=== PATIENT | female | born 1935 | race Caucasian/White ===

== ENCOUNTER 2019-09-13 12:13 | Outpatient (CLI) | payer MEDICARE, SELFPAY ==
--- NOTE | ~2019-09-13 | XR_ITS ---
XR cervical spine 4-5V DATE: 09/13/2019 12:45 INDICATION: Neck pain TECHNIQUE: AP, lateral, swimmer's, open-mouth COMPARISON: None FINDINGS: Osteopenia. There is straightening of the cervical spine. C1 and C2 are normally aligned and the odontoid process is intact. No fracture or dislocation or lock ed facet or prevertebral soft tissue swelling. There is mild anterolisthesis and mild degenerative disc disease at C3-4. There is moderately severe degenerative disc disease at C4-5 There is severe degenerative disease at C5-6 and C6-7, with prominent anterior and posterior spurring . There is prominent uncovertebral joint spurring in the mid and lower cervical spine and degenerative change of the apophyseal joints throughout the cervical spine. IMPRESSION: Straightening Extensive degenerative changes Osteopenia. Reviewed, dictated and finalized at location B. TIZER
== END 2019-09-13 12:14 | disposition home or self-care (01) ==
LOC: ANHIMG 12:22
DX: M54.2 Cervicalgia (principal); M85.88 Other specified disorders of bone density and structure, other site
CPT/HCPCS: 72050

== ENCOUNTER 2021-07-05 10:01 | Outpatient (CLI) | payer MEDICARE, SELFPAY ==
--- NOTE | ~2021-07-05 | XR_ITS ---
EXAMINATION: XR ankle LT min 3V DATE: 07/05/2021 10:30 INDICATION: Left ankle pain. TECHNIQUE: 3 views of left ankle with weightbearing were obtained. COMPARISON: Left ankle radiographs 08/23/2018 FINDINGS: Pes planus is noted. There is chronic inversion of the ankle joint. No fracture. There is s evere osteoarthritis of tibiotalar joint and subtalar joint and mild to moderate osteoarthritis of so me of the midfoot joints. IMPRESSION: 1. Polyarticular osteoarthritis. 2. Pes planus. Reviewed, dictated and finalized at location A. MP CLEANER
--- NOTE | ~2021-07-05 | XR_ITS ---
EXAMINATION: XR ankle RT min 3V DATE: 07/05/2021 10:30 INDICATION: Right ankle pain. TECHNIQUE: 3 views of right ankle weightbearing were obtained. COMPARISON: None. FINDINGS: Bone alignment is normal. There is flattening of talar dome. There is heterotopic ossificat ion lateral to lateral malleolus. There is moderate osteoarthritis of ankle joint and severe osteoart hritis of subtalar joint. Ankle soft tissue swelling is noted. IMPRESSION: 1. Flattening of the talar dome, which may be an old fracture deformity or osteonecrosis. 2. Polyarticular osteoarthritis. Reviewed, dictated and finalized at location A. E PRESS OPERATOR IMPRESSION: 1. Flattening of the talar dome, which may be an old fracture deformity or oste onecrosis. 2. Polyarticular osteoarthritis.
== END 2021-07-05 10:02 | disposition home or self-care (01) ==
PROVIDERS: PCP Hospitalist; Visit Provider Podiatrist Foot & Ankle Surgery
DX: M25.571 Pain in right ankle and joints of right foot (principal); M25.572 Pain in left ankle and joints of left foot; M19.072 Primary osteoarthritis, left ankle and foot; M19.071 Primary osteoarthritis, right ankle and foot; M21.42 Flat foot [pes planus] (acquired), left foot
CPT/HCPCS: 73610

== ENCOUNTER 2022-10-19 08:36 | Outpatient (CLI) | payer MEDICARE, SELFPAY ==
--- NOTE | ~2022-10-19 | MM_ITS ---
EXAMINATION: MM screening kylie BI w skylar HISTORY: Screening mammogram TECHNIQUE: Craniocaudal and mediolateral oblique 3-D tomosynthesis images were obtained and synthetic 2-D images were generated. CAD analysis was submitted and interpreted. COMPARISON: No prior mammogram is available for comparison at this institution. BREAST PARENCHYMAL COMPOSITION: The breasts are heterogeneously dense, which may obscure small masses . FINDINGS: There is no evidence of suspicious mass, calcification, or architectural distortion to sugg est malignancy in either breast. There has been no suspicious interval change. IMPRESSION: 1. No mammographic evidence of malignancy. 2. Recommend routine screening mammography in one year. BI-RADS Category 1: Negative Reviewed, dictated and finalized at location B.
== END 2022-10-19 08:37 | disposition home or self-care (01) ==
LOC: ANHIMG 08:43
PROVIDERS: PCP Hospitalist
DX: Z12.31 Encounter for screening mammogram for malignant neoplasm of breast (principal)
CPT/HCPCS: 77063; 77067

== ENCOUNTER 2023-12-11 11:57 | Observation (INO) | payer MEDICARE, SELFPAY ==
[2023-12-11] VITALS (22 sets, daily range): BP systolic 98–152; BP diastolic 72–110; PULSE 87–163; RESP 16–23; TEMP 36.3–36.6; O2SAT 93–98; BMI 29.8
--- NOTE | ~2023-12-11 | XR_ITS ---
EXAMINATION: XR chest 2V DATE: 12/11/2023 12:33 INDICATION: Palpitations. TECHNIQUE: Frontal and lateral views of the chest were obtained. COMPARISON: None. FINDINGS: There are airspace opacities in right lower lung zone. No pleural effusion or pneumothorax. The heart size is normal. Surgical clips in the right upper quadrant are likely from cholecystectomy . IMPRESSION: 1. Airspace opacities in right lower lung zone, consistent with atelectasis versus pneumonia. Reviewed, dictated and finalized at location A. IMPRESSION: 1. Airspace opacities in right lower lung zone, consistent with atelectasis arvin nkechi pneumonia.
--- NOTE | 2023-12-11 12:11 | ECG_ITS ---
SEE SCANNED COPY FOR CONFIRMED REPORT MTDD
[2023-12-11 12:52] LABS: Basophils Absolute Auto 0.1 K/mm3 (0.0-0.1); Basophils Percent Auto 0.5 % (0.2-1.2); Eosinophils Absolute Auto 0.1 K/mm3 (0-0.3); Eosinophils Percent Auto 1.5 % (0-4.4); Hematocrit 44.2 % (37.0-47.0); Immature Granulocyte Absolute 0.04 K/mm3 (0.00-0.031); Immature Granulocyte Percent A 0.4 % (0-0.5); Lymphocytes Absolute Auto 2.18 K/mm3 (0.9-3.2); Lymphocytes Percent Auto 22.9 % (18.3-44.2); Mean Corpuscular HGB Conc 31.7 g/dl (32-36); Mean Corpuscular Hemoglobin 30.7 pg (26-34); Mean Corpuscular Volume 96.9 fl (80-100); Mean Platelet Volume 11.7 fl (7.4-10.4); Monocytes Absolute Auto 0.9 K/mm3 (0.1-0.6); Monocytes Percent Auto 9.6 % (2.6-8.5); Neutrophils Absolute Auto 6.2 K/mm3 (1.3-6.7); Neutrophils Percent Auto 65.1 % (45.5-73.1); Platelet Count Result 271 k/mm3 (150-375); Red Blood Count 4.56 M/mm3 (4.2-5.4); Red Cell Distribution Width 13.6 % (11.5-14.5); White Blood Count 9.5 K/mm3 (4.5-10.0)
[2023-12-11] MEDS: ASPIRIN 81 MG CHEWABLE TABLET 324 MG PO (13:09)
[2023-12-11 13:12] LABS: INR 0.9; Prothrombin Time 12.2 Seconds (11.1-14.7)
[2023-12-11 13:13] LABS: Partial Thromboplastin Time 24.3 Seconds (22.3-36.8)
[2023-12-11 13:25] LABS: Alanine Aminotransferase 24 U/L (6-35); Albumin Level 4.3 g/dL (3.5-5.1); Alkaline Phosphatase 75 U/L (38-126); Anion Gap 5 mmol/L (4-12); Aspartate Amino Transferase 27 U/L (14-36); Bilirubin,Total 0.8 mg/dL (0.2-1.3); Blood Urea Nitrogen 27 mg/dL (7-17); Calcium 9.3 mg/dL (8.4-10.2); Carbon Dioxide 27 mmol/L (22-30); Chloride 104 mmol/L (98-107); Estimated CRCL calculation 41 ml/min; Estimated Glomerular Filt Rate 59; Glucose 105 mg/dL (65-110); Lipase 69 U/L (23-300); Potassium 4.4 mmol/L (3.4-5.0); Sodium 136 mmol/L (137-145)
[2023-12-11 13:43] LABS: Troponin I < 0.012 ng/mL (0.000-0.034)
[2023-12-11] MEDS: dilTIAZem HCl INJ 25 MG/5 ML VIAL 10 MG IV PUSH ×2 (13:52→14:36)
[2023-12-11] MEDS: dilTIAZem 100 MG/100 ML 100 MG/100 ML BAG IV CONT (13:53)
--- NOTE | 2023-12-11 14:00 | ED.ARRPALP ---
HPI - Arrhythmia/Palpitations General Chief Complaint: Arrhythmia/Palpitations Stated Complaint: fast heart rate Time Seen by Provider: 12/11/23 13:17 History of Present Illness HPI narrative: 88-year-old female with no prior history of atrial fibrillation presented to the emergency department for evaluation for rapid heart rate over the last few days. Patient states that she has had no lightheaded dizziness chest pain or shortness of breath but has noticed a rapid heart rate. Patient has no prior history of coronary artery disease has no prior history of AFib with RVR. Related Data Home Medications Medication Instructions Recorded Confirmed amlodipine 5 mg tablet 5 mg PO DAILY 12/11/23 12/11/23 aspirin 81 mg tablet 81 mg PO HS 12/11/23 12/11/23 cholecalciferol (vitamin D3) 25 1,500 unit PO WEEKLY 12/11/23 12/11/23 mcg (1,000 unit) tablet (Vitamin D3) cranberry 400 mg capsule 400 mg PO DAILY 12/11/23 12/11/23 famotidine 20 mg tablet 20 mg PO HS 12/11/23 12/11/23 hydrochlorothiazide 25 mg tablet 25 mg PO DAILY 12/11/23 12/11/23 mag citrate-potassium citrate 400 mg PO DAILY 12/11/23 12/11/23 potassium chloride 10 mEq 20 meq PO DAILY 12/11/23 12/11/23 tablet,extended release rosuvastatin 5 mg tablet 5 mg PO HS 12/11/23 12/11/23 triamcinolone acetonide 0.1 % applic topical 12/11/23 topical cream turmeric 400 mg capsule 400 mg PO DAILY 12/11/23 12/11/23 Allergies Allergy/AdvReac Type Severity Reaction Status Date / Time cephalexin Allergy Rash Verified 12/11/23 16:11 clindamycin Allergy Rash Verified 12/11/23 16:11 Review of Systems Review of Systems: All systems reviewed & are unremarkable except as noted in HPI and below PMFSH Past Medical History Medical History (Updated 12/11/23 @ 16:24 by Leigh Ann Milton PA-C) Dyslipidemia Hypertension Kidney stones Osteoarthritis Shingles Skin cancer Surgical History Surgical History (Updated 12/11/23 @ 16:10 by Leigh Ann Milton PA-C) History of cataract extraction History of cholecystectomy History of hysterectomy Social History Social History (Updated 12/11/23 @ 16:10 by Leigh Ann Milton PA-C) Social History: Surrogate medical decision maker: Jose Atkins, spouse. Code status: Full code. Years smoked: 25 Smoking status: Former smoker Tobacco type: cigarettes Second hand tobacco smoke exposure: Yes Alcohol intake: current Drinks per week: 3 Substance use: never Substance use type: does not use Do You Feel Safe in your Home?: Yes Lack of Transportation: No Lack of Food: Never True Current Housing: I Have Housing Concerned About Future Housing: No Difficulty Paying Gas/Electric Bills: No Difficulty Paying for Meds: No Currently Unemployed: No Education: High School Diploma/GED Difficulty w/ Childcare or Family Care: No Spiritual care concerns: No (anabaptist) Exam Narrative: APPEARANCE: Well appearing, no pain, no distress, well-nourished. HEAD: normocephalic, atraumatic. EYES: PERRLA/EOMI, conjunctivae clear. NOSE: Normal no drainage EARS:TMS clear with good light reflex. THROAT: Pharynx clear, no exudate. NECK: Supple. No adenopathy, no masses. RESPIRATORY: Airway patent, respirations nonlabored. Clear to auscultation bilaterally, no rales, rhonchi, wheezing. CARDIOVASCULAR: AFib with RVR ABDOMINAL: Soft, nontender, nondistended, normal bowel sounds MUSCULOSKELETAL: Moves all extremities. Strength/ROM intact, No edema, No calf tenderness. NEURO: Alert. Cranial nerves II through XII intact. Grossly intact Course Vital Signs Vital signs: Vital Signs Temperature 97.3 F L 12/11/23 12:08 Pulse Rate 163 H 12/11/23 12:08 Respiratory Rate 16 12/11/23 12:08 Blood Pressure 141/89 H 12/11/23 12:08 Pulse Oximetry 98 12/11/23 12:08 Oxygen Delivery Room Air 12/11/23 12:08 Temperature 97.4 F L 12/11/23 16:15 Pulse Rate 156 H 12/11/23 17:18 Respiratory Rate 1
[2023-12-11 14:17] LABS: Magnesium 2.1 mg/dL (1.6-2.3)
--- NOTE | 2023-12-11 16:08 | PM.IMHP ---
H&P: HPI History of Present Illness Date/Time: 12/11/23 17:45 Chief Complaint: Palpitations and rapid heart rate. Narrative: This is a very pleasant 88-year-old female with history of hypertension, dyslipidemia, gastroesophageal reflux disease, kidney stones, and osteoarthritis who presented to the emergency department for evaluation of palpitations and rapid heart rate. The patient provides the following history. The last several days she has noticed that her heart rate has been in the 140s when she has been checking her blood pressure. She feels her heart rate going fast and it feels irregular. To her knowledge she has no history of atrial fibrillation however she tells me that a visiting nurse with her insurance company told her several weeks ago that she was in the regular heart rhythm. 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 She thinks the stress of all of this may be the cause of her rapid heart rate. She is otherwise feeling okay and she denies lightheadedness, dizziness, syncope, near syncope, chest pain, pleuritic pain, orthopnea, paroxysmal nocturnal dyspnea, and edema. She has no known history of dysrhythmia, obstructive sleep apnea, coronary disease, or thyroid disease. No significant alcohol or caffeine use. She denies illicit substance use. In the ED: She was in rapid atrial fibrillation on arrival with a rate of 163. Blood pressures have been in the 130s to 140s systolic. Labs were significant for a WBC count of 9.5, hemoglobin 14.0, sodium 136, potassium 4.4, BUN 27, creatinine 0.90, calcium 9.3, magnesium 2.1, troponin less than 0.012. Chest x-ray was read as having airspace opacities the right lower lung zone consistent with atelectasis versus pneumonia. EKG showed rapid atrial fibrillation. She received a 20 mg IV Cardizem bolus and has been started on a Cardizem drip and she is being admitted in this setting for further treatment and evaluation. Review of Systems Review of Systems: 12 systems were reviewed and are negative except for as per HPI. [facility] Past Medical History Medical History Dyslipidemia Hypertension Kidney stones Osteoarthritis Shingles Skin cancer Surgical History Surgical History History of cataract extraction History of cholecystectomy History of hysterectomy Social History Social History Social History: Surrogate medical decision maker: Jose Atkins, spouse. Code status: Full code. Years smoked: 25 Smoking status: Former smoker Tobacco type: cigarettes Second hand tobacco smoke exposure: Yes Alcohol intake: current Drinks per week: 3 Substance use: never Substance use type: does not use Do You Feel Safe in your Home?: Yes Lack of Transportation: No Lack of Food: Never True Current Housing: I Have Housing Concerned About Future Housing: No Difficulty Paying Gas/Electric Bills: No Difficulty Paying for Meds: No Currently Unemployed: No Education: High School Diploma/GED Difficulty w/ Childcare or Family Care: No Spiritual care concerns: No (samaritan) Meds Home Medications and Allergies Home Medications Medication Instructions Recorded Confirmed Type amlodipine 5 mg tablet 5 mg PO DAILY 12/11/23 12/11/23 History aspirin 81 mg tablet 81 mg PO HS 12/11/23 12/11/23 History cholecalciferol (vitamin D3) 25 1,500 unit PO WEEKLY 12/11/23 12/11/23 History mcg (1,000 unit) tablet (Vitamin D3) cranberry 400 mg capsule 400 mg PO DAILY 12/11/23 12/11/23 History famotidine 20 mg tablet 20 mg PO HS 12/11/23 12/11/23 History hydrochlorothiazide 25 mg tablet 25 mg PO DAILY 12/11/23 12/11/23 History mag citrate-potassium citrate 400 mg PO DAILY 12/11/23
[2023-12-11 16:27] LABS: Troponin I < 0.012 ng/mL (0.000-0.034)
--- NOTE | 2023-12-11 16:31 | ADMGEN ---
This patient, Kelly Bar, was admitted to IMU Room 202-01. Patient/family oriented to hospital policies and general routines including ID bracelet, bed and alarms, visiting hours, pain management, procedures, bathroom and other care routines, personal items, smoking policy, room service/diet, and visiting hours. Information on how to activate the Rapid Response Team has been discussed. Patient/Family are encouraged to report perceived risks to care and to ask questions if they do not understand what they are told or what they should do.
--- NOTE | 2023-12-11 16:37 | ADMGEN ---
This patient, Kelly Bar, was admitted to IMU Room 202-01. Patient/family oriented to hospital policies and general routines including ID bracelet, bed and alarms, visiting hours, pain management, procedures, bathroom and other care routines, personal items, smoking policy, room service/diet, and visiting hours. Information on how to activate the Rapid Response Team has been discussed. Patient/Family are encouraged to report perceived risks to care and to ask questions if they do not understand what they are told or what they should do. Pt in AFib w RVR. Asymptomatic. WILEY Beltrán notified pt is still in RVR. She is coming to the unit to see pt
[2023-12-11] MEDS: METOPROLOL TARTRATE INJ 5 MG/5 ML VIAL IV PUSH (17:18)
[2023-12-11 18:57] LABS: Troponin I < 0.012 ng/mL (0.000-0.034)
[2023-12-11] MEDS: METOPROLOL TARTRATE 50 MG TAB PO (21:37)
[2023-12-11] MEDS: dilTIAZem 100 MG/100 ML 100 MG/100 ML BAG 10 MG IV CONT (21:38)
[2023-12-11] MEDS: ASPIRIN 81 MG CHEWABLE TABLET PO (23:00)
[2023-12-11] MEDS: FAMOTIDINE 20 MG TABLET PO (23:00)
[2023-12-11] MEDS: ROSUVASTATIN 5 MG TABLET PO (23:00)
[2023-12-12] VITALS (20 sets, daily range): BP systolic 98–127; BP diastolic 58–95; PULSE 82–140; RESP 19–21; TEMP 36.3–36.6; O2SAT 94–97
--- NOTE | 2023-12-12 | ECHO_ITS ---
Patient Info Name: Kelly Bar Age: 88 years : 1935 Gender: Female Ht: 65 in Wt: 179 lbs BSA: 1.95 m2 HR: 106 bpm BP: 116 / 90 mmHg Heart Rhythm: Atrial Fibrillation Technical Quality: Fair Exam Date: 12/12/2023 9:24 AM Exam Location: Echo Lab Patient Status: Inpatient Admit Date: 12/11/2023 Staff Ordering Physician: Leigh Ann Milton PA-C Supervisor Insecticide: Rogelio Burr RDCS Attending Provider: Candy Guaman MD Referring Physician: Yoan NINO; Exam Type: CA echo doppler color flow Study Info Indications I48.1 - Persistent atrial fibrillation Complete two-dimensional, color flow and Doppler transthoracic echocardiogram is performed. Summary 1. Left ventricular chamber dimension is normal. 2. Left ventricular systolic function is lower limits of normal, estimated at 50-55%. 3. Right ventricular systolic function is normal. 4. Left atrial chamber dimension is moderately enlarged. 5. Right atrial chamber dimension is severely enlarged. 6. There is mild mitral valve regurgitation. 7. There is moderate tricuspid valve regurgitation. Left Ventricle Left ventricular chamber dimension is normal. Left ventricular systolic function is lower limits of normal, estimated at 50-55%. There is no increased left ventricular wall thickness. Right Ventricle Right ventricular chamber dimension is normal. Right ventricular systolic function is normal. Left Atria Left atrial chamber dimension is moderately enlarged. Right Atria Right atrial chamber dimension is severely enlarged. Atrial Septum Intact interatrial septum visualized by color flow imaging. Aortic Valve The aortic valve is trileaflet. There is no aortic valve stenosis. There is no aortic valve regurgitation. Pulmonic Valve The pulmonic valve is not well visualized. There is trace pulmonic regurgitation. Mitral Valve There is mild mitral valve regurgitation. Tricuspid Valve There is moderate tricuspid valve regurgitation. Pericardium/Pleural The pericardium appears epicardial fat pad. There is no pericardial effusion. Inferior Vena Cava Normal inferior vena cava with >50% collapse upon inspiration consistent with normal right atrial pressure, 3 mmHg. Aorta The aortic root size at the sinus of Valsalva is normal. Left Ventricular Outflow Tract Name Value Normal LVOT 2D LVOT Diameter 1.9 cm LVOT Doppler LVOT Peak Gradient 1 mmHg LVOT Mean Gradient 1 mmHg LVOT VTI 9 cm LVOT VTI/AV VTI Ratio 0.7 LVOT Stroke Volume 28 ml LVOT CO 2.1 l/min LVOT CI 1.1 l/min/m2 Pulmonic Valve Name Value Normal RVOT Doppler RVOT Peak Gradient 1 mmHg PV Doppler
[2023-12-12] MEDS: ACETAMINOPHEN 325 MG TABLET 650 MG PO (02:56)
[2023-12-12 04:49] LABS: Hematocrit 39.6 % (37.0-47.0); Hemoglobin 12.6 g/dL (12.0-15.0); Mean Corpuscular HGB Conc 31.8 g/dl (32-36); Mean Corpuscular Hemoglobin 30.8 pg (26-34); Mean Corpuscular Volume 96.8 fl (80-100); Mean Platelet Volume 11.6 fl (7.4-10.4); Platelet Count Result 221 k/mm3 (150-375); Red Blood Count 4.09 M/mm3 (4.2-5.4); Red Cell Distribution Width 13.5 % (11.5-14.5); White Blood Count 7.8 K/mm3 (4.5-10.0)
[2023-12-12 05:06] LABS: Anion Gap 3 mmol/L (4-12); Blood Urea Nitrogen 20 mg/dL (7-17); Calcium 8.7 mg/dL (8.4-10.2); Carbon Dioxide 28 mmol/L (22-30); Chloride 107 mmol/L (98-107); Estimated CRCL calculation 47 ml/min; Estimated Glomerular Filt Rate > 60; Glucose 101 mg/dL (65-110); Magnesium 1.9 mg/dL (1.6-2.3); Potassium 3.6 mmol/L (3.4-5.0); Sodium 138 mmol/L (137-145)
[2023-12-12] MEDS: ENOXAPARIN 80 MG/0.8 ML SYRINGE SUB-Q (05:11)
--- NOTE | 2023-12-12 08:02 | PM.IMPN ---
Progress Note: A&P Assessment and Plan (1) Atrial fibrillation with rapid ventricular response: Code(s): I48.91 - Unspecified atrial fibrillation Status: Acute Assessment and Plan: AFib with RVR on arrival with rate in the 160s -initially was bolused with Cardizem and started on a Cardizem drip -She was started on p.o. metoprolol tartrate 50 mg b.i.d. -chads Vasc 4. Started on Eliquis. -cardiology has been consulted, recs appreciated -on telemetry -echo completed, pending read -TSH normal at 1.070 (2) Hypertension: Code(s): I10 - Essential (primary) hypertension Status: Acute Assessment and Plan: Takes amlodipine 5 mg and hydrochlorothiazide 25 mg daily -blood pressures reviewed and arranging 98 to 150s/90s to 70s -home agents are currently on hold -started on metoprolol 50 mg b.i.d. -cardiology increased metoprolol to 75 mg BID (3) Dyslipidemia: Code(s): E78.5 - Hyperlipidemia, unspecified Status: Acute Assessment and Plan: On Crestor 5 mg daily and aspirin Plan Feeding: Heart healthy diet Analgesia: Tylenol Thromboembolic prophylaxis: Lovenox Ulcer prophylaxis: Pepcid Glycemic control: None indicated Bowel regimen: None indicated Antibiotics: None indicated Disposition: Home when medically ready. Care coordination to assist with initiation of Eliquis Subjective Date/time seen: 12/12/23 08:02 Interval history: 88-year-old female with history of hypertension, dyslipidemia, gastroesophageal reflux disease, kidney stones, and osteoarthritis who presented to the emergency department for evaluation of palpitations and rapid heart rate. 12/11: Mrs Bar was seen today up in the chair in no acute distress. She is tolerating the increase in her metoprolol. She was started on Eliquis. I spoke with her today regarding bleeding side effects associated with Eliquis and symptoms to monitor for. She has no complaints today and she is no longer experience heart flutter. Review of Systems Review of Systems: 12 systems were reviewed and are negative except for as per HPI. All systems reviewed & are unremarkable except as noted in HPI and below Exam Narrative: General: well appearing, appears stated age. HEENT: normocephalic, atraumatic. Mucous membranes moist. EOMI, PERRLA, bilateral sclera anicteric, no conjunctival injection. Neck supple without JVD, lymphadenopathy, or bruit. Respiratory: clear to auscultation bilaterally. No rales/rhonic/wheezes. Cardiovascular: irregular rhythm and rate 120's, normal S1-S2 upon auscultation. No murmurs, rubs, or clicks. PMI is nondisplaced, capillary refill less than 3 second. Abdomen: Soft, round, no pulsatile masses, nondistended and nontender. No rebound, no guarding. No CVA tenderness, no hepatosplenomegaly. Bowel sounds present to all four quadrants. No high pitch or tinkling sounds, resonant to percussion. Extremities: No cyanosis, clubbing, or edema present. Pulses are palpable 2/2. Active ROM to all four extremities. Neuro: Alert and orientated x 4. PERRLA. Cranial nerves 2-12 intact without focal deficit. Skin: Warm, dry, and intact, without rash, erythema, or lesion. Lines: Incisions: Psych: pleasant, cooperative, normal speech, normal affect, no hallucinations, no dysarthria Objective Data Vital Signs Vital Signs: Vital Signs - 24 hr 12/11/23 12:08 12/11/23 13:53 12/11/23 12:34 Temperature 97.3 F L Pulse Rate 163 H 152 H 158 H Respiratory Rate 16 21 H Blood Pressure 141/89 H 149/96 H 144/110 H Pulse Oximetry 98 95 Oxygen Delivery Room Air 12/11/23 12:38 12/11/23 13:01 12/11/23 14:27 Temperature Pulse Rate 153 H 152 H 158 H Respiratory Rate 23 H 19 Blood Pressure 133/88 139/103 H 120/92 H Pulse Oximetry 95 94 Oxygen Delivery 12/11/23 15:21 12/11/23 14:31 12/11/23 15:31 Temperature 97.9 F Pulse Rate 160 H 153 H 159 H Respiratory Rate 18 19 Blood Pressure 1
[2023-12-12] MEDS: POTASSIUM CHLORIDE 20 MEQ ER TABLET PO (08:42)
[2023-12-12] MEDS: METOPROLOL TARTRATE 50 MG TAB PO (08:42)
--- NOTE | 2023-12-12 11:45 | PM.CNCAR ---
Assessment and Plan Assessment and plan (1) Atrial fibrillation with rapid ventricular response: Code(s): I48.91 - Unspecified atrial fibrillation Status: Acute Assessment and Plan: New diagnosis for the patient. Discussed diagnosis of atrial fibrillation with the patient, including next management steps. TSH level is normal. Echocardiogram pending. Will proceed with rate control for now. Agree with PO Metoprolol. Will increase her Metoprolol to 75mg BID to optimize her rate. [id number] is 4 for age, sex, hypertension. Discussed indication for anticoagulation to reduce stroke risk, and the benefits vs risks of anticoagulation. Patient is agreeable to start anticoagulation. Will stop therapeutic Lovenox and start Eliquis. Hopefully discharge tomorrow. Will arrange close outpatient follow up in our office. Patient would like to see Dr. Walter as her sees him and it would make it easier to do visits. If patient has symptomatic AFIB, can consider outpatient elective cardioversion after patient has been anticoagulated for at least 4 weeks. (2) Hypertension: Code(s): I10 - Essential (primary) hypertension Status: Acute Assessment and Plan: Stable, continue home antihypertensives. (3) Dyslipidemia: Code(s): E78.5 - Hyperlipidemia, unspecified Status: Acute Assessment and Plan: Continue statin. Plan Recommendations and plan discussed with Hospitalist. History of Present Illness History of Present Illness Consult date/time: 12/12/23 11:45 Requesting physician: Leigh Ann Milton PA-C Consult reason: atrial fibrillation Reason For Visit: Afib With RVR Narrative: We are consulted for atrial fibrillation with RVR. This is a very pleasant 88 year old female with hypertension, hyperlipidemia, GERD, kidney stones, osteoarthritis who presented to the ER for palpitations. Patient has been feeling palpitations and rapid heart beat for the past 2-3 days. No prior cardiac history. She did have a nurse come to her house about 2 weeks ago and was told that she had an irregular heart rhythm then. Patient is quite an active lady and stays busy, hasn't really noticed palpitations other than the past few days. In the ER, she was found to be in atrial fibrillation with RVR. Started on Diltiazem drip, which has since been turned off and is now on PO Metoprolol. Review of Systems Review of Systems: All systems reviewed & are unremarkable except as noted in HPI and below (HPI) [facility] Past Medical History Medical History Dyslipidemia Hypertension Kidney stones Osteoarthritis Shingles Skin cancer Surgical History Surgical History History of cataract extraction History of cholecystectomy History of hysterectomy Social History Social History Social History: Surrogate medical decision maker: Jose Cumminsntyre, spouse. Code status: Full code. Years smoked: 25 Smoking status: Former smoker Tobacco type: cigarettes Second hand tobacco smoke exposure: Yes Alcohol intake: current Drinks per week: 3 Substance use: never Substance use type: does not use Do You Feel Safe in your Home?: Yes Lack of Transportation: No Lack of Food: Never True Current Housing: I Have Housing Concerned About Future Housing: No Difficulty Paying Gas/Electric Bills: No Difficulty Paying for Meds: No Currently Unemployed: No Education: High School Diploma/GED Difficulty w/ Childcare or Family Care: No Spiritual care concerns: No (islam) Meds Home Medications and Allergies Home Medications Medication Instructions Recorded Confirmed Type amlodipine 5 mg tablet 5 mg PO DAILY 12/11/23 12/11/23 History aspirin 81 mg tablet 81 mg PO HS 12/11/23 12/11/23 History cholecalciferol (vitamin D3) 25 1,500 u
[2023-12-12] MEDS: METOPROLOL TARTRATE 25 MG TABLET 75 MG PO (21:26)
[2023-12-12] MEDS: ASPIRIN 81 MG CHEWABLE TABLET PO (21:26)
[2023-12-12] MEDS: ROSUVASTATIN 5 MG TABLET PO (21:26)
[2023-12-12] MEDS: APIXABAN 5 MG TABLET PO (21:27)
[2023-12-12] MEDS: FAMOTIDINE 20 MG TABLET PO (21:27)
[2023-12-13] VITALS (13 sets, daily range): BP systolic 98–108; BP diastolic 66–77; PULSE 81–117; RESP 17–19; TEMP 36.4–36.8; O2SAT 93–98
[2023-12-13 04:55] LABS: Alanine Aminotransferase 32 U/L (6-35); Albumin Level 3.2 g/dL (3.5-5.1); Alkaline Phosphatase 57 U/L (38-126); Anion Gap 4 mmol/L (4-12); Aspartate Amino Transferase 27 U/L (14-36); Bilirubin,Total 0.6 mg/dL (0.2-1.3); Blood Urea Nitrogen 24 mg/dL (7-17); Calcium 8.4 mg/dL (8.4-10.2); Carbon Dioxide 26 mmol/L (22-30); Chloride 107 mmol/L (98-107); Estimated CRCL calculation 47 ml/min; Estimated Glomerular Filt Rate > 60; Glucose 95 mg/dL (65-110); Magnesium 1.9 mg/dL (1.6-2.3); Potassium 3.5 mmol/L (3.4-5.0); Sodium 137 mmol/L (137-145)
[2023-12-13] MEDS: POTASSIUM CHLORIDE 20 MEQ ER TABLET PO (08:44)
[2023-12-13] MEDS: METOPROLOL TARTRATE 25 MG TABLET 75 MG PO (08:44)
[2023-12-13] MEDS: APIXABAN 5 MG TABLET PO (08:45)
[2023-12-13] MEDS: METOPROLOL TARTRATE 25 MG TABLET PO (10:48)
--- NOTE | 2023-12-13 10:58 | PM.PNCARD ---
Progress Note: A&P Assessment and Plan (1) Atrial fibrillation with rapid ventricular response: Code(s): I48.91 - Unspecified atrial fibrillation Status: Acute Assessment and Plan: New diagnosis for the patient. Discussed diagnosis of atrial fibrillation with the patient, including next management steps. TSH level is normal. Echocardiogram with LVEF 50-55%, severe enlargement of right atrium, moderate enlargement of left atrium, mild MR, moderate TR. Will proceed with rate control for now. Agree with PO Metoprolol. Increased her Metoprolol to 100mg BID to optimize her rate. [id number] is 4 for age, sex, hypertension. Discussed indication for anticoagulation to reduce stroke risk, and the benefits vs risks of anticoagulation. Patient is agreeable to start anticoagulation. Started on Eliquis. Okay to discharge today. Will arrange close outpatient follow up in our office. Patient would like to see Dr. Walter as her sees him and it would make it easier to do visits. If patient has symptomatic AFIB, can consider outpatient elective cardioversion after patient has been anticoagulated for at least 4 weeks. (2) Hypertension: Code(s): I10 - Essential (primary) hypertension Status: Acute Assessment and Plan: Stable. Would not resume home HCTZ on discharge to avoid hypotension as patient is now on Metoprolol. (3) Dyslipidemia: Code(s): E78.5 - Hyperlipidemia, unspecified Status: Acute Assessment and Plan: Continue statin. Subjective Date/time seen: 12/13/23 10:58 Interval history: Reason for visit: Atrial fibrillation with RVR HPI: We are consulted for atrial fibrillation with RVR. This is a very pleasant 88 year old female with hypertension, hyperlipidemia, GERD, kidney stones, osteoarthritis who presented to the ER for palpitations. Patient has been feeling palpitations and rapid heart beat for the past 2-3 days. No prior cardiac history. She did have a nurse come to her house about 2 weeks ago and was told that she had an irregular heart rhythm then. Patient is quite an active lady and stays busy, hasn't really noticed palpitations other than the past few days. In the ER, she was found to be in atrial fibrillation with RVR. Started on Diltiazem drip, which has since been turned off and is now on PO Metoprolol. Date of service 12/12: Rates were elevated to 120s yesterday evening, but better now. Overall in general the rates are acceptable. Patient is anxious to get home. Patient is asymptomatic in regards to her AFIB. Review of Systems Review of Systems: All systems reviewed & are unremarkable except as noted in HPI and below (HPI) Exam Const: General: comfortable and no acute distress HENMT: Mouth: Yes moist mucous membranes Eyes: General: appearance normal, both eyes and all related structures Sclera: sclerae normal Resp: Effort & Inspection: normal respiratory effort Cardio: Rhythm: abnormal rhythm irregularly irregular Skin: General skin exam: normal color Neuro: Speech: normal speech Psych: Mental Status: mental status grossly normal Affect: normal affect Objective Data Vital Signs Vital Signs: Vital Signs - 24 hr 12/12/23 11:15 12/12/23 12:00 12/12/23 12:00 Temperature 36.3 C L Pulse Rate 113 H 125 H 125 H Respiratory Rate 20 Blood Pressure 105/58 L Pulse Oximetry 97 Oxygen Delivery Room Air 12/12/23 14:00 12/12/23 16:37 12/12/23 16:00 Temperature 36.3 C L Pulse Rate 98 82 118 H Respiratory Rate 20 Blood Pressure 105/69 Pulse Oximetry 97 Oxygen Delivery Room Air 12/12/23 16:00 12/12/23 18:00 12/12/23 19:55 Temperature 36.6 C Pulse Rate 96 100 118 H Respiratory Rate 20 Blood Pressure 110/74 Pulse Oximetry 96 Oxygen Delivery 12/12/23 21:26 12/12/23 20:00 12/12/23 22:00 Temperature Pulse Rate 140 H 126 H 123 H Respiratory Rate Blood Pressure Pulse Oximetry Oxygen Delive
--- NOTE | 2023-12-13 12:20 | PM.DS ---
DS: Admitting Diagnosis Discharge Date 12/13/23 Admitting Diagnosis Palpitations and rapid heart rate DS: Discharge Diagnosis Discharge Diagnosis (1) Atrial fibrillation with rapid ventricular response: Code(s): I48.91 - Unspecified atrial fibrillation Status: Acute (2) Hypertension: Code(s): I10 - Essential (primary) hypertension Status: Acute (3) Dyslipidemia: Code(s): E78.5 - Hyperlipidemia, unspecified Status: Acute DS: Summary Hospital Course Reason for hospitalization: 88yo female with HTN and dyslipidemia here for evaluation of palpitations and rapid heart rate. Please see H&P for details Hospital Course: Patient noted to have rapid atrial fibrillation on arrival with a rate of 163. Blood pressures was in the 130s to 140s systolic. Labs were unrevealing. Toponin less than 0.012 x3. TSH normal. Chest x-ray with airspace opacities the right lower lung zone consistent with atelectasis versus pneumonia. EKG showed rapid atrial fibrillation. She received a 20 mg IV Cardizem and was started on a Cardizem drip. Cardiology consulted. Echocardiogram with LVEF 50-55%, severe enlargement of right atrium, moderate enlargement of left atrium, mild MR, moderate TR. Diltiazem changed to Metoprolol with dose increased to 100mg BID to optimize her rate. [id number] is 4 for age, sex, hypertension. Indication for anticoagulation to reduce stroke risk was discussed. The benefits vs risks of anticoagulation were also discussed in detail. Patient was agreeable and Eliquis started. She overall did well and was able to be discharged home on 12/13/23. Status at Discharge Cognitive/behavioral status at discharge: stable Time Spent with Patient Time attestation: Total time spent providing and/or coordinating discharge services: 34 minutes Time spent: Greater than 30 minutes Exam Narrative: AF 98.0 98/67 81 18 98% ra Gen - NARD Chest - CTA bilaterally, nml RR CV - irregularly irregular. Tele showing AFib with controlled rate Abd - Soft, NT/ND, Positive BS Ext - No pedal edema Psych - Nml mood and affect Skin - Warm and dry DS: Data Data Completed and Pending Labs on day of discharge: Labs from last 24 hours 12/13/23 04:00 Sodium 137 Potassium 3.5 Chloride 107 Carbon Dioxide 26 Anion Gap 4 BUN 24 H Creatinine 0.80 Estim Creat Clear Calc 47 Estimated GFR > 60 Glucose 95 Calcium 8.4 Magnesium 1.9 Total Bilirubin 0.6 AST 27 ALT 32 Alkaline Phosphatase 57 Total Protein 6.0 L Albumin 3.2 L Discharge Plan Discharge Attending physician on discharge: Chito Traylor Consulting providers: Siddharth Walter Discharging Clinician: Chito Traylor Anticipated Discharge Date/Time: 12/13/23 12:29 Patient Disposition: Home, Self-Care Activity: as tolerated Diet: heart healthy Discharge Instructions: Check blood pressure 1 to 2 times a day. Record and bring into your doctor for review. Call your doctor if your blood pressure is greater than 180/110 or less than 90/45. Take precautions to avoid falls. Rise slowly from a lying or sitting position. Pause before standing or walking. Contact your doctor or call 911 and come to the Emergency Room if you have any type of trauma, lightheadedness with standing or other worrisome symptoms. Avoid NSAIDs (ibuprofen, naproxen, Aleve). Tylenol is safe to take. Follow-up with your primary care provider in 1-2 weeks. Please call for appointment. Follow-up with Cardiology in 1-2 weeks. The office should call you to set up an appointment but please call them if you have not heard from them by next Monday (December 17). Thank you for using [facility] for your health care needs. Patient Instructions: Antibiotic Form Stand Alone Forms: General Discharge Information Follow-up/Referrals: Siddharth Walter MD [Physician] - Call for Appointment Dior,Shraddha Hardin MD [
--- NOTE | 2023-12-18 13:36 | PC.NURSE ---
Pt left message regarding her HCTZ being held at [place]. PT states has had 6 pound weight gain since held. Spoke to Dr. Traylor regarding this. States to have pt call PCP for order to restart HCTZ. Med was held at dc due to low blood pressure. Left message for pt regarding the above.
== END 2023-12-13 13:10 | disposition home or self-care (01) ==
LOC: ANHED 15:02 → ANHIMU 15:46
PROVIDERS: Nurse Practitioner Acute Care; Physician Assistant; Admitting Provider Family Medicine; Emergency Provider Emergency Medicine; PCP Family Medicine Sports Medicine; Visit Provider Family Medicine
DX: I48.91 Unspecified atrial fibrillation (principal); I10 Essential (primary) hypertension; E78.5 Hyperlipidemia, unspecified; K21.9 Gastro-esophageal reflux disease without esophagitis; Z87.891 Personal history of nicotine dependence; Z79.82 Long term (current) use of aspirin
CPT/HCPCS: 36415; 71046; 80048; 80053; 83690; 83735; 84443; 84484; 85025; 85027; 85610; 85730; 93005; 93306; 96365; 96366; 96372; 99285; A9270; G0378; J1650; J7030

== ENCOUNTER 2024-01-24 01:07 | Day surgery (SDC) | payer MEDICARE, SELFPAY ==
[2024-01-23 10:20] VITALS: BMI 29.2
[2024-01-24] VITALS (7 sets, daily range): BP systolic 114–151; BP diastolic 79–119; PULSE 60–116; RESP 18–27; TEMP 36.8; O2SAT 93–100
--- NOTE | 2024-01-24 07:00 | ECG_ITS ---
Test Date: 2024-01-24 07:27:22 Measurements Intervals [place] Rate: 118 P: 0 [place]: 0 QRS: 59 QRSD: 77 T: 120 QT: 240 QTc: 337 Interpretive Statements ATRIAL FIBRILLATION WITH RAPID VENTRICULAR RESPONSE LOW QRS VOLTAGE [QRS DEFLECTION < 0.5/1.0 mV IN LIMB/CHEST LEADS] NONSPECIFIC ST AND T WAVE ABNORMALITY No previous ECG available for comparison Electronically Signed On 01-24-2024 14:47:06 CDT by Rosi Erazo M.D.
--- NOTE | 2024-01-24 07:00 | ECG_ITS ---
Test Date: 2024-01-24 08:47:01 Measurements Intervals [place] Rate: 58 P: 81 [place]: 173 QRS: 1 QRSD: 86 T: 57 QT: 406 QTc: 399 Interpretive Statements SINUS BRADYCARDIA WITH SINUS ARRHYTHMIA LOW QRS VOLTAGE [QRS DEFLECTION < 0.5/1.0 mV IN LIMB/CHEST LEADS] NONSPECIFIC ST AND T WAVE ABNORMALITY Compared to ECG 01/24/2024 07:27:22 SINUS BRADYCARDIA NOW PRESENT Electronically Signed On 01-24-2024 14:48:21 CDT by Rosi Erazo M.D.
[2024-01-24 07:47] LABS: Anion Gap 10 mmol/L (4-12); Blood Urea Nitrogen 31 mg/dL (7-17); Calcium 9.5 mg/dL (8.4-10.2); Carbon Dioxide 28 mmol/L (22-30); Chloride 103 mmol/L (98-107); Estimated CRCL calculation 35 ml/min; Estimated Glomerular Filt Rate 47; Glucose 103 mg/dL (65-110); Magnesium 2.1 mg/dL (1.6-2.3); Sodium 141 mmol/L (137-145)
--- NOTE | 2024-01-24 08:49 | WPDHPUPDATE1 ---
History and Physical Update Update Date/Time: 01/24/24 08:49 History and Physical has been reviewed, including an updated exam of the patient. There are NO changes in the patient's condition. Risks, benefits, and alternatives have been discussed and questions answered. Patient agrees to proceed with procedure.
--- NOTE | 2024-01-24 08:49 | WPDMODSED ---
Moderate Sedation Note-Pt Data Patient Data Diagnosis: Atrial fibrillation Present Complaint: Atrial fibrillation Procedure to be performed/Plan: Synchronized electrical cardioversion Allergies Allergy/AdvReac Type Severity Reaction Status Date / Time cephalexin Allergy Rash Verified 01/24/24 07:22 clindamycin Allergy Rash Verified 01/24/24 07:22 alendronate sodium AdvReac Unknown Verified 01/24/24 07:22 [From Fosamax] atorvastatin AdvReac Muscle Pain Verified 01/24/24 07:22 losartan AdvReac Unknown Verified 01/24/24 07:22 pravastatin AdvReac Muscle Pain Verified 01/24/24 07:22 Home Medications Medication Instructions Recorded Confirmed Type aspirin 81 mg tablet 81 mg PO HS 12/11/23 01/23/24 History cholecalciferol (vitamin D3) 25 1,500 unit PO WEEKLY 12/11/23 01/23/24 History mcg (1,000 unit) tablet (Vitamin D3) cranberry 400 mg capsule 400 mg PO DAILY 12/11/23 01/23/24 History famotidine 20 mg tablet 20 mg PO HS 12/11/23 01/23/24 History rosuvastatin 5 mg tablet 5 mg PO HS 12/11/23 01/23/24 History apixaban 5 mg tablet (Eliquis) 5 mg PO Q12HR #120 tabs 12/12/23 01/23/24 Rx cyanocobalamin (vitamin B-12) 100 100 mcg PO DAILY 01/23/24 01/23/24 History mcg tablet fluticasone propionate 50 1 spray intranasal DAILY 01/23/24 01/23/24 History mcg/actuation nasal spray,suspension furosemide 20 mg tablet 20 mg PO DAILY 01/23/24 01/23/24 History metoprolol tartrate 100 mg tablet 150 mg PO Q12H 01/23/24 01/23/24 History potassium chloride 20 mEq 20 meq PO DAILY 01/23/24 01/23/24 History tablet,extended release Current Medications: Active Medications Sodium Chloride (Normal Saline Iv) 1,000 mls @ 30 mls/hr IV CONT .Q24H ILAN Sedation/Anesthesia: No previous sedation/anesthesia problems (including family history). [facility] Past Medical History Medical History Dyslipidemia Hypertension Kidney stones Osteoarthritis Shingles Skin cancer Surgical History Surgical History History of cataract extraction History of cholecystectomy History of hysterectomy Social History Social History Social History: Surrogate medical decision maker: Jose Atkins, spouse. Code status: Full code. Years smoked: 25 Smoking status: Former smoker Tobacco type: cigarettes Second hand tobacco smoke exposure: No Smoking end date: 08/07/73 Alcohol intake: never Drinks per week: 3 Substance use: never Substance use type: does not use Do You Feel Safe in your Home?: Yes Lack of Transportation: No Lack of Food: Never True Current Housing: I Have Housing Concerned About Future Housing: No Difficulty Paying Gas/Electric Bills: No Difficulty Paying for Meds: No Currently Unemployed: No Education: High School Diploma/GED Difficulty w/ Childcare or Family Care: No Living arrangements: with family Spiritual care concerns: No Mod Sed Physical Exam Physical Exam Pre Procedural Exam: Normal: Appearance, Lungs, Neuro Exam, Extremities and Skin and Variation: Heart Rate (Atrial fibrillation with RVR) and Heart Rhythm (Atrial fibrillation with RVR) Hours since solid foods: 12 Hours since liquid intake: 8 Mallampati Classification: class III Internal Medicine - PN: Obj Da Vital Signs Vital Signs: Vital Signs - 24 hr 01/24/24 07:30 01/24/24 08:41 01/24/24 08:46 Temperature 36.8 C Pulse Rate 115 H 116 H 72 Respiratory Rate 18 24 H 23 H Blood Pressure 151/119 H 148/102 H 117/91 H Pulse Oximetry 98 96 96 Oxygen Delivery Room Air Nasal Cannula Nasal Cannula Oxygen Flow Rate 2 4 Meds/Results Medications: Active Medications Generic Name Dose Route Start Last Admin Trade Name Freq PRN Reason Stop Dose Admin Sodium Chloride 1,000 mls @ 30 mls/hr 01/24/24 07:00 Normal Saline Iv IV CONT
--- NOTE | 2024-01-24 08:50 | WPDCARDVER ---
Cardioversion Cardioversion Date of procedure: 01/24/24 Procedure: Synchronized electrical cardioversion Pre-op diagnosis: Atrial fibrillation Post-op diagnosis: Other (Sinus bradycardia ) Indications: Atrial fibrillation Description of procedure: Written informed consent obtained. Defibrillator pads placed in an AP position. Time out performed by PRECIOUS Milian. Total of Propofol 40mg IV was administered by me. Once patient was adequately sedated, synchronized electrical cardioversion was performed with 1 shock at 250 joules, which restored sinus rhythm. Patient's respiratory status and hemodynamics were monitored throughout the procedure. No periprocedural complications. Procedure start time: 8:43AM Procedure end time: 8:45 Sedation: Total of Propofol 40mg IV was administered by me. Findings: Successful synchronized electrical cardioversion to sinus rhythm with 1 shock at 250 joules. Conclusion: Successful synchronized electrical cardioversion to sinus rhythm with 1 shock at 250 joules.
== END 2024-01-24 09:50 | disposition home or self-care (01) ==
PROVIDERS: PCP Family Medicine Sports Medicine; Visit Provider Internal Medicine
PROC: 5A2204Z Restoration of Cardiac Rhythm, Single (ICD-10-PCS; principal; 2024-01-24 08:30)
DX: I48.91 Unspecified atrial fibrillation (principal); I10 Essential (primary) hypertension; E78.5 Hyperlipidemia, unspecified; Z79.82 Long term (current) use of aspirin; Z79.01 Long term (current) use of anticoagulants; Z87.891 Personal history of nicotine dependence
CPT/HCPCS: 36415; 80048; 83735; 92960; J2704; J7030

== ENCOUNTER 2024-03-14 13:48 | Outpatient (CLI) | payer MEDICARE, SELFPAY ==
--- NOTE | ~2024-03-14 | MM_ITS ---
EXAMINATION: MM screening kylie BI w skylar HISTORY: Screening TECHNIQUE: Craniocaudal and mediolateral oblique 3-D tomosynthesis images were obtained and synthetic 2-D images were generated. CAD analysis was submitted and interpreted. COMPARISON: 10/19/2022 BREAST PARENCHYMAL COMPOSITION: Dense: The breasts are heterogeneously dense, which may obscure small masses FINDINGS: There is no evidence of suspicious mass, calcification, or architectural distortion to sugg est malignancy in either breast. There has been no suspicious interval change. IMPRESSION: 1. No mammographic evidence of malignancy. 2. Recommend routine screening mammography in one year. BI-RADS Category 1: Negative Reviewed, dictated and finalized at location B.
--- NOTE | ~2024-03-14 | DEXA_ITS ---
Bone Density Report Name: KIMBER PARRA Age: 88 Sex: Female Ethnicity: White Date of : 1935 Indication: postmenopausal; screening for osteoporosis; height loss; hysterectomy; rheumatoid arthritis; Referring Provider: KATHY, VIANNEY Hardin Study: Bone densitometry was performed. Exam Date: March 14, 2024 Accession number: [id number] Bone Density: Region BMD T-score Z-score Classification AP Spine(L1-L4) 0.937 -1.0 1.9 Normal Femoral Neck (Left) 0.555 -2.6 -0.1 Osteoporosis Total Hip (Left) 0.768 -1.4 0.9 Osteopenia Femoral Neck (Right) 0.694 -1.4 1.1 Osteopenia Total Hip (Right) 0.854 -0.7 1.6 Normal Total Hip Mean 0.811 -1.1 1.3 Osteopenia World Health Organization criteria for BMD impression classify patients as: Normal (T-score at or above -1.0), Osteopenia (T-score between -1.0 and -2.5), or Osteoporosis (T-score at or below -2.5). 10-year Fracture Risk: FRAX not reported because: Some T-score for Spine Total or Hip Total or Femoral Neck at or below -2.5 Clinical Information Provided by Patient: Has rheumatoid arthritis Has used the following medications: Vitamin D, Calcium Has the following medical conditions: Hysterectomy Patient maximum height was 68 No regular weight bearing exercise Onset of menses at age 16 Number of children 3 Impression: The patient has osteoporosis, based on the Left Femoral Neck T-score. Discussion: INCREASED RISK OF FRACTURE. BONE DENSITY IS UNDESIRABLY LOW AT ONE OR MORE SKELETAL SITES, CONSISTENT WITH POSTMENOPAUSAL OSTEOPOROSIS. This patient's lowest T-score meets the World Health Organization's (WHO) criteria for osteoporosis at one or more sites (T-score -2.5 or below). In untreated patients, the risk of osteoporotic fracture increases approximately two-fold for each 1.0 SD decrease in T-score. Low bone density is not the only risk factor for fracture; also consider factors such as patient's age, frailty or poor health, risk of falling, risk of injury, previous osteoporotic fracture, family history of osteoporosis, cigarette smoking, low body weight, etc. Not everyone with low bone mineral density has osteoporosis; osteomalacia and other metabolic bone disorders should also be considered. Patients who have osteoporosis should be evaluated for specific diseases and conditions (secondary causes) that may cause or contribute to bone loss. The [place] [employer] of Clinical Endocrinologists (AACE) and National Osteoporosis Foundation (NOF) recommend pharmacologic intervention for all postmenopausal women whose T-score is in this range. The patient should follow a healthful lifestyle (good nutrition with adequate calcium and vitamin D, and appropriate weight-bearing exercise). Follow-Up: Consider a repeat BMD and Vertebral Fracture Assessment (
== END 2024-03-14 13:49 | disposition home or self-care (01) ==
PROVIDERS: PCP Family Medicine Sports Medicine; Visit Provider Family Medicine Sports Medicine
DX: Z12.31 Encounter for screening mammogram for malignant neoplasm of breast (principal); Z78.0 Asymptomatic menopausal state; M81.0 Age-related osteoporosis without current pathological fracture; M85.852 Other specified disorders of bone density and structure, left thigh; M85.851 Other specified disorders of bone density and structure, right thigh
CPT/HCPCS: 77063; 77067; 77080

== ENCOUNTER 2024-09-22 13:38 | Emergency (ER) | payer MEDICARE, SELFPAY ==
--- NOTE | ~2024-09-22 | XR_ITS ---
EXAMINATION: XR hip LT 2V w AP pelvis DATE: 09/22/2024 17:03 INDICATION: Left hip pain post fall TECHNIQUE: Anteroposterior view of the pelvis and anteroposterior and frog-leg lateral views of the l eft hip were obtained. COMPARISON: None. FINDINGS: 5 mm right lateral listhesis L3 on L4. Severe lower lumbar spondylosis. No fracture. Osteoarthritis in the bilateral hips, moderate to severe on the right and mild on the le ft. Mild bilateral sacroiliac osteoarthritis. Heterotopic ossification along the inferior margin of t he left greater trochanter. Soft tissues are unremarkable. IMPRESSION: 1. Degenerative skeletal changes in the lower lumbar spine and pelvis as detailed above. No acute oss eous abnormality. Reviewed, dictated and finalized at location A. DIRECTOR OF HOME HEALTH SALES IMPRESSION: 1. Degenerative skeletal changes in the lower lumbar spine and pelvis as detail ed above. No acute osseous abnormality.
--- NOTE | ~2024-09-22 | CT_ITS ---
EXAMINATION: CT brain wo con DATE: 09/22/2024 16:56 INDICATION: Head injury TECHNIQUE: Computed tomography (CT) of the head was performed without intravenous contrast. Sagittal and coronal reconstructions were performed. The mA was adjusted according to patient size. Iterative reconstruction technique was employed. The dose-length product was 605.33 mGy-cm. COMPARISON: None FINDINGS: No fracture. No acute intracranial hemorrhage, acute infarction or abnormal extra axial fluid collect ion. There is mild scattered white matter hypoattenuation consistent with chronic small vessel ischem ic disease. Symmetric prominence of the sulci consistent with mild age-appropriate diffuse cerebral v olume loss. Ventricles are normal and symmetric. No mass/mass effect. Changes of bilateral intraocula r lens replacement. The orbits, paranasal sinuses and mastoid air cells are normal. Intracranial calc ified cerebral atherosclerosis is noted. IMPRESSION: 1. No fracture or acute intracranial process. 2. Age-related changes including mild diffuse volume loss and mild scattered white matter hypoattenua tion consistent with chronic small vessel ischemic disease. Reviewed, dictated and finalized at location A. AND VIDEO GRAPHICS DESIGNER IMPRESSION: 1. No fracture or acute intracranial process. 2. Age-related changes including mild diffuse volume loss and mild scattered wh ite matter hypoattenuation consistent with chronic small vessel ischemic diseas e.
[2024-09-22 13:40] VITALS: BP 154/63; PULSE 62; RESP 20; TEMP 36.4; O2SAT 93
--- OUTSIDE RECORDS SUMMARY | 2024-09-22 13:40 | XMS_ITS | Referral Summary ---
Author Organization [facility] Address [address] [place] [address] Care Team Providers Care Cyber Special Agent Name Role Phone Shraddha Rader MD Primary Care Provider Jesi Taylor DO Unavailable [phone] uR Stanford MD Unavailable [phone] Librado ZabalaM Unavailable [phone] Jesus Daly MD Unavailable [phone] Encounters Date Type Department Care Team Description 07/22/2024 4:30 PM EDUCATIONAL PROGRAM ASSISTANT Office Visit [facility] at [address] [address] Charmaine Costello, CIARA Acute right-sided low back pain without sciatica (Primary Dx) from Last 3 Months Allergies Active Allergy Reactions Criticality Noted Date Comments Atorvastatin Cough Low Cephalexin Rash Medium Reaction: Rash, Clindamycin Rash Medium 05/15/2023 Alendronate Joint pain,Fatigue Low 09/28/2023 Losartan Other (See comments) Low Reaction: ?angioedema, Pravastatin Muscle pain Medium 05/28/2018 Medications loratadine (CLARITIN) 10 mg tablet take 1 tablet (10MG) by ORAL route every day 10 0 09/25/19 10 Active B-complex with vitamin C capsule Ac tive cholecalciferol (VITAMIN D-3) 2000 unit tablet Act kasia cranberry extract 200 mg capsule Activ e cyanocobalamin (Vitamin B-12) 100 mcg tablet Activ e vpllfda-txbc-ilub z-okgz-volsll 100 mg-150 mg- 50 mg-150 mg capsule Take by mouth Active fluticasone propionate (FLONASE) 50 mcg/actuation nasal spray Administer 2 sprays into each nostril daily 15.8 mL 3 04/05/20 21 Active aspirin 81 mg enteric coated tablet Take 1 tablet by mouth once daily 90 tablet 07/08/20 22 Active azelastine (ASTELIN) 137 mcg (0.1 %) nasal sprayIndications: Sinus congestion Administer 1 spray into each nostril 2 (two) times a day Use in each nostril as directed 30 mL 3 11/08/19 23 Active triamcinolone (KENALOG) 0.1 % cream APPLY CREAM EXTERNALLY TWICE DAILY NEEDED TO RASH ON LEG 08/08/19 24 Active potassium chloride ER 10 mEq CR tabletIndications :JVD (jugular venous distension),Other ascites,Acute heart failure with preserved ejection fraction (CMS/HCC) (HCC) Take 2 tablets by mouth once daily 180 tablet 01/02/20 24 Active amiodarone (PACERONE) 200 mg tablet Take 1 tablet (200 mg total) by mouth daily Take 400mg twice a day for 2 days, then 200mg twice a day for 4 days, then 200mg daily there after. 40 tablet 11 02/02/20 24 Active metoprolol (LOPRESSOR) 50 mg immediate release tabletIndications :Permanent atrial fibrillation (CMS/HCC) (HCC) Take 1 tablet (50 mg total) by mouth 2 (two) times a day 60 tablet 11 02/16/20 24 Active furosemide (LASIX) 40 mg tablet Take 1 tablet (40 mg total) by mouth daily Active Eliquis 5 mg tablet Take 1 tablet by mouth twice daily 200 tablet 08/21/19 25 Active famotidine (PEPCID) 20 mg tabletIndications :Laryngeal spasm Take 1 tablet by mouth nightly 90 tablet 09/02/19 25 Active rosuvastatin (CRESTOR) 5 mg tabletIndications :Hyperlipidemia, unspecified hyperlipidemia type TAKE 1 TABLET BY MOUTH EVERY OTHER DAY 45 tablet 09/04/19 25 Active rosuvastatin (CRESTOR) 5 mg tabletIndications :Hyperlipidemia, unspecified hyperlipidemia type TAKE 1 TABLET BY MOUTH EVERY OTHER DAY 45 tablet 03/01/20 24 2024 Discontinued famotidine (PEPCID) 20 mg tabletIndications :Laryngeal spasm Take 1 tablet by mouth nightly 90 tablet 06/06/20 24 2024 Discontinued methocarbamoL (ROBAXIN) 500 mg tabletIndications :Acute right-sided low back pain without sciatica Take 1 tablet (500 mg total) by mouth 4 (four) times a day as needed for muscle spasms 30 tablet 07/22/20 24 2024 Active Problems Problem Noted Date Diagnosed Date Paroxysmal atrial fibrillation ([facility]) 024 Overweight with body mass in dex (BMI) of 27 to 27.9 in adult 04/05/2024 Assessment & Plan (04/05/2024 2:52 PM CDT): Weight slightly better than last visit. This is likely due to no longer being fluid overload. Monitor daily weights. Okay to try gentle intentional weight loss due to adipose but avoid over diuresis Chronic heart failure with p reserved ejection fraction (CMS/HCC) 12/22/2023 Assessment & Plan (04/05/2024 2:51 PM CDT): Chronic. Compensated. Patient has symptoms that may indicate slight over- diuresis. Encouraged her to try decreasing for most ride back to 20 mg once daily as previously recommended. Monitor daily weights. If she sees significant weight eating from 1 morning to the neck or over the span of 5 days then she can go to the higher dose. Assessment & Plan (12/27/2023 5:30 PM CDT): Fluid status is much improved. Since starting on furosemide 40 mg daily she is lost 8 lb in the last 5 days. We will get updated set of electrolytes to monitor renal response but I think it is reasonable to go ahead and decrease furosemide to 20 mg daily. Encouraged her to monitor daily weights. If fluid starts trending back up with daily weights elevated then she will let me know how many go back to the 40 mg. The prior JVD has resolved Assessment & Plan (12/22/2023 5:01 PM CDT): Patient's EF was borderline low in the hospital but did not meet criteria for systolic hypertension. Had significant enlargement of her atrium and some valvular leakage. Based on history and exam I am concerned that she has a degree of diastolic dysfunction and acute heart failure with preserved ejection fraction given she has signs of significant fluid overload. Patient has gained over 10 lb of water weight since hospital discharge and has signs of mild ascites in JVD on examination. We will start her on furosemide 40 mg daily. Encouraged daily weights. If worsening symptoms over the weekend then may need to go back to hospital for potential admission to be treated with IV diuretics with renal monitoring. Otherwise, we will plan to see her back next week. We will plan to get updated labs at that time. Hopefully fluid status will be improving At risk for falls 09/28/2023 Assessment & Plan (09/28/2023 6:44 PM EDUCATIONAL PROGRAM ASSISTANT): Patient with somewhat elevated fall risk score in office today. Recommended referral for physical therapy for gait imbalance training as well as fall prevent. Patient declined physical therapy referral. She does have access to a nearby fitness facility. She is encouraged to start a gradual fitness program to improve her strength and function. We will need to monitor her fall risk Laryngeal spasm 10/03/2022 Assessment & Plan (12/27/2023 5:28 PM CDT): These have done better since starting on famotidine. Patient is requesting a refill. Refill sent to the pharmacy Assessment & Plan (10/03/2022 2:55 PM EDUCATIONAL PROGRAM ASSISTANT): Restart Pepcid 20 mg at bedtime Continue Flonase 2 sprays into each nostril while looking down over the sink, do not sniff in or blow nose after use for at least 30 minutes Obtain previous hearing test from [facility] Dysfunction of both eustachian tubes 10/03/2022 Assessment & Plan (10/03/2022 2:56 PM EDUCATIONAL PROGRAM ASSISTANT): Restart Pepcid 20 mg at bedtime Continue Flonase 2 sprays into each nostril while looking down over the sink, do not sniff in or blow nose after use for at least 30 minutes SNHL (sensory-neural hearing loss), asymmetrical 10/03/2022 Assessment & Plan (09/28/2023 6:43 PM EDUCATIONAL PROGRAM ASSISTANT): Chronic. Has hearing aids. No signs of cerumen on exam in office today Assessment & Plan (10/03/2022 2:56 PM EDUCATIONAL PROGRAM ASSISTANT): Obtain previous hearing test from [facility] Continue Hearing loss Seasonal allergic rhinitis due to pollen 022 Assessment & Plan (05/16/2023 3:49 PM CDT): Stable, well controlled; no use of any current medications Continue use of 2nd generation antihistamines as needed Assessment & Plan (11/11/2022 4:02 PM CDT): Stable, well controlled; continue Astelin nasal spray Assessment & Plan (04/25/2022 12:08 PM CDT): Continue Astelin nasal spray, Claritin 10 mg daily Assessment & Plan (11/15/2021 10:21 AM CDT): Patient is currently doing well; limited symptoms; however preparing for upcoming season Continue Zyrtec p.r.n. for severe days, 2 sprays each nostril daily, Astelin 1 spray each nostril b.i.d. Laryngopharyngeal reflux (LPR) 06/16/2021 Assessment & Plan (04/05/2024 2:51 PM CDT): Chronic. Symptoms controlled. Continue famotidine Assessment & Plan (09/28/2023 6:43 PM EDUCATIONAL PROGRAM ASSISTANT): Chronic. Symptoms mostly controlled with famotidine. Continue. Try to avoid dietary triggers. Has been seen by ENT for these issues Assessment & Plan (05/16/2023 3:48 PM CDT): Well controlled and manage; no epigastric pain, no difficulty with swallowing Continue famotidine 20 mg daily Assessment & Plan (04/25/2022 12:08 PM CDT): Stable, generally well controlled; continue famotidine 20 mg nightly Assessment & Plan (11/15/2021 10:20 AM CDT): Stable, continues to have chronic cough; patient reports improvement in symptoms with use of famotidine 20 mg nightly Assessment & Plan (07/12/2021 1:17 PM EDUCATIONAL PROGRAM ASSISTANT): Stable, improving Patient reports she continues to have hoarseness of voice, decreased amount of throat clearing Continue famotidine 20 mg nightly, continue with behavioral changes; eating at least 4 hours before bedtime, reduce time high complexity meals; if no relief will evaluate need to increase dose of H2 sunny Assessment & Plan (06/16/2021 9:22 AM EDUCATIONAL PROGRAM ASSISTANT): Pepcid 20 mg at bedtime LPR discussed and Handout provided H/O excision of Zenker's diverticulum 05/25/2021 Assessment & Plan (05/25/2021 4:26 PM CDT): Continues to have some sensation of scratchy throat as well as limb and constant need to clear throat Will continue to monitor; if worsens in refer to GI for EGD Age-related osteoporosis wit hout current pathological fracture 05/25/2021 Assessment & Plan (04/05/2024 2:50 PM CDT): Chronic. T-score was relatively stable compared to prior. She does have osteoporosis within the hip. Discussed treatment options. Patient has prior intolerance to oral bisphosphonates with bone and joint pain. This may indicate risk for similar side effects with injectable bisphosphonates. We could always have her see Endocrinology to talk about doing something like Prolia. She defers for now. She is encouraged to continue to do activity as tolerated with some weight-bearing and resistance training to help promote bone health. We will plan to recheck the bone density in 2 years to see if worsening. We did encourage her to try to avoid falling as she is at increased risk for hip fractures Assessment & Plan (09/28/2023 6:41 PM EDUCATIONAL PROGRAM ASSISTANT): Chronic. Due for updated bone density. Will check updated bone density and discuss potential treatments based on results. Has had intolerance to bisphosphonates so we will hold off on these. Patient was counseled on getting adequate calcium and vitamin-D. She was additionally counseled on regular weight-bearing activity and resistance training to help promote bone health. Fall precautions are recommended given osteoporosis Assessment & Plan (05/16/2023 3:48 PM CDT): Stable, generally well controlled; no difficulty or side effects from medications No falls or fractures Continue alendronate 35 mg weekly; will repeat DEXA scan Assessment & Plan (11/11/2022 4:03 PM CDT): Stable, tolerating vitamin-D and calcium Start alendronate 35 mg weekly Assessment & Plan (04/25/2022 12:09 PM CDT): Stable, generally well controlled, no recent falls or fractures Patient continues with calcium and vitamin-D supplements Patient is not interested bisphosphonates further medical therapy at this time Assessment & Plan (11/15/2021 10:20 AM CDT): Stable, no falls or fractures; patient continues to take calcium and vitamin-D supplementations, with target of 1000 mg of calcium daily through diet and supplements, vitamin-D 6293-9560 units daily Assessment & Plan (07/12/2021 1:18 PM EDUCATIONAL PROGRAM ASSISTANT): Stable, continue with calcium and vitamin-D supplements Continue to monitor risk of fall or fracture Assessment & Plan (05/25/2021 4:28 PM CDT): Has worsening, with -5% bone density since last DEXA scan Continue calcium supplements, vitamin-D supplements At this time defers bisphosphonate therapy Primary osteoarthritis involving multiple joints 05/25/2021 Assessment & Plan (09/28/2023 6:43 PM EDUCATIONAL PROGRAM ASSISTANT): Chronic. Recommended use of [id number]-bgu-germdgp acetaminophen. Caution with NSAIDs given history of reflux Assessment & Plan (05/16/2023 3:49 PM CDT): Generally well controlled; mostly bilateral ankle; well treated by Podiatry with regular steroid injections Assessment & Plan (04/25/2022 12:09 PM CDT): Continues to have pain in multiple joints, left hip in right shoulder; no interest in referral for Orthopedics replacement, continues to get regular steroid injections for pain management Assessment & Plan (05/25/2021 4:29 PM CDT): Patient has pain in multiple joints, including right hip, shoulder and bilateral hands Continue to monitor, Tylenol for pain relief History of basal cell carcinoma (BCC) 11/24/2016 Overview (09/28/2023): Patient has history of prior basal cell carcinoma removals from her scalp, face and chest. She follows with Dermatology yearly for exam Assessment & Plan (09/28/2023 6:42 PM EDUCATIONAL PROGRAM ASSISTANT): Patient reports she follows with dermatology and gets yearly skin exam. They are monitor some lesions but has not needed to cut anything off in a while. She does get periodic liquid nitrogen treatment for probable pre cancerous lesions. 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 Controlled. Continue metoprolol. Encouraged healthy diet, exercise and lifestyle Assessment & Plan (12/27/2023 5:30 PM CDT): Chronic. Compensated. Continue metoprolol. Remain off of amlodipine. Assessment & Plan (09/28/2023 6:42 PM EDUCATIONAL PROGRAM ASSISTANT): Chronic. Mildly uncontrolled in office but patient thinks it may be a component of white coat hypertension. She is to start home monitoring and follow-up with me via phone or MyChart in a few weeks. If still high at that time then we will consider adjusting 1 of her medications. We will plan to see her back in 3 months to monitor her blood pressure given it has been mildly elevated at the last 2 visits with her previous PCP but it does not appear adjustments were made Assessment & Plan (05/16/2023 3:48 PM CDT): Stable, well controlled; blood pressure at goal; patient monitors at home Continue amlodipine 5 mg daily, hydrochlorothiazide 25 mg daily Assessment & Plan (11/11/2022 4:02 PM CDT): Stable, well controlled; BP at target; no chest pain pressure or orthostaticsContinue amlodipine 5 mg daily, hydrochlorothiazide 25 mg daily Assessment & Plan (04/25/2022 12:07 PM CDT): mildly elevated today, given normally at target will keep medications at current level Continue amlodipine 5 mg daily, hydrochlorothiazide 25 mg daily Assessment & Plan (11/15/2021 10:19 AM CDT): Stable, well controlled; blood pressure is at target today Continue amlodipine 5 mg daily, hydrochlorothiazide 25 mg daily Assessment & Plan (07/12/2021 1:17 PM EDUCATIONAL PROGRAM ASSISTANT): Stable, well controlled; blood pressure at target today Continue amlodipine 5 mg daily, hydrochlorothiazide 25 mg daily Assessment & Plan (05/25/2021 4:26 PM CDT): Stable well controlled, blood pressure at target today; with no evidence of orthostatics, no headaches or chest pain Continue amlodipine 5 mg daily, hydrochlorothiazide 25 mg daily, Hyperlipidemia 12/21/2013 Overview (11/12/2016): HYPERLIPIDEMIA NEC/NOS Assessment & Plan (04/05/2024 2:49 PM CDT): Chronic. Tolerates low-dose rosuvastatin every 48 hours. Has a history intolerance at higher dose. Continue. Encouraged healthy diet and lifestyle Assessment & Plan (09/28/2023 6:40 PM EDUCATIONAL PROGRAM ASSISTANT): Chronic. Tolerates rosuvastatin. Denies history of clinically significant ASCVD. We will continue cholesterol medication for now. Patient is requesting some updated labs today so they will be ordered Assessment & Plan (11/11/2022 4:02 PM CDT): Well controlled, tolerating medications well Continue rosuvastatin 5 mg daily Assessment & Plan (04/25/2022 12:07 PM CDT): Stable, well controlled; lipids at target Continue rosuvastatin 5 mg every other day Assessment & Plan (11/15/2021 10:19 AM CDT): Stable, well controlled; continue rosuvastatin 5 mg daily Assessment & Plan (07/12/2021 1:16 PM EDUCATIONAL PROGRAM ASSISTANT): Stable, well controlled; total cholesterol 198; LDL at target of 95 Continue rosuvastatin 5 mg every other day Assessment & Plan (05/25/2021 4:26 PM CDT): Stable well controlled, continue rosuvastatin 5 mg daily Acquired claw toe 01/18/2011 Resolved Problems Problem Noted Date Diagnosed Date Resolved Date Permanent atrial fibrillation (CMS/HCC) 12/22/2023 04/18/2024 Assessment & Plan (04/05/2024 2:50 PM CDT): Chronic. Symptoms controlled. Continue amiodarone and metoprolol. Monitor. Continue Eliquis for stroke prevention Assessment & Plan (12/27/2023 5:29 PM CDT): Patient's heart rate is elevated today. Reviewed her heart rate monitor data from her fit bit. It looks like a lot of heart rate for the last several days have been spinning probably least 50% of the time in the upper 90s to low to mid 100s. Given this it suggests that she is having sufficient heart rate control with the AFib. We will increase her metoprolol to 150 mg twice daily. Continue Eliquis for stroke prevention. Continue to monitor heart rate. Blood pressure was controlled in office today Assessment & Plan (12/22/2023 5:02 PM CDT): New diagnosis. Remains in AFib on examination. Discussed AFib diagnosis and treatment options. Continue metoprolol. Continue Eliquis for stroke prevention. Keep upcoming appointment with Cardiology for further evaluation. 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 09/28/2023 Overview (09/28/2023): Hx of BCC on chest Assessment & Plan (07/12/2021 1:19 PM EDUCATIONAL PROGRAM ASSISTANT): Stable, patient continues to follow with dermatology for evaluation monitoring skin 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 Immunizations Immunization Administration Dates Next Due Influenza, Quadrivalent, Hig h Dose, Preservative Free, Intrr 05/02/2023,06/10/2022,04/27/2021,06/05 Influenza, Split 04/30/2013, 3,05/07/2012,06/02 Influenza, Trivalent, High D ose, Split, Preservative Free, Intramuscular 05/16/2024,05/29/2019,05/28/2018,06/05,06/20/2016,05/12/2015,04/17/2014 Influenza, Trivalent, IM (MDV) 05/28/2009,2007 Moderna SARS-CoV-2 Monovalen t Vaccination (12+ YRS) 10/30/2020,10/02/2020 Pneumococcal Conjugate PCV 13 10/09/2014, 015 Pneumococcal Polysaccharide PPV23 09/04/2008 TD Preservative Free 03/04/2015,03/04/2015 ZOSTER LIVE 09/07/2011 Social History Tobacco Use Types Packs/Day Years Used Date Smoking Tobacco: Former Smokeless Tobacco: Never Tobacco Cessation:Counseling Given: Not Answered Comments:quit 1974 Alcohol Use Standard Drinks/Week Comments Yes 0 (1 standard drink = 0.6 oz pur e alcohol) rarely AUDIT-C Answer Date Recorded Q1: How often do you have a drink containing alc ohol? Monthly or less 04/05/2024 Q2: How many drinks containi ng alcohol do you have on a typical day when you are drinking? 1 or 2 04/05/2024 Q3: How often do you have si x or more drinks on one occasion? Less than monthly 04/05/2024 PHQ-2 Answer Date Recorded PHQ-2 Total Score (If total score is 3 or more points, staff should administer the PHQ-9) 0 04/05/2024 Comments No Sex and Gender Information Value Date Recorded Sex Assigned at Not on file Legal Sex Female 11:48 PM EDUCATIONAL PROGRAM ASSISTANT Gender Identity Not on file Sexual Orientation Not on file Last Filed Vital Signs Vital Sign Reading Time Taken Comments Blood Pressure 161/77 07/22/2024 4:35 PM EDUCATIONAL PROGRAM ASSISTANT Pulse 64 07/22/2024 4:35 PM EDUCATIONAL PROGRAM ASSISTANT Temperature 36.7 C (98 F) 07/22/2024 4:35 PM EDUCATIONAL PROGRAM ASSISTANT Respiratory Rate 20 07/22/2024 4:35 PM EDUCATIONAL PROGRAM ASSISTANT Oxygen Saturation 93% 07/22/2024 4:35 PM EDUCATIONAL PROGRAM ASSISTANT Inhaled Oxygen Concentration - - Weight 81.8 kg (180 lb 4.8 oz) 07/22/2024 4:35 P M EDUCATIONAL PROGRAM ASSISTANT Height 174 cm (5' 8.5 ) 07/22/2024 4:35 PM EDUCATIONAL PROGRAM ASSISTANT Body Mass Index 27.01 07/22/2024 4:35 PM EDUCATIONAL PROGRAM ASSISTANT Plan of Treatment Not on file Procedures Procedure Name Priority Date/Time Associated Diagnosis Comments DEXA SCAN Routine 03/22/2024 2:36 PM CDT from Last 3 Months or Most Recently Relevant to Health Maintenance Results * DEXA SCAN (03/22/2024 2:36 PM CDT) Scribed Deca Scan Abnormal us Historical Provider HEALTH MAINTENANCE Final Result from Last 3 Months or Most Recently Relevant to Health Maintenance Insurance [facility] MDCR HMO [facility] MEDICARE Address: [address] [address] [place] [address] MEDICARE [facility] MEDICARE Address: [address] [address] [place] [address] Care Teams Cyber Special Agent Relationship Specialty Start Date End Date Shraddha Rader MD PCP - General Family Medicine 09/28/23 Jesi Taylor DO [address] [facility] [address] [facility] [facility] [address] JONES B [address] [address] Consulting Physician Otolaryngology 09/28/23 Ru Stanford MD [address] [place] [address] Referring Physician Dermatology 09/28/23 Librado Zabala DPM [id number] [place] [id number] Podiatry 09/28/23 Jesus Daly MD [address] [address] Referring Physician Ophthalmology 09/28/23
--- OUTSIDE RECORDS SUMMARY | 2024-09-22 13:40 | XMS_ITS | Patient Health Summary ---
Author Organization [facility] Address [address] [place] [address] Care Team Providers Care Division Head Name Role Phone Radha Hu MD Primary Care Provider [phone] Note from [facility],non-owned Affiliates and Associated Physician Practices is amultiple site organization consisting of ambulatory clinics and hospital sitesin [place], [place], [place] and [place]. This disclosure is being madepursuant to the Care Everywhere program and may not contain all information available regarding this patient. Last updated 18.[facility] Social History Tobacco Use Types Packs/Day Years Used Date Smoking Tobacco: Never Assessed Sex and Gender Information Value Date Recorded Sex Assigned at Not on file Gender Identity Not on file Sexual Orientation Not on file Procedures * DERMATOPATHOLOGY(Performed 04/20/2022) * DERMATOPATHOLOGY(Performed 02/09/2022) * DERMATOPATHOLOGY(Performed 08/12/2020) * DERMATOPATHOLOGY(Performed 04/24/2020) * DERMATOPATHOLOGY(Performed 10/11/2016) * DERMATOPATHOLOGY(Performed 11/14/2012) * CULTURE AEROBIC(Performed 04/03/2012) * DERMATOPATHOLOGY(Performed 03/23/2012) * DERMATOPATHOLOGY(Performed 01/27/2012) * DERMATOPATHOLOGY(Performed 09/26/2011) Results * DERMATOPATHOLOGY (04/20/2022 12:00 AM CDT) Only the most recent of9 resultswithin the time period is included. Case Report Dermatopathology Report Case: [id number] Authorizing Provider: Blas Stanford MD Collected: 04/20/2022 12:00 AM Ordering Location: [facility] DermPath Lab Received: 04/22/2022 09:37 AM Pathologist: Allyn Cheung MD Specimen: Skin, left mid clavicular neck 2 5:38 PM CDT DERMATOPATHOLOGY LABORATORY Final Diagnosis Specimen A. 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 Check margins.Path#[id number] 2 5:38 PM T DERMATOPATHOLOGY LABORATORY Gross Description Specimen A: Received is one formalin filled container labeled with the patient's name and designated left mid clavicular neck. The specimen consists of a non-oriented ellipse of skin measuring 23d33a6 mm. The epidermal surface is unremarkable. The margin is inked green. The 12 o'clock and 6 o'clock tips are submitted in cassette 1. The remainder of the ellipse is serially sectioned and submitted in cassette 2-3. Jar 0. 2 5:38 PM T DERMATOPATHOLOGY LABORATORY Microscopic Description Specimen A. SKIN, left mid clavicular neck: There are fibroblasts and collagen bundles oriented parallel to the skin surface. There are elongated blood vessels, some of which are oriented perpendicular to the skin surface. No basal cell carcinoma is identified. 2 5:38 PM T DERMATOPATHOLOGY LABORATORY Disclaimer An external and internal positive and negative controls are appropriate for the histochemical, immunohistochemical and immunofluorescence stain(s) in this case (if any), except where stated explicitly. The performance characteristics of the stain(s) cited in this report were developed and its performance characteristic determined by the Dermatopathology Laboratory at [facility], directed by Dr. Radha Cheung. These tests need not be, and therefore are not, approved by the [place] Food and Drug Administration. The tests are used for clinical purposes. Billing Codes Specimen Charges Stain Charges 04063 1 2 5:38 PM CDT DERMATOPATHOLOGY LABORATORY Embedded Images 5:38 PM CDT DERMATOPATHOLOGY LABORATORY Pathology/Cytolog y TISSUE SPECIMEN FROM SKIN / Unknown 04/20/2022 04/22/2022 9:37 AM CDT Blas Stanford MD LAB - PATHOLOGY/CYTO LOGY ORDERABLES Performing Organization Address [facility]/ZIP Co de Phone Number DERMATOPATHOLOGY LABORATORY [facility] Department of Dermatology [facility] Medicine [address] [place] [address], [address] [phone] * CULTURE AEROBIC (04/03/2012 11:19 AM CDT) Culture SEE NOTE KONSTANTIN ([facility]) Comment: CULTURE, AEROBIC BACTERIA MICRO NUMBER: [id number] TEST STATUS: FINAL SPECIMEN SOURCE: R KNEE SPECIMEN QUALITY: ADEQUATE RESULT: Moderate growth of Achromobacter (Alcaligenes) xylosoxidans A.xylosoxidans INT JL AMIKACIN R >32 CEFEPIME R >16 CEFTAZIDIME R >16 CIPROFLOXACIN R 4 GENTAMICIN R >8 IMIPENEM S 2 LEVOFLOXACIN I 4 MEROPENEM S <1 PIP/TAZOBACTAM R >64 TOBRAMYCIN R >8 TRIMETHOPRIM/SULFA S <2/38 Legend: S = Susceptible I = Intermediate R = Resistant NS = Not Susceptible * = Not Tested NR = Not Reported nn = See Therapy Comments Test Performed at: [email or web address] [facility] [address] [place] [id number] JUAN FRANCISCO LOCKHART DO Exudate specimen from wound (specimen) (Leg, Right) 04/03/2012 11:19 AM CDT 04/04/2012 3:02 AM CDT Narrative [facility] ([facility]) - 04/08/2012 11:00 AM CDT Specimen Type->Wound drainage Historical Provider LAB - MICROBIOLOG Y ORDERABLES [facility] ([facility]) Care Teams Division Head Relationship Specialty Start Date End Date Radha Hu MD [address] [facility] [address], [place] [address] [facility] - General 04/24/20
--- OUTSIDE RECORDS SUMMARY | 2024-09-22 13:40 | XMS_ITS | Encounter Summary ---
Author Organization [facility] Address [address] [place] [place] [address] Care Team Providers Care Director Of Public Safety Name Role Phone Radha Hu MD Primary Care Provider [phone] Encounter Details Date Type Department Care Team (Late st Contact Info) Description 02/11/2022 Lab Requisition [facility] DermPath Lab [address] [facility], [place] [phone] Blas Stanford MD [address] [facility] [place] [id number] Social History Tobacco Use Types Packs/Day Years Used Date Smoking Tobacco: Never Assessed Sex and Gender Information Value Date Recorded Sex Assigned at Not on file Gender Identity Not on file Sexual Orientation Not on file documented as of this encounter Plan of Treatment Not on file documented as of this encounter Procedures Procedure Name Priority Date/Time Associated Diagnosis Comments DERMATOPATHOLOGY Routine 02/09/2022 12:0 0 AM CDT documented in this encounter Results * DERMATOPATHOLOGY (02/09/2022 12:00 AM CDT) Case Report Dermatopathology Report Case: [id number] Authorizing Provider: Blas Stanford MD Collected: 02/09/2022 12:00 AM Ordering Location: [facility] DermPath Lab Received: 02/11/2022 08:54 AM Pathologist: Tere Vaughn MD Specimen: Skin, left med. clavicular neck 2 1:14 PM CDT DERMATOPATHOLOGY LABORATORY Final Diagnosis Specimen A. SKIN, left med. clavicular neck: BASAL CELL CARCINOMA, NODULAR TYPE (C44.41) 2 1:14 PM CDT DERMATOPATHOLOGY LABORATORY Clinical History BCCA. Path#[id number] 2 1:14 PM CDT DERMATOPATHOLOGY LABORATORY Gross Description Specimen A: Received is one formalin filled container labeled with the patient's name and designated left med. clavicular neck. The specimen consists of a shave biopsy measuring 10x4x2 mm. Jar 0. 2 1:14 PM CDT DERMATOPATHOLOGY LABORATORY Microscopic Description Specimen A. SKIN, left med. clavicular neck: Within the dermis there are aggregates of basaloid cells with a high nuclear to cytoplasmic ratio and peripheral palisading. 2 1:14 PM CDT DERMATOPATHOLOGY LABORATORY Disclaimer An external and internal positive and negative controls are appropriate for the histochemical, immunohistochemical and immunofluorescence stain(s) in this case (if any), except where stated explicitly. The performance characteristics of the stain(s) cited in this report were developed and its performance characteristic determined by the Dermatopathology Laboratory at [facility], directed by Dr. Radha Cheung. These tests need not be, and therefore are not, approved by the [place] Food and Drug Administration. The tests are used for clinical purposes. Billing Codes Specimen Charges Stain Charges 08208 1 2 1:14 PM CDT DERMATOPATHOLOGY LABORATORY Embedded Images 2 1:14 PM CDT DERMATOPATHOLOGY LABORATORY Pathology/Cytolog y TISSUE SPECIMEN FROM SKIN / Unknown 02/09/2022 02/11/2022 8:54 AM CDT Blas Stanford MD LAB - PATHOLOGY/CYTO LOGY ORDERABLES DERMATOPATHOLOGY LABORATORY [facility] - Department of Dermatology [address], [address] [phone] documented in this encounter Visit Diagnoses Not on filedocumented in this encounter Care Teams Director Of Public Safety Relationship Specialty Start Date End Date Radha Hu MD [address] [facility] [address], [place] [id number] PCP - General 04/24/20 documented as of this encounter
--- OUTSIDE RECORDS SUMMARY | 2024-09-22 13:40 | XMS_ITS | Clinical Summary ---
Author Organization [facility] Address [address] [facility] [place] [address] Care Team Providers Care Unitizer Name Role Phone Radha Hu MD Primary Care Provider [phone] Source Comments [facility],non-owned Affiliates and Associated Physician Practices is amultiple site organization consisting of ambulatory clinics and hospital sitesin [place], [place], [place] and [place]. This disclosure is being madepursuant to the Care Everywhere program and may not contain all information available regarding this patient. Last updated 18.[facility] Social History Tobacco Use Types Packs/Day Years Used Date Smoking Tobacco: Never Assessed Sex and Gender Information Value Date Recorded Sex Assigned at Not on file Gender Identity Not on file Sexual Orientation Not on file Plan of Treatment Health Maintenance Due Date Last Done Comments BONE DENSITY TESTING 1937 DTAP/TDAP/TD VACCINES (1 - Tdap) 1956 PNEUMOCOCCAL VACCINE 50+ (1 of 1 - PCV) 1987 ZOSTER VACCINE (1 of 2) 1987 Respiratory Syncytial Virus (RSV) Vaccine Pt: or over 60 yrs (1 - 1-dose 75+ series) 2012 COVID-19 VACCINE ( - 2023-2 5 season) 2024 INFLUENZA VACCINE (#1) 2024 DEPRESSION SCREENING 08/07/2024 MEDICARE AWV CALENDAR YEAR 2024 HEPATITIS B VACCINE Aged Out No longe r eligible based on patient's age to complete this topic HIB VACCINE Aged Out No longer eligi ble based on patient's age to complete this topic HPV VACCINE Aged Out No longer eligi ble based on patient's age to complete this topic MENINGOCOCCAL (Group B) VACCINE Aged Out No longer eligible based on patient's age to complete this topic MENINGOCOCCAL VACCINE Aged Out No nitin jerica eligible based on patient's age to complete this topic Care Teams Unitizer Relationship Specialty Start Date End Date Radha Hu MD [address] [facility] [address], [place] [address] PCP - General 04/24/20
--- OUTSIDE RECORDS SUMMARY | 2024-09-22 13:40 | XMS_ITS | Continuity of Care Document ---
Author Organization [facility] Address [address] [place] [address] Phone Care Team Providers Care Hemming And Tacking Machine Operator Name Role Phone Ansari OD, Damon Unavailable Unavailable Procedures Procedure Date Eye Exam & Treatment Refraction Eye Exam & Treatment Refraction Eye Exam & Treatment CL Replacement - Vistakon Other 007 Tax - Medical Advance Directives Directive Yes / No Effective Date File Name No Information Encounters Encounter Description Practice Location Reason(s) For Visit Diagnoses Date Provider Providers Copied on Encounter Merged with [facility], [address] [place] [address] [address], [place], [place], [id number], tel:[phone] [facility] No Information 2-201 0 Ansari OD Damon. [address] [facility] [address] , [address], [place], [place], [facility], [place]. tel:[phone] Merged with [facility], [address] [place] [address] [address], [place], [place], [id number], [place] tel:[phone] [facility] No Information 0-200 9 Ansari OD Damon. [address] [facility] [address], [place], [address], [place]. tel:[phone] Merged with [facility], [address] [place] [address] [address], [place], [place], [id number], [place] tel:[phone] [facility] No Information Nov-0 2-200 8 Ansari OD Damon. [address] [facility] , [address], [place], [address], [place]. tel:[phone] [facility], [address] [facility] [address], [place], [place], [address], [place] tel:[phone] [facility] No Information 4-200 7 Ansari OD Damon. [address] [facility] , [address], [place], [address], [place]. tel:[phone] Family History Family Member Type Diagnosis Age At Onset No Information Payers Payer name Insurance type Covered republican ID Authorsamira kristy(s) [employer] Plan [id number] Social History Type Description Quantity Date Captured Comments Sex Female Smoking Status No Information Chief Complaint And Reason For Visit No Information Reason For Referral Reason For Referral No Information History Of Present Illness Encounter Date Complaint History Of Prese nt Illness No Information Functional Status Date Functional Assessmen t No Information Instructions Date Instruction Additional Infor mation No Information Assessments Type Assessment Date No Information Patient Care Teams Name Effective Dates (start - stop) Status Members No Information
--- OUTSIDE RECORDS SUMMARY | 2024-09-22 13:40 | XMS_ITS | Encounter Summary ---
Author Organization [facility] Address [address] [place] [address] Care Team Providers Care Rehabilitation Services Director Name Role Phone Shraddha Rader MD Primary Care Provider Jesi Taylor DO Unavailable [phone] Ru Stanford MD Unavailable [phone] Librado ZabalaM Unavailable [phone] Jesus Daly MD Unavailable [phone] Encounter Details Date Type Department Care Team (Late st Contact Info) Description 12/11/2023 Orders Only [facility] Health Information Management [address] [place] [address] Scanning, Provider Social History Tobacco Use Types Packs/Day Years Used Date Smoking Tobacco: Former Smokeless Tobacco: Never Comments:quit 1974 Alcohol Use Standard Drinks/Week Comments Yes 0 (1 standard drink = 0.6 oz pur e alcohol) rarely PHQ-2 Answer Date Recorded PHQ-2 Total Score (If total score is 3 or more points, staff should administer the PHQ-9) 0 09/28/2023 Comments No Sex and Gender Information Value Date Recorded Sex Assigned at Not on file Legal Sex Female 11:48 PM CARD TAPE CONVERTER OPERATOR Gender Identity Not on file Sexual Orientation Not on file documented as of this encounter Plan of Treatment Not on file documented as of this encounter Procedures Procedure Name Priority Date/Time Associated Diagnosis Comments SCAN - RADIOLOGY/IMAGING 12/11/2023 documented in this encounter Results * SCAN - RADIOLOGY/IMAGING (12/11/2023) Anatomical Region Laterality Modality Other us Provider Scanning Final Result documented in this encounter Visit Diagnoses Not on filedocumented in this encounter Care Teams Rehabilitation Services Director Relationship Specialty Start Date End Date Shraddha Rader MD PCP - General Family Medicine 09/28/23 Jesi Taylor DO [address] [facility] [address] [place] [address] Consulting Physician Otolaryngology 09/28/23 Ru Stanford MD [address] [facility] [place] [address] Referring Physician Dermatology 09/28/23 Librado Zabala DPM [address] [place] [id number] Podiatry 09/28/23 Jesus Daly MD [address] [facility] [address] [place] [address] Referring Physician Ophthalmology 09/28/23 documented as of this encounter
--- OUTSIDE RECORDS SUMMARY | 2024-09-22 13:40 | XMS_ITS | Referral Summary ---
Author Organization [facility] Address [address] [facility] [place] [address] Care Team Providers Care Project Management It Specialist Name Role Phone Radha Hu MD Primary Care Provider [phone] Source Comments [facility],non-[facility] Affiliates and Associated Physician Practices is amultiple site organization consisting of ambulatory clinics and hospital sitesin [place], [place], [place] and [place]. This disclosure is being madepursuant to the Care Everywhere program and may not contain all information available regarding this patient. Last updated 18.[facility] Social History Tobacco Use Types Packs/Day Years Used Date Smoking Tobacco: Never Assessed Sex and Gender Information Value Date Recorded Sex Assigned at Not on file Gender Identity Not on file Sexual Orientation Not on file Plan of Treatment Not on file Care Teams Project Management It Specialist Relationship Specialty Start Date End Date Radha Hu MD [address] [place], [place] [address], [place] [address] PCP - General 04/24/20
--- OUTSIDE RECORDS SUMMARY | 2024-09-22 13:40 | XMS_ITS | Encounter Summary ---
Author Organization [facility] Address [address] [place] [address] Care Team Providers Care Table Setter Name Role Phone Radha Hu MD Primary Care Provider [phone] Encounter Details Date Type Department Care Team (Late st Contact Info) Description 04/27/2020 Lab Requisition [facility] DermPath Lab [address] [facility], [place] [phone] Blas Stanford MD [address] [facility] [place], [place] [id number] Social History Tobacco Use Types Packs/Day Years Used Date Smoking Tobacco: Never Assessed Sex and Gender Information Value Date Recorded Sex Assigned at Not on file Gender Identity Not on file Sexual Orientation Not on file documented as of this encounter Plan of Treatment Not on file documented as of this encounter Procedures Procedure Name Priority Date/Time Associated Diagnosis Comments DERMATOPATHOLOGY Routine 04/24/2020 12:0 0 AM CDT documented in this encounter Results * DERMATOPATHOLOGY (04/24/2020 12:00 AM CDT) Case Report Dermatopathology Report Case: [id number] Authorizing Provider: Blas Stanford MD Collected: 04/24/2020 12:00 AM Ordering Location: [facility] DermPath Lab Received: 04/27/2020 06:16 AM Pathologist: Allyn Cheung MD Specimen: Skin, left ala 0 11:46 AM CDT DERMATOPATHOLOGY LABORATORY Final Diagnosis Specimen A. SKIN, left ala: BASAL CELL CARCINOMA, NODULAR TYPE (C44.311) 0 11:46 AM CDT DERMATOPATHOLOGY LABORATORY Clinical History BCCA. Path # [id number]. 0 11:46 AM CDT DERMATOPATHOLOGY LABORATORY Gross Description Specimen A: Received is one formalin filled container labeled with the patient's name and designated left ala. The specimen consists of a shave biopsy measuring 9t0t7wk. Jar 0. 0 11:46 AM CDT DERMATOPATHOLOGY LABORATORY Microscopic Description Specimen A. SKIN, left ala: Within the dermis there are aggregates of basaloid cells with a high nuclear to cytoplasmic ratio and peripheral palisading. 0 11:46 AM CDT DERMATOPATHOLOGY LABORATORY Disclaimer An external and internal positive and negative controls are appropriate for the histochemical, immunohistochemical and immunofluorescence stain(s) in this case (if any), except where stated explicitly. The performance characteristics of the stain(s) cited in this report were developed and its performance characteristic determined by the Dermatopathology Laboratory at [facility], directed by Dr. Radha Cheung. These tests need not be, and therefore are not, approved by the [place] Food and Drug Administration. The tests are used for clinical purposes. Billing Codes Specimen Charges Stain Charges 37423 1 0 11:46 AM CDT DERMATOPATHOLOGY LABORATORY Embedded Images 0 11:46 AM CDT DERMATOPATHOLOGY LABORATORY Pathology/Cytolog y TISSUE SPECIMEN FROM SKIN / Unknown 04/24/2020 04/27/2020 6:16 AM CDT Blas Stanford MD LAB - PATHOLOGY/CYTO LOGY ORDERABLES DERMATOPATHOLOGY LABORATORY [facility] - Department of Dermatology [address], [address] [phone] documented in this encounter Visit Diagnoses Not on filedocumented in this encounter Care Teams Table Setter Relationship Specialty Start Date End Date Radha Hu MD [facility] [facility] [address] [place] [address] PCP - General 04/24/20 documented as of this encounter
--- OUTSIDE RECORDS SUMMARY | 2024-09-22 13:40 | XMS_ITS | Encounter Summary ---
Author Organization [facility] Address [address] [address] Care Team Providers Care Pegger Name Role Phone Radha Hu MD Primary Care Provider [phone] Encounter Details Date Type Department Care Team (Late st Contact Info) Description 08/14/[address] [facility] DermPath Lab [address] [facility] [place] [phone] Blas Stanford MD [address] [facility] [place], [place] [id number] Social History Tobacco Use Types Packs/Day Years Used Date Smoking Tobacco: Never Assessed Sex and Gender Information Value Date Recorded Sex Assigned at Not on file Gender Identity Not on file Sexual Orientation Not on file documented as of this encounter Plan of Treatment Not on file documented as of this encounter Procedures Procedure Name Priority Date/Time Associated Diagnosis Comments DERMATOPATHOLOGY Routine 08/12/2020 3:33 AM COMPLIANCE REVIEW OFFICER documented in this encounter Results * DERMATOPATHOLOGY (08/12/2020 3:33 AM COMPLIANCE REVIEW OFFICER) Case Report Dermatopathology Report Case: [id number] Authorizing Provider: Blas Stanfodr MD Collected: 08/12/2020 03:33 AM Ordering Location: [facility] DermPath Lab Received: 08/14/2020 06:15 AM Pathologist: Tere Vaughn MD Specimen: Skin, left upper cutaneous lip 1:49 PM [facility] [[email or web address]] DERMATOPATHOLOGY LABORATORY Final Diagnosis Specimen A. SKIN, left upper cutaneous lip: BASAL CELL CARCINOMA, INFILTRATIVE PATTERN (C44.319) 1:49 PM [facility] [[email or web address]] DERMATOPATHOLOGY LABORATORY Clinical History SK vs BCC vs SCC. Path#[id number] 1:49 PM [facility] [[email or web address]] DERMATOPATHOLOGY LABORATORY Gross Description Specimen A: Received is one formalin filled container labeled with the patient's name and designated left upper cutaneous lip. The specimen consists of a shave biopsy measuring 6x4x1 mm. Jar 0. 1:49 PM [facility] [[email or web address]] DERMATOPATHOLOGY LABORATORY Microscopic Description Specimen A. SKIN, left upper cutaneous lip: Within the dermis there are nodular aggregates of basaloid cells associated with fibromyxoid stroma and epithelial-stromal clefts. At the advancing margin of the neoplasm, there are smaller angulated nests that infiltrate the dermis. 1:49 PM [facility] [[email or web address]] DERMATOPATHOLOGY LABORATORY Disclaimer An external and internal positive and negative controls are appropriate for the histochemical, immunohistochemical and immunofluorescence stain(s) in this case (if any), except where stated explicitly. The performance characteristics of the stain(s) cited in this report were developed and its performance characteristic determined by the Dermatopathology Laboratory at [facility], directed by Dr. Radha Cheung. These tests need not be, and therefore are not, approved by the [place] Food and Drug Administration. The tests are used for clinical purposes. Billing Codes Specimen Charges Stain Charges 68604 1 1 1:49 PM [facility] [[email or web address]] DERMATOPATHOLOGY LABORATORY Embedded Images 1 1:49 PM [facility] [[email or web address]] DERMATOPATHOLOGY LABORATORY Pathology/Cytolo gy TISSUE SPECIMEN FROM SKIN / Unknown 08/12/2020 3:33 AM COMPLIANCE REVIEW OFFICER 08/14/2020 6:15 AM COMPLIANCE REVIEW OFFICER Blas Stanford MD LAB - PATHOLOGY/CYTO LOGY ORDERABLES DERMATOPATHOLOGY LABORATORY [facility] - Department of Dermatology [address], [address] [phone] documented in this encounter Visit Diagnoses Not on filedocumented in this encounter Care Teams Pegger Relationship Specialty Start Date End Date Radha Hu MD [address] [address] PCP - General 04/24/20 documented as of this encounter
--- OUTSIDE RECORDS SUMMARY | 2024-09-22 13:40 | XMS_ITS | Clinical Summary ---
Author Organization [facility] Address [address] [place] [phone] Care Team Providers Care Payroll Administrative Assistant Name Role Phone Shraddha Rader MD Primary Care Provider Jesi Taylor DO Unavailable [phone] Ru Stanford MD Unavailable [phone] Librado Zabala DPM Unavailable [phone] Jesus Daly MD Unavailable [phone] Allergies Active Allergy Reactions Criticality Noted Date [...] (Vitamin B-12) 100 mcg tablet Activ e idnucin-hzvs-dkbn l-kiax-wvjtyy 100 mg-150 mg- 50 mg-150 mg capsule [...] heart failure with preserved ejection fraction (CMS/HCC) ([facility]) Take 2 tablets by mouth once daily [...] immediate release tabletIndications :Permanent atrial fibrillation (CMS/HCC) ([facility]) Take 1 tablet (50 mg total) by [...] Noted Date Diagnosed Date Paroxysmal atrial fibrillation ([facility]) 024 Overweight with body mass in dex (BMI) of 27 to 27.9 in adult 04/05/2024 Assessment & Plan (04/05/2024 2:52 PM CDT): Weight slightly better than last visit. This is likely due to no longer being fluid overload. Monitor daily weights. Okay to try gentle intentional weight loss due to adipose but avoid over diuresis Chronic heart failure with p reserved ejection fraction ([facility]) 12/22/2023 Assessment & Plan (04/05/2024 2:51 PM [...] 09/28/2023 Assessment & Plan (09/28/2023 6:44 PM FACILITY MAINTENANCE MECHANIC): Patient with somewhat elevated fall risk score [...] pharmacy Assessment & Plan (10/03/2022 2:55 PM FACILITY MAINTENANCE MECHANIC): Restart Pepcid 20 mg at bedtime Continue Flonase 2 sprays into each nostril while looking down over the sink, do not sniff in or blow nose after use for at least 30 minutes Obtain previous hearing test from [facility] Dysfunction of both eustachian tubes 10/03/2022 Assessment & Plan (10/03/2022 2:56 PM FACILITY MAINTENANCE MECHANIC): Restart Pepcid 20 mg at bedtime Continue Flonase 2 sprays into each nostril while looking down over the sink, do not sniff in or blow nose after use for at least 30 minutes SNHL (sensory-neural hearing loss), asymmetrical 10/03/2022 Assessment & Plan (09/28/2023 6:43 PM FACILITY MAINTENANCE MECHANIC): Chronic. Has hearing aids. No signs of cerumen on exam in office today Assessment & Plan (10/03/2022 2:56 PM FACILITY MAINTENANCE MECHANIC): Obtain previous hearing test from [facility] Continue Hearing loss Seasonal allergic rhinitis [...] famotidine Assessment & Plan (09/28/2023 6:43 PM FACILITY MAINTENANCE MECHANIC): Chronic. Symptoms mostly controlled with famotidine. Continue. [...] nightly Assessment & Plan (07/12/2021 1:17 PM FACILITY MAINTENANCE MECHANIC): Stable, improving Patient reports she continues to have hoarseness of voice, decreased amount of throat clearing Continue famotidine 20 mg nightly, continue with behavioral changes; eating at least 4 hours before bedtime, reduce time high complexity meals; if no relief will evaluate need to increase dose of H2 sunny Assessment & Plan (06/16/2021 9:22 AM FACILITY MAINTENANCE MECHANIC): Pepcid 20 mg at bedtime LPR discussed [...] fractures Assessment & Plan (09/28/2023 6:41 PM FACILITY MAINTENANCE MECHANIC): Chronic. Due for updated bone density. Will [...] calcium daily through diet and supplements, vitamin-D 5921-8647 units daily Assessment & Plan (07/12/2021 1:18 PM FACILITY MAINTENANCE MECHANIC): Stable, continue with calcium and vitamin-D supplements Continue to monitor risk of fall or fracture Assessment & Plan (05/25/2021 4:28 PM CDT): Has worsening, with -5% bone density since last DEXA scan Continue calcium supplements, vitamin-D supplements At this time defers bisphosphonate therapy Primary osteoarthritis involving multiple joints 05/25/2021 Assessment & Plan (09/28/2023 6:43 PM FACILITY MAINTENANCE MECHANIC): Chronic. Recommended use of wlki-xvy-fsakodv acetaminophen. Caution with NSAIDs given history of [...] exam Assessment & Plan (09/28/2023 6:42 PM FACILITY MAINTENANCE MECHANIC): Patient reports she follows with dermatology and gets yearly skin exam. They are monitor some lesions but has not needed to cut anything off in a while. She does get periodic liquid nitrogen treatment for probable pre cancerous lesions. She is scheduled to follow up with the service correspondent for spot on her leg in the [...] amlodipine. Assessment & Plan (09/28/2023 6:42 PM FACILITY MAINTENANCE MECHANIC): Chronic. Mildly uncontrolled in office but patient [...] daily Assessment & Plan (07/12/2021 1:17 PM FACILITY MAINTENANCE MECHANIC): Stable, well controlled; blood pressure at target [...] lifestyle Assessment & Plan (09/28/2023 6:40 PM FACILITY MAINTENANCE MECHANIC): Chronic. Tolerates rosuvastatin. Denies history of clinically [...] daily Assessment & Plan (07/12/2021 1:16 PM FACILITY MAINTENANCE MECHANIC): Stable, well controlled; total cholesterol 198; LDL at target of 95 Continue rosuvastatin 5 mg every other day Assessment & Plan (05/25/2021 4:26 PM CDT): Stable well controlled, continue rosuvastatin 5 mg daily Acquired claw toe 01/18/2011 Resolved Problems Problem Noted Date Diagnosed Date Resolved Date Permanent atrial fibrillation ([facility]/HCC) 12/22/2023 04/18/2024 Assessment & Plan (04/05/2024 2:50 [...] chest Assessment & Plan (07/12/2021 1:19 PM FACILITY MAINTENANCE MECHANIC): Stable, patient continues to follow with dermatology for evaluation monitoring skin 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 Encounters Date Type Department Care Team Description 07/22/2024 4:30 PM FACILITY MAINTENANCE MECHANIC Office Visit [facility] [address] [phone] Charmaine Costello, MATTRESS FILLING MACHINE TENDER Acute right-sided low back pain without sciatica (Primary Dx) from Last 3 Months Immunizations Immunization Administration Dates Next Due Influenza, Quadrivalent, Hig h Dose, Preservative Free, Intrr 05/02/2023,06/10/2022,04/27/2021,06/05 Influenza, Split 04/30/2013, 3,05/07/2012,06/02 Influenza, Trivalent, High D ose, Split, Preservative Free, Intramuscular 05/16/2024,05/29/2019,05/28/2018,06/05,06/20/2016,05/12/2015,04/17/2014 Influenza, Trivalent, IM (MDV) 05/28/2009,2007 Moderna SARS-CoV-2 Monovalen t Vaccination (12+ YRS) 10/30/2020,10/02/2020 Pneumococcal Conjugate PCV 13 10/09/2014, 015 Pneumococcal Polysaccharide PPV23 09/04/2008 TD Preservative Free 03/04/2015,03/04/2015 ZOSTER LIVE 09/07/2011 Surgical History Surgery Date Site/Laterality Comments CHOLECYSTECTOMY Cholecystectomy TOTAL ABDOMINAL HYSTERECTOMY W/ BILATERAL SALPINGOOPHORECTOMY 08/07/1985 - 08/06/1986 Hysterectomy, total abdominal, BSO OTHER SURGICAL HISTORY 08/07/1959 - 08/06/1960 Kidney stone surgery ANKLE SURGERY R ankle surgery OTHER SURGICAL HISTORY 10/05/2008 - 11/04/2008 Diverticulum in throat tied back. 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 Varicella Family History Medical History Relation Name Comments COPD Father COPD; Cause of : COPD Other Mother old age; Cause of : old age Alcohol abuse Other Arthritis Other Hypertension Other Lung disease Other Other Sister 2 Alive and well; Breast cancer Neg Hx Endometrial cancer Neg Hx Ovarian cancer Neg Hx Thyroid cancer Neg Hx Relation Name Status Comments Father (Age 73) Mother (Age 93) Other Sister 1 Alive Sister 2 Social History Tobacco Use Types Packs/Day Years [...] on file Legal Sex Female 11:48 PM FACILITY MAINTENANCE MECHANIC Gender Identity Not on file Sexual Orientation Not on file Obstetrics History Para Term AB IAB SAB Ectopic Multiple Livin g Live Births 3 3 3 Date Outcome GA Total Labor Labor/2nd/3rd Weight Sex Type Anes PTL Kady A1 A5 Name Clin Term Term Term Last Filed Vital Signs Vital Sign Reading Time Taken Comments Blood Pressure 161/77 07/22/2024 4:35 PM FACILITY MAINTENANCE MECHANIC Pulse 64 07/22/2024 4:35 PM FACILITY MAINTENANCE MECHANIC Temperature 36.7 C (98 F) 07/22/2024 4:35 PM FACILITY MAINTENANCE MECHANIC Respiratory Rate 20 07/22/2024 4:35 PM FACILITY MAINTENANCE MECHANIC Oxygen Saturation 93% 07/22/2024 4:35 PM FACILITY MAINTENANCE MECHANIC Inhaled Oxygen Concentration - - Weight 81.8 kg (180 lb 4.8 oz) 07/22/2024 4:35 P M FACILITY MAINTENANCE MECHANIC Height 174 cm (5' 8.5 ) 07/22/2024 4:35 PM FACILITY MAINTENANCE MECHANIC Body Mass Index 27.01 07/22/2024 4:35 PM FACILITY MAINTENANCE MECHANIC Plan of Treatment Health Maintenance Due Date Last Done Comments Zoster Vaccine (2 of 3) 11/02/2011 09/07/2011 DTaP/Tdap/Td Vaccine (1 - Tdap) 03/05/2015 5, 03/04/2015 Covid-19 Vaccine (4 - 2023-2 5 season) 2024 07/15/2021, 10/30/2020, 10/02/2020 Well Visit 65+ 05/15/2024 05/15/2023, 04/07, 03/10/2020, Additional history exists Depression Screening 04/05/2025 04/05/2024, 09/28/2023, 05/15/2023, Additional history exists Fall Risk Assessment 04/05/2025 04/05/2024, 09/28/2023, 05/15/2023, Additional history exists Osteoporosis Screening-Bone Density Scan 03/22/2026 03/22/2024, 02/11/2021, 10/03/2016, Additional history exists Pneumococcal vaccine 65+ Completed 015, 10/09/2014, 09/04/2008 Influenza Vaccine Completed 05/16/2024, , 06/10/2022, Additional history exists Hepatitis B Screening Discontinued Procedures Procedure Name Priority Date/Time Associated Diagnosis Comments DEXA SCAN Routine 03/22/2024 2:36 PM CDT from Last 3 Months or Most Recently Relevant to Health Maintenance Results * HM DEXA SCAN (03/22/2024 2:36 PM CDT) Scribed HM Deca Scan Abnormal us Historical Provider MD HEALTH MAINTENANCE Final Result from Last 3 Months or Most Recently Relevant to Health Maintenance Insurance [facility] [address] [employer]ICARE [employer] Care Teams Payroll Administrative Assistant Relationship Specialty Start Date End Date Shraddha Rader MD PCP - General Family Medicine 09/28/23 Jesi Taylor DO [address] [facility] [address]ON[address] [facility] [address] [place] [address] Consulting Physician Otolaryngology 09/28/23 Ru Stanford MD [address] [facility] [facility] [place] [address] Referring Physician Dermatology 09/28/23 Librado Zabala DPM [id number] [facility] [place] [phone] Podiatry 09/28/23 Jesus Daly MD [address] [facility] [address] [place] [address] Referring Physician Ophthalmology 09/28/23
--- OUTSIDE RECORDS SUMMARY | 2024-09-22 13:40 | XMS_ITS | Encounter Summary ---
Author Organization [facility] Address [address] [place] [address] Care Team Providers Care Dance Artist Name Role Phone Radha Hu MD Primary Care Provider [phone] Encounter Details Date Type Department Care Team (Late st Contact Info) Description 04/22/2022 Lab Requisition [facility] DermPath Lab [address] [facility], [place] [phone] Blas Stanford MD [address] [facility] [place], [place] [phone] Social History Tobacco Use Types Packs/Day Years Used Date Smoking Tobacco: Never Assessed Sex and Gender Information Value Date Recorded Sex Assigned at Not on file Gender Identity Not on file Sexual Orientation Not on file documented as of this encounter Plan of Treatment Not on file documented as of this encounter Procedures Procedure Name Priority Date/Time Associated Diagnosis Comments DERMATOPATHOLOGY Routine 04/20/2022 12:0 0 AM CDT documented in this encounter Results * DERMATOPATHOLOGY (04/20/2022 12:00 AM CDT) Case Report Dermatopathology Report Case: [id number] Authorizing Provider: Blas Stanford MD Collected: 04/20/2022 12:00 AM Ordering Location: [facility] DermPath Lab Received: 04/22/2022 09:37 AM Pathologist: Allyn Cheung MD Specimen: Skin, left mid clavicular neck 2 5:38 PM CDT DERMATOPATHOLOGY LABORATORY Final Diagnosis Specimen A. 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 Check margins.Path#[id number] 2 5:38 PM CDT DERMATOPATHOLOGY LABORATORY Gross Description Specimen A: Received is one formalin filled container labeled with the patient's name and designated left mid clavicular neck. The specimen consists of a non-oriented ellipse of skin measuring 11n02j4 mm. The epidermal surface is unremarkable. The margin is inked green. The 12 o'clock and 6 o'clock tips are submitted in cassette 1. The remainder of the ellipse is serially sectioned and submitted in cassette 2-3. Jar 0. 2 5:38 PM CDT DERMATOPATHOLOGY LABORATORY Microscopic Description Specimen A. SKIN, left mid clavicular neck: There are fibroblasts and collagen bundles oriented parallel to the skin surface. There are elongated blood vessels, some of which are oriented perpendicular to the skin surface. No basal cell carcinoma is identified. 2 5:38 PM CDT DERMATOPATHOLOGY LABORATORY Disclaimer An external and internal positive and negative controls are appropriate for the histochemical, immunohistochemical and immunofluorescence stain(s) in this case (if any), except where stated explicitly. The performance characteristics of the stain(s) cited in this report were developed and its performance characteristic determined by the Dermatopathology Laboratory at [facility], directed by Dr. Radha Cheung. These tests need not be, and therefore are not, approved by the [place] Food and Drug Administration. The tests are used for clinical purposes. Billing Codes Specimen Charges Stain Charges 86630 1 2 5:38 PM CDT DERMATOPATHOLOGY LABORATORY Embedded Images 2 5:38 PM CDT DERMATOPATHOLOGY LABORATORY Pathology/Cytolog y TISSUE SPECIMEN FROM SKIN / Unknown 04/20/2022 04/22/2022 9:37 AM CDT Blas Stanford MD LAB - PATHOLOGY/CYTO LOGY ORDERABLES DERMATOPATHOLOGY LABORATORY [facility] - Department of Dermatology [facility] Medicine [facility] [facility], [address] Floor [address] [phone] documented in this encounter Visit Diagnoses Not on filedocumented in this encounter Care Teams Dance Artist Relationship Specialty Start Date End Date Radha Hu MD [address] [place] [address] PCP - General 04/24/20 documented as of this encounter
[2024-09-22 16:30] VITALS: BP 123/87; PULSE 90; RESP 19; O2SAT 98
--- OUTSIDE RECORDS SUMMARY | 2024-09-22 16:56 | XMS_ITS | Encounter Summary ---
Author Organization [facility] Address [address] [facility] [place] [address] Care Team Providers Care Dietary Supervisor Name Role Phone Radha Hu MD Primary Care Provider [phone] Encounter Details Date Type Department Care Team (Late st Contact Info) Description 02/11/2022 Lab Requisition [facility] DermPath Lab [address] [facility], [place] [phone] Blas Stanford MD [address] [facility] [place] [phone] Social History Tobacco Use Types Packs/Day Years [...] AM CDT) Case Report Dermatopathology Report Case: [id number] Authorizing Provider: Blas Stanford MD Collected: 02/09/2022 12:00 AM Ordering Location: [facility] DermPath Lab Received: 02/11/2022 08:54 AM Pathologist: Tere Vaughn MD Specimen: Skin, left med. clavicular neck 2 1:14 PM CDT DERMATOPATHOLOGY LABORATORY Final Diagnosis Specimen A. SKIN, left med. clavicular neck: BASAL CELL CARCINOMA, NODULAR TYPE (C44.41) 2 1:14 PM CDT DERMATOPATHOLOGY LABORATORY Clinical History BCCA. Path#[id number] 2 1:14 PM CDT DERMATOPATHOLOGY LABORATORY Gross [...] determined by the Dermatopathology Laboratory at [facility], directed by Dr. Radha Cheung. These tests need not be, and therefore are not, approved by the [place] Food and Drug Administration. The tests are used for clinical purposes. Billing Codes Specimen Charges Stain Charges 04388 1 2 1:14 PM CDT DERMATOPATHOLOGY LABORATORY Embedded Images 2 1:14 PM CDT DERMATOPATHOLOGY LABORATORY Pathology/Cytolog y TISSUE SPECIMEN FROM SKIN / Unknown 02/09/2022 02/11/2022 8:54 AM CDT Blas Stanford MD LAB - PATHOLOGY/CYTO LOGY ORDERABLES DERMATOPATHOLOGY LABORATORY [facility] - Department of Dermatology [address] [phone] documented in this encounter Visit Diagnoses Not on filedocumented in this encounter Care Teams Dietary Supervisor Relationship Specialty Start Date End Date Radha Hu MD [address] [facility] [address], [place] [phone] PCP - General 04/24/20 documented as of this encounter
--- OUTSIDE RECORDS SUMMARY | 2024-09-22 16:56 | XMS_ITS | Encounter Summary ---
Author Organization [facility] Address [address] [facility] [place] [address] Care Team Providers Care Melting Furnace Skimmer Name Role Phone Radha Hu MD Primary Care Provider [phone] Encounter Details Date Type Department Care Team (Late st Contact Info) Description 08/14/2020 Lab Requisition [facility] DermPath Lab [address] [facility], [place] [id number] Blas Stanford MD [address] [facility] [place] [id number] Social History Tobacco Use Types Packs/Day Years [...] Diagnosis Comments DERMATOPATHOLOGY Routine 08/12/2020 3:33 AM GERMAN PROFESSOR documented in this encounter Results * DERMATOPATHOLOGY (08/12/2020 3:33 AM GERMAN PROFESSOR) Case Report Dermatopathology Report Case: [id number] Authorizing Provider: Blas Stanford MD Collected: 08/12/2020 03:33 AM Ordering Location: [facility] DermPath Lab Received: 08/14/2020 06:15 AM Pathologist: Tere Vaughn MD Specimen: Skin, left upper cutaneous lip 1:49 PM [facility] DERMATOPATHOLOGY LABORATORY Final Diagnosis Specimen A. SKIN, left upper cutaneous lip: BASAL CELL CARCINOMA, INFILTRATIVE PATTERN (C44.319) 1:49 PM [facility] DERMATOPATHOLOGY LABORATORY Clinical History SK vs BCC vs SCC. Path#[id number] 1:49 PM [facility] DERMATOPATHOLOGY LABORATORY Gross Description Specimen A: Received is one formalin filled container labeled with the patient's name and designated left upper cutaneous lip. The specimen consists of a shave biopsy measuring 6x4x1 mm. Jar 0. 1:49 PM [facility] DERMATOPATHOLOGY LABORATORY Microscopic Description Specimen A. SKIN, left upper cutaneous lip: Within the dermis there are nodular aggregates of basaloid cells associated with fibromyxoid stroma and epithelial-stromal clefts. At the advancing margin of the neoplasm, there are smaller angulated nests that infiltrate the dermis. 1:49 PM [facility] DERMATOPATHOLOGY LABORATORY Disclaimer An external and internal positive and negative controls are appropriate for the histochemical, immunohistochemical and immunofluorescence stain(s) in this case (if any), except where stated explicitly. The performance characteristics of the stain(s) cited in this report were developed and its performance characteristic determined by the Dermatopathology Laboratory at [facility], directed by Dr. Radha Cheung. These tests need not be, and therefore are not, approved by the [place] Food and Drug Administration. The tests are used for clinical purposes. Billing Codes Specimen Charges Stain Charges 06124 1 1 1:49 PM [facility] DERMATOPATHOLOGY LABORATORY Embedded Images 1 1:49 PM [facility] DERMATOPATHOLOGY LABORATORY Pathology/Cytolo gy TISSUE SPECIMEN FROM SKIN / Unknown 08/12/2020 3:33 AM GERMAN PROFESSOR 08/14/2020 6:15 AM GERMAN PROFESSOR Blas Stanford MD LAB - PATHOLOGY/CYTO LOGY ORDERABLES DERMATOPATHOLOGY LABORATORY [facility] - Department of Dermatology [address], [address] [phone] documented in this encounter Visit Diagnoses Not on filedocumented in this encounter Care Teams Melting Furnace Skimmer Relationship Specialty Start Date End Date Radha Hu MD [address] [address] PCP - General 04/24/20 documented as of this encounter
--- OUTSIDE RECORDS SUMMARY | 2024-09-22 16:56 | XMS_ITS | Continuity of Care Document ---
Author Organization [facility] Address [address] [place] [address] Phone Care Team Providers Care Commodity Industry Analyst Name Role Phone Ansari OD, Damon Unavailable Unavailable Procedures Procedure Date Eye Exam & Treatment Refraction Eye Exam & Treatment Refraction Eye Exam & Treatment CL Replacement - [employer] Other 007 Tax - Medical Advance Directives Directive Yes / No Effective Date File Name No Information Encounters Encounter Description Practice Location Reason(s) For Visit Diagnoses Date Provider Providers Copied on Encounter [facility], [address] [place] [address] [address], [place], [place], [id number], tel:[phone] [facility] [place] [place] No Information 2-201 0 Ansari OD Damon. [address] [facility] [facility] , [address], [place], [place], [facility], [place]. tel:[phone] [facility], [address] [place] [address] [address], [place], [place], [id number], [place] tel:[phone] [facility] [place] No Information 0-200 9 Ansari OD Damon. [address] [facility] [address], [address], [place], [address], [place]. tel:[phone] [facility], [address] [place] [address] [address], [place], [place], [address], [place] tel:[phone] [facility] No Information Nov-0 2-200 8 Ansari OD Damon. [address] [facility] , [address], [place], [address], [place]. tel:[phone] [facility], [address], [place], [place], [id number], [place] tel:[phone] [facility] No Information 4-200 7 Ansari OD Damon. [address] [facility] , [address], [place], [address], [place]. tel:[phone] Family History Family Member Type Diagnosis Age At Onset No Information Payers Payer name Insurance type Covered alliance party ID Authorsamira kristy(s) [employer] Plan [id number] Social History Type Description Quantity Date Captured [...]
--- OUTSIDE RECORDS SUMMARY | 2024-09-22 16:56 | XMS_ITS | Clinical Summary ---
Author Organization [facility] Address [address] [place] [address] Care Team Providers Care Multimedia Teacher Name Role Phone Shraddha Rader MD Primary Care Provider Jesi Taylor DO Unavailable [phone] Ru Stanford MD Unavailable [phone] Librado Zabala DPM Unavailable [phone] Jesus Daly MD Unavailable [phone] Allergies Active Allergy Reactions Criticality Noted Date [...] (Vitamin B-12) 100 mcg tablet Activ e cjkstvh-mkqd-jsoq a-gbdk-anhqvs 100 mg-150 mg- 50 mg-150 mg capsule [...] with preserved ejection fraction (CMS/HCC) ([facility]) Take 2 tablets by mouth once daily [...] tabletIndications :Permanent atrial fibrillation (CMS/HCC) ([facility]) Take 1 tablet (50 mg total) by [...] Noted Date Diagnosed Date Paroxysmal atrial fibrillation ([facility]) 024 Overweight with body mass in dex (BMI) of 27 to 27.9 in adult 04/05/2024 Assessment & Plan (04/05/2024 2:52 PM CDT): Weight slightly better than last visit. This is likely due to no longer being fluid overload. Monitor daily weights. Okay to try gentle intentional weight loss due to adipose but avoid over diuresis Chronic heart failure with p reserved ejection fraction ([facility]) 12/22/2023 Assessment & Plan (04/05/2024 2:51 PM [...] 09/28/2023 Assessment & Plan (09/28/2023 6:44 PM CATTLE BRANDER): Patient with somewhat elevated fall risk score [...] pharmacy Assessment & Plan (10/03/2022 2:55 PM CATTLE BRANDER): Restart Pepcid 20 mg at bedtime Continue Flonase 2 sprays into each nostril while looking down over the sink, do not sniff in or blow nose after use for at least 30 minutes Obtain previous hearing test from [facility] Dysfunction of both eustachian tubes 10/03/2022 Assessment & Plan (10/03/2022 2:56 PM CATTLE BRANDER): Restart Pepcid 20 mg at bedtime Continue Flonase 2 sprays into each nostril while looking down over the sink, do not sniff in or blow nose after use for at least 30 minutes SNHL (sensory-neural hearing loss), asymmetrical 10/03/2022 Assessment & Plan (09/28/2023 6:43 PM CATTLE BRANDER): Chronic. Has hearing aids. No signs of cerumen on exam in office today Assessment & Plan (10/03/2022 2:56 PM CATTLE BRANDER): Obtain previous hearing test from [facility] Continue Hearing loss Seasonal allergic rhinitis [...] famotidine Assessment & Plan (09/28/2023 6:43 PM CATTLE BRANDER): Chronic. Symptoms mostly controlled with famotidine. Continue. [...] nightly Assessment & Plan (07/12/2021 1:17 PM CATTLE BRANDER): Stable, improving Patient reports she continues to have hoarseness of voice, decreased amount of throat clearing Continue famotidine 20 mg nightly, continue with behavioral changes; eating at least 4 hours before bedtime, reduce time high complexity meals; if no relief will evaluate need to increase dose of H2 sunny Assessment & Plan (06/16/2021 9:22 AM CATTLE BRANDER): Pepcid 20 mg at bedtime LPR discussed [...] fractures Assessment & Plan (09/28/2023 6:41 PM CATTLE BRANDER): Chronic. Due for updated bone density. Will [...] calcium daily through diet and supplements, vitamin-D 6392-7397 units daily Assessment & Plan (07/12/2021 1:18 PM CATTLE BRANDER): Stable, continue with calcium and vitamin-D supplements Continue to monitor risk of fall or fracture Assessment & Plan (05/25/2021 4:28 PM CDT): Has worsening, with -5% bone density since last DEXA scan Continue calcium supplements, vitamin-D supplements At this time defers bisphosphonate therapy Primary osteoarthritis involving multiple joints 05/25/2021 Assessment & Plan (09/28/2023 6:43 PM CATTLE BRANDER): Chronic. Recommended use of bise-uhb-qmymstw acetaminophen. Caution with NSAIDs given history of [...] exam Assessment & Plan (09/28/2023 6:42 PM CATTLE BRANDER): Patient reports she follows with dermatology and gets yearly skin exam. They are monitor some lesions but has not needed to cut anything off in a while. She does get periodic liquid nitrogen treatment for probable pre cancerous lesions. She is scheduled to follow up with the panama hat blocker for spot on her leg in the [...] amlodipine. Assessment & Plan (09/28/2023 6:42 PM CATTLE BRANDER): Chronic. Mildly uncontrolled in office but patient [...] daily Assessment & Plan (07/12/2021 1:17 PM CATTLE BRANDER): Stable, well controlled; blood pressure at target [...] lifestyle Assessment & Plan (09/28/2023 6:40 PM CATTLE BRANDER): Chronic. Tolerates rosuvastatin. 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 Resolved Problems Problem Noted Date Diagnosed Date Resolved Date Permanent atrial fibrillation ([facility]) 12/22/2023 04/18/2024 Assessment & Plan (04/05/2024 2:50 [...] chest Assessment & Plan (07/12/2021 1:19 PM CATTLE BRANDER): Stable, patient continues to follow with dermatology for evaluation monitoring skin 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 Encounters Date Type Department Care Team Description 07/22/2024 4:30 PM CATTLE BRANDER Office Visit [facility] at [address] [address] Charmaine Costello, MAGAZINE KEEPER Acute right-sided low back pain without sciatica [...] on file Legal Sex Female 11:48 PM CATTLE BRANDER Gender Identity Not on file Sexual Orientation Not on file Obstetrics History Para Term AB IAB SAB Ectopic Multiple Livin g Live Births 3 3 3 Date Outcome GA Total Labor Labor/2nd/3rd Weight Sex Type Anes PTL Kady A1 A5 Name Clin Term Term Term Last Filed Vital Signs Vital Sign Reading Time Taken Comments Blood Pressure 161/77 07/22/2024 4:35 PM CATTLE BRANDER Pulse 64 07/22/2024 4:35 PM CATTLE BRANDER Temperature 36.7 C (98 F) 07/22/2024 4:35 PM CATTLE BRANDER Respiratory Rate 20 07/22/2024 4:35 PM CATTLE BRANDER Oxygen Saturation 93% 07/22/2024 4:35 PM CATTLE BRANDER Inhaled Oxygen Concentration - - Weight 81.8 kg (180 lb 4.8 oz) 07/22/2024 4:35 P M CATTLE BRANDER Height 174 cm (5' 8.5 ) 07/22/2024 4:35 PM CATTLE BRANDER Body Mass Index 27.01 07/22/2024 4:35 PM CATTLE BRANDER Plan of Treatment Health Maintenance Due Date [...] Most Recently Relevant to Health Maintenance Insurance [facility] HMO [facility] Address: [facility] [address] [place] [address] MEDICARE [employer] [facility] Address: [address] [address] [place] [address] Care Teams Multimedia Teacher Relationship Specialty Start Date End Date Shraddha Rader MD PCP - General Family Medicine 09/28/23 Jesi Taylor DO [address] [facility] [address]ONES [address] [facility] [address] [place] [address] Consulting Physician Otolaryngology 09/28/23 Ru Stanford MD [address] [facility] [place] [address] Referring Physician Dermatology 09/28/23 Librado Zabala DPM [address] [address] Podiatry 09/28/23 Jesus Daly MD [address] [facility] [address] [place] [address] Referring Physician Ophthalmology 09/28/23
--- OUTSIDE RECORDS SUMMARY | 2024-09-22 16:56 | XMS_ITS | Referral Summary ---
Author Organization [facility] Address [address] [facility] [place] [address] Care Team Providers Care Medicine Technologist Name Role Phone Radha Hu MD Primary Care Provider [phone] Source Comments [facility],non-[facility] Affiliates and Associated Physician Practices is amultiple site organization consisting of ambulatory clinics and hospital sitesin [place], [place], [place] and [place]. This disclosure is being madepursuant to the Care Everywhere program and may not contain all information available regarding this patient. Last updated 18.[facility] Social History Tobacco Use Types Packs/Day Years Used Date Smoking Tobacco: Never Assessed Sex and Gender Information Value Date Recorded Sex Assigned at Not on file Gender Identity Not on file Sexual Orientation Not on file Plan of Treatment Not on file Care Teams Medicine Technologist Relationship Specialty Start Date End Date Radha Hu MD [address] [place], [place] [address], [place] [address] PCP - General 04/24/20
--- OUTSIDE RECORDS SUMMARY | 2024-09-22 16:56 | XMS_ITS | Encounter Summary ---
Author Organization [facility] Address [address] [facility] [place] [address] Care Team Providers Care Swimming Pool Serviceperson Name Role Phone Radha Hu MD Primary Care Provider [phone] Encounter Details Date Type Department Care Team (Late st Contact Info) Description 04/27/2020 Lab Requisition [facility] DermPath Lab [address] [facility], [place] [id number] Blas Stanford MD [address] [facility] [place], [place] [id number] Social History Tobacco Use Types Packs/Day Years [...] AM CDT) Case Report Dermatopathology Report Case: [id number] Authorizing Provider: Blas Stanford MD Collected: 04/24/2020 12:00 AM Ordering Location: [facility] DermPath Lab Received: 04/27/2020 06:16 AM Pathologist: Allyn Cheung MD Specimen: Skin, left ala 0 11:46 AM CDT DERMATOPATHOLOGY LABORATORY Final Diagnosis Specimen A. SKIN, left ala: BASAL CELL CARCINOMA, NODULAR TYPE (C44.311) 0 11:46 AM CDT DERMATOPATHOLOGY LABORATORY Clinical History BCCA. Path # [id number]. 0 11:46 AM CDT DERMATOPATHOLOGY LABORATORY Gross Description Specimen A: Received is one formalin filled container labeled with the patient's name and designated left ala. The specimen consists of a shave biopsy measuring 6k2t8mq. Jar 0. 0 11:46 AM CDT DERMATOPATHOLOGY [...] determined by the Dermatopathology Laboratory at [facility], directed by Dr. Radha Cheung. These tests need not be, and therefore are not, approved by the [place] Food and Drug Administration. The tests are used for clinical purposes. Billing Codes Specimen Charges Stain Charges 59685 1 0 11:46 AM CDT DERMATOPATHOLOGY LABORATORY Embedded Images 0 11:46 AM CDT DERMATOPATHOLOGY LABORATORY Pathology/Cytolog y TISSUE SPECIMEN FROM SKIN / Unknown 04/24/2020 04/27/2020 6:16 AM CDT Blas Stanford MD LAB - PATHOLOGY/CYTO LOGY ORDERABLES DERMATOPATHOLOGY LABORATORY [facility] - Department of Dermatology [address], [address] [phone] documented in this encounter Visit Diagnoses Not on filedocumented in this encounter Care Teams Swimming Pool Serviceperson Relationship Specialty Start Date End Date Radha Hu MD [facility] [place] [facility] [address] [address] PCP - General 04/24/20 documented as of this encounter
--- OUTSIDE RECORDS SUMMARY | 2024-09-22 16:56 | XMS_ITS | Patient Health Summary ---
Author Organization [facility] Address [address] [place] [address] Care Team Providers Care Dampener Operator Name Role Phone Radha Hu MD Primary Care Provider [phone] Note from [facility],non-owned Affiliates and Associated Physician Practices is amultiple site organization consisting of ambulatory clinics and hospital sitesin [place], [place], [place] and [place]. This disclosure is being madepursuant to the Care Everywhere program and may not contain all information available regarding this patient. Last updated 18.[facility] Social History Tobacco Use Types Packs/Day Years [...] is included. Case Report Dermatopathology Report Case: [id number] Authorizing Provider: Blas Stanford MD Collected: 04/20/2022 12:00 AM Ordering Location: [facility] DermPath Lab Received: 04/22/2022 09:37 AM Pathologist: Allyn Cheung MD Specimen: Skin, left mid clavicular neck 2 5:38 PM CDT DERMATOPATHOLOGY LABORATORY Final Diagnosis Specimen A. 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 Check margins.Path#[id number] 2 5:38 PM T DERMATOPATHOLOGY LABORATORY Gross Description Specimen A: Received is one formalin filled container labeled with the patient's name and designated left mid clavicular neck. The specimen consists of a non-oriented ellipse of skin measuring 98r08s6 mm. The epidermal surface is unremarkable. The [...] characteristic determined by the Dermatopathology Laboratory at [facility], directed by Dr. Radha Cheung. These tests need not be, and therefore are not, approved by the [place] Food and Drug Administration. The tests are used for clinical purposes. Billing Codes Specimen Charges Stain Charges 04036 1 2 5:38 PM CDT DERMATOPATHOLOGY LABORATORY Embedded Images 5:38 PM CDT DERMATOPATHOLOGY LABORATORY Pathology/Cytolog y TISSUE SPECIMEN FROM SKIN / Unknown 04/20/2022 04/22/2022 9:37 AM CDT Blas Stanford MD LAB - PATHOLOGY/CYTO LOGY ORDERABLES Performing Organization Address [facility]/ZIP Co de Phone Number DERMATOPATHOLOGY LABORATORY [facility] Department of Dermatology [facility] Medicine [address] [place] [address], [address] Floor [address] [phone] * CULTURE AEROBIC (04/03/2012 11:19 AM CDT) Culture SEE NOTE [facility] ([facility]) Comment: CULTURE, AEROBIC BACTERIA MICRO NUMBER: [id number] TEST STATUS: FINAL SPECIMEN SOURCE: R KNEE [...] = See Therapy Comments Test Performed at: [facility] [address] [place] [phone] JUAN FRANCISCO LOCKHART DO Exudate specimen from wound (specimen) (Leg, Right) 04/03/2012 11:19 AM CDT 04/04/2012 3:02 AM CDT Narrative [facility] ([facility]) - 04/08/2012 11:00 AM CDT Specimen Type->Wound drainage Historical Provider LAB - MICROBIOLOG Y ORDERABLES [facility] ([facility]) Care Teams Dampener Operator Relationship Specialty Start Date End Date Radha Hu MD [address] [facility] [address], [place] [address] [facility] - General 04/24/20
--- OUTSIDE RECORDS SUMMARY | 2024-09-22 16:56 | XMS_ITS | Encounter Summary ---
Author Organization [facility] Address [address] [place] [address] Care Team Providers Care Retail Sales Clerk Name Role Phone Shraddha Rader MD Primary Care Provider Jesi Taylor DO Unavailable [phone] Ru Stanford MD Unavailable [phone] Librado ZabalaM Unavailable [phone] Jesus Daly MD Unavailable [phone] Encounter Details Date Type Department Care Team (Late st Contact Info) Description 12/11/2023 Orders Only [facility] Health Information Management [address] [place] [address] Scanning, Provider Social History Tobacco Use [...] on file Legal Sex Female 11:48 PM MAMMOGRAPHY TECHNOLOGIST Gender Identity Not on file Sexual Orientation [...] on filedocumented in this encounter Care Teams Retail Sales Clerk Relationship Specialty Start Date End Date Shraddha Rader MD PCP - General Family Medicine 09/28/23 Jesi Taylor DO [address] [facility] [facility] [address] [place] [address] Consulting Physician Otolaryngology 09/28/23 Ru Stanford MD [address] [facility] [facility] [place] [address] Referring Physician Dermatology 09/28/23 Librado Zabala DPM [address] [place] [address] Podiatry 09/28/23 Jesus Daly MD [address] [facility] [address] [place] [address] Referring Physician Ophthalmology 09/28/23 documented as of this encounter
--- OUTSIDE RECORDS SUMMARY | 2024-09-22 16:56 | XMS_ITS | Clinical Summary ---
Author Organization [facility] Address [address] [place] [address] Care Team Providers Care Wildlife Photographer Name Role Phone Radha Hu MD Primary Care Provider [phone] Source Comments [facility],non-owned Affiliates and Associated Physician Practices is amultiple site organization consisting of ambulatory clinics and hospital sitesin [place], [place], [place] and [place]. This disclosure is being madepursuant to the Care Everywhere program and may not contain all information available regarding this patient. Last updated 18.[facility] Social History Tobacco Use Types Packs/Day [...] age to complete this topic Care Teams Wildlife Photographer Relationship Specialty Start Date End Date Radha Hu MD [address] [facility] [address], [place] [address] PCP - General 04/24/20
--- OUTSIDE RECORDS SUMMARY | 2024-09-22 16:56 | XMS_ITS | Referral Summary ---
Author Organization [facility] Address [address] [place] [address] Care Team Providers Care Lamp Shade Maker Name Role Phone Shraddha Rader MD Primary Care Provider Jesi Taylor DO Unavailable [phone] Ru Stanford MD Unavailable [phone] Librado ZabalaM Unavailable [phone] Jesus Daly MD Unavailable [phone] Encounters Date Type Department Care Team Description 07/22/2024 4:30 PM METAL MODEL MAKER Office Visit [facility] at [address] [address] Charmaine Costello, CIARA Acute right-sided [...] (Vitamin B-12) 100 mcg tablet Activ e exukqvh-jvui-gsrn u-oeyo-dnfzkn 100 mg-150 mg- 50 mg-150 mg capsule [...] Noted Date Diagnosed Date Paroxysmal atrial fibrillation ([facility]) 024 Overweight with body mass in [...] 09/28/2023 Assessment & Plan (09/28/2023 6:44 PM METAL MODEL MAKER): Patient with somewhat elevated fall risk score [...] pharmacy Assessment & Plan (10/03/2022 2:55 PM METAL MODEL MAKER): Restart Pepcid 20 mg at bedtime Continue Flonase 2 sprays into each nostril while looking down over the sink, do not sniff in or blow nose after use for at least 30 minutes Obtain previous hearing test from [facility] Dysfunction of both eustachian tubes 10/03/2022 Assessment & Plan (10/03/2022 2:56 PM METAL MODEL MAKER): Restart Pepcid 20 mg at bedtime Continue Flonase 2 sprays into each nostril while looking down over the sink, do not sniff in or blow nose after use for at least 30 minutes SNHL (sensory-neural hearing loss), asymmetrical 10/03/2022 Assessment & Plan (09/28/2023 6:43 PM METAL MODEL MAKER): Chronic. Has hearing aids. No signs of cerumen on exam in office today Assessment & Plan (10/03/2022 2:56 PM METAL MODEL MAKER): Obtain previous hearing test from [facility] Continue Hearing loss Seasonal allergic rhinitis due [...] famotidine Assessment & Plan (09/28/2023 6:43 PM METAL MODEL MAKER): Chronic. Symptoms mostly controlled with famotidine. Continue. [...] nightly Assessment & Plan (07/12/2021 1:17 PM METAL MODEL MAKER): Stable, improving Patient reports she continues to have hoarseness of voice, decreased amount of throat clearing Continue famotidine 20 mg nightly, continue with behavioral changes; eating at least 4 hours before bedtime, reduce time high complexity meals; if no relief will evaluate need to increase dose of H2 sunny Assessment & Plan (06/16/2021 9:22 AM METAL MODEL MAKER): Pepcid 20 mg at bedtime LPR discussed [...] fractures Assessment & Plan (09/28/2023 6:41 PM METAL MODEL MAKER): Chronic. Due for updated bone density. Will [...] calcium daily through diet and supplements, vitamin-D 8002-7667 units daily Assessment & Plan (07/12/2021 1:18 PM METAL MODEL MAKER): Stable, continue with calcium and vitamin-D supplements Continue to monitor risk of fall or fracture Assessment & Plan (05/25/2021 4:28 PM CDT): Has worsening, with -5% bone density since last DEXA scan Continue calcium supplements, vitamin-D supplements At this time defers bisphosphonate therapy Primary osteoarthritis involving multiple joints 05/25/2021 Assessment & Plan (09/28/2023 6:43 PM METAL MODEL MAKER): Chronic. Recommended use of ihyh-kij-dgxdnfh acetaminophen. Caution with NSAIDs given history of [...] exam Assessment & Plan (09/28/2023 6:42 PM METAL MODEL MAKER): Patient reports she follows with dermatology and gets yearly skin exam. They are monitor some lesions but has not needed to cut anything off in a while. She does get periodic liquid nitrogen treatment for probable pre cancerous lesions. She is scheduled to follow up with the ophthalmic technician for spot on her leg in the [...] amlodipine. Assessment & Plan (09/28/2023 6:42 PM METAL MODEL MAKER): Chronic. Mildly uncontrolled in office but patient [...] daily Assessment & Plan (07/12/2021 1:17 PM METAL MODEL MAKER): Stable, well controlled; blood pressure at target [...] lifestyle Assessment & Plan (09/28/2023 6:40 PM METAL MODEL MAKER): Chronic. Tolerates rosuvastatin. Denies history of clinically [...] daily Assessment & Plan (07/12/2021 1:16 PM METAL MODEL MAKER): Stable, well controlled; total cholesterol 198; LDL [...] chest Assessment & Plan (07/12/2021 1:19 PM METAL MODEL MAKER): Stable, patient continues to follow with dermatology [...] on file Legal Sex Female 11:48 PM METAL MODEL MAKER Gender Identity Not on file Sexual Orientation Not on file Last Filed Vital Signs Vital Sign Reading Time Taken Comments Blood Pressure 161/77 07/22/2024 4:35 PM METAL MODEL MAKER Pulse 64 07/22/2024 4:35 PM METAL MODEL MAKER Temperature 36.7 C (98 F) 07/22/2024 4:35 PM METAL MODEL MAKER Respiratory Rate 20 07/22/2024 4:35 PM METAL MODEL MAKER Oxygen Saturation 93% 07/22/2024 4:35 PM METAL MODEL MAKER Inhaled Oxygen Concentration - - Weight 81.8 kg (180 lb 4.8 oz) 07/22/2024 4:35 P M METAL MODEL MAKER Height 174 cm (5' 8.5 ) 07/22/2024 4:35 PM METAL MODEL MAKER Body Mass Index 27.01 07/22/2024 4:35 PM METAL MODEL MAKER Plan of Treatment Not on file Procedures Procedure Name Priority Date/Time Associated Diagnosis Comments DEXA SCAN Routine 03/22/2024 2:36 PM CDT from Last 3 Months or Most Recently Relevant to Health Maintenance Results * DEXA SCAN (03/22/2024 2:36 PM CDT) Scribed Deca Scan Abnormal us Historical Provider HEALTH MAINTENANCE Final Result from Last 3 Months or Most Recently Relevant to Health Maintenance Insurance [facility] MDCR HMO REF MEDICARE SOLUTIONS Care Teams Lamp Shade Maker Relationship Specialty Start Date End Date Shraddha Rader MD PCP - General Family Medicine 09/28/23 Jesi Taylor DO [address] [facility] [address] [address] Consulting Physician Otolaryngology 09/28/23 Ru Stanford MD [address] [address] Referring Physician Dermatology 09/28/23 Librado Zabala DPM [address] [facility] [place] [id number] Podiatry 09/28/23 Jesus Daly MD [address] [address] Referring Physician Ophthalmology 09/28/23
--- OUTSIDE RECORDS SUMMARY | 2024-09-22 16:56 | XMS_ITS | Encounter Summary ---
Author Organization [facility] Address [address] [facility] [place] [address] Care Team Providers Care Game Bird Farmer Name Role Phone Radha Hu MD Primary Care Provider [phone] Encounter Details Date Type Department Care Team (Late st Contact Info) Description 04/22/2022 Lab Requisition [facility] DermPath Lab [address] [facility] [place] [id number] Blas Stanford MD [address] [facility] [place], [place] [id number] Social History Tobacco Use Types Packs/Day Years [...] AM CDT) Case Report Dermatopathology Report Case: [id number] Authorizing Provider: Blas Stanford MD Collected: 04/20/2022 12:00 AM Ordering Location: [facility] DermPath Lab Received: 04/22/2022 09:37 AM Pathologist: Allyn Cheung MD Specimen: Skin, left mid clavicular neck 2 5:38 PM CDT DERMATOPATHOLOGY LABORATORY Final Diagnosis Specimen A. 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 Check margins.Path#[id number] 2 5:38 PM CDT DERMATOPATHOLOGY LABORATORY Gross Description Specimen A: Received is one formalin filled container labeled with the patient's name and designated left mid clavicular neck. The specimen consists of a non-oriented ellipse of skin measuring [id number] mm. The epidermal surface is unremarkable. The [...] characteristic determined by the Dermatopathology Laboratory at [facility], directed by Dr. Radha Cheung. These tests need not be, and therefore are not, approved by the [place] Food and Drug Administration. The tests are used for clinical purposes. Billing Codes Specimen Charges Stain Charges 95813 1 2 5:38 PM CDT DERMATOPATHOLOGY LABORATORY Embedded Images 2 5:38 PM CDT DERMATOPATHOLOGY LABORATORY Pathology/Cytolog y TISSUE SPECIMEN FROM SKIN / Unknown 04/20/2022 04/22/2022 9:37 AM CDT Blas Stanford MD LAB - PATHOLOGY/CYTO LOGY ORDERABLES DERMATOPATHOLOGY LABORATORY [facility] - Department of Dermatology [facility] Medicine [facility] [facility] [phone] documented in this encounter Visit Diagnoses Not on filedocumented in this encounter Care Teams Game Bird Farmer Relationship Specialty Start Date End Date Radha Hu MD [address] [place] [id number] PCP - General 04/24/20 documented as of this encounter
--- NOTE | 2024-09-22 17:02 | ED_ITS ---
HPI - Fall General Chief Complaint: Fall Stated Complaint: fall Time Seen by Provider: 09/22/24 16:33 History of Present Illness HPI Narrative: Arm off patient is an 89-year-old female who presents ER with pain to left buttock. She had a slip and fall on ice this morning while trying to go to [employer]. She did strike her head. No LOC. She takes Eliquis. She was able to get up and drive her car home. Is not taking pain medication. No numbness or tingling to lower extremity. Denies back pain. No other complaints. Related Data Home Medications ?Medication ?Instructions ?Recorded ?Confirmed ?Last Taken ?Type aspirin 81 mg tablet 81 mg PO HS 12/11/23 01/23/24 01/23/24 History cholecalciferol (vitamin D3) 25 1,500 unit PO WEEKLY 12/11/23 01/23/24 01/23/24 History mcg (1,000 unit) tablet (Vitamin D3) cranberry 400 mg capsule 400 mg PO DAILY 12/11/23 01/23/24 01/23/24 History famotidine 20 mg tablet 20 mg PO HS 12/11/23 01/23/24 01/23/24 History rosuvastatin 5 mg tablet 5 mg PO HS 12/11/23 01/23/24 01/23/24 History cyanocobalamin (vitamin B-12) 100 100 mcg PO DAILY 01/23/24 01/23/24 01/23/24 History mcg tablet fluticasone propionate 50 1 spray intranasal DAILY 01/23/24 01/23/24 01/23/24 History mcg/actuation nasal spray,suspension furosemide 20 mg tablet 20 mg PO DAILY 01/23/24 01/23/24 01/23/24 History metoprolol tartrate 100 mg tablet 150 mg PO Q12H 01/23/24 01/23/24 01/23/24 History potassium chloride 20 mEq 20 meq PO DAILY 01/23/24 01/23/24 01/23/24 History tablet,extended release Allergies Allergy/AdvReac Type Severity Reaction Status Date / Time cephalexin Allergy Rash Verified 01/24/24 07:22 clindamycin Allergy Rash Verified 01/24/24 07:22 alendronate sodium (From AdvReac Unknown Verified 01/24/24 07:22 Fosamax) atorvastatin AdvReac Muscle Pain Verified 01/24/24 07:22 losartan AdvReac Unknown Verified 01/24/24 07:22 pravastatin AdvReac Muscle Pain Verified 01/24/24 07:22 Review of Systems Constitutional: Constitutional: Reports no additional constitutional complaints ENT: Reports system reviewed and no additional complaints, except as documented Respiratory: Respiratory: Reports no additional respiratory complaints Gastrointestinal: Gastrointestinal: Reports no additional gastrointestinal complaints Integumentary/Breasts: Skin/Breast: Reports system reviewed and no additional complaints, except as docu PMFSH Past Medical History Medical History Dyslipidemia Hypertension Kidney stones Osteoarthritis Shingles Skin cancer Surgical History Surgical History History of cataract extraction History of cholecystectomy History of hysterectomy Social History Social History Social History: Surrogate medical decision maker: Jose Atkins, spouse. Code status: Full code. Years smoked: 25 Smoking status: Former smoker Tobacco type: cigarettes Second hand tobacco smoke exposure: No Smoking end date: 08/07/73 Alcohol intake: never Drinks per week: 3 Substance use: never Substance use type: does not use Do You Feel Safe in your Home?: Yes Lack of Transportation: No Lack of Food: Never True Current Housing: I Have Housing Concerned About Future Housing: No Difficulty Paying Gas/Electric Bills: No Difficulty Paying for Meds: No Currently Unemployed: No Education: High School Diploma/GED Difficulty w/ Childcare or Family Care: No Living arrangements: with family Spiritual care concerns: No Exam Narrative: GENERAL: Well-appearing, well-nourished, and in no acute distress. HEAD: Normocephalic, atraumatic. ENT: Mucous membranes moist. CHEST: Clear to auscultation. No respiratory distress. HEART: Regular rate and rhythm. Normal peripheral pulses. ABDOMEN: Soft, nontender, nondistended. EXTREMITIES: Normal range of motion. No edema. SKIN: Warm, dry, no rash. NEURO: Alert and oriented x3. PSYCH: Normal mood and affect. Course Course Emergency Course: Patient resting comfortably. Swengel for pain. Patient able ambulate and move lower extremities. No fracture on imaging and no intracranial injury on imaging. Appropriate for discharge home. Tylenol for pain. Vital Signs Vital signs: Vital Signs Temperature 97.5 F L 09/22/24 13:40 Pulse Rate 62 09/22/24 13:40 Respiratory Rate 20 09/22/24 13:40 Blood Pressure 154/63 H 09/22/24 13:40 Pulse Oximetry 93 09/22/24 13:40 Oxygen Delivery Room Air 09/22/24 13:40 Temperature 97.5 F L 09/22/24 13:40 Pulse Rate 62 09/22/24 13:40 Respiratory Rate 20 09/22/24 13:40 Blood Pressure 154/63 H 09/22/24 13:40 Pulse Oximetry 93 09/22/24 13:40 Oxygen Delivery Room Air 09/22/24 13:40 MDM - Fall Imaging Data Radiologist's impression: ITS Impressions Head CT 09/22/24 17:08 IMPRESSION: 1. No fracture or acute intracranial process. 2. Age-related changes including mild diffuse volume loss and mild scattered white matter hypoattenuation consistent with chronic small vessel ischemic disease. Hip/Pelvis X-Ray 09/22/24 17:11 IMPRESSION: 1. Degenerative skeletal changes in the lower lumbar spine and pelvis as detailed above. No acute osseous abnormality. Discharge Plan Discharge Clinical Impression: Acute hip pain Patient Disposition: Home, Self-Care Condition: Stable Instructions: Hip Pain (ED) Additional Instructions: Please return to the emergency department if you develop severe pain that is not controlled by pain medications or if you are unable to walk because of pain or weakness. Return to the emergency department immediately if you develop fevers, loss of bowel or bladder control (dribbling of urine or having accidents you wouldn't normally have), inability to urinate, numbness of your genital or anal area, or weakness/numbness of your legs or arms as these could all be signs of a serious medical emergency. Patient Language: Portuguese Prescriptions: No Action famotidine 20 mg tablet 20 mg PO HS rosuvastatin 5 mg tablet 5 mg PO HS cranberry 400 mg Capsule 400 mg PO DAILY aspirin 81 mg Tablet 81 mg PO HS cholecalciferol (vitamin D3) [Vitamin D3] 25 mcg (1,000 unit) Tablet 1,500 unit PO WEEKLY Rx Instructions: pt takes twice weekly Eliquis 5 mg Tablet 5 mg PO Q12HR Qty: 120 0RF cyanocobalamin (vitamin B-12) 100 mcg Tablet 100 mcg PO DAILY furosemide 20 mg Tablet 20 mg PO DAILY fluticasone propionate 50 mcg/actuation [place],Suspension 1 spray INTRANASAL DAILY potassium chloride 20 mEq Tablet Extended Release 20 meq PO DAILY metoprolol tartrate 100 mg tablet 150 mg PO Q12H Follow-up/Referrals: Selina,Gaby Garcia, VEHICLE MAINTENANCE TECHNICIAN [Primary Care Provider] - 1 Week
[2024-09-22 17:30] VITALS: BP 136/78; PULSE 60; RESP 19; O2SAT 99
[2024-09-22] MEDS: HYDROcodone/acetaminophen (*CRX) 5-325 MG TABLET 1 TAB PO (17:34)
== END 2024-09-22 17:45 | disposition home or self-care (01) ==
PROVIDERS: Emergency Provider Emergency Medicine; PCP Nurse Practitioner Family
DX: S79.912A Unspecified injury of left hip, initial encounter (principal); E78.5 Hyperlipidemia, unspecified; I10 Essential (primary) hypertension; M16.0 Bilateral primary osteoarthritis of hip; M46.1 Sacroiliitis, not elsewhere classified; Z85.828 Personal history of other malignant neoplasm of skin; Z87.442 Personal history of urinary calculi; Z87.891 Personal history of nicotine dependence; Z98.49 Cataract extraction status, unspecified eye; Z90.49 Acquired absence of other specified parts of digestive tract; Z90.710 Acquired absence of both cervix and uterus; Z79.82 Long term (current) use of aspirin; Z79.01 Long term (current) use of anticoagulants; Z79.899 Other long term (current) drug therapy; W00.0XXA Fall on same level due to ice and snow, initial encounter
CPT/HCPCS: 70450; 73502; 99284; A9270

== ENCOUNTER 2024-09-25 10:09 | Inpatient (IN) | payer MEDICARE, SELFPAY ==
[2024-09-25] VITALS (11 sets, daily range): BP systolic 115–131; BP diastolic 67–84; PULSE 59–73; RESP 16–18; TEMP 36.6–37.1; O2SAT 93–97; BMI 28.8
--- NOTE | ~2024-09-25 | XR_ITS ---
EXAMINATION: XR chest 1V portable DATE: 10/01/2024 11:02 INDICATION: Pneumonia. TECHNIQUE: A single frontal view of the chest was obtained. COMPARISON: Chest single view 09/25/2024, chest 2 views 12/11/2023 FINDINGS: There is elevation of right hemidiaphragm. There is mild atelectasis at right lung base. No pleural effusion or pneumothorax. The heart size is normal. IMPRESSION: 1. Chronic elevation of right hemidiaphragm with mild atelectasis at right lung base. Reviewed, dictated and finalized at location A. ECTIVE SERVICES CASE WORKER
--- NOTE | ~2024-09-25 | XR_ITS ---
Exam: Abdomen 1V HISTORY: r/o bowel obstruction COMPARISON: None. TECHNIQUE: Supine images of the abdomen FINDINGS: Bowel gas pattern is nonspecific and non-obstructive. There is no free air or deep sulci. No pathologic calcifications are seen. Visualized lung bases are unremarkable. Bones and soft tissues are age-appropriate. IMPRESSION: Nonspecific, nonobstructive bowel gas pattern. Reviewed, dictated and finalized at location A. T MARKETING MANAGER
--- NOTE | ~2024-09-25 | CT_ITS ---
EXAMINATION: CT pelvis wo con DATE: 09/25/2024 10:50 INDICATION: Groin and hip pain post fall. TECHNIQUE: High resolution computed tomography (CT) of the pelvis was performed without intravenous c ontrast. Additional sagittal and coronal reconstructions were performed. Automated exposure control a nd iterative reconstruction technique were employed. The dose-length product was 578.77 mGy-cm. COMPARISON: Radiographs dated 09/22/2024 FINDINGS: There are minimally displaced sagittally oriented fractures at the bilateral sacral ala and transvers e fracture across the cephalad aspect of the S2 vertebral body. There is also a minimally displaced f racture at the junction of the right pubic body and the superior and inferior pubic rami. No fracture of the proximal femurs or acetabula. Osteoarthritis at the bilateral hips, moderate to severe on the right and mild on the left there is also mild bilateral sacroiliac osteoarthritis. No hip joint effu sions. The uterus is not identified and has likely been surgically resected. Small presacral hematoma . Bladder and visualized bowels including the appendix are unremarkable. IMPRESSION: 1. Minimally displaced fractures of the bilateral sacral ala and extending across the S2 vertebral jax dy. 2. Minimally displaced fracture at the junction of the right pubic body and the superior and inferior pubic rami. Reviewed, dictated and finalized at location A. ENT OFFICE REP IMPRESSION: 1. Minimally displaced fractures of the bilateral sacral ala and extending acro ss the S2 vertebral body. 2. Minimally displaced fracture at the junction of the right pubic body and the superior and inferior pubic rami.
--- NOTE | ~2024-09-25 | XR_ITS ---
Portable chest x-ray Comparison: 12/11/2023 Clinical History: Shortness of breath Findings: There is focal hazy airspace opacity right midlung, nonspecific. There is probable mild ce ntral pulmonary venous congestive change. Probable discoid left basilar atelectasis or scarring. Car diomediastinal silhouette is stable. Bones and soft tissues are unremarkable. Impression: Hazy right midlung airspace opacity, nonspecific. Correlate for focal pneumonia or atelectasis. Probable mild central pulmonary venous congestive change. Reviewed, dictated and finalized at [facility]. FACTURING ENGINEER PAINT Impression: Hazy right midlung airspace opacity, nonspecific. Correlate for focal pneumonia or atelectasis. Probable mild central pulmonary venous congestive change.
--- NOTE | ~2024-09-25 | CT_ITS ---
EXAMINATION: CTA chest PE protocol DATE: 10/01/2024 15:58 INDICATION: Acute hypoxic respiratory failure. TECHNIQUE: Computed tomography angiography (CTA) of the chest was performed with 100 mL Omnipaque-350 intravenous contrast timed to evaluate the pulmonary arteries. Coronal maximum intensity projection 3D-reconstructions were created by the technologist. Automated exposure control and iterative reconst ruction technique were employed. The dose-length product was 387.32 mGy-cm. COMPARISON: None. FINDINGS: There is elevation of right hemidiaphragm. There is moderate atelectasis at right lung base . There is mild atelectasis in right upper lobe and left lung. No pleural effusion. The heart size is normal. No pericardial effusion. There is no pulmonary embolus. There are cysts in left kidney measu ring up to 5.3 cm. There is a 3.4 x 2.4 cm lobulated mass in right retrocrural region. There is mildl y trabeculated extrahepatic biliary duct dilatation. The common duct is dilated to 14 mm. There are c hanges of cholecystectomy. There is severe cervical and thoracic spondylosis. IMPRESSION: 1. No pulmonary embolus. 2. Atelectasis in the lungs, worse at right lung base. 3. 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 Malignancy is no t excluded. Comparison with any old outside imaging or a PET/CT is recommended. Reviewed, dictated and finalized at location A. D FOLDER IMPRESSION: 1. No pulmonary embolus. 2. Atelectasis in the lungs, worse at right lung base. 3. 3.4 x 2.4 cm mass in right retrocrural region, most likely a venous malforma tion. Malignancy is not excluded. Comparison with any old outside imaging or a PET/CT is recommended.
--- OUTSIDE RECORDS SUMMARY | 2024-09-25 11:09 | XMS_ITS | Encounter Summary ---
Author Organization [facility] Address [address] [place] [address] Care Team Providers Care Paleobotanist Name Role Phone Shraddha Rader MD Primary Care Provider Jesi Taylor DO Unavailable [phone] Ru Stanford MD Unavailable [phone] Librado ZabalaM Unavailable [phone] Jesus Daly MD Unavailable [phone] Encounter Details Date Type Department Care Team (Late st Contact Info) Description 12/11/2023 Orders Only [facility] Health Information Management [address] [place] [id number] Scanning, Provider Social History Tobacco Use [...] on file Legal Sex Female 11:48 PM ADMISSIONS DIRECTOR Gender Identity Not on file Sexual Orientation [...] on filedocumented in this encounter Care Teams Paleobotanist Relationship Specialty Start Date End Date Shraddha Rader MD PCP - General Family Medicine 09/28/23 Jesi Taylor DO [address] [facility] [address] [place] [address] Consulting Physician Otolaryngology 09/28/23 Ru Stanford MD [address] [facility] [place] [address] Referring Physician Dermatology 09/28/23 Librado Zabala DPM [address] [facility] [address] [place] [id number] Podiatry 09/28/23 Jesus Daly MD [address] [facility] [address] [place] [address] Referring Physician Ophthalmology 09/28/23 documented as of this encounter
--- OUTSIDE RECORDS SUMMARY | 2024-09-25 11:09 | XMS_ITS | Clinical Summary ---
Author Organization [facility] Address [address] [place] [address] Care Team Providers Care Physical Therapy Technician Name Role Phone Shraddha Rader MD Primary Care Provider Jesi Taylor DO Unavailable [phone] Ru Stanford MD Unavailable [phone] Librado Zabala DPM Unavailable [phone] Jesus Daly MD Unavailable [phone] Allergies Active Allergy Reactions Criticality Noted Date [...] (Vitamin B-12) 100 mcg tablet Activ e uncjhpt-qzmb-sdvu d-jgrv-nzoqkm 100 mg-150 mg- 50 mg-150 mg capsule [...] heart failure with preserved ejection fraction (CMS/HCC) ([facility]) Take 2 tablets by mouth once daily [...] immediate release tabletIndications :Permanent atrial fibrillation (CMS/HCC) ([facility]) Take 1 tablet (50 mg total) by [...] Noted Date Diagnosed Date Paroxysmal atrial fibrillation ([facility]) 024 Overweight with body mass in dex (BMI) of 27 to 27.9 in adult 04/05/2024 Assessment & Plan (04/05/2024 2:52 PM CDT): Weight slightly better than last visit. This is likely due to no longer being fluid overload. Monitor daily weights. Okay to try gentle intentional weight loss due to adipose but avoid over diuresis Chronic heart failure with p reserved ejection fraction ([facility]) 12/22/2023 Assessment & Plan (04/05/2024 2:51 PM [...] 09/28/2023 Assessment & Plan (09/28/2023 6:44 PM COMMUNICATIONS ASSISTANT): Patient with somewhat elevated fall risk [...] pharmacy Assessment & Plan (10/03/2022 2:55 PM COMMUNICATIONS ASSISTANT): Restart Pepcid 20 mg at bedtime Continue Flonase 2 sprays into each nostril while looking down over the sink, do not sniff in or blow nose after use for at least 30 minutes Obtain previous hearing test from [facility] Dysfunction of both eustachian tubes 10/03/2022 Assessment & Plan (10/03/2022 2:56 PM COMMUNICATIONS ASSISTANT): Restart Pepcid 20 mg at bedtime Continue Flonase 2 sprays into each nostril while looking down over the sink, do not sniff in or blow nose after use for at least 30 minutes SNHL (sensory-neural hearing loss), asymmetrical 10/03/2022 Assessment & Plan (09/28/2023 6:43 PM COMMUNICATIONS ASSISTANT): Chronic. Has hearing aids. No signs of cerumen on exam in office today Assessment & Plan (10/03/2022 2:56 PM COMMUNICATIONS ASSISTANT): Obtain previous hearing test from [facility] Continue Hearing loss Seasonal allergic rhinitis [...] famotidine Assessment & Plan (09/28/2023 6:43 PM COMMUNICATIONS ASSISTANT): Chronic. Symptoms mostly controlled with famotidine. [...] nightly Assessment & Plan (07/12/2021 1:17 PM COMMUNICATIONS ASSISTANT): Stable, improving Patient reports she continues to have hoarseness of voice, decreased amount of throat clearing Continue famotidine 20 mg nightly, continue with behavioral changes; eating at least 4 hours before bedtime, reduce time high complexity meals; if no relief will evaluate need to increase dose of H2 sunny Assessment & Plan (06/16/2021 9:22 AM COMMUNICATIONS ASSISTANT): Pepcid 20 mg at bedtime LPR [...] fractures Assessment & Plan (09/28/2023 6:41 PM COMMUNICATIONS ASSISTANT): Chronic. Due for updated bone density. [...] calcium daily through diet and supplements, vitamin-D 5029-8886 units daily Assessment & Plan (07/12/2021 1:18 PM COMMUNICATIONS ASSISTANT): Stable, continue with calcium and vitamin-D supplements Continue to monitor risk of fall or fracture Assessment & Plan (05/25/2021 4:28 PM CDT): Has worsening, with -5% bone density since last DEXA scan Continue calcium supplements, vitamin-D supplements At this time defers bisphosphonate therapy Primary osteoarthritis involving multiple joints 05/25/2021 Assessment & Plan (09/28/2023 6:43 PM COMMUNICATIONS ASSISTANT): Chronic. Recommended use of gpzw-aqd-qcbwvcp acetaminophen. Caution with NSAIDs given history of [...] exam Assessment & Plan (09/28/2023 6:42 PM COMMUNICATIONS ASSISTANT): Patient reports she follows with dermatology and gets yearly skin exam. They are monitor some lesions but has not needed to cut anything off in a while. She does get periodic liquid nitrogen treatment for probable pre cancerous lesions. She is scheduled to follow up with the dental technologist for spot on her leg in the [...] amlodipine. Assessment & Plan (09/28/2023 6:42 PM COMMUNICATIONS ASSISTANT): Chronic. Mildly uncontrolled in office but [...] daily Assessment & Plan (07/12/2021 1:17 PM COMMUNICATIONS ASSISTANT): Stable, well controlled; blood pressure at [...] lifestyle Assessment & Plan (09/28/2023 6:40 PM COMMUNICATIONS ASSISTANT): Chronic. Tolerates rosuvastatin. 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/2011 Resolved Problems Problem Noted Date Diagnosed Date Resolved Date Permanent atrial fibrillation ([facility]/HCC) 12/22/2023 04/18/2024 Assessment & Plan (04/05/2024 [...] chest Assessment & Plan (07/12/2021 1:19 PM COMMUNICATIONS ASSISTANT): Stable, patient continues to follow with dermatology for evaluation monitoring skin 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 Encounters Date Type Department Care Team Description 09/24/2024 Nurse Triage [facility] Medical [facility] Primary Care at [address] [phone] Shraddha Rader MD 09/23/2024 Orders Only [facility] Primary Care at [address] [phone] ProviderChloe MD 07/22/2024 4:30 PM COMMUNICATIONS ASSISTANT Office Visit [facility]ient [facility] at [address] [phone] Charmaine Costello, BAKERY MACHINE MECHANIC SUPERVISOR Acute right-sided low back pain without sciatica [...] pathological fracture 05/25/2021 Herpes zoster without complication 11/30/2017 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 Hx of BCC on chest Basal cell carcinoma (BCC) of scalp 01/25/2017 Basal 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 [...] on file Legal Sex Female 11:48 PM COMMUNICATIONS ASSISTANT Gender Identity Not on file Sexual Orientation Not on file Obstetrics History Para Term AB IAB SAB Ectopic Multiple Livin g Live Births 3 3 3 Date Outcome GA Total Labor Labor/2nd/3rd Weight Sex Type Anes PTL Kady A1 A5 Name Clin Term Term Term Last Filed Vital Signs Vital Sign Reading Time Taken Comments Blood Pressure 161/77 07/22/2024 4:35 PM COMMUNICATIONS ASSISTANT Pulse 64 07/22/2024 4:35 PM COMMUNICATIONS ASSISTANT Temperature 36.7 C (98 F) 07/22/2024 4:35 PM COMMUNICATIONS ASSISTANT Respiratory Rate 20 07/22/2024 4:35 PM COMMUNICATIONS ASSISTANT Oxygen Saturation 93% 07/22/2024 4:35 PM COMMUNICATIONS ASSISTANT Inhaled Oxygen Concentration - - Weight 81.8 kg (180 lb 4.8 oz) 07/22/2024 4:35 P M COMMUNICATIONS ASSISTANT Height 174 cm (5' 8.5 ) 07/22/2024 4:35 PM COMMUNICATIONS ASSISTANT Body Mass Index 27.01 07/22/2024 4:35 PM COMMUNICATIONS ASSISTANT Plan of Treatment Health Maintenance Due Date [...] Procedure Name Priority Date/Time Associated Diagnosis Comments XR HIP LEFT 2 OR 3 VIEWS Schedule Routine, Read Routine (OP Routine) 09/22/2024 9:59 AM COMMUNICATIONS ASSISTANT BRAIN COMPUTED TOMOGRAPHY (CT) Schedule Routine, Read Routine (OP Routine) 09/22/2024 9:57 AM COMMUNICATIONS ASSISTANT HM DEXA SCAN Routine 03/22/2024 2:36 PM CDT from Last 3 Months or Most Recently Relevant to Health Maintenance Results * XR Hip Left 2 or 3 Views (09/22/2024 9:59 AM COMMUNICATIONS ASSISTANT) Anatomical Region Laterality Modality Lower Extremities, Hip, Pelvis Left R adiographic Imaging Historical Provider IMG XR PROCEDURES Final R esult * BRAIN COMPUTED TOMOGRAPHY (CT) (09/22/2024 9:57 AM COMMUNICATIONS ASSISTANT) Anatomical Region Laterality Modality N/A Computed Tomogra phy us Historical Provider IMG CT PROCEDURES Final R esult * HM DEXA SCAN (03/22/2024 2:36 PM CDT) Scribed HM Deca Scan Abnormal us Historical Provider MD HEALTH MAINTENANCE Final Result from Last 3 Months or Most Recently Relevant to Health Maintenance Insurance [facility] MDCR HMO REF [facility] MEDIC[facility] Address: [address] [address] [place] [address] MEDICARE SOLUTIONS [facility] MEDIC[facility] Address: [address] [address] [place] [address] Care Teams Physical Therapy Technician Relationship Specialty Start Date End Date Shraddha Rader MD PCP - General Family Medicine 09/28/23 Jesi Taylor DO [address] [facility] [address] ROBERT Chappell [address] [address] Consulting Physician Otolaryngology 09/28/23 Ru Stanford MD [address] [facility] [place] [address] Referring Physician Dermatology 09/28/23 Librado Zabala DPM [address] [facility] [place] [address] Podiatry 09/28/23 Jesus Daly MD [address] [address] Referring Physician Ophthalmology 09/28/23
--- OUTSIDE RECORDS SUMMARY | 2024-09-25 11:09 | XMS_ITS | Referral Summary ---
Author Organization [facility] Address [address] [place] [address] Care Team Providers Care Advertising Designer Name Role Phone Radha Hu MD Primary Care Provider [phone] Source Comments [facility],non-[facility] Affiliates and Associated Physician Practices is amultiple site organization consisting of ambulatory clinics and hospital sitesin [place], [place], [place] and [place]. This disclosure is being madepursuant to the Care Everywhere program and may not contain all information available regarding this patient. Last updated 18.[facility] Social History Tobacco Use Types Packs/Day Years Used Date Smoking Tobacco: Never Assessed Sex and Gender Information Value Date Recorded Sex Assigned at Not on file Gender Identity Not on file Sexual Orientation Not on file Plan of Treatment Not on file Care Teams Advertising Designer Relationship Specialty Start Date End Date Radha Hu MD [address] [place], [place] [address], [place] [address] PCP - General 04/24/20
--- OUTSIDE RECORDS SUMMARY | 2024-09-25 11:09 | XMS_ITS | Clinical Summary ---
Author Organization [facility] Address [address] [place] [address] Care Team Providers Care Supervisor Channel Process Name Role Phone Radha Hu MD Primary Care Provider [phone] Source Comments [facility],non-owned Affiliates and Associated Physician Practices is amultiple site organization consisting of ambulatory clinics and hospital sitesin [place], [place], [place] and [place]. This disclosure is being madepursuant to the Care Everywhere program and may not contain all information available regarding this patient. Last updated 18.[facility] Social History Tobacco Use Types Packs/Day Years [...] age to complete this topic Care Teams Supervisor Channel Process Relationship Specialty Start Date End Date Radha Hu MD [address] [facility] [address], [place] [address] PCP - General 04/24/20
--- OUTSIDE RECORDS SUMMARY | 2024-09-25 11:09 | XMS_ITS | Encounter Summary ---
Author Organization [facility] Address [address] [facility] [place] [address] Care Team Providers Care Red Cross Worker Name Role Phone Radha Hu MD Primary Care Provider [phone] Encounter Details Date Type Department Care Team (Late st Contact Info) Description 04/22/2022 Lab Requisition [facility] DermPath Lab [address] [facility], [place] [phone] Blas Stanford MD [address] [facility] [place] [id number] Social History Tobacco Use Types Packs/Day Years [...] AM CDT) Case Report Dermatopathology Report Case: [id number] Authorizing Provider: Blas Stanford MD Collected: 04/20/2022 12:00 AM Ordering Location: [facility] DermPath Lab Received: 04/22/2022 09:37 AM Pathologist: Allyn Cheung MD Specimen: Skin, left mid clavicular neck 2 5:38 PM CDT DERMATOPATHOLOGY LABORATORY Final Diagnosis Specimen A. 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 Check margins.Path#[id number] 2 5:38 PM CDT DERMATOPATHOLOGY LABORATORY Gross Description Specimen A: Received is one formalin filled container labeled with the patient's name and designated left mid clavicular neck. The specimen consists of a non-oriented ellipse of skin measuring [id number] mm. The epidermal surface is unremarkable. The [...] characteristic determined by the Dermatopathology Laboratory at [facility], directed by Dr. Radha Cheung. These tests need not be, and therefore are not, approved by the [place] Food and Drug Administration. The tests are used for clinical purposes. Billing Codes Specimen Charges Stain Charges 20728 1 2 5:38 PM CDT DERMATOPATHOLOGY LABORATORY Embedded Images 2 5:38 PM CDT DERMATOPATHOLOGY LABORATORY Pathology/Cytolog y TISSUE SPECIMEN FROM SKIN / Unknown 04/20/2022 04/22/2022 9:37 AM CDT Blas Stanford MD LAB - PATHOLOGY/CYTO LOGY ORDERABLES DERMATOPATHOLOGY LABORATORY [facility] - Department of Dermatology [facility] Medicine [facility] [facility], [address] [phone] documented in this encounter Visit Diagnoses Not on filedocumented in this encounter Care Teams Red Cross Worker Relationship Specialty Start Date End Date Radha Hu MD [address] [place] [address] PCP - General 04/24/20 documented as of this encounter
--- OUTSIDE RECORDS SUMMARY | 2024-09-25 11:09 | XMS_ITS | Encounter Summary ---
Author Organization [facility] Address [address] [facility] [place] [address] Care Team Providers Care [place] Tribunal Member Name Role Phone Radha Hu MD Primary Care Provider [phone] Encounter Details Date Type Department Care Team (Late st Contact Info) Description 02/11/2022 Lab Requisition [facility] DermPath Lab [address] [facility], [place] [phone] Blas Stanford MD [address] [facility] [place] [id number] Social History Tobacco Use Types Packs/Day Years [...] AM CDT) Case Report Dermatopathology Report Case: [id number] Authorizing Provider: Blas Stanford MD Collected: 02/09/2022 12:00 AM Ordering Location: [facility] DermPath Lab Received: 02/11/2022 08:54 AM Pathologist: Tere Vaughn MD Specimen: Skin, left med. clavicular neck 2 1:14 PM CDT DERMATOPATHOLOGY LABORATORY Final Diagnosis Specimen A. SKIN, left med. clavicular neck: BASAL CELL CARCINOMA, NODULAR TYPE (C44.41) 2 1:14 PM CDT DERMATOPATHOLOGY LABORATORY Clinical History BCCA. Path#[id number] 2 1:14 PM CDT DERMATOPATHOLOGY LABORATORY Gross [...] characteristic determined by the Dermatopathology Laboratory at [facility], directed by Dr. Radha Cheung. These tests need not be, and therefore are not, approved by the [place] Food and Drug Administration. The tests are used for clinical purposes. Billing Codes Specimen Charges Stain Charges 62970 1 2 1:14 PM CDT DERMATOPATHOLOGY LABORATORY Embedded Images 2 1:14 PM CDT DERMATOPATHOLOGY LABORATORY Pathology/Cytolog y TISSUE SPECIMEN FROM SKIN / Unknown 02/09/2022 02/11/2022 8:54 AM CDT Blas Stanford MD LAB - PATHOLOGY/CYTO LOGY ORDERABLES DERMATOPATHOLOGY LABORATORY [facility] - Department of Dermatology [address], [address] [phone] documented in this encounter Visit Diagnoses Not on filedocumented in this encounter Care Teams [place] Tribunal Member Relationship Specialty Start Date End Date Radha Hu MD [address] [address], [place] [id number] PCP - General 04/24/20 documented as of this encounter
--- OUTSIDE RECORDS SUMMARY | 2024-09-25 11:09 | XMS_ITS | Patient Health Summary ---
Author Organization [facility] Address [address] [place] [address] Care Team Providers Care Biomass Production Manager Name Role Phone Radha Hu MD Primary Care Provider [phone] Note from [facility],non-owned Affiliates and Associated Physician Practices is amultiple site organization consisting of ambulatory clinics and hospital sitesin [place], [place], [place] and [place]. This disclosure is being madepursuant to the Care Everywhere program and may not contain all information available regarding this patient. Last updated 18.[facility] Social History Tobacco Use Types Packs/Day [...] is included. Case Report Dermatopathology Report Case: [id number] Authorizing Provider: Blas Stanford MD Collected: 04/20/2022 12:00 AM Ordering Location: [facility] Derm[facility] Lab Received: 04/22/2022 09:37 AM Pathologist: Allyn Cheung MD Specimen: Skin, left mid clavicular neck 2 5:38 PM CDT DERMATOPATHOLOGY LABORATORY Final Diagnosis Specimen A. 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 Check margins.Path#[id number] 2 5:38 PM T DERMATOPATHOLOGY LABORATORY Gross Description Specimen A: Received is one formalin filled container labeled with the patient's name and designated left mid clavicular neck. The specimen consists of a non-oriented ellipse of skin measuring [id number] mm. The epidermal surface is unremarkable. The [...] characteristic determined by the Dermatopathology Laboratory at [facility], directed by Dr. Radha Cheung. These tests need not be, and therefore are not, approved by the [place] Food and Drug Administration. The tests are used for clinical purposes. Billing Codes Specimen Charges Stain Charges 47956 1 2 5:38 PM CDT DERMATOPATHOLOGY LABORATORY Embedded Images 5:38 PM CDT DERMATOPATHOLOGY LABORATORY Pathology/Cytolog y TISSUE SPECIMEN FROM SKIN / Unknown 04/20/2022 04/22/2022 9:37 AM CDT Blas Stanford MD LAB - PATHOLOGY/CYTO LOGY ORDERABLES Performing Organization Address [facility]/ZIP Co de Phone Number DERMATOPATHOLOGY LABORATORY [facility] Department of Dermatology [facility] Medicine [address] [place] [address], [address] [phone] * CULTURE AEROBIC (04/03/2012 11:19 AM CDT) Culture SEE NOTE [facility] ([facility]) Comment: CULTURE, AEROBIC BACTERIA MICRO NUMBER: [id number] TEST STATUS: FINAL SPECIMEN SOURCE: R KNEE [...] = See Therapy Comments Test Performed at: Personal [facility] [address] [place] [phone] JUAN FRANCISCO LOCKHART DO Exudate specimen from wound (specimen) (Leg, Right) 04/03/2012 11:19 AM CDT 04/04/2012 3:02 AM CDT Narrative [facility] ([facility]) - 04/08/2012 11:00 AM CDT Specimen Type->Wound drainage Historical Provider LAB - MICROBIOLOG Y ORDERABLES [facility] ([facility]) Care Teams Biomass Production Manager Relationship Specialty Start Date End Date Radha Hu MD [address] [facility] [address] [address] [facility] - General 04/24/20
--- OUTSIDE RECORDS SUMMARY | 2024-09-25 11:09 | XMS_ITS | Referral Summary ---
Author Organization [facility] Address [address] [place] [address] Care Team Providers Care Auto Servicer Name Role Phone Shraddha Rader MD Primary Care Provider Jesi Taylor DO Unavailable [phone] Ru Stanford MD Unavailable [phone] Librado Zabala DPM Unavailable [phone] Jesus Daly MD Unavailable [phone] Encounters Date Type Department Care Team Description 09/24/2024 Nurse Triage [facility] Primary Care at [address] [address] Shraddha Rader MD 09/23/2024 Orders Only [facility] Primary Care at [address] [address] ProviderChloe MD 07/22/2024 4:30 PM EYELET CUTTER Office Visit [facility] Convenient Care at [address] [address] Charmaine Costello NP Acute right-sided low back pain without sciatica [...] (Vitamin B-12) 100 mcg tablet Activ e eikglrl-tcdu-ceoi f-eovu-yjxshs 100 mg-150 mg- 50 mg-150 mg capsule [...] with preserved ejection fraction (CMS/HCC) ([facility]) Take 2 tablets by mouth once daily [...] tablet by mouth twice daily 200 tablet 01/15/20 25 Active famotidine (PEPCID) 20 mg tabletIndications [...] Noted Date Diagnosed Date Paroxysmal atrial fibrillation ([facility]) 024 Overweight with body mass in dex (BMI) of 27 to 27.9 in adult 04/05/2024 Assessment & Plan (04/05/2024 2:52 PM CDT): Weight slightly better than last visit. This is likely due to no longer being fluid overload. Monitor daily weights. Okay to try gentle intentional weight loss due to adipose but avoid over diuresis Chronic heart failure with p reserved ejection fraction ([facility]) 12/22/2023 Assessment & Plan (04/05/2024 2:51 PM [...] 09/28/2023 Assessment & Plan (09/28/2023 6:44 PM EYELET CUTTER): Patient with somewhat elevated fall risk score [...] pharmacy Assessment & Plan (10/03/2022 2:55 PM EYELET CUTTER): Restart Pepcid 20 mg at bedtime Continue Flonase 2 sprays into each nostril while looking down over the sink, do not sniff in or blow nose after use for at least 30 minutes Obtain previous hearing test from [facility] Dysfunction of both eustachian tubes 10/03/2022 Assessment & Plan (10/03/2022 2:56 PM EYELET CUTTER): Restart Pepcid 20 mg at bedtime Continue Flonase 2 sprays into each nostril while looking down over the sink, do not sniff in or blow nose after use for at least 30 minutes SNHL (sensory-neural hearing loss), asymmetrical 10/03/2022 Assessment & Plan (09/28/2023 6:43 PM EYELET CUTTER): Chronic. Has hearing aids. No signs of cerumen on exam in office today Assessment & Plan (10/03/2022 2:56 PM EYELET CUTTER): Obtain previous hearing test from [facility] Continue Hearing loss Seasonal allergic rhinitis due [...] famotidine Assessment & Plan (09/28/2023 6:43 PM EYELET CUTTER): Chronic. Symptoms mostly controlled with famotidine. Continue. [...] nightly Assessment & Plan (07/12/2021 1:17 PM EYELET CUTTER): Stable, improving Patient reports she continues to have hoarseness of voice, decreased amount of throat clearing Continue famotidine 20 mg nightly, continue with behavioral changes; eating at least 4 hours before bedtime, reduce time high complexity meals; if no relief will evaluate need to increase dose of H2 sunny Assessment & Plan (06/16/2021 9:22 AM EYELET CUTTER): Pepcid 20 mg at bedtime LPR discussed [...] fractures Assessment & Plan (09/28/2023 6:41 PM EYELET CUTTER): Chronic. Due for updated bone density. Will [...] calcium daily through diet and supplements, vitamin-D 6415-4323 units daily Assessment & Plan (07/12/2021 1:18 PM EYELET CUTTER): Stable, continue with calcium and vitamin-D supplements Continue to monitor risk of fall or fracture Assessment & Plan (05/25/2021 4:28 PM CDT): Has worsening, with -5% bone density since last DEXA scan Continue calcium supplements, vitamin-D supplements At this time defers bisphosphonate therapy Primary osteoarthritis involving multiple joints 05/25/2021 Assessment & Plan (09/28/2023 6:43 PM EYELET CUTTER): Chronic. Recommended use of enmf-zdd-lkeufzx acetaminophen. Caution with NSAIDs given history of [...] exam Assessment & Plan (09/28/2023 6:42 PM EYELET CUTTER): Patient reports she follows with dermatology and gets yearly skin exam. They are monitor some lesions but has not needed to cut anything off in a while. She does get periodic liquid nitrogen treatment for probable pre cancerous lesions. She is scheduled to follow up with the nutrition counselor for spot on her leg in the [...] amlodipine. Assessment & Plan (09/28/2023 6:42 PM EYELET CUTTER): Chronic. Mildly uncontrolled in office but patient [...] daily Assessment & Plan (07/12/2021 1:17 PM EYELET CUTTER): Stable, well controlled; blood pressure at target [...] lifestyle Assessment & Plan (09/28/2023 6:40 PM EYELET CUTTER): Chronic. Tolerates rosuvastatin. Denies history of clinically [...] daily Assessment & Plan (07/12/2021 1:16 PM EYELET CUTTER): Stable, well controlled; total cholesterol 198; LDL [...] chest Assessment & Plan (07/12/2021 1:19 PM EYELET CUTTER): Stable, patient continues to follow with dermatology [...] on file Legal Sex Female 11:48 PM EYELET CUTTER Gender Identity Not on file Sexual Orientation Not on file Last Filed Vital Signs Vital Sign Reading Time Taken Comments Blood Pressure 161/77 07/22/2024 4:35 PM EYELET CUTTER Pulse 64 07/22/2024 4:35 PM EYELET CUTTER Temperature 36.7 C (98 F) 07/22/2024 4:35 PM EYELET CUTTER Respiratory Rate 20 07/22/2024 4:35 PM EYELET CUTTER Oxygen Saturation 93% 07/22/2024 4:35 PM EYELET CUTTER Inhaled Oxygen Concentration - - Weight 81.8 kg (180 lb 4.8 oz) 07/22/2024 4:35 P M EYELET CUTTER Height 174 cm (5' 8.5 ) 07/22/2024 4:35 PM EYELET CUTTER Body Mass Index 27.01 07/22/2024 4:35 PM EYELET CUTTER Plan of Treatment Not on file Procedures Procedure Name Priority Date/Time Associated Diagnosis Comments XR HIP LEFT 2 OR 3 VIEWS Schedule Routine, Read Routine (OP Routine) 09/22/2024 9:59 AM EYELET CUTTER BRAIN COMPUTED TOMOGRAPHY (CT) Schedule Routine, Read Routine (OP Routine) 09/22/2024 9:57 AM EYELET CUTTER HM DEXA SCAN Routine 03/22/2024 2:36 PM CDT from Last 3 Months or Most Recently Relevant to Health Maintenance Results * XR Hip Left 2 or 3 Views (09/22/2024 9:59 AM EYELET CUTTER) Anatomical Region Laterality Modality Lower Extremities, Hip, Pelvis Left R adiographic Imaging Historical Provider IMG XR PROCEDURES Final R esult * BRAIN COMPUTED TOMOGRAPHY (CT) (09/22/2024 9:57 AM EYELET CUTTER) Anatomical Region Laterality Modality N/A Computed Tomogra phy Historical Provider IMG CT PROCEDURES Final R esult * HM DEXA SCAN (03/22/2024 2:36 PM CDT) Scribed HM Deca Scan Abnormal Historical Provider HEALTH MAINTENANCE Final Result from Last 3 Months or Most Recently Relevant to [place] [address] [facility] MDCR HMO REF MEDICARE SOLUTIONS Care Teams Auto Servicer Relationship Specialty Start Date End Date Shraddha Rader MD PCP - General Family Medicine 09/28/23 Jesi Taylor DO [address] JONES [address] [address] Consulting Physician Otolaryngology 09/28/23 Ru Stanford MD [address] [place] [address] Referring Physician Dermatology 09/28/23 Librado Zabala DPM [address] [place] [id number] Podiatry 09/28/23 Jesus Daly MD [address] [facility] [address] [place] [address] Referring Physician Ophthalmology 09/28/23
--- OUTSIDE RECORDS SUMMARY | 2024-09-25 11:09 | XMS_ITS | Encounter Summary ---
Author Organization [facility] Healthcare Address [address] [place] [address] Care Team Providers Care Furnace Mason Name Role Phone Shraddha Rader MD Primary Care Provider Jesi Taylor DO Unavailable [phone] Ru Stanford MD Unavailable [phone] Librado ZabalaM Unavailable [phone] Jesus Daly MD Unavailable [phone] Reason for Referral * Diagnostic Imaging (Routine) - Closed Specialty Diagnoses / Procedures Referred By Contac t Referred To Contact Procedures XR Hip Left 2 or 3 Views Chloe Kumar MD [address] [phone] Phone: tel: Referral ID Status Reason Start Date Expiration Date Visits Re quested Visits Authorized [id number] Closed 09/23/2024 10/23/2025 1 1 NE ACTIVIST * Diagnostic Imaging (Routine) - Closed Specialty Diagnoses / Procedures Referred By Contac t Referred To Contact Radiology Procedures BRAIN COMPUTED TOMOGRAPHY (CT) Chloe Kumar MD [address] [phone] Phone: tel: Referral ID Status Reason Start Date Expiration Date Visits Re quested Visits Authorized [id number] Closed 09/23/2024 10/23/2025 1 1 NE ACTIVIST Encounter Details Date Type Department Care Team (Late st Contact Info) Description 09/23/2024 Orders Only [facility] Primary Care at [address] [address] ProviderChloe MD [address] [place] [address] Social History Tobacco Use Types Packs/Day Years [...] on file Legal Sex Female 11:48 PM ONLINE ACTIVIST Gender Identity Not on file Sexual Orientation Not on file documented as of this encounter Plan of Treatment Not on file documented as of this encounter Procedures Procedure Name Priority Date/Time Associated Diagnosis Comments XR HIP LEFT 2 OR 3 VIEWS Schedule Routine, Read Routine (OP Routine) 09/22/2024 9:59 AM ONLINE ACTIVIST BRAIN COMPUTED TOMOGRAPHY (CT) Schedule Routine, Read Routine (OP Routine) 09/22/2024 9:57 AM ONLINE ACTIVIST documented in this encounter Results * XR Hip Left 2 or 3 Views (09/22/2024 9:59 AM ONLINE ACTIVIST) Anatomical Region Laterality Modality Lower Extremities, Hip, Pelvis Left R adiographic Imaging Historical Provider MD ZAMORA XR PROCEDURES Final R esult * BRAIN COMPUTED TOMOGRAPHY (CT) (09/22/2024 9:57 AM ONLINE ACTIVIST) Anatomical Region Laterality Modality N/A Computed Tomogra phy Historical Provider MD ZAMORA CT PROCEDURES Final R esult documented in this encounter Visit Diagnoses Not on filedocumented in this encounter Care Teams Furnace Mason Relationship Specialty Start Date End Date Shraddha Rader MD PCP - General Family Medicine 09/28/23 Jesi Taylor DO [address] JON[address] [facility] [address] [place] [address] Consulting Physician Otolaryngology 09/28/23 Ru Stanford MD [address] [facility] [address] [place] [address] Referring Physician Dermatology 09/28/23 Librado Zabala DPM [address] [address] Podiatry 09/28/23 Jesus Daly MD [address] [facility] [address] [place] [address] Referring Physician Ophthalmology 09/28/23 documented as of this encounter
--- OUTSIDE RECORDS SUMMARY | 2024-09-25 11:09 | XMS_ITS | Continuity of Care Document ---
Author Organization [facility] Address [address] [place] [address] Phone Care Team Providers Care Process Control Board Operator Name Role Phone Ansari OD, Damon Unavailable Unavailable Procedures Procedure Date Eye Exam & Treatment Refraction Eye Exam & Treatment Refraction Eye Exam & Treatment CL Replacement - Vistakon Other 007 Tax - Medical Advance Directives Directive Yes / No Effective Date File Name No Information Encounters Encounter Description Practice Location Reason(s) For Visit Diagnoses Date Provider Providers Copied on Encounter [facility], [address] [place] [address] [address], [place], [place], [id number], tel:[phone] [facility] No Information 2-201 0 Ansari OD Damon. [address] [facility] , [address], [place], [place], [facility], [place]. tel:[phone] [facility], [address] [place] [address] [address], [place], [place], [id number], [place] tel:[phone] [facility] [place] No Information 0-200 9 Ansari OD Damon. [address] [facility] [address], [place], [address], [place]. tel:[phone] [facility], [address] [place] [address] [address], [place], [place], [id number], [place] tel:[phone] SEC [facility] No Information Nov-0 2-200 8 Ansari OD Damon. [address] [facility] , [address], [place], [address], [place]. tel:[phone] [facility], [address], [place], [place], [address], [place] tel:[phone] [facility] No Information 4-200 7 Ansari OD Damon. [address] [facility] , [address], [place], [address], [place]. tel:[phone] Family History Family Member Type Diagnosis Age At Onset No Information Payers Payer name Insurance type Covered green party ID Authorsamira kristy(s) [employer] Plan [id number] Social History Type Description Quantity Date Captured [...]
--- OUTSIDE RECORDS SUMMARY | 2024-09-25 11:09 | XMS_ITS | Encounter Summary ---
Author Organization [facility] Address [address] [facility] [place] [address] Care Team Providers Care Sheriff Officer Name Role Phone Radha Hu MD Primary Care Provider [phone] Encounter Details Date Type Department Care Team (Late st Contact Info) Description 04/27/2020 Lab Requisition [facility] DermPath Lab [address] [facility], [place] [id number] Blas Stanford MD [address] [facility] [place], [place] [id number] Social History Tobacco Use Types Packs/Day Years [...] AM CDT) Case Report Dermatopathology Report Case: [id number] Authorizing Provider: Blas Stanford MD Collected: 04/24/2020 12:00 AM Ordering Location: [facility] Derm[facility] Lab Received: 04/27/2020 06:16 AM Pathologist: Allyn Cheung MD Specimen: Skin, left ala 0 11:46 AM CDT DERMATOPATHOLOGY LABORATORY Final Diagnosis Specimen A. SKIN, left ala: BASAL CELL CARCINOMA, NODULAR TYPE (C44.311) 0 11:46 AM CDT DERMATOPATHOLOGY LABORATORY Clinical History BCCA. Path # [id number]. 0 11:46 AM CDT DERMATOPATHOLOGY LABORATORY Gross Description Specimen A: Received is one formalin filled container labeled with the patient's name and designated left ala. The specimen consists of a shave biopsy measuring [id number]. Jar 0. 0 11:46 AM CDT DERMATOPATHOLOGY [...] characteristic determined by the Dermatopathology Laboratory at [facility], directed by Dr. Radha Cheung. These tests need not be, and therefore are not, approved by the [place] Food and Drug Administration. The tests are used for clinical purposes. Billing Codes Specimen Charges Stain Charges 99694 1 0 11:46 AM CDT DERMATOPATHOLOGY LABORATORY Embedded Images 0 11:46 AM CDT DERMATOPATHOLOGY LABORATORY Pathology/Cytolog y TISSUE SPECIMEN FROM SKIN / Unknown 04/24/2020 04/27/2020 6:16 AM CDT Blas Stanford MD LAB - PATHOLOGY/CYTO LOGY ORDERABLES DERMATOPATHOLOGY LABORATORY [facility] - Department of Dermatology [address], [address] [phone] documented in this encounter Visit Diagnoses Not on filedocumented in this encounter Care Teams Sheriff Officer Relationship Specialty Start Date End Date Radha Hu MD [facility] [facility] [address] [place] [address] PCP - General 04/24/20 documented as of this encounter
--- OUTSIDE RECORDS SUMMARY | 2024-09-25 11:09 | XMS_ITS | Encounter Summary ---
Author Organization [facility] Address [address] [facility] [place] [address] Care Team Providers Care Still Operator Name Role Phone Radha Hu MD Primary Care Provider [phone] Encounter Details Date Type Department Care Team (Late st Contact Info) Description 08/14/2020 Lab Requisition [facility] DermPath Lab [address] [facility], [place] [phone] Blas Stanford MD [address] [facility] [place] [id number] Social History Tobacco Use Types Packs/Day Years [...] Diagnosis Comments DERMATOPATHOLOGY Routine 08/12/2020 3:33 AM BRAKESHOE REPAIRER documented in this encounter Results * DERMATOPATHOLOGY (08/12/2020 3:33 AM BRAKESHOE REPAIRER) Case Report Dermatopathology Report Case: [id number] Authorizing Provider: Blas Stanford MD Collected: 08/12/2020 03:33 AM Ordering Location: [facility] DermPath Lab Received: 08/14/2020 06:15 AM Pathologist: Tere Vaughn MD Specimen: Skin, left upper cutaneous lip 1:49 PM [facility] DERMATOPATHOLOGY LABORATORY Final Diagnosis Specimen A. SKIN, left upper cutaneous lip: BASAL CELL CARCINOMA, INFILTRATIVE PATTERN (C44.319) 1:49 PM [facility] DERMATOPATHOLOGY LABORATORY Clinical History SK vs BCC vs SCC. Path#[id number] 1:49 PM [facility] DERMATOPATHOLOGY LABORATORY [...] characteristic determined by the Dermatopathology Laboratory at [facility], directed by Dr. Radha Cheung. These tests need not be, and therefore are not, approved by the [place] Food and Drug Administration. The tests are used for clinical purposes. Billing Codes Specimen Charges Stain Charges 03878 1 1 1:49 PM [facility] DERMATOPATHOLOGY LABORATORY Embedded Images 1 1:49 PM [facility] DERMATOPATHOLOGY LABORATORY Pathology/Cytolo gy TISSUE SPECIMEN FROM SKIN / Unknown 08/12/2020 3:33 AM BRAKESHOE REPAIRER 08/14/2020 6:15 AM BRAKESHOE REPAIRER Blas Stanford MD LAB - PATHOLOGY/CYTO LOGY ORDERABLES DERMATOPATHOLOGY LABORATORY [facility] - Department of Dermatology [address] [phone] documented in this encounter Visit Diagnoses Not on filedocumented in this encounter Care Teams Still Operator Relationship Specialty Start Date End Date Radha Hu MD [address] [address] PCP - General 04/24/20 documented as of this encounter
--- OUTSIDE RECORDS SUMMARY | 2024-09-25 11:09 | XMS_ITS | Encounter Summary ---
Author Organization [facility] Healthcare Address [address] [place] [address] Care Team Providers Care Candle Wrapper Name Role Phone Shraddha Rader MD Primary Care Provider Jesi Taylor DO Unavailable [phone] Ru Stanford MD Unavailable [phone] Librado Zabala DPM Unavailable [phone] Jesus Daly MD Unavailable [phone] Reason for Visit * Reason Onset Date Comments Leg Pain 09/24/2024 Groin Pain 09/24/2024 Encounter Details Date Type Department Care Team (Late st Contact Info) Description 09/24/2024 Nurse Triage [facility] Primary Care at [address] [address] Shraddha Rader MD [address] [place] [address] [address] [place] [address] Social History Tobacco Use Types Packs/Day Years [...] on file Legal Sex Female 11:48 PM ASSOCIATE PROFESSOR OF LIBRARY MEDIA Gender Identity Not on file Sexual Orientation Not on file documented as of this encounter Miscellaneous Notes * Telephone Encounter - Gaby Marks NP - 09/24/2024 2:52 PM CST I have not met patient, I cannot send in pain medication without evaluation. If she is in severe pain then she needs to be seen in ER again or get patient set up with Ortho for further eval. CIATE PROFESSOR OF LIBRARY MEDIA * Telephone Encounter - Helen Morataya MA - 09/24/2024 2:42 PM ASSOCIATE PROFESSOR OF LIBRARY MEDIA Pt has an appointment with Gaby Marks NP on 10/11/24 to establish care. CIATE PROFESSOR OF LIBRARY MEDIA * Telephone Encounter - Nichole Jaimes RN - 09/24/2024 12:46 PM ASSOCIATE PROFESSOR OF LIBRARY MEDIA Reason for Disposition Patient wants to be seen Protocols used: Leg Xeko-Tifjz-TP Pt repots she slipped and fell on 09/22. She was evaluated at [place] ED. She had a negative head ct and a negative xray of her pelvis. Pt reports she continues to have pain in her groin, hamstrings and buttocks. The pain is worse when getting up or sitting on a stool. She states she feels pretty good when sitting in a recliner. She ahs tried ice and Tylenol Arthritis with no relief. She was given Oxycodone in the ED with no relief. She denies, weakness, numbness, swelling, lump in groin. Disposition per guideline: Care advice/education/call back instruction given: pt declines appt due to weather. [facility] Please advise pt Call back #[phone] Encounter routed to PCP CIATE PROFESSOR OF LIBRARY MEDIA * Telephone Encounter - Nichole Jaimes RN - 09/24/2024 12:34 PM ASSOCIATE PROFESSOR OF LIBRARY MEDIA Regarding: slip & fell, pain in groin area and hamstring, getting her to stand is very difficult and painful fo ----- Message from Mouna Louis sent at 09/24/2024 12:32 PM ASSOCIATE PROFESSOR OF LIBRARY MEDIA ----- Symptom Based Call Chief Complaint(s): slip & fell, pain in groin area and hamstring, getting her to stand is verydifficult and painful for her to sit using bathroom Duration: Monday What type of symptom(s) is the patient experiencing? Red Flag. Is the patient concerned they are experiencing a medical emergency requiring an ambulance? No Additional Comments: Caller stated the patient was seen at [place] ED on Monday for fall, caller stated patient experiencing pain in groin area and hamstring, please advise. Does message need to be routed? Yes-Action Needed CIATE PROFESSOR OF LIBRARY MEDIA documented in this encounter Plan of Treatment Not on file documented as of this encounter Visit Diagnoses Not on filedocumented in this encounter Care Teams Candle Wrapper Relationship Specialty Start Date End Date Shraddha Rader MD PCP - General Family Medicine 09/28/23 Jesi Taylor DO [address] [facility] [address] ROBERT [place] [address] [address] Consulting Physician Otolaryngology 09/28/23 Ru Stanford MD [address] [place] [address] Referring Physician Dermatology 09/28/23 Librado Zabala DPM [address] [facility] [place] [address] Podiatry 09/28/23 Jesus Daly MD [address] [address] Referring Physician Ophthalmology 09/28/23 documented as of this encounter
[2024-09-25] MEDS: IPRATROPIUM 0.5 MG/ALBUTEROL SULFATE 2.5 MG AMPUL.NEB 3 ML INHALATION (11:18)
[2024-09-25 11:22] LABS: Basophils Absolute Auto 0.1 K/mm3 (0.0-0.1); Basophils Percent Auto 0.4 % (0.2-1.2); Eosinophils Absolute Auto 0.1 K/mm3 (0-0.3); Eosinophils Percent Auto 0.8 % (0-4.4); Hematocrit 38.4 % (37.0-47.0); Hemoglobin 12.2 g/dL (12.0-15.0); Immature Granulocyte Absolute 0.12 K/mm3 (0.00-0.031); Immature Granulocyte Percent A 0.9 % (0-0.5); Lymphocytes Absolute Auto 1.17 K/mm3 (0.9-3.2); Mean Corpuscular HGB Conc 31.8 g/dl (32-36); Mean Corpuscular Hemoglobin 31.5 pg (26-34); Mean Corpuscular Volume 99.2 fl (80-100); Monocytes Absolute Auto 1.5 K/mm3 (0.1-0.6); Monocytes Percent Auto 11.4 % (2.6-8.5); Neutrophils Absolute Auto 10.1 K/mm3 (1.3-6.7); Neutrophils Percent Auto 77.5 % (45.5-73.1); Platelet Count Result 178 k/mm3 (150-375); Red Blood Count 3.87 M/mm3 (4.2-5.4); Red Cell Distribution Width 13.4 % (11.5-14.5)
[2024-09-25 11:25] LABS: Alanine Aminotransferase 75 U/L (6-35); Albumin Level 3.3 g/dL (3.5-5.1); Alkaline Phosphatase 106 U/L (38-126); Anion Gap 7 mmol/L (4-12); Aspartate Amino Transferase 54 U/L (14-36); Bilirubin,Total 1.2 mg/dL (0.2-1.3); Blood Urea Nitrogen 33 mg/dL (7-17); Calcium 8.6 mg/dL (8.4-10.2); Carbon Dioxide 28 mmol/L (22-30); Chloride 102 mmol/L (98-107); Estimated CRCL calculation 32 ml/min; Estimated Glomerular Filt Rate 44; Glucose 112 mg/dL (65-110); Sodium 137 mmol/L (137-145)
[2024-09-25 11:33] LABS: INR 1.5; NT Pro B Type Natriuretic Pept 3830 pg/mL (19.9-100); Prothrombin Time 18.5 Seconds (11.1-14.7)
[2024-09-25 11:34] LABS: Partial Thromboplastin Time 39.3 Seconds (22.3-36.8)
--- NOTE | 2024-09-25 11:41 | ED_ITS ---
HPI - General Adult General Chief complaint: Extremity Injury, Lower Stated complaint: bilateral hip pain, pulse ox 85% Time Seen by Provider: 09/25/24 10:09 History of Present Illness HPI narrative: Patient is an 89-year-old female who presents ER with bilateral hip pain. Was seen a few days ago after a fall with negative imaging of her hip and pelvis. Since getting home she has had increased pain has been unable to ambulate. On arrival to the ER patient found to be hypoxic. She has no fevers or chills or sweats. No chest pain. No cough. Has been taking Tylenol for pain without improvement. No numbness or tingling to lower extremities. Related Data Home Medications ?Medication ?Instructions ?Recorded ?Confirmed ?Last Taken ?Type aspirin 81 mg tablet 81 mg PO HS 12/11/23 09/25/24 09/24/24 History cholecalciferol (vitamin D3) 25 1,500 unit PO WEEKLY 12/11/23 09/25/24 09/24/24 History mcg (1,000 unit) tablet (Vitamin D3) cranberry 400 mg capsule 400 mg PO DAILY 12/11/23 09/25/24 09/25/24 History famotidine 20 mg tablet 20 mg PO HS 12/11/23 09/25/24 09/24/24 History rosuvastatin 5 mg tablet 5 mg PO HS 12/11/23 09/25/24 09/23/24 History cyanocobalamin (vitamin B-12) 100 100 mcg PO DAILY 01/23/24 09/25/24 09/25/24 History mcg tablet furosemide 20 mg tablet 40 mg PO DAILY 01/23/24 09/25/24 09/25/24 History metoprolol tartrate 100 mg tablet 50 mg PO Q12H 01/23/24 09/25/24 09/25/24 History potassium chloride 20 mEq 20 meq PO DAILY 01/23/24 09/25/24 09/25/24 History tablet,extended release amiodarone 200 mg tablet 200 mg PO DAILY 09/25/24 09/25/24 09/25/24 History Allergies Allergy/AdvReac Type Severity Reaction Status Date / Time cephalexin Allergy Rash Verified 09/25/24 10:27 clindamycin Allergy Rash Verified 09/25/24 10:27 alendronate sodium (From AdvReac Unknown Verified 09/25/24 10:27 Fosamax) atorvastatin AdvReac Muscle Pain Verified 09/25/24 10:27 losartan AdvReac Unknown Verified 09/25/24 10:27 pravastatin AdvReac Muscle Pain Verified 09/25/24 10:27 Review of Systems 2 Review of Systems: All systems reviewed & are unremarkable except as noted in HPI and below PMFSH Past Medical History Medical History (Updated 09/25/24 @ 19:23 by Tiago Wills MD) Chronic kidney disease, stage 3 Chronic anticoagulation Paroxysmal atrial fibrillation Dyslipidemia Osteoarthritis Skin cancer Shingles Kidney stones Hypertension Surgical History Surgical History History of cataract extraction History of cholecystectomy History of hysterectomy Social History Social History Social History: Surrogate medical decision maker: Jose Atkins, spouse. Code status: Full code. Years smoked: 25 Smoking status: Former smoker Second hand tobacco smoke exposure: No Alcohol intake: never Substance use: never Substance use type: does not use Do You Feel Safe in your Home?: Yes Lack of Transportation: No Lack of Food: Never True Current Housing: I Have Housing Concerned About Future Housing: No Difficulty Paying Gas/Electric Bills: No Difficulty Paying for Meds: No Currently Unemployed: No Education: High School Diploma/GED Difficulty w/ Childcare or Family Care: No Living arrangements: with family Spiritual care concerns: No Exam 2 Narrative: GENERAL: Well-appearing, well-nourished, and in no acute distress. HEAD: Normocephalic, atraumatic. ENT: Mucous membranes moist. NECK: Supple. CHEST: Clear to auscultation. No respiratory distress. HEART: Regular rate and rhythm. Normal peripheral pulses. Back: No midline tenderness at T/L-spine or the sacral spine. No paraspinal muscle tenderness. No bruising 0 abrasions noted. EXTREMITIES: Normal range of motion. No edema. SKIN: Warm, dry, no rash. NEURO: Alert and oriented x3. PSYCH: Normal mood and affect. Course Course Emergency Course: Discussed case with Orthopedic surgery. Admit to hospitalist service. Pain control ordered. Also ordered Lasix for diuresis to see if this helps with her breathing. She also gets scheduled breathing treatments. No infectious symptoms some we will not start antibiotics at this time. Vital Signs Vital signs: Vital Signs Temperature 98.8 F 09/25/24 10:17 Pulse Rate 64 09/25/24 10:17 Respiratory Rate 18 09/25/24 10:17 Blood Pressure 128/70 09/25/24 10:17 Pulse Oximetry 93 09/25/24 10:17 Oxygen Delivery Nasal Cannula 09/25/24 10:17 Oxygen Flow Rate 2 09/25/24 10:17 Temperature 97.9 F 09/25/24 12:06 Pulse Rate 72 09/25/24 15:32 Respiratory Rate 17 09/25/24 15:32 Blood Pressure 121/68 09/25/24 15:32 Pulse Oximetry 97 09/25/24 18:11 Oxygen Delivery Nasal Cannula 09/25/24 18:11 Oxygen Flow Rate 2 09/25/24 18:11 Medical Decision Making Vital Signs Vital Signs: Vital Signs Temperature 98.8 F 09/25/24 10:17 Pulse Rate 64 09/25/24 10:17 Respiratory Rate 18 09/25/24 10:17 Blood Pressure 128/70 09/25/24 10:17 Pulse Oximetry 93 09/25/24 10:17 Oxygen Delivery Nasal Cannula 09/25/24 10:17 Oxygen Flow Rate 2 09/25/24 10:17 Temperature 97.9 F 09/25/24 12:06 Pulse Rate 72 09/25/24 15:32 Respiratory Rate 17 09/25/24 15:32 Blood Pressure 121/68 09/25/24 15:32 Pulse Oximetry 97 09/25/24 18:11 Oxygen Delivery Nasal Cannula 09/25/24 18:11 Oxygen Flow Rate 2 09/25/24 18:11 Lab Data 09/25/24 11:02 09/25/24 11:02 Labs: Lab Results 09/25/24 Range/Units 11:02 WBC 13.0 H (4.5-10.0) K/mm3 RBC 3.87 L (4.2-5.4) M/mm3 Hgb 12.2 (12.0-15.0) g/dL Hct 38.4 (37.0-47.0) % MCV 99.2 (80-100) fl MCH 31.5 (26-34) pg MCHC 31.8 L (32-36) g/dl RDW 13.4 (11.5-14.5) % Plt Count 178 (150-375) k/mm3 MPV 12.0 H (7.4-10.4) fl Immature Gran % (Auto) 0.9 H (0-0.5) % Neut % (Auto) 77.5 H (45.5-73.1) % Lymph % (Auto) 9.0 L (18.3-44.2) % [place] % (Auto) 11.4 H (2.6-8.5) % Eos % (Auto) 0.8 (0-4.4) % Baso % (Auto) 0.4 (0.2-1.2) % Lymph # (Auto) 1.17 (0.9-3.2) K/mm3 [place] # (Auto) 1.5 H (0.1-0.6) K/mm3 Eos # (Auto) 0.1 (0-0.3) K/mm3 Baso # (Auto) 0.1 (0.0-0.1) K/mm3 Abs Immat Gran (auto) 0.12 H (0.00-0.031) K/mm3 Absolute Neuts (auto) 10.1 H (1.3-6.7) K/mm3 Absolute Nucleated RBC 0.000 (0.0-0.012) K/mm3 Nucleated RBC % 0.0 (0.0-0.2) % PT 18.5 H (11.1-14.7) Seconds INR 1.5 APTT 39.3 H (22.3-36.8) Seconds Sodium 137 (137-145) mmol/L Potassium 4.0 (3.4-5.0) mmol/L Chloride 102 (98-107) mmol/L Carbon Dioxide 28 (22-30) mmol/L Anion Gap 7 (4-12) mmol/L BUN 33 H (7-17) mg/dL Creatinine 1.17 H (0.7-1.0) mg/dL Estim Creat Clear Calc 32 ml/min Estimated GFR 44 L (59 - ) Glucose 112 H (65-110) mg/dL Calcium 8.6 (8.4-10.2) mg/dL Total Bilirubin 1.2 (0.2-1.3) mg/dL AST 54 H (14-36) U/L ALT 75 H (6-35) U/L Alkaline Phosphatase 106 (38-126) U/L NT-Pro-B Natriuret Pep 3830 H (19.9-100) pg/mL Total Protein 7.0 (6.3-8.2) g/dL Albumin 3.3 L (3.5-5.1) g/dL Imaging Data Radiologist's impression: ITS Impressions Chest X-Ray 09/25/24 10:59 Impression: Hazy right midlung airspace opacity, nonspecific. Correlate for focal pneumonia or atelectasis. Probable mild central pulmonary venous congestive change. Pelvis CT 09/25/24 11:00 IMPRESSION: 1. Minimally displaced fractures of the bilateral sacral ala and extending across the S2 vertebral body. 2. Minimally displaced fracture at the junction of the right pubic body and the superior and inferior pubic rami. Discharge Plan Discharge Clinical Impression: Closed sacral fracture, Hypoxia, Closed fracture of pubic ramus, Pulmonary edema Patient Disposition: Still a Patient Condition: Stable
[2024-09-25] MEDS: FUROSEMIDE INJ 40 MG/4 ML VIAL IV PUSH (12:46)
--- NOTE | 2024-09-25 13:00 | P.HP_ITS ---
H&P: HPI History of Present Illness Date/Time: 09/25/24 13:00 Chief Complaint: Hip pain. Narrative: This is an 89-year-old female with history of paroxysmal atrial fibrillation on chronic anticoagulation, hypertension, dyslipidemia, gastroesophageal reflux disease, kidney stones, chronic kidney disease stage 3, and osteoarthritis who presented to the emergency department via EMS from home with complaints of hip pain. She was seen in the ED this past Monday for evaluation of hip pain after falling at [place]. Imaging was unremarkable at that time and she was discharged home. Unfortunately she continues to have increasing pain in both hips and is having troubles ambulating due to the pain. Of note, EMS reports that her SpO2 was 88% on room air on their arrival and she was placed on 2 L nasal cannula. With further questioning the patient denies shortness of breath but does report a dry cough, sinus congestion, and may be a bit of wheezing the last couple of days. She denies fever, chills, sweats, sore throat, chest pain, pleuritic pain, back pain, urinary retention, bowel incontinence, saddle anesthesia, and lower extremity edema and weakness. In the ED: She was afebrile on arrival stable vital signs. Labs were significant for WBC count of 13.0, INR 1.5, BUN 33, creatinine 1.17, AST 54, ALT 75, proBNP 3830. Pelvis CT showed minimally displaced sacral ala and pubic rami fractures. Chest x-ray showed hazy right mid lung airspace opacities and probable mild central pulmonary venous congestive changes. She was given a nebulizer treatment and furosemide 40 mg and she is being admitted in this setting for further treatment. Review of Systems Review of Systems: 12 systems were reviewed and are negativ e except for as per HPI. [facility] Past Medical History Medical History Chronic kidney disease, stage 3 Chronic anticoagulation Paroxysmal atrial fibrillation Dyslipidemia Osteoarthritis Skin cancer Shingles Kidney stones Hypertension Surgical History Surgical History History of cataract extraction History of cholecystectomy History of hysterectomy Social History Social History Social History: Surrogate medical decision maker: Jose Atkins, spouse. Code status: Full code. Years smoked: 25 Smoking status: Former smoker Second hand tobacco smoke exposure: No Alcohol intake: never Substance use: never Substance use type: does not use Do You Feel Safe in your Home?: Yes Lack of Transportation: No Lack of Food: Never True Current Housing: I Have Housing Concerned About Future Housing: No Difficulty Paying Gas/Electric Bills: No Difficulty Paying for Meds: No Currently Unemployed: No Education: High School Diploma/GED Difficulty w/ Childcare or Family Care: No Living arrangements: with family Spiritual care concerns: No Meds Home Medications and Allergies Home Medications ?Medication ?Instructions ?Recorded ?Confirmed ?Type aspirin 81 mg tablet 81 mg PO HS 12/11/23 09/25/24 History cholecalciferol (vitamin D3) 25 1,500 unit PO WEEKLY 12/11/23 09/25/24 History mcg (1,000 unit) tablet (Vitamin D3) cranberry 400 mg capsule 400 mg PO DAILY 12/11/23 09/25/24 History famotidine 20 mg tablet 20 mg PO HS 12/11/23 09/25/24 History rosuvastatin 5 mg tablet 5 mg PO HS 12/11/23 09/25/24 History apixaban 5 mg tablet (Eliquis) 5 mg PO Q12HR #120 tabs 12/12/23 09/25/24 Rx cyanocobalamin (vitamin B-12) 100 100 mcg PO DAILY 01/23/24 09/25/24 History mcg tablet furosemide 20 mg tablet 40 mg PO DAILY 01/23/24 09/25/24 History metoprolol tartrate 100 mg tablet 50 mg PO Q12H 01/23/24 09/25/24 History potassium chloride 20 mEq 20 meq PO DAILY 01/23/24 09/25/24 History tablet,extended release amiodarone 200 mg tablet 200 mg PO DAILY 09/25/24 09/25/24 History Allergies Allergy/AdvReac Type Severity Reaction Status Date / Time cephalexin Allergy Rash Verified 09/25/24 10:27 clindamycin Allergy Rash Verified 09/25/24 10:27 alendronate sodium (From AdvReac Unknown Verified 09/25/24 10:27 Fosamax) atorvastatin AdvReac Muscle Pain Verified 09/25/24 10:27 losartan AdvReac Unknown Verified 09/25/24 10:27 pravastatin AdvReac Muscle Pain Verified 09/25/24 10:27 Vital Signs Vital Signs - 24 hr 09/25/24 10:17 09/25/24 10:31 09/25/24 11:19 Temperature 98.8 F Pulse Rate 64 64 59 L Respiratory Rate 18 16 18 Blood Pressure 128/70 126/77 Pulse Oximetry 93 97 Oxygen Delivery Nasal Cannula Oxygen Flow Rate 2 09/25/24 11:29 09/25/24 12:06 Temperature 97.9 F Pulse Rate 62 65 Respiratory Rate 18 18 Blood Pressure 130/84 Pulse Oximetry 93 Oxygen Delivery Oxygen Flow Rate Exam Narrative: General: A well-developed elderly female sitting up in bed in no acute distress. Weight: 81.2 kg. BMI: 28.9. HEENT: PERRL, EOMI. Sclera anicteric. Oral mucosa moist. Oropharynx clear. Neck: Supple. Respiratory: Lungs are clear to auscultation bilaterally. Cardiovascular: Irregularly irregular rate and rhythm. Gastrointestinal: Abdomen is soft, nontender, and nondistended with positive bowel sounds. Skin: Warm and dry. No rash or lesions on limited exam. Extremities: No cyanosis, clubbing, or edema. Radial and pedal pulses intact. Musculoskeletal: No midline vertebral tenderness. Pelvis is stable. Neurological: Alert. Cranial nerves 2-12 are grossly intact. No gross focal deficits to casual conversation. Psychiatric: Pleasant and cooperative with normal mood and affect. Judgment and insight intact. H&P: Results Labs Labs: Short CBC 09/25/24 Range/Units 11:02 WBC 13.0 H (4.5-10.0) K/mm3 Hgb 12.2 (12.0-15.0) g/dL Hct 38.4 (37.0-47.0) % Plt Count 178 (150-375) k/mm3 [facility] 09/25/24 11:02 Sodium 137 Potassium 4.0 Chloride 102 Carbon Dioxide 28 BUN 33 H Creatinine 1.17 H Glucose 112 H Calcium 8.6 Liver Function 09/25/24 Range/Units 11:02 Total Bilirubin 1.2 (0.2-1.3) mg/dL AST 54 H (14-36) U/L ALT 75 H (6-35) U/L Alkaline Phosphatase 106 (38-126) U/L Albumin 3.3 L (3.5-5.1) g/dL Impressions Chest X-Ray 09/25/24 10:59 Impression: 1. Hazy right midlung airspace opacity, nonspecific. Correlate for focal pneumonia or atelectasis. 2. Probable mild central pulmonary venous congestive change. Pelvis CT 09/25/24 11:00 IMPRESSION: 1. Minimally displaced fractures of the bilateral sacral ala and extending across the S2 vertebral body. 2. Minimally displaced fracture at the junction of the right pubic body and the superior and inferior pubic rami. Assessment and Plan Assessment and plan (1) Bilateral sacral insufficiency fracture: Code(s): M84.48XA - Pathological fracture, other site, initial encounter for fracture Status: Acute (2) Fracture of right inferior pubic ramus: Code(s): S32.591A - Other specified fracture of right pubis, initial encounter for closed fracture Status: Acute (3) Hypoxia: Code(s): R09.02 - Hypoxemia Status: Acute (4) Paroxysmal atrial fibrillation: Code(s): I48.0 - Paroxysmal atrial fibrillation Status: Acute (5) Chronic anticoagulation: Code(s): Z79.01 - terminal operator (current) use of anticoagulants Status: Acute (6) Hypertension: Code(s): I10 - Essential (primary) hypertension Status: Acute (7) Chronic kidney disease, stage 3: Code(s): N18.30 - Chronic kidney disease, stage 3 unspecified Status: Acute Plan The patient presented to the emergency department for evaluation of ongoing hip pain after a fall on the ice while walking into synagogue on Monday as detailed in HPI. Labs, imaging, EKG, and all reports were personally reviewed. CT scan shows sacral ala fractures and pubic rami fractures. She is being admitted for pain control and PT/OT evaluation. Incidentally she was found to be hypoxic and a chest x-ray showed nonspecific hazy right mid lung airspace opacities which could be atelectasis or pneumonia and probable mild central pulmonary venous congestion. She received furosemide 40 mg IV x1 and we will continue with her daily furosemide dose tomorrow. Oxygen will be weaned as tolerated. Continue empiric antibiotics for possible developing pneumonia as she has an elevated WBC count. Vital signs were reviewed and they are stable. Kidney function is stable on review of previous labs. Her home medications will be reviewed and resumed as appropriate. Findings and treatment plan were discussed with the patient. Questions were solicited and answered to satisfaction. The patient's medical management will be taken over by the hospitalist team in a.m. Quality VTE Prophylaxis VTE prophylaxis: pharmacologic ordered (on apixaban) The patient has been admitted under observation status. Hospitalist MIPS Advance Care Plan I have confirmed that the patient's Advanced Care Plan is present, code status is documented, or surrogate decision maker is listed in patient medical record.: Yes Medication Reconciliation I have utilized all available resources to obtain, update and review the patients current medications (includes all prescriptions, OTC, herbals, cannabis, and nutritional supplements).: Yes
[2024-09-25 16:17] LABS: Influenza A QL RT-PCR Negative (Negative); Influenza B QL RT-PCR Negative (Negative); SARS-CoV-2 RNA PCR Negative (Negative)
[2024-09-25 17:21] LABS: RSV RNA, RT-PCR Negative (Negative)
--- NOTE | 2024-09-25 17:37 | ADMGEN ---
This patient, Kelly Bar, was admitted to 3 [facility] Surg Room 330-01. Patient/family oriented to hospital policies and general routines including ID bracelet, bed and alarms, visiting hours, pain management, procedures, bathroom and other care routines, personal items, smoking policy, room service/diet, and visiting hours. Information on how to activate the Rapid Response Team has been discussed. Patient/Family are encouraged to report perceived risks to care and to ask questions if they do not understand what they are told or what they should do.
[2024-09-25] MEDS: METOPROLOL TARTRATE 50 MG TAB PO (21:48)
[2024-09-25] MEDS: FAMOTIDINE 20 MG TABLET PO (21:48)
[2024-09-25] MEDS: APIXABAN 5 MG TABLET PO (21:48)
[2024-09-25] MEDS: DOXYCYCLINE HYCLATE 100 MG TABLET PO (22:47)
[2024-09-25] MEDS: ROSUVASTATIN 5 MG TABLET PO (22:47)
[2024-09-26] VITALS (15 sets, daily range): BP systolic 126–160; BP diastolic 71–83; PULSE 57–80; RESP 16–18; TEMP 36.3–36.5; O2SAT 87–99
--- NOTE | 2024-09-26 07:51 | PM.IMPN ---
Progress Note: A&P Assessment and Plan (1) Bilateral sacral insufficiency fracture: Code(s): M84.48XA - Pathological fracture, other site, initial encounter for fracture Status: Acute Assessment and Plan: 09/26 - Significant pain noted, pt/ot evaluation pending. (2) Fracture of right inferior pubic ramus: Code(s): S32.591A - Other specified fracture of right pubis, initial encounter for closed fracture Status: Acute Assessment and Plan: . (3) Hypoxia: Code(s): R09.02 - Hypoxemia Status: Acute Assessment and Plan: 09/26 Acute hypoxic resp. failure - No hx of similar, currently on 2L. On chronic anticoagulation - PE unlikely. Infiltrate on CXR, likely infectious. (4) Pneumonia: Code(s): J18.9 - Pneumonia, unspecified organism Status: Acute Assessment and Plan: 09/26 - Abx with doxycycline initiated, will add cefdinir for additional oral agent to better cover cap pathogens and d/t severity of hypoxia on presentation. Plan at least 5 day course. (5) Paroxysmal atrial fibrillation: Code(s): I48.0 - Paroxysmal atrial fibrillation Status: Acute Assessment and Plan: 09/26 - Stable rate. Cont. current medications and anticoagulation. (6) Chronic anticoagulation: Code(s): Z79.01 - long term acute care registered nurse (current) use of anticoagulants Status: Acute Assessment and Plan: . (7) Hypertension: Code(s): I10 - Essential (primary) hypertension Status: Acute Assessment and Plan: 09/26 - Stable bp, cont. current. (8) Chronic kidney disease, stage 3: Code(s): N18.30 - Chronic kidney disease, stage 3 unspecified Status: Acute Assessment and Plan: 09/26 - Stable renal function. Trend. Plan Kelly Bar is an 89 year old female with pmh atrial fibrillation presenting one week s/p fall with pubic rami fractures and new onset hypoxia with infiltrate on cxr and leukocytosis. Improving lab markers, remains on 2L. Beta lactam added to regimen today. Therapy eval pending. Time Spent With Patient Time with patient: 25 - 35 minutes Subjective Date/time seen: 09/26/24 07:51 Interval history: Kelly complains of pain moreso when sitting. She had been up and ambulating to some extent earlier. She denies any hx of hypoxia, has not smoked since 1973. Review of Systems Review of Systems: All systems reviewed & are unremarkable except as noted in HPI and below Exam Narrative: GENERAL APPEARANCE: Appears to be in no acute distress. HEAD: normocephalic atraumatic EYES: PERRL, EOMI. Vision grossly intact. ENT: Hearing grossly intact, no nasal discharge NECK: Neck supple, trachea midline. CARDIAC: Normal S1/S2. Rhythm is regular. No murmurs, rubs, or gallops. No cyanosis or pallor. Extremities are warm and well perfused. LUNGS: Slightly coarse bilateral midlung hardin. Respirations even and unlabored. 93% 2L during my exam. ABDOMEN: BS positive x 4 quadrants. Soft, nondistended, nontender. No guarding or rebound. MSK: No joint tenderness/swelling, fair strength in all extremities. PERIPHERAL VASCULAR: Peripheral pulses palpable. Normal perfusion, cap refill <2 seconds. NEURO: Follows commands. No focal deficits. SKIN: [place] without lesions or eruptions. PSYCH: Stable, no paranoia or delusional thinking. Objective Data Vital Signs Vital Signs: Vital Signs - 24 hr 09/25/24 10:17 09/25/24 10:31 09/25/24 11:19 Temperature 98.8 F Pulse Rate 64 64 59 L Respiratory Rate 18 16 18 Blood Pressure 128/70 126/77 Pulse Oximetry 93 97 Oxygen Delivery Nasal Cannula Oxygen Flow Rate 2 09/25/24 11:29 09/25/24 12:06 09/25/24 13:30 Temperature 97.9 F Pulse Rate 62 65 66 Respiratory Rate 18 18 17 Blood Pressure 130/84 115/79 Pulse Oximetry 93 96 Oxygen Delivery Oxygen Flow Rate 09/25/24 15:32 09/25/24 18:11 09/25/24 20:00 Temperature Pulse Rate 72 73 Respiratory Rate 17 Blood Pressure 121/68 Pulse Oximetry 97 97 Oxygen Delivery Nasal Cannula Oxygen Flow Rate 2 09/25/24 21:48 09/25/24 22:00 09/26/24 00:00 Temperature 98.0 F Pulse Rate 70 72 57 L Respiratory Rate 18 Blood Pressure 131/67 Pulse Oximetry 96 Oxygen Delivery Oxygen Flow Rate 09/26/24 04:00 09/26/24 06:00 Temperature 97.7 F Pulse Rate 76 69 Respiratory Rate 18 Blood Pressure 131/72 Pulse Oximetry 95 Oxygen Delivery Oxygen Flow Rate Intake/Output Intake/Output: Intake & Output 09/23/24 09/24/24 09/25/24 09/26/24 23:59 23:59 23:59 23:59 Output Total 300 Balance -300 Meds/Results Medications: Active Medications Generic Name Dose Route Start Last Admin Trade Name Freq PRN Reason Stop Dose Admin Acetaminophen 650 mg 09/25/24 12:31 Acetaminophen 325 Mg Tablet PO Q4H PRN Mild Pain (1-3) or Fever Hydrocodone Bitart/Acetaminophen 1 tab 09/25/24 12:31 Hydrocodone/Acetaminophen (*Crx) 5-325 Mg Tablet PO Q4H PRN Pain Rated 4-6 Amiodarone HCl 200 mg 09/26/24 09:00 Amiodarone Hcl 200 Mg Tablet PO DAILY ILAN Apixaban 5 mg 09/25/24 21:00 09/25/24 21:48 Apixaban 5 Mg Tablet PO 5 mg Q12HR ILAN Administration Aspirin 81 mg 09/26/24 21:00 Aspirin 81 Mg Enteric Tablet PO HS ILAN Doxycycline Hyclate 100 mg 09/25/24 21:00 09/25/24 22:47 Doxycycline Hyclate 100 Mg Tablet PO 100 mg Q12HR ILAN Administration Famotidine 20 mg 09/25/24 21:00 09/25/24 21:48 Famotidine 20 Mg Tablet PO 20 mg HS ILAN Administration Furosemide 40 mg 09/26/24 09:00 Furosemide 40 Mg Tablet PO DAILY ILAN Metoprolol Tartrate 50 mg 09/25/24 21:00 09/25/24 21:48 Metoprolol Tartrate 50 Mg Tab PO 50 mg Q12H ILAN Administration Morphine Sulfate 2 mg 09/25/24 12:31 Morphine Sulfate (*Crx) 2 Mg/Ml Inj IV PUSH Q2H PRN Pain Rated 7-10 Ondansetron HCl 4 mg 09/25/24 12:31 Ondansetron Inj 4 Mg/2 Ml Vial IV PUSH Q4H PRN Nausea Potassium Chloride 20 meq 09/26/24 09:00 Potassium Chloride 20 Meq Er Tablet PO DAILY ILAN Rosuvastatin Calcium 5 mg 09/25/24 21:00 09/25/24 22:47 Rosuvastatin 5 Mg Tablet PO 5 mg [email or web address] ILAN Administration Vitamin D 1,500 units 10/02/24 09:00 Cholecalciferol 1,000 Units Tablet PO WEEKLY ILAN Radiology Results: ITS Impressions Chest X-Ray 09/25/24 10:59 Impression: Hazy right midlung airspace opacity, nonspecific. Correlate for focal pneumonia or atelectasis. Probable mild central pulmonary venous congestive change. Pelvis CT 09/25/24 11:00 IMPRESSION: 1. Minimally displaced fractures of the bilateral sacral ala and extending across the S2 vertebral body. 2. Minimally displaced fracture at the junction of the right pubic body and the superior and inferior pubic rami. Labs Labs: Laboratory Results - last 24 hr 09/25/24 09/25/24 11:02 15:31 WBC 13.0 H RBC 3.87 L Hgb 12.2 Hct 38.4 MCV 99.2 MCH 31.5 MCHC 31.8 L RDW 13.4 Plt Count 178 MPV 12.0 H Immature Gran % (Auto) 0.9 H Neut % (Auto) 77.5 H Lymph % (Auto) 9.0 L [place] % (Auto) 11.4 H Eos % (Auto) 0.8 Baso % (Auto) 0.4 Lymph # (Auto) 1.17 [place] # (Auto) 1.5 H Eos # (Auto) 0.1 Baso # (Auto) 0.1 Abs Immat Gran (auto) 0.12 H Absolute Neuts (auto) 10.1 H Absolute Nucleated RBC 0.000 Nucleated RBC % 0.0 PT 18.5 H INR 1.5 APTT 39.3 H Sodium 137 Potassium 4.0 Chloride 102 Carbon Dioxide 28 Anion Gap 7 BUN 33 H Creatinine 1.17 H Estim Creat Clear Calc 32 Estimated GFR 44 L Glucose 112 H Calcium 8.6 Total Bilirubin 1.2 AST 54 H ALT 75 H Alkaline Phosphatase 106 NT-Pro-B Natriuret Pep 3830 H Total Protein 7.0 Albumin 3.3 L Influenza A (RT-PCR) Negative Influenza B (RT-PCR) Negative RSV (RT-PCR) Negative SARS-CoV-2 RNA (RT-PCR) Negative Quality VTE Prophylaxis VTE prophylaxis: pharmacologic ordered (eliquis) Hospitalist [facility] Advance Care Plan I have confirmed that the patient's Advanced Care Plan is present, code status is documented, or surrogate decision maker is listed in patient medical record.: Yes Medication Reconciliation I have utilized all available resources to obtain, update and review the patients current medications (includes all prescriptions, OTC, herbals, cannabis, and nutritional supplements).: Yes
[2024-09-26 08:18] LABS: Hematocrit 37.6 % (37.0-47.0); Mean Corpuscular HGB Conc 31.9 g/dl (32-36); Mean Corpuscular Hemoglobin 31.9 pg (26-34); Mean Platelet Volume 11.6 fl (7.4-10.4); Platelet Count Result 171 k/mm3 (150-375); Red Blood Count 3.76 M/mm3 (4.2-5.4); Red Cell Distribution Width 13.4 % (11.5-14.5); White Blood Count 9.2 K/mm3 (4.5-10.0)
[2024-09-26] MEDS: AMIODARONE HCL 200 MG TABLET PO (08:34)
[2024-09-26] MEDS: DOXYCYCLINE HYCLATE 100 MG TABLET PO ×2 (08:34→20:04)
[2024-09-26] MEDS: APIXABAN 5 MG TABLET PO ×2 (08:34→20:04)
[2024-09-26] MEDS: POTASSIUM CHLORIDE 20 MEQ ER TABLET PO (08:34)
[2024-09-26 08:35] LABS: Anion Gap 6 mmol/L (4-12); Blood Urea Nitrogen 33 mg/dL (7-17); Calcium 8.3 mg/dL (8.4-10.2); Carbon Dioxide 31 mmol/L (22-30); Chloride 100 mmol/L (98-107); Estimated CRCL calculation 36 ml/min; Estimated Glomerular Filt Rate 50; Glucose 99 mg/dL (65-110); Magnesium 2.1 mg/dL (1.6-2.3); Potassium 3.8 mmol/L (3.4-5.0); Sodium 137 mmol/L (137-145)
[2024-09-26] MEDS: METOPROLOL TARTRATE 50 MG TAB PO ×2 (08:35→20:04)
[2024-09-26] MEDS: FUROSEMIDE 40 MG TABLET PO (08:35)
[2024-09-26] MEDS: HYDROcodone/acetaminophen (*CRX) 5-325 MG TABLET 1 TAB PO (10:01)
[2024-09-26 11:24] LABS: Procalcitonin 0.2 ng/mL
[2024-09-26] MEDS: CEFDINIR 300 MG CAPSULE PO ×2 (11:44→20:03)
[2024-09-26] MEDS: MORPHINE SULFATE (*CRX) 2 MG/ML INJ IV PUSH (12:06)
--- NOTE | 2024-09-26 12:28 | PC.NURSE ---
Patient unable to tolerate standing with PO norco 5-325 and IV morphine administration. Only sitting up EOB achieved. Pt. crying in pain from attempts. Bladimir Ball notified for possible pain regimen change.
[2024-09-26] MEDS: HYDROcodone/acetaminophen (*CRX) 10-325 MG TABLET 1 TAB PO (13:44)
--- NOTE | 2024-09-26 14:39 | P.CONOP_ITS ---
Assessment and Plan Assessment and plan (1) Fracture of right inferior pubic ramus: Code(s): S32.591A - Other specified fracture of right pubis, initial encounter for closed fracture Status: Acute (2) Closed sacral fracture: Code(s): S32.10XA - Unspecified fracture of sacrum, initial encounter for closed fracture Status: Acute (3) Closed fracture of pubic ramus: Code(s): S32.599A - Other specified fracture of unspecified pubis, initial encounter for closed fracture Status: Acute Plan Several nondisplaced pelvic fractures including bilateral sacral ala and right pubic rami. Fractures are stable and she can mobilize as able. I expect she will have a significant amount of pain with weight-bearing initially. Pain in mobility should increase weekly over the next 4-6 weeks. Will need assisted for most of this time. I discussed the condition and the natural history with the patient and her family. Routine x-ray follow-up in 4-6 weeks. History of Present Illness HPI Consult date: 09/26/24 Chief complaint: pelvic fracture, sacral ala fracture, hypoxia, Narrative: Patient complains of acute hip pain. Fell from standing height. Pleasant 89-year-old female with severe pelvic pain, posterior and anterior. Initially fell and was seen in the emergency department. Was discharged and returned several days later. Was found to have an occult fracture of the bilateral sacral ala and right pubic ramus. Also diagnosed with pneumonia. Review of Systems 2 Review of Systems: Denies loss of consciousness. All systems reviewed & are unremarkable except as noted in HPI and below PMFSH Past Medical History Medical History Chronic kidney disease, stage 3 Chronic anticoagulation Paroxysmal atrial fibrillation Dyslipidemia Osteoarthritis Skin cancer Shingles Kidney stones Hypertension Surgical History Surgical History History of cataract extraction History of cholecystectomy History of hysterectomy Social History Social History Social History: Surrogate medical decision maker: Jose Atkins, spouse. Code status: Full code. Years smoked: 25 Smoking status: Former smoker Second hand tobacco smoke exposure: No Alcohol intake: never Substance use: never Substance use type: does not use Do You Feel Safe in your Home?: Yes Lack of Transportation: No Lack of Food: Never True Current Housing: I Have Housing Concerned About Future Housing: No Difficulty Paying Gas/Electric Bills: No Difficulty Paying for Meds: No Currently Unemployed: No Education: High School Diploma/GED Difficulty w/ Childcare or Family Care: No Living arrangements: with family Spiritual care concerns: No Meds Home Medications and Allergies Home Medications ?Medication ?Instructions ?Recorded ?Confirmed ?Type aspirin 81 mg tablet 81 mg PO HS 12/11/23 09/25/24 History cholecalciferol (vitamin D3) 25 1,500 unit PO WEEKLY 12/11/23 09/25/24 History mcg (1,000 unit) tablet (Vitamin D3) cranberry 400 mg capsule 400 mg PO DAILY 12/11/23 09/25/24 History famotidine 20 mg tablet 20 mg PO HS 12/11/23 09/25/24 History rosuvastatin 5 mg tablet 5 mg PO HS 12/11/23 09/25/24 History apixaban 5 mg tablet (Eliquis) 5 mg PO Q12HR #120 tabs 12/12/23 09/25/24 Rx cyanocobalamin (vitamin B-12) 100 100 mcg PO DAILY 01/23/24 09/25/24 History mcg tablet furosemide 20 mg tablet 40 mg PO DAILY 01/23/24 09/25/24 History metoprolol tartrate 100 mg tablet 50 mg PO Q12H 01/23/24 09/25/24 History potassium chloride 20 mEq 20 meq PO DAILY 01/23/24 09/25/24 History tablet,extended release amiodarone 200 mg tablet 200 mg PO DAILY 09/25/24 09/25/24 History Allergies Allergy/AdvReac Type Severity Reaction Status Date / Time cephalexin Allergy Rash Verified 09/25/24 10:27 clindamycin Allergy Rash Verified 09/25/24 10:27 alendronate sodium (From AdvReac Unknown Verified 09/25/24 10:27 Fosamax) atorvastatin AdvReac Muscle Pain Verified 09/25/24 10:27 losartan AdvReac Unknown Verified 09/25/24 10:27 pravastatin AdvReac Muscle Pain Verified 09/25/24 10:27 Vital Signs Vital Signs - 24 hr 09/25/24 15:32 09/25/24 18:11 09/25/24 20:00 Temperature Pulse Rate 72 73 Respiratory Rate 17 Blood Pressure 121/68 Pulse Oximetry 97 97 Oxygen Delivery Nasal Cannula Oxygen Flow Rate 2 09/25/24 21:48 09/25/24 22:00 09/26/24 00:00 Temperature 36.7 C Pulse Rate 70 72 57 L Respiratory Rate 18 Blood Pressure 131/67 Pulse Oximetry 96 Oxygen Delivery Oxygen Flow Rate 09/26/24 04:00 09/26/24 06:00 09/26/24 08:22 Temperature 36.5 C Pulse Rate 76 69 Respiratory Rate 18 Blood Pressure 131/72 Pulse Oximetry 95 93 Oxygen Delivery Nasal Cannula Oxygen Flow Rate 2 09/26/24 08:30 09/26/24 08:34 09/26/24 08:35 Temperature Pulse Rate 80 80 Respiratory Rate Blood Pressure Pulse Oximetry 87 L Oxygen Delivery Room Air Oxygen Flow Rate 09/26/24 08:38 Temperature Pulse Rate Respiratory Rate Blood Pressure Pulse Oximetry 93 Oxygen Delivery Nasal Cannula Oxygen Flow Rate 2 Exam 2 Narrative: Uncomfortable in bed. Sacral tenderness. No deformity. No lower extremity deformity. Const: General: no acute distress Eyes: General: appearance normal, both eyes and all related structures Resp: Effort & Inspection: normal respiratory effort GI: GI Palp: Yes Soft to palpation and No Guarding due to palpation present (GI) Urinary Catheter: Urinary Catheter: patent and draining and urine clear Skin: General skin exam: no rashes or lesions noted Neuro: Speech: normal speech Other: Wiggles toes well. Capillary refill brisk. Distal light touch sensation intact. Dorsalis pedis pulse palpable. Extrem: Other: No edema. Psych: Mental Status: mental status grossly normal Results Labs 09/26/24 07:46 09/26/24 07:46 Labs: Abnormal lab results 09/26/24 Range/Units 07:46 RBC 3.76 L (4.2-5.4) M/mm3 MCHC 31.9 L (32-36) g/dl MPV 11.6 H (7.4-10.4) fl Carbon Dioxide 31 H (22-30) mmol/L BUN 33 H (7-17) mg/dL Creatinine 1.05 H (0.7-1.0) mg/dL Estimated GFR 50 L (59 - ) Calcium 8.3 L (8.4-10.2) mg/dL H & H 09/25/24 09/26/24 Range/Units 11:02 07:46 Hgb 12.2 12.0 (12.0-15.0) g/dL Hct 38.4 37.6 (37.0-47.0) % Coagulation 09/25/24 Range/Units 11:02 INR 1.5 All other labs normal. Quality VTE Prophylaxis VTE prophylaxis: mechanical ordered
[2024-09-26] MEDS: ASPIRIN 81 MG ENTERIC TABLET PO (20:04)
[2024-09-26] MEDS: SENNOSIDES 8.6 MG TABLET PO (20:04)
[2024-09-26] MEDS: FAMOTIDINE 20 MG TABLET PO (20:04)
[2024-09-26] MEDS: ONDANSETRON INJ 4 MG/2 ML VIAL IV PUSH (21:17)
[2024-09-26] MEDS: MELATONIN 3 MG TABLET PO (22:30)
[2024-09-27] VITALS (10 sets, daily range): BP systolic 106–138; BP diastolic 50–62; PULSE 55–88; RESP 16–18; TEMP 36.4–37.1; O2SAT 94–97
[2024-09-27 06:47] LABS: Hematocrit 36.6 % (37.0-47.0); Hemoglobin 11.8 g/dL (12.0-15.0); Mean Corpuscular HGB Conc 32.2 g/dl (32-36); Mean Corpuscular Hemoglobin 32.3 pg (26-34); Mean Corpuscular Volume 100.3 fl (80-100); Mean Platelet Volume 11.1 fl (7.4-10.4); Platelet Count Result 177 k/mm3 (150-375); Red Blood Count 3.65 M/mm3 (4.2-5.4); Red Cell Distribution Width 13.2 % (11.5-14.5); White Blood Count 8.4 K/mm3 (4.5-10.0)
[2024-09-27 06:56] LABS: Alanine Aminotransferase 59 U/L (6-35); Albumin Level 2.9 g/dL (3.5-5.1); Alkaline Phosphatase 95 U/L (38-126); Anion Gap 8 mmol/L (4-12); Aspartate Amino Transferase 37 U/L (14-36); Bilirubin,Total 0.9 mg/dL (0.2-1.3); Blood Urea Nitrogen 34 mg/dL (7-17); Calcium 8.3 mg/dL (8.4-10.2); Carbon Dioxide 29 mmol/L (22-30); Chloride 99 mmol/L (98-107); Estimated CRCL calculation 40 ml/min; Estimated Glomerular Filt Rate 58; Glucose 98 mg/dL (65-110); Potassium 3.9 mmol/L (3.4-5.0); Sodium 136 mmol/L (137-145)
[2024-09-27 07:11] LABS: Procalcitonin 0.2 ng/mL
[2024-09-27] MEDS: MORPHINE SULFATE (*CRX) 4 MG/ML INJ IV PUSH (09:16)
[2024-09-27] MEDS: CEFDINIR 300 MG CAPSULE PO ×2 (09:19→20:30)
[2024-09-27] MEDS: POTASSIUM CHLORIDE 20 MEQ ER TABLET PO (09:19)
[2024-09-27] MEDS: FUROSEMIDE 40 MG TABLET PO (09:19)
[2024-09-27] MEDS: METOPROLOL TARTRATE 50 MG TAB PO ×2 (09:19→20:31)
[2024-09-27] MEDS: AMIODARONE HCL 200 MG TABLET PO (09:19)
[2024-09-27] MEDS: DOXYCYCLINE HYCLATE 100 MG TABLET PO ×2 (09:19→20:30)
[2024-09-27] MEDS: APIXABAN 5 MG TABLET PO ×2 (09:19→20:31)
[2024-09-27] MEDS: oxyCODONE HCL (*CRX) 5 MG TAB IR PO (12:56)
--- NOTE | 2024-09-27 13:37 | P.PNIM_ITS ---
Progress Note: A&P Assessment and Plan (1) Bilateral sacral insufficiency fracture: Code(s): M84.48XA - Pathological fracture, other site, initial encounter for fracture Status: Acute Assessment and Plan: 09/26 - Significant pain noted, pt/ot evaluation pending. (2) Fracture of right inferior pubic ramus: Code(s): S32.591A - Other specified fracture of right pubis, initial encounter for closed fracture Status: Acute Assessment and Plan: . (3) Hypoxia: Code(s): R09.02 - Hypoxemia Status: Acute Assessment and Plan: 09/26 Acute hypoxic resp. failure - No hx of similar, currently on 2L. On chronic anticoagulation - PE unlikely. Infiltrate on CXR, likely infectious. (4) Pneumonia: Code(s): J18.9 - Pneumonia, unspecified organism Status: Acute Assessment and Plan: 09/26 - Abx with doxycycline initiated, will add cefdinir for additional oral agent to better cover cap pathogens and d/t severity of hypoxia on presentation. Plan at least 5 day course. (5) Paroxysmal atrial fibrillation: Code(s): I48.0 - Paroxysmal atrial fibrillation Status: Acute Assessment and Plan: 09/26 - Stable rate. Cont. current medications and anticoagulation. 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 (7) Hypertension: Code(s): I10 - Essential (primary) hypertension Status: Acute Assessment and Plan: 09/26 - Stable bp, cont. current. (8) Chronic kidney disease, stage 3: Code(s): N18.30 - Chronic kidney disease, stage 3 unspecified Status: Acute Assessment and Plan: 09/26 - Stable renal function. Trend. Plan Kelly Bar is an 89 year old female with pmh atrial fibrillation presenting one week s/p fall with pubic rami fractures and new onset hypoxia with infiltrate on cxr and leukocytosis. Improving lab markers, remains on 2L. Beta lactam added to regimen today. Therapy eval pending. Subjective Date/time seen: 09/27/24 13:37 Interval history: Patient has fracture of right inferior pubic ramus. Patient reports that she was going to adventist on Monday and fell down with her . Denies using any walker or cane. Patient currently has not of pain. She is on morphine and started oxycodone. Will monitor saturation Review of Systems Review of Systems: 12 systems were reviewed and are negativ e except for as per HPI. All systems reviewed & are unremarkable except as noted in HPI and below Exam Narrative: GENERAL APPEARANCE: Appears to be in no acute distress. HEAD: normocephalic atraumatic EYES: PERRL, EOMI. Vision grossly intact. ENT: Hearing grossly intact, no nasal discharge NECK: Neck supple, trachea midline. CARDIAC: Normal S1/S2. Rhythm is regular. No murmurs, rubs, or gallops. No cyanosis or pallor. Extremities are warm and well perfused. LUNGS: Slightly coarse bilateral midlung [place]. Respirations even and unlabored. 93% 2L during my exam. ABDOMEN: BS positive x 4 quadrants. Soft, nondistended, nontender. No guarding or rebound. MSK: No joint tenderness/swelling, fair strength in all extremities. PERIPHERAL VASCULAR: Peripheral pulses palpable. Normal perfusion, cap refill <2 seconds. NEURO: Follows commands. No focal deficits. SKIN: [place] without lesions or eruptions. PSYCH: Stable, no paranoia or delusional thinking. Objective Data Vital Signs Vital Signs: Vital Signs - 24 hr 09/26/24 14:00 09/26/24 14:29 09/26/24 14:55 Temperature 97.6 F Pulse Rate 58 L Respiratory Rate 16 Blood Pressure 126/71 Pulse Oximetry 97 Oxygen Delivery Nasal Cannula Nasal Cannula Oxygen Flow Rate 2 2 09/26/24 16:00 09/26/24 20:00 09/26/24 20:04 Temperature Pulse Rate 64 69 66 Respiratory Rate Blood Pressure Pulse Oximetry Oxygen Delivery Oxygen Flow Rate 09/26/24 22:00 09/27/24 00:00 09/27/24 04:00 Temperature 97.3 F L Pulse Rate 66 62 55 L Respiratory Rate 18 Blood Pressure 160/83 H Pulse Oximetry 99 Oxygen Delivery Oxygen Flow Rate 09/27/24 06:00 09/27/24 08:00 09/27/24 09:19 Temperature 97.8 F Pulse Rate 60 72 85 Respiratory Rate 18 Blood Pressure 130/57 L Pulse Oximetry 97 Oxygen Delivery Oxygen Flow Rate 09/27/24 09:19 Temperature Pulse Rate 85 Respiratory Rate Blood Pressure Pulse Oximetry Oxygen Delivery Oxygen Flow Rate Intake/Output Intake/Output: Intake & Output 09/24/24 09/25/24 09/26/24 09/27/24 23:59 23:59 23:59 23:59 Intake Total 720 240 Output Total 300 400 Balance 420 -160 Meds/Results Medications: Active Medications Generic Name Dose Route Start Last Admin Trade Name Freq PRN Reason Stop Dose Admin Acetaminophen 650 mg 09/25/24 12:31 Acetaminophen 325 Mg Tablet PO Q4H PRN Mild Pain (1-3) or Fever Amiodarone HCl 200 mg 09/26/24 09:00 09/27/24 09:19 Amiodarone Hcl 200 Mg Tablet PO 200 mg DAILY ILAN Administration Apixaban 5 mg 09/25/24 21:00 09/27/24 09:19 Apixaban 5 Mg Tablet PO 5 mg Q12HR ILAN Administration Aspirin 81 mg 09/26/24 21:00 09/26/24 20:04 Aspirin 81 Mg Enteric Tablet PO 81 mg HS ILAN Administration Cefdinir 300 mg 09/26/24 11:10 09/27/24 09:19 Cefdinir 300 Mg Capsule PO 09/30/24 21:01 300 mg Q12HR ILAN Administration Doxycycline Hyclate 100 mg 09/25/24 21:00 09/27/24 09:19 Doxycycline Hyclate 100 Mg Tablet PO 09/30/24 09:01 100 mg Q12HR ILAN Administration Famotidine 20 mg 09/25/24 21:00 09/26/24 20:04 Famotidine 20 Mg Tablet PO 20 mg HS ILAN Administration Furosemide 40 mg 09/26/24 09:00 09/27/24 09:19 Furosemide 40 Mg Tablet PO 40 mg DAILY ILAN Administration Melatonin 3 mg 09/26/24 22:25 09/26/24 22:30 Melatonin 3 Mg Tablet PO 3 mg HS ILAN Administration Metoprolol Tartrate 50 mg 09/25/24 21:00 09/27/24 09:19 Metoprolol Tartrate 50 Mg Tab PO 50 mg Q12H ILAN Administration Morphine Sulfate 4 mg 09/26/24 12:25 09/27/24 09:16 Morphine Sulfate (*Crx) 4 Mg/Ml Inj IV PUSH 4 mg Q4H PRN Administration Pain Rated 7-10 Ondansetron HCl 4 mg 09/25/24 12:31 09/26/24 21:17 Ondansetron Inj 4 Mg/2 Ml Vial IV PUSH 4 mg Q4H PRN Administration Nausea Oxycodone HCl 5 mg 09/27/24 11:03 09/27/24 12:56 Oxycodone Hcl (*Crx) 5 Mg Tab Ir PO 5 mg Q4H PRN Administration Pain Rated 4-6 Potassium Chloride 20 meq 09/26/24 09:00 09/27/24 09:19 Potassium Chloride 20 Meq Er Tablet PO 20 meq DAILY ILAN Administration Rosuvastatin Calcium 5 mg 09/25/24 21:00 09/25/24 22:47 Rosuvastatin 5 Mg Tablet PO 5 mg [email or web address] ILAN Administration Senna 8.6 mg 09/26/24 21:00 09/26/24 20:04 Sennosides 8.6 Mg Tablet PO 8.6 mg HS ILAN Administration Vitamin D 1,500 units 10/02/24 09:00 Cholecalciferol 1,000 Units Tablet PO WEEKLY [facility] Radiology Results: ITS Impressions Chest X-Ray 09/25/24 10:59 Impression: Hazy right midlung airspace opacity, nonspecific. Correlate for focal pneumonia or atelectasis. Probable mild central pulmonary venous congestive change. Pelvis CT 09/25/24 11:00 IMPRESSION: 1. Minimally displaced fractures of the bilateral sacral ala and extending across the S2 vertebral body. 2. Minimally displaced fracture at the junction of the right pubic body and the superior and inferior pubic rami. Labs Labs: Laboratory Results - last 24 hr 09/27/24 06:24 WBC 8.4 RBC 3.65 L Hgb 11.8 L Hct 36.6 L MCV 100.3 H MCH 32.3 MCHC 32.2 RDW 13.2 Plt Count 177 MPV 11.1 H Sodium 136 L Potassium 3.9 Chloride 99 Carbon Dioxide 29 Anion Gap 8 BUN 34 H Creatinine 0.92 Estim Creat Clear Calc 40 Estimated GFR 58 L Glucose 98 Calcium 8.3 L Total Bilirubin 0.9 AST 37 H ALT 59 H Alkaline Phosphatase 95 Total Protein 6.0 L Albumin 2.9 L Procalcitonin 0.2 Quality VTE Prophylaxis VTE prophylaxis: mechanical ordered Hospitalist [facility] Advance Care Plan I have confirmed that the patient's Advanced Care Plan is present, code status is documented, or surrogate decision maker is listed in patient medical record.: Yes Medication Reconciliation I have utilized all available resources to obtain, update and review the patients current medications (includes all prescriptions, OTC, herbals, beto abis, and nutritional supplements).: Yes
[2024-09-27] MEDS: ONDANSETRON INJ 4 MG/2 ML VIAL IV PUSH (14:59)
--- NOTE | 2024-09-27 16:06 | PM.PNORT ---
Progress Note: A&P Assessment and Plan (1) Bilateral sacral insufficiency fracture: Qualifiers: Encounter type: subsequent encounter Code(s): M84.48XA - Pathological fracture, other site, initial encounter for fracture Status: Acute (2) Fracture of right inferior pubic ramus: Code(s): S32.591A - Other specified fracture of right pubis, initial encounter for closed fracture Status: Acute (3) Closed fracture of pubic ramus: Code(s): S32.599A - Other specified fracture of unspecified pubis, initial encounter for closed fracture Status: Acute (4) Closed sacral fracture: Code(s): S32.10XA - Unspecified fracture of sacrum, initial encounter for closed fracture Status: Acute Plan No changes in care plan. Several nondisplaced pelvic fractures including bilateral sacral ala and right pubic rami. Fractures are stable and she can mobilize as able. Patient notes significant pain with attempting to mobilize. I expect she will have a significant amount of pain with weight-bearing initially. I reassured patient again that pain and mobility should increase weekly over the next 4-6 weeks. She will need long term for most of this time. Okay for discharge from ortho standpoint. Patient will need to follow up in office in 4-6 weeks with xrays. Ortho instructions: D/C to SNF/rehab Follow up in office if able in 4-6 weeks with xrays. PT: Weight bearing as tolerated. DVT prophylaxis: continue aspirin. Pain medication: Oxycodone and Tylenol. Subjective Subjective Date/Time Seen: 09/27/24 16:06 Interval history: Resting comfortably. Pain with any motion. Review of Systems Review of Systems: All systems reviewed & are unremarkable except as noted in HPI and below Exam Narrative: Patient is alert and oriented. Resting comfortably in bed. Pain with any motion of the right leg. No acute distress. No erythema or ecchymosis. No rashes or lesions noted. Warm, normal appearing skin. Tenderness at the right pelvic area. Calf nontender. Distal pulses palpable. Normal capillary refill. Patient able to move and wiggle toes. Light touch sensation intact. Objective Data Vital Signs Vital Signs: Vital Signs - 24 hr 09/26/24 20:00 09/26/24 20:04 09/26/24 22:00 Temperature 97.3 F L Pulse Rate 69 66 66 Respiratory Rate 18 Blood Pressure 160/83 H Pulse Oximetry 99 09/27/24 00:00 09/27/24 04:00 09/27/24 06:00 Temperature 97.8 F Pulse Rate 62 55 L 60 Respiratory Rate 18 Blood Pressure 130/57 L Pulse Oximetry 97 09/27/24 08:00 09/27/24 09:19 09/27/24 09:19 Temperature Pulse Rate 72 85 85 Respiratory Rate Blood Pressure Pulse Oximetry 09/27/24 14:40 Temperature 97.6 F Pulse Rate 57 L Respiratory Rate 16 Blood Pressure 138/62 Pulse Oximetry 97 Intake/Output Intake/Output: Intake & Output 09/24/24 09/25/24 09/26/24 09/27/24 23:59 23:59 23:59 23:59 Intake Total 720 360 Output Total 300 400 Balance 420 -40 Meds/Results Medications: Active Medications Generic Name Dose Route Start Last Admin Trade Name Freq PRN Reason Stop Dose Admin Acetaminophen 650 mg 09/25/24 12:31 Acetaminophen 325 Mg Tablet PO Q4H PRN Mild Pain (1-3) or Fever Amiodarone HCl 200 mg 09/26/24 09:00 09/27/24 09:19 Amiodarone Hcl 200 Mg Tablet PO 200 mg DAILY [facility] Administration Apixaban 5 mg 09/25/24 21:00 09/27/24 09:19 Apixaban 5 Mg Tablet PO 5 mg Q12HR [facility] Administration Aspirin 81 mg 09/26/24 21:00 09/26/24 20:04 Aspirin 81 Mg Enteric Tablet PO 81 mg HS [facility] Administration Cefdinir 300 mg 09/26/24 11:10 09/27/24 09:19 Cefdinir 300 Mg Capsule PO 09/30/24 21:01 300 mg Q12HR [facility] Administration Docusate Sodium 100 mg 09/27/24 17:00 Docusate Sodium 100 Mg Capsule PO BID ILAN Doxycycline Hyclate 100 mg 09/25/24 21:00 09/27/24 09:19 Doxycycline Hyclate 100 Mg Tablet PO 09/30/24 09:01 100 mg Q12HR [facility]AN Administration Famotidine 20 mg 09/25/24 21:00 09/26/24 20:04 Famotidine 20 Mg Tablet PO 20 mg HS [facility] Administration Furosemide 40 mg 09/26/24 09:00 09/27/24 09:19 Furosemide 40 Mg Tablet PO 40 mg DAILY [facility] Administration Melatonin 3 mg 09/26/24 22:25 09/26/24 22:30 Melatonin 3 Mg Tablet PO 3 mg HS [facility] Administration Metoprolol Tartrate 50 mg 09/25/24 21:00 09/27/24 09:19 Metoprolol Tartrate 50 Mg Tab PO 50 mg Q12H [facility] Administration Morphine Sulfate 4 mg 09/26/24 12:25 09/27/24 09:16 Morphine Sulfate (*Crx) 4 Mg/Ml Inj IV PUSH 4 mg Q4H PRN Administration Pain Rated 7-10 Ondansetron HCl 4 mg 09/25/24 12:31 09/27/24 14:59 Ondansetron Inj 4 Mg/2 Ml Vial IV PUSH 4 mg Q4H PRN Administration Nausea Oxycodone HCl 5 mg 09/27/24 11:03 09/27/24 12:56 Oxycodone Hcl (*Crx) 5 Mg Tab Ir PO 5 mg Q4H PRN Administration Pain Rated 4-6 Polyethylene Glycol 17 gm 09/28/24 09:00 Polyethylene Glycol 3350 17 Gm Powd.Pack PO QAM [facility] Potassium Chloride 20 meq 09/26/24 09:00 09/27/24 09:19 Potassium Chloride 20 Meq Er Tablet PO 20 meq DAILY [facility] Administration Rosuvastatin Calcium 5 mg 09/25/24 21:00 09/25/24 22:47 Rosuvastatin 5 Mg Tablet PO 5 mg [email or web address] [facility] Administration Senna 8.6 mg 09/26/24 21:00 09/26/24 20:04 Sennosides 8.6 Mg Tablet PO 8.6 mg HS [facility] Administration Vitamin D 1,500 units 10/02/24 09:00 Cholecalciferol 1,000 Units Tablet PO WEEKLY [facility] Radiology Results: ITS Impressions Chest X-Ray 09/25/24 10:59 Impression: Hazy right midlung airspace opacity, nonspecific. Correlate for focal pneumonia or atelectasis. Probable mild central pulmonary venous congestive change. Pelvis CT 09/25/24 11:00 IMPRESSION: 1. Minimally displaced fractures of the bilateral sacral ala and extending across the S2 vertebral body. 2. Minimally displaced fracture at the junction of the right pubic body and the superior and inferior pubic rami. Labs Labs: Laboratory Results - last 24 hr 09/27/24 06:24 WBC 8.4 RBC 3.65 L Hgb 11.8 L Hct 36.6 L MCV 100.3 H MCH 32.3 MCHC 32.2 RDW 13.2 Plt Count 177 MPV 11.1 H Sodium 136 L Potassium 3.9 Chloride 99 Carbon Dioxide 29 Anion Gap 8 BUN 34 H Creatinine 0.92 Estim Creat Clear Calc 40 Estimated GFR 58 L Glucose 98 Calcium 8.3 L Total Bilirubin 0.9 AST 37 H ALT 59 H Alkaline Phosphatase 95 Total Protein 6.0 L Albumin 2.9 L Procalcitonin 0.2
[2024-09-27] MEDS: DOCUSATE SODIUM 100 MG CAPSULE PO (17:44)
[2024-09-27] MEDS: ASPIRIN 81 MG ENTERIC TABLET PO (20:30)
[2024-09-27] MEDS: SENNOSIDES 8.6 MG TABLET PO (20:30)
[2024-09-27] MEDS: FAMOTIDINE 20 MG TABLET PO (20:31)
[2024-09-27] MEDS: MELATONIN 3 MG TABLET PO (20:31)
[2024-09-28] VITALS (11 sets, daily range): BP systolic 110–141; BP diastolic 53–60; PULSE 57–76; RESP 16–19; TEMP 36.3–36.7; O2SAT 92–97
[2024-09-28] MEDS: oxyCODONE HCL (*CRX) 5 MG TAB IR PO ×3 (05:25→12:43)
[2024-09-28 07:08] LABS: Hematocrit 35.8 % (37.0-47.0); Hemoglobin 11.4 g/dL (12.0-15.0); Mean Corpuscular HGB Conc 31.8 g/dl (32-36); Mean Corpuscular Hemoglobin 31.8 pg (26-34); Mean Platelet Volume 11.4 fl (7.4-10.4); Platelet Count Result 206 k/mm3 (150-375); Red Blood Count 3.58 M/mm3 (4.2-5.4); Red Cell Distribution Width 13.1 % (11.5-14.5); White Blood Count 8.1 K/mm3 (4.5-10.0)
[2024-09-28 07:24] LABS: Alanine Aminotransferase 59 U/L (6-35); Albumin Level 2.9 g/dL (3.5-5.1); Alkaline Phosphatase 102 U/L (38-126); Anion Gap 6 mmol/L (4-12); Aspartate Amino Transferase 40 U/L (14-36); Bilirubin,Total 0.8 mg/dL (0.2-1.3); Blood Urea Nitrogen 33 mg/dL (7-17); Calcium 8.6 mg/dL (8.4-10.2); Carbon Dioxide 31 mmol/L (22-30); Chloride 98 mmol/L (98-107); Estimated CRCL calculation 36 ml/min; Estimated Glomerular Filt Rate 50; Glucose 98 mg/dL (65-110); Potassium 4.1 mmol/L (3.4-5.0); Sodium 135 mmol/L (137-145)
[2024-09-28] MEDS: CEFDINIR 300 MG CAPSULE PO ×2 (09:14→21:30)
[2024-09-28] MEDS: polyethylene glycoL 3350 17 GM POWD.PACK PO (09:14)
[2024-09-28] MEDS: DOXYCYCLINE HYCLATE 100 MG TABLET PO ×2 (09:14→21:30)
[2024-09-28] MEDS: DOCUSATE SODIUM 100 MG CAPSULE PO ×2 (09:14→18:53)
[2024-09-28] MEDS: AMIODARONE HCL 200 MG TABLET PO (09:14)
[2024-09-28] MEDS: APIXABAN 5 MG TABLET PO ×2 (09:15→21:30)
[2024-09-28] MEDS: FUROSEMIDE 40 MG TABLET PO (09:15)
[2024-09-28] MEDS: METOPROLOL TARTRATE 50 MG TAB PO ×2 (09:16→21:29)
[2024-09-28] MEDS: POTASSIUM CHLORIDE 20 MEQ ER TABLET PO (09:16)
--- NOTE | 2024-09-28 10:26 | PM.IMPN ---
Progress Note: A&P Assessment and Plan (1) Bilateral sacral insufficiency fracture: Qualifiers: Encounter type: subsequent encounter Code(s): M84.48XA - Pathological fracture, other site, initial encounter for fracture Status: Acute Assessment and Plan: 09/26 - Significant pain noted, pt/ot evaluation pending. 09/28: Ortho evaluated. Conservatively managed (2) Fracture of right inferior pubic ramus: Code(s): S32.591A - Other specified fracture of right pubis, initial encounter for closed fracture Status: Acute Assessment and Plan: . (3) Hypoxia: Code(s): R09.02 - Hypoxemia Status: Acute Assessment and Plan: 09/26 Acute hypoxic resp. failure - No hx of similar, currently on 2L. On chronic anticoagulation - PE unlikely. Infiltrate on CXR, likely infectious. 09/28: Continue doxycycline and Cefdinir. Monitor oxygen saturation since the patient is on pain medication. (4) Pneumonia: Code(s): J18.9 - Pneumonia, unspecified organism Status: Acute Assessment and Plan: 09/26 - Abx with doxycycline initiated, will add cefdinir for additional oral agent to better cover cap pathogens and d/t severity of hypoxia on presentation. Plan at least 5 day course. 09/28: Continue doxycycline and cefdinir (5) Paroxysmal atrial fibrillation: Code(s): I48.0 - Paroxysmal atrial fibrillation Status: Acute Assessment and Plan: 09/26 - Stable rate. Cont. current medications and anticoagulation. 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 (7) Hypertension: Code(s): I10 - Essential (primary) hypertension Status: Acute Assessment and Plan: 09/26 - Stable bp, cont. current. (8) Chronic kidney disease, stage 3: Code(s): N18.30 - Chronic kidney disease, stage 3 unspecified Status: Acute Assessment and Plan: 09/26 - Stable renal function. Trend. Plan Kelly Bar is an 89 year old female with pmh atrial fibrillation presenting one week s/p fall with pubic rami fractures and new onset hypoxia with infiltrate on cxr and leukocytosis. Improving lab markers, remains on 2L. Beta lactam added to regimen today. Therapy eval pending. Subjective Date/time seen: 09/28/24 10:26 Interval history: Patient reports her pain is better today. Discussed with care coordination and PT OT for discharge planning. Review of Systems Review of Systems: 12 systems were reviewed and are negative except for as per HPI. All systems reviewed & are unremarkable except as noted in HPI and below Exam Narrative: GENERAL APPEARANCE: Appears to be in no acute distress. HEAD: normocephalic atraumatic EYES: PERRL, EOMI. Vision grossly intact. ENT: Hearing grossly intact, no nasal discharge NECK: Neck supple, trachea midline. CARDIAC: Normal S1/S2. Rhythm is regular. No murmurs, rubs, or gallops. No cyanosis or pallor. Extremities are warm and well perfused. LUNGS: Slightly coarse bilateral midlung hardin. Respirations even and unlabored. 93% 2L during my exam. ABDOMEN: BS positive x 4 quadrants. Soft, nondistended, nontender. No guarding or rebound. MSK: No joint tenderness/swelling, fair strength in all extremities. PERIPHERAL VASCULAR: Peripheral pulses palpable. Normal perfusion, cap refill <2 seconds. NEURO: Follows commands. No focal deficits. SKIN: [place] without lesions or eruptions. PSYCH: Stable, no paranoia or delusional thinking. Objective Data Vital Signs Vital Signs: Vital Signs - 24 hr 09/27/24 12:03 09/27/24 14:40 09/27/24 20:00 Temperature 97.6 F Pulse Rate 71 57 L 65 Respiratory Rate 16 Blood Pressure 138/62 Pulse Oximetry 97 09/27/24 20:16 09/27/24 20:31 09/28/24 04:00 Temperature 98.8 F Pulse Rate 65 88 60 Respiratory Rate 16 Blood Pressure 106/50 L Pulse Oximetry 94 09/28/24 05:26 09/28/24 09:14 09/28/24 09:16 Temperature 98.0 F Pulse Rate 65 76 76 Respiratory Rate 16 Blood Pressure 121/53 L Pulse Oximetry 97 Intake/Output Intake/Output: Intake & Output 09/25/24 09/26/24 09/27/24 09/28/24 23:59 23:59 23:59 23:59 Intake Total 720 950 890 Output Total 300 1225 300 Balance 420 -649 590 Meds/Results Medications: Active Medications Generic Name Dose Route Start Last Admin Trade Name Freq PRN Reason Stop Dose Admin Acetaminophen 650 mg 09/25/24 12:31 Acetaminophen 325 Mg Tablet PO Q4H PRN Mild Pain (1-3) or Fever Amiodarone HCl 200 mg 09/26/24 09:00 09/28/24 09:14 Amiodarone Hcl 200 Mg Tablet PO 200 mg DAILY [facility] Administration Apixaban 5 mg 09/25/24 21:00 09/28/24 09:15 Apixaban 5 Mg Tablet PO 5 mg Q12HR [facility] Administration Aspirin 81 mg 09/26/24 21:00 09/27/24 20:30 Aspirin 81 Mg Enteric Tablet PO 81 mg HS [facility] Administration Cefdinir 300 mg 09/26/24 11:10 09/28/24 09:14 Cefdinir 300 Mg Capsule PO 09/30/24 21:01 300 mg Q12HR [facility] Administration Docusate Sodium 100 mg 09/27/24 17:00 09/28/24 09:14 Docusate Sodium 100 Mg Capsule PO 100 mg BID [facility] Administration Doxycycline Hyclate 100 mg 09/25/24 21:00 09/28/24 09:14 Doxycycline Hyclate 100 Mg Tablet PO 09/30/24 09:01 100 mg Q12HR [facility] Administration Famotidine 20 mg 09/25/24 21:00 09/27/24 20:31 Famotidine 20 Mg Tablet PO 20 mg HS [facility] Administration Furosemide 40 mg 09/26/24 09:00 09/28/24 09:15 Furosemide 40 Mg Tablet PO 40 mg DAILY [facility] Administration Melatonin 3 mg 09/26/24 22:25 09/27/24 20:31 Melatonin 3 Mg Tablet PO 3 mg HS [facility] Administration Metoprolol Tartrate 50 mg 09/25/24 21:00 09/28/24 09:16 Metoprolol Tartrate 50 Mg Tab PO 50 mg Q12H [facility] Administration Morphine Sulfate 4 mg 09/26/24 12:25 09/27/24 09:16 Morphine Sulfate (*Crx) 4 Mg/Ml Inj IV PUSH 4 mg Q4H PRN Administration Pain Rated 7-10 Ondansetron HCl 4 mg 09/25/24 12:31 09/27/24 14:59 Ondansetron Inj 4 Mg/2 Ml Vial IV PUSH 4 mg Q4H PRN Administration Nausea Oxycodone HCl 5 mg 09/27/24 11:03 09/28/24 09:13 Oxycodone Hcl (*Crx) 5 Mg Tab Ir PO 5 mg Q4H PRN Administration Pain Rated 4-6 Polyethylene Glycol 17 gm 09/28/24 09:00 09/28/24 09:14 Polyethylene Glycol 3350 17 Gm Powd.Pack PO 17 gm QAM [facility] Administration Potassium Chloride 20 meq 09/26/24 09:00 09/28/24 09:16 Potassium Chloride 20 Meq Er Tablet PO 20 meq DAILY [facility] Administration Rosuvastatin Calcium 5 mg 09/25/24 21:00 09/25/24 22:47 Rosuvastatin 5 Mg Tablet PO 5 mg [email or web address] [facility] Administration Senna 8.6 mg 09/26/24 21:00 09/27/24 20:30 Sennosides 8.6 Mg Tablet PO 8.6 mg HS [facility] Administration Vitamin D 1,500 units 10/02/24 09:00 Cholecalciferol 1,000 Units Tablet PO WEEKLY [facility] Radiology Results: ITS Impressions Chest X-Ray 09/25/24 10:59 Impression: Hazy right midlung airspace opacity, nonspecific. Correlate for focal pneumonia or atelectasis. Probable mild central pulmonary venous congestive change. Pelvis CT 09/25/24 11:00 IMPRESSION: 1. Minimally displaced fractures of the bilateral sacral ala and extending across the S2 vertebral body. 2. Minimally displaced fracture at the junction of the right pubic body and the superior and inferior pubic rami. Labs Labs: Laboratory Results - last 24 hr 09/28/24 06:44 WBC 8.1 RBC 3.58 L Hgb 11.4 L Hct 35.8 L MCV 100.0 MCH 31.8 MCHC 31.8 L RDW 13.1 Plt Count 206 MPV 11.4 H Sodium 135 L Potassium 4.1 Chloride 98 Carbon Dioxide 31 H Anion Gap 6 BUN 33 H Creatinine 1.04 H Estim Creat Clear Calc 36 Estimated GFR 50 L Glucose 98 Calcium 8.6 Total Bilirubin 0.8 AST 40 H ALT 59 H Alkaline Phosphatase 102 Total Protein 6.0 L Albumin 2.9 L Quality VTE Prophylaxis VTE prophylaxis: mechanical ordered Hospitalist [facility] Advance Care Plan I have confirmed that the patient's Advanced Care Plan is present, code status is documented, or surrogate decision maker is listed in patient medical record.: Yes Medication Reconciliation I have utilized all available resources to obtain, update and review the patients current medications (includes all prescriptions, OTC, herbals, cannabis, and nutritional supplements).: Yes
--- NOTE | 2024-09-28 17:26 | ECG_ITS ---
Test Date: 2024-09-28 17:47:56 Measurements Intervals [place] Rate: 67 P: 44 WA: 174 QRS: -35 QRSD: 92 T: 45 QT: 396 QTc: 419 Interpretive Statements SINUS RHYTHM WITH SINUS ARRHYTHMIA POOR R WAVE PROGRESSION INFERIOR INFARCT, AGE INDETERMINATE BORDERLINE ST-T WAVE ABNORMALITY- ANTEROLAT/HIGH LAT LEADS BASELINE ARTIFACT- I, II, III, AVR, AVL, AVF, V1-V6 ABNORMAL ECG Compared to ECG 01/24/2024 08:47:01 HEART RATE HAS INCREASED Electronically Signed On 09-29-2024 07:15:22 [employer] by Ronn Mejia D.O.
[2024-09-28 18:23] LABS: Magnesium 1.7 mg/dL (1.6-2.3)
[2024-09-28] MEDS: MORPHINE SULFATE (*CRX) 4 MG/ML INJ IV PUSH (18:50)
[2024-09-28] MEDS: SENNOSIDES 8.6 MG TABLET PO (21:29)
[2024-09-28] MEDS: FAMOTIDINE 20 MG TABLET PO (21:29)
[2024-09-28] MEDS: ASPIRIN 81 MG ENTERIC TABLET PO (21:29)
[2024-09-28] MEDS: MELATONIN 3 MG TABLET PO (21:30)
[2024-09-29] VITALS (12 sets, daily range): BP systolic 102–130; BP diastolic 58–61; PULSE 55–84; RESP 18; TEMP 36.6–37.1; O2SAT 91–95
[2024-09-29 06:37] LABS: Hematocrit 35.9 % (37.0-47.0); Hemoglobin 11.5 g/dL (12.0-15.0); Mean Platelet Volume 11.3 fl (7.4-10.4); Platelet Count Result 209 k/mm3 (150-375); Red Blood Count 3.59 M/mm3 (4.2-5.4); Red Cell Distribution Width 13.1 % (11.5-14.5); White Blood Count 7.8 K/mm3 (4.5-10.0)
[2024-09-29 06:52] LABS: Alanine Aminotransferase 64 U/L (6-35); Alkaline Phosphatase 103 U/L (38-126); Anion Gap 7 mmol/L (4-12); Aspartate Amino Transferase 48 U/L (14-36); Bilirubin,Total 0.9 mg/dL (0.2-1.3); Blood Urea Nitrogen 34 mg/dL (7-17); Calcium 8.7 mg/dL (8.4-10.2); Carbon Dioxide 30 mmol/L (22-30); Chloride 96 mmol/L (98-107); Estimated CRCL calculation 33 ml/min; Estimated Glomerular Filt Rate 46; Glucose 101 mg/dL (65-110); Potassium 4.1 mmol/L (3.4-5.0); Sodium 133 mmol/L (137-145)
[2024-09-29] MEDS: oxyCODONE HCL (*CRX) 5 MG TAB IR PO ×2 (08:24→23:57)
[2024-09-29] MEDS: POTASSIUM CHLORIDE 20 MEQ ER TABLET PO (08:25)
[2024-09-29] MEDS: polyethylene glycoL 3350 17 GM POWD.PACK PO (08:25)
[2024-09-29] MEDS: CEFDINIR 300 MG CAPSULE PO ×2 (08:25→21:22)
[2024-09-29] MEDS: DOXYCYCLINE HYCLATE 100 MG TABLET PO ×2 (08:25→21:19)
[2024-09-29] MEDS: METOPROLOL TARTRATE 50 MG TAB PO ×2 (08:25→21:19)
[2024-09-29] MEDS: APIXABAN 5 MG TABLET PO ×2 (08:25→21:19)
[2024-09-29] MEDS: AMIODARONE HCL 200 MG TABLET PO (08:26)
[2024-09-29] MEDS: FUROSEMIDE 40 MG TABLET PO (08:26)
[2024-09-29] MEDS: DOCUSATE SODIUM 100 MG CAPSULE PO ×2 (08:26→17:11)
--- NOTE | 2024-09-29 11:25 | PC.NURSE ---
Patient resting in bed. Patient tearful/emotional about her pain. Change in bed position or BLE position makes it worse. Patient very focused/concerned about having a BM. She is very cooperative and compliant.
--- NOTE | 2024-09-29 14:13 | PM.IMPN ---
Progress Note: A&P Assessment and Plan (1) Bilateral sacral insufficiency fracture: Qualifiers: Encounter type: subsequent encounter Code(s): M84.48XA - Pathological fracture, other site, initial encounter for fracture Status: Acute Assessment and Plan: - Significant pain noted, pt/ot evaluation pending. - Ortho evaluated. Conservatively managed (2) Fracture of right inferior pubic ramus: Code(s): S32.591A - Other specified fracture of right pubis, initial encounter for closed fracture Status: Acute Assessment and Plan: . (3) Hypoxia: Code(s): R09.02 - Hypoxemia Status: Acute Assessment and Plan: -Acute hypoxic resp. failure - No hx of similar, currently on 2L. On chronic anticoagulation - PE unlikely. Infiltrate on CXR, likely infectious. -Continue doxycycline and Cefdinir. Monitor oxygen saturation since the patient is on pain medication. (4) Pneumonia: Code(s): J18.9 - Pneumonia, unspecified organism Status: Acute Assessment and Plan: - Abx with doxycycline initiated, will add cefdinir for additional oral agent to better cover cap pathogens and d/t severity of hypoxia on presentation. Plan at least 5 day course. - Continue doxycycline and cefdinir (5) Paroxysmal atrial fibrillation: Code(s): I48.0 - Paroxysmal atrial fibrillation Status: Acute Assessment and Plan: - Stable rate. Cont. current medications and anticoagulation. 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 (7) Hypertension: Code(s): I10 - Essential (primary) hypertension Status: Acute Assessment and Plan: - Stable bp, cont. current. (8) Chronic kidney disease, stage 3: Code(s): N18.30 - Chronic kidney disease, stage 3 unspecified Status: Acute Assessment and Plan: - Stable renal function. Trend. Plan Kelly Bar is an 89 year old female with pmh atrial fibrillation presenting one week s/p fall with pubic rami fractures and new onset hypoxia with infiltrate on cxr and leukocytosis. Improving lab markers, remains on 2L. Beta lactam added to regimen today. Subjective Date/time seen: 09/29/24 14:13 Interval history: Patient didnt have bowel movement for a week. Order KUB.Patient currently on Miralax and Docusate. Pt reports pain is better. Review of Systems Review of Systems: 12 systems were reviewed and are negative except for as per HPI. All systems reviewed & are unremarkable except as noted in HPI and below Exam Narrative: GENERAL APPEARANCE: Appears to be in no acute distress. HEAD: normocephalic atraumatic EYES: PERRL, EOMI. Vision grossly intact. ENT: Hearing grossly intact, no nasal discharge NECK: Neck supple, trachea midline. CARDIAC: Normal S1/S2. Rhythm is regular. No murmurs, rubs, or gallops. No cyanosis or pallor. Extremities are warm and well perfused. LUNGS: Slightly coarse bilateral midlung hardin. Respirations even and unlabored. 93% 2L during my exam. ABDOMEN: BS positive x 4 quadrants. Soft, nondistended, nontender. No guarding or rebound. MSK: No joint tenderness/swelling, fair strength in all extremities. PERIPHERAL VASCULAR: Peripheral pulses palpable. Normal perfusion, cap refill <2 seconds. NEURO: Follows commands. No focal deficits. SKIN: [place] without lesions or eruptions. PSYCH: Stable, no paranoia or delusional thinking. Objective Data Vital Signs Vital Signs: Vital Signs - 24 hr 09/28/24 16:02 09/28/24 19:40 09/28/24 21:26 Temperature Pulse Rate 57 L 66 Respiratory Rate Blood Pressure Pulse Oximetry 92 Oxygen Delivery Nasal Cannula Oxygen Flow Rate 1 Fraction of Inspired Oxygen 09/28/24 22:00 09/29/24 00:00 09/29/24 04:00 Temperature 97.5 F L Pulse Rate 70 55 L 59 L Respiratory Rate 19 Blood Pressure 110/56 L Pulse Oximetry 95 Oxygen Delivery Oxygen Flow Rate Fraction of Inspired Oxygen 09/29/24 06:00 09/29/24 08:24 09/29/24 08:25 Temperature 97.8 F Pulse Rate 70 72 84 Respiratory Rate 18 Blood Pressure 116/58 L Pulse Oximetry 94 Oxygen Delivery Oxygen Flow Rate Fraction of Inspired Oxygen 09/29/24 08:26 09/29/24 12:00 Temperature Pulse Rate 84 61 Respiratory Rate Blood Pressure Pulse Oximetry Oxygen Delivery Oxygen Flow Rate Fraction of Inspired Oxygen Intake/Output Intake/Output: Intake & Output 09/26/24 09/27/24 09/28/24 09/29/24 23:59 23:59 23:59 23:59 Intake Total 763 650 4965 120 Output Total 300 1225 700 250 Balance 420 -275 550 -130 Meds/Results Medications: Active Medications Generic Name Dose Route Start Last Admin Trade Name Freq PRN Reason Stop Dose Admin Acetaminophen 650 mg 09/25/24 12:31 Acetaminophen 325 Mg Tablet PO Q4H PRN Mild Pain (1-3) or Fever Amiodarone HCl 200 mg 09/26/24 09:00 09/29/24 08:26 Amiodarone Hcl 200 Mg Tablet PO 200 mg DAILY [facility] Administration Apixaban 5 mg 09/25/24 21:00 09/29/24 08:25 Apixaban 5 Mg Tablet PO 5 mg Q12HR [facility] Administration Aspirin 81 mg 09/26/24 21:00 09/28/24 21:29 Aspirin 81 Mg Enteric Tablet PO 81 mg HS [facility] Administration Cefdinir 300 mg 09/26/24 11:10 09/29/24 08:25 Cefdinir 300 Mg Capsule PO 09/30/24 21:01 300 mg Q12HR [facility] Administration Docusate Sodium 100 mg 09/27/24 17:00 09/29/24 08:26 Docusate Sodium 100 Mg Capsule PO 100 mg BID [facility] Administration Doxycycline Hyclate 100 mg 09/25/24 21:00 09/29/24 08:25 Doxycycline Hyclate 100 Mg Tablet PO 09/30/24 09:01 100 mg Q12HR ILAN Administration Famotidine 20 mg 09/25/24 21:00 09/28/24 21:29 Famotidine 20 Mg Tablet PO 20 mg HS [facility] Administration Furosemide 40 mg 09/26/24 09:00 09/29/24 08:26 Furosemide 40 Mg Tablet PO 40 mg DAILY [facility] Administration Melatonin 3 mg 09/26/24 22:25 09/28/24 21:30 Melatonin 3 Mg Tablet PO 3 mg HS [facility] Administration Metoprolol Tartrate 50 mg 09/25/24 21:00 09/29/24 08:25 Metoprolol Tartrate 50 Mg Tab PO 50 mg Q12H [facility] Administration Morphine Sulfate 4 mg 09/26/24 12:25 09/28/24 18:50 Morphine Sulfate (*Crx) 4 Mg/Ml Inj IV PUSH 4 mg Q4H PRN Administration Pain Rated 7-10 Ondansetron HCl 4 mg 09/25/24 12:31 09/27/24 14:59 Ondansetron Inj 4 Mg/2 Ml Vial IV PUSH 4 mg Q4H PRN Administration Nausea Oxycodone HCl 5 mg 09/27/24 11:03 09/29/24 08:24 Oxycodone Hcl (*Crx) 5 Mg Tab Ir PO 5 mg Q4H PRN Administration Pain Rated 4-6 Polyethylene Glycol 17 gm 09/28/24 09:00 09/29/24 08:25 Polyethylene Glycol 3350 17 Gm Powd.Pack PO 17 gm QAM [facility] Administration Potassium Chloride 20 meq 09/26/24 09:00 09/29/24 08:25 Potassium Chloride 20 Meq Er Tablet PO 20 meq DAILY [facility] Administration Rosuvastatin Calcium 5 mg 09/25/24 21:00 09/28/24 20:40 Rosuvastatin 5 Mg Tablet PO Not Given [email or web address] [facility] Senna 8.6 mg 09/26/24 21:00 09/28/24 21:29 Sennosides 8.6 Mg Tablet PO 8.6 mg HS [facility] Administration Vitamin D 1,500 units 10/02/24 09:00 Cholecalciferol 1,000 Units Tablet PO WEEKLY [facility] Radiology Results: ITS Impressions Chest X-Ray 09/25/24 10:59 Impression: Hazy right midlung airspace opacity, nonspecific. Correlate for focal pneumonia or atelectasis. Probable mild central pulmonary venous congestive change. Pelvis CT 09/25/24 11:00 IMPRESSION: 1. Minimally displaced fractures of the bilateral sacral ala and extending across the S2 vertebral body. 2. Minimally displaced fracture at the junction of the right pubic body and the superior and inferior pubic rami. Labs Labs: Laboratory Results - last 24 hr 09/28/24 09/29/24 18:05 06:06 WBC 7.8 RBC 3.59 L Hgb 11.5 L Hct 35.9 L MCV 100.0 MCH 32.0 MCHC 32.0 RDW 13.1 Plt Count 209 MPV 11.3 H Sodium 133 L Potassium 4.1 Chloride 96 L Carbon Dioxide 30 Anion Gap 7 BUN 34 H Creatinine 1.13 H Estim Creat Clear Calc 33 Estimated GFR 46 L Glucose 101 Calcium 8.7 Magnesium 1.7 Total Bilirubin 0.9 AST 48 H ALT 64 H Alkaline Phosphatase 103 Total Protein 6.0 L Albumin 3.0 L Quality VTE Prophylaxis VTE prophylaxis: mechanical ordered Hospitalist [facility] Advance Care Plan I have confirmed that the patient's Advanced Care Plan is present, code status is documented, or surrogate decision maker is listed in patient medical record.: Yes Medication Reconciliation I have utilized all available resources to obtain, update and review the patients current medications (includes all prescriptions, OTC, herbals, cannabis, and nutritional supplements).: Yes
[2024-09-29] MEDS: SENNOSIDES 8.6 MG TABLET PO (21:18)
[2024-09-29] MEDS: FAMOTIDINE 20 MG TABLET PO (21:18)
[2024-09-29] MEDS: ASPIRIN 81 MG ENTERIC TABLET PO (21:18)
[2024-09-29] MEDS: MELATONIN 3 MG TABLET PO (21:22)
[2024-09-29 21:40] LABS: Glucose Point of Care 131 mg/dl (65-105)
[2024-09-30] VITALS (10 sets, daily range): BP systolic 116–143; BP diastolic 54–81; PULSE 58–85; RESP 16–18; TEMP 35.6–37.4; O2SAT 93–95
[2024-09-30] MEDS: oxyCODONE HCL (*CRX) 5 MG TAB IR PO ×3 (08:32→21:13)
[2024-09-30] MEDS: DOCUSATE SODIUM 100 MG CAPSULE PO ×2 (08:33→16:41)
[2024-09-30] MEDS: DOXYCYCLINE HYCLATE 100 MG TABLET PO (08:33)
[2024-09-30] MEDS: CEFDINIR 300 MG CAPSULE PO ×2 (08:33→21:04)
[2024-09-30] MEDS: AMIODARONE HCL 200 MG TABLET PO (08:33)
[2024-09-30] MEDS: APIXABAN 5 MG TABLET PO ×2 (08:33→21:04)
[2024-09-30] MEDS: FUROSEMIDE 40 MG TABLET PO (08:33)
[2024-09-30] MEDS: METOPROLOL TARTRATE 50 MG TAB PO ×2 (08:33→21:05)
[2024-09-30] MEDS: POTASSIUM CHLORIDE 20 MEQ ER TABLET PO (08:33)
--- NOTE | 2024-09-30 11:13 | P.DS_ITS ---
DS: Admitting Diagnosis Discharge Date 10/04/2024 Admitting Diagnosis Fall DS: Discharge Diagnosis Discharge Diagnosis (1) Bilateral sacral insufficiency fracture: Qualifiers: Encounter type: subsequent encounter Code(s): M84.48XA - Pathological fracture, other site, initial encounter for fracture Status: Acute Assessment and Plan: - Significant pain noted, pt/ot evaluation pending. - Ortho evaluated. Conservatively managed (2) Fracture of right inferior pubic ramus: Code(s): S32.591A - Other specified fracture of right pubis, initial encounter for closed fracture Status: Acute Assessment and Plan: . (3) Hypoxia: Code(s): R09.02 - Hypoxemia Status: Acute Assessment and Plan: -Acute hypoxic resp. failure - No hx of similar, currently on 2L. On chronic anticoagulation - PE unlikely. Infiltrate on CXR, likely infectious. -Continue doxycycline and Cefdinir. Monitor oxygen saturation since the patient is on pain medication. (4) Pneumonia: Code(s): J18.9 - Pneumonia, unspecified organism Status: Acute Assessment and Plan: - Abx with doxycycline initiated, will add cefdinir for additional oral agent to better cover cap pathogens and d/t severity of hypoxia on presentation. Plan at least 5 day course. - Continue doxycycline and cefdinir (5) Paroxysmal atrial fibrillation: Code(s): I48.0 - Paroxysmal atrial fibrillation Status: Acute Assessment and Plan: - Stable rate. Cont. current medications and anticoagulation. 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 (7) Hypertension: Code(s): I10 - Essential (primary) hypertension Status: Acute Assessment and Plan: - Stable bp, cont. current. (8) Chronic kidney disease, stage 3: Code(s): N18.30 - Chronic kidney disease, stage 3 unspecified Status: Acute Assessment and Plan: - Stable renal function. Trend. DS: Summary Hospital Course Hospital Course: 89-year-old female with history of paroxysmal atrial fibrillation on chronic anticoagulation, hypertension, dyslipidemia, gastroesophageal reflux disease, kidney stones, chronic kidney disease stage 3, and osteoarthritis who presented to the emergency department via EMS from home with complaints of hip pain. She w as seen in the ED this past Monday for evaluation of hip pain after falling at [facility]. Imaging was unremarkable at that time and she was discharged home. Unfortunately she continues to have increasing pain in both hips and is having troubles ambulating due to the pain. Of note, EMS reports that her SpO2 was 88% on room air on their arrival and she was placed on 2 L nasal cannula. With further questioning the patient denies shortness of breath but does report a dry cough, sinus congestion, and may be a bit of wheezing the last couple of days. She denies fever, chills, sweats, sore throat, chest pain, pleuritic pain, back pain, urinary retention, bowel incontinence, saddle anesthesia, and lower extremity edema and weakness. In the ED: She was afebrile on arrival stable vital signs. Labs were significant for WBC count of 13.0, INR 1.5, BUN 33, creatinine 1.17, AST 54, ALT 75, proBNP 3830. Pelvis CT showed minimally displaced sacral ala and pubic rami fractures. Chest x-ray showed hazy right mid lung airspace opacities and probable mild central pulmonary venous congestive changes. She was given a nebulizer treatment and furosemide 40 mg and she is being admitted in this setting for further treatment. Ortho evaluated the patient and advised conservative management. Currently patient is able to tolearte the pain and will be discharged to rehab. Patient initial discharge was on hold because of 1 episode of bloody bowel movement. Upon monitoring no further episodes of any bloody stools. The WBC was increased to 15 even though no signs of infections. Performed a chest x-ray and urinalysis which shows no signs of infection. Performed blood culture as well which is shows no growth. 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 Need PET scan. I spoke with , who agrees to see the patient as an outpatien t and will order PET scan if necessary. Advised the patient to use incentive spirometer regularly. Due to WBC advised to repeat the CBC and CMP in a week and a follow-up with her primary care. Patient also need to sit in the recliner for few hours in a day and ambulate to avoid thrombosis. Status at Discharge Cognitive/behavioral status at discharge: Stable Time Spent with Patient Time attestation: Total time spent providing and/or coordinating discharge services: 45 minute Exam Narrative: GENERAL APPEARANCE: Appears to be in no acute distress. HEAD: normocephalic atraumatic EYES: PERRL, EOMI. Vision grossly intact. ENT: Hearing grossly intact, no nasal discharge NECK: Neck supple, trachea midline. CARDIAC: Normal S1/S2. Rhythm is regular. No murmurs, rubs, or gallops. No cyanosis or pallor. Extremities are warm and well perfused. LUNGS: Slightly coarse bilateral midlung hardin. Respirations even and unlabored. 93% 2L during my exam. ABDOMEN: BS positive x 4 quadrants. Soft, nondistended, nontender. No guarding or rebound. MSK: No joint tenderness/swelling, fair strength in all extremities. PERIPHERAL VASCULAR: Peripheral pulses palpable. Normal perfusion, cap refill <2 seconds. NEURO: Follows commands. No focal deficits. SKIN: [place] without lesions or eruptions. PSYCH: Stable, no paranoia or delusional thinking. DS: Data Data Completed and Pending Labs on day of discharge: Labs from last 24 hours 09/29/24 21:13 POC Capillary Glucose 131 H Discharge Plan Discharge Attending physician on discharge: Ronak Angulo Consulting providers: Marco Antonio Baxter; Jonh Lopez Discharging Clinician: Ronak Angulo Anticipated Discharge Date/Time: 10/04/24 12:47 Patient Disposition: SNF Activity: other - see discharge instructions Diet: heart healthy Discharge Instructions: Ortho instructions: * D/C to SNF/rehab * Follow up in office if able in 4-6 weeks with xrays. Please call [facility] at for apointment details. * PT: Weight bearing as tolerated. * DVT prophylaxis: continue aspirin. * Pain medication: Oxycodone and Tylenol. Please use incentive spirometry regularly. 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 Need PET scan. Already spoke to ,after he evaluate the patient he will do PET scan Recommend sitting in recliner for few hours in a day Check blood pressure 1 to 2 times a day. Record and bring into your doctor for review. Call your doctor if your blood pressure is greater than 180/110 or less than 90/45. Walk with cane or other assist device. Take precautions to avoid falls. Rise slowly from a lying or sitting position. Pause before standing or walking. Contact your doctor or call 911 and come to the Emergency Room if you have any type of trauma, lightheadedness with standing or other worrisome symptoms. Avoid NSAIDs (ibuprofen, naproxen, Aleve). Tylenol is safe to take. Follow-up with your primary care provider in 1-2 weeks. Please call for appoin tment. Follow-up with Gastroenterology and orthopedic in 2-4 weeks. Please call for an appointment. Thank you for using [facility] for your health care needs. Patient Language: Bermudian Stand Alone Forms: General Discharge Information Discharge Medications: New sennosides [Senokot] 8.6 mg Tablet 8.6 mg PO HS Qty: 30 0RF polyethylene glycol 3350 [Miralax] 17 gram Powder In Packet 17 g PO QAM Qty: 30 0RF melatonin 3 mg Tablet 3 mg PO HS Qty: 30 0RF docusate sodium 100 mg Capsule 100 mg PO BID Qty: 30 0RF oxycodone 5 mg Tablet 5 mg PO Q4H PRN (Reason: Pain Rated 4-6) Qty: 15 0RF simethicone [Gas-X Extra Strength] 125 mg Capsule 125 mg PO QID PRN (Reason: gas pain) Qty: 30 0RF levofloxacin 750 mg tablet 750 mg PO Q48H Qty: 3 0RF Continued famotidine 20 mg tablet 20 mg PO HS rosuvastatin 5 mg tablet 5 mg PO HS Patient Comments: takes monday cranberry 400 mg Capsule 400 mg PO DAILY aspirin 81 mg Tablet 81 mg PO HS cholecalciferol (vitamin D3) [Vitamin D3] 25 mcg (1,000 unit) Tablet 1,500 unit PO WEEKLY Patient Comments: tuesdays and saturdays Rx Instructions: pt takes twice weekly Eliquis 5 mg Tablet 5 mg PO Q12HR Qty: 120 0RF cyanocobalamin (vitamin B-12) 100 mcg Tablet 100 mcg PO DAILY furosemide 20 mg Tablet 40 mg PO DAILY potassium chloride 20 mEq Tablet Extended Release 20 meq PO DAILY metoprolol tartrate 100 mg tablet 50 mg PO Q12H amiodarone 200 mg tablet 200 mg PO DAILY Other Ambulatory Orders: Complete Blood Count no Diff (Routine) Timeframe: 1 Week Location: Determined by Patient Ordered By: Ronak Angulo Comprehensive Metabolic Panel (Routine) Timeframe: 1 Week Location: Determined by Patient Ordered By: Ronak Angulo Date of admission: 09/26/24 09:49 Primary Care Provider: Selina,Gaby Garcia Admitting Provider: Mario Reece Attending physician on admission: Mario Reece Condition: Stable
[2024-09-30] MEDS: ONDANSETRON INJ 4 MG/2 ML VIAL IV PUSH (11:45)
[2024-09-30 12:50] LABS: SARS-CoV-2 RNA PCR Negative (Negative)
--- NOTE | 2024-09-30 14:59 | P.PNIM_ITS ---
Progress Note: A&P Assessment and Plan (1) Bilateral sacral insufficiency fracture: Qualifiers: Encounter type: subsequent encounter Code(s): M84.48XA - Pathological fracture, other site, initial encounter for fracture Status: Acute Assessment and Plan: - Significant pain noted, pt/ot evaluation pending. - Ortho evaluated. Conservatively managed (2) Fracture of right inferior pubic ramus: Code(s): S32.591A - Other specified fracture of right pubis, initial encounter for closed fracture Status: Acute Assessment and Plan: . (3) Hypoxia: Code(s): R09.02 - Hypoxemia Status: Acute Assessment and Plan: -Acute hypoxic resp. failure - No hx of similar, currently on 2L. On chronic anticoagulation - PE unlikely. Infiltrate on CXR, likely infectious. -Continue doxycycline and Cefdinir. Monitor oxygen saturation since the patient is on pain medication. (4) Pneumonia: Code(s): J18.9 - Pneumonia, unspecified organism Status: Acute Assessment and Plan: - Abx with doxycycline initiated, will add cefdinir for additional oral agent to better cover cap pathogens and d/t severity of hypoxia on presentation. Plan at least 5 day course. - Continue doxycycline and cefdinir (5) Paroxysmal atrial fibrillation: Code(s): I48.0 - Paroxysmal atrial fibrillation Status: Acute Assessment and Plan: - Stable rate. Cont. current medications and anticoagulation. 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 (7) Hypertension: Code(s): I10 - Essential (primary) hypertension Status: Acute Assessment and Plan: - Stable bp, cont. current. (8) Chronic kidney disease, stage 3: Code(s): N18.30 - Chronic kidney disease, stage 3 unspecified Status: Acute Assessment and Plan: - Stable renal function. Trend. Plan Kelly Bar is an 89 year old female with pmh atrial fibrillation presenting one week s/p fall with pubic rami fractures and new onset hypoxia with infiltrate on cxr and leukocytosis. Improving lab markers, remains on 2L. Beta lactam added to regimen today. Subjective Date/time seen: 09/30/24 14:59 Interval history: Holding discharge due to bloody stool. Possible to chronic constipation. Will monitor for a day for recurrent episode Review of Systems Review of Systems: 12 systems were reviewed and are negativ e except for as per HPI. All systems reviewed & are unremarkable except as noted in HPI and below Exam Narrative: GENERAL APPEARANCE: Appears to be in no acute distress. HEAD: normocephalic atraumatic EYES: PERRL, EOMI. Vision grossly intact. ENT: Hearing grossly intact, no nasal discharge NECK: Neck supple, trachea midline. CARDIAC: Normal S1/S2. Rhythm is regular. No murmurs, rubs, or gallops. No cyanosis or pallor. Extremities are warm and well perfused. LUNGS: Slightly coarse bilateral midlung hardin. Respirations even and unlabored. 93% 2L during my exam. ABDOMEN: BS positive x 4 quadrants. Soft, nondistended, nontender. No guarding or rebound. MSK: No joint tenderness/swelling, fair strength in all extremities. PERIPHERAL VASCULAR: Peripheral pulses palpable. Normal perfusion, cap refill <2 seconds. NEURO: Follows commands. No focal deficits. SKIN: [place] without lesions or eruptions. PSYCH: Stable, no paranoia or delusional thinking. Objective Data Vital Signs Vital Signs: Vital Signs - 24 hr 09/29/24 16:00 09/29/24 20:00 09/29/24 21:19 Temperature Pulse Rate 72 73 84 Respiratory Rate Blood Pressure Pulse Oximetry Oxygen Delivery Oxygen Flow Rate 09/29/24 22:00 09/30/24 00:00 09/30/24 04:00 Temperature 98.8 F Pulse Rate 74 78 58 L Respiratory Rate 18 Blood Pressure 102/58 L Pulse Oximetry 91 Oxygen Delivery Oxygen Flow Rate 09/30/24 06:00 09/30/24 08:00 09/30/24 08:00 Temperature 97.5 F L Pulse Rate 83 64 Respiratory Rate 18 Blood Pressure 143/81 H Pulse Oximetry 94 94 Oxygen Delivery Nasal Cannula Oxygen Flow Rate 1 09/30/24 12:00 09/30/24 12:33 09/30/24 14:00 Temperature 96.1 F L Pulse Rate 71 69 Respiratory Rate 16 Blood Pressure 116/54 L Pulse Oximetry 95 93 Oxygen Delivery Room Air Oxygen Flow Rate Intake/Output Intake/Output: Intake & Output 09/27/24 09/28/24 09/29/24 09/30/24 23:59 23:59 23:59 23:59 Intake Total 950 1250 600 240 Output Total 6908 595 1232 Balance -275 550 -400 240 Meds/Results Medications: Active Medications Generic Name Dose Route Start Last Admin Trade Name Freq PRN Reason Stop Dose Admin Acetaminophen 650 mg 09/25/24 12:31 Acetaminophen 325 Mg Tablet PO Q4H PRN Mild Pain (1-3) or Fever Amiodarone HCl 200 mg 09/26/24 09:00 09/30/24 08:33 Amiodarone Hcl 200 Mg Tablet PO 200 mg DAILY ILAN Administration Apixaban 5 mg 09/25/24 21:00 09/30/24 08:33 Apixaban 5 Mg Tablet PO 5 mg Q12HR ILAN Administration Aspirin 81 mg 09/26/24 21:00 09/29/24 21:18 Aspirin 81 Mg Enteric Tablet PO 81 mg HS ILAN Administration Cefdinir 300 mg 09/26/24 11:10 09/30/24 08:33 Cefdinir 300 Mg Capsule PO 09/30/24 21:01 300 mg Q12HR ILAN Administration Docusate Sodium 100 mg 09/27/24 17:00 09/30/24 08:33 Docusate Sodium 100 Mg Capsule PO 100 mg BID ILAN Administration Famotidine 20 mg 09/25/24 21:00 09/29/24 21:18 Famotidine 20 Mg Tablet PO 20 mg HS ILAN Administration Furosemide 40 mg 09/26/24 09:00 09/30/24 08:33 Furosemide 40 Mg Tablet PO 40 mg DAILY ILAN Administration Melatonin 3 mg 09/26/24 22:25 09/29/24 21:22 Melatonin 3 Mg Tablet PO 3 mg HS ILAN Administration Metoprolol Tartrate 50 mg 09/25/24 21:00 09/30/24 08:33 Metoprolol Tartrate 50 Mg Tab PO 50 mg Q12H ILAN Administration Morphine Sulfate 4 mg 09/26/24 12:25 09/28/24 18:50 Morphine Sulfate (*Crx) 4 Mg/Ml Inj IV PUSH 4 mg Q4H PRN Administration Pain Rated 7-10 Ondansetron HCl 4 mg 09/25/24 12:31 09/30/24 11:45 Ondansetron Inj 4 Mg/2 Ml Vial IV PUSH 4 mg Q4H PRN Administration Nausea Oxycodone HCl 5 mg 09/27/24 11:03 09/30/24 08:32 Oxycodone Hcl (*Crx) 5 Mg Tab Ir PO 5 mg Q4H PRN Administration Pain Rated 4-6 Polyethylene Glycol 17 gm 09/28/24 09:00 09/30/24 08:33 Polyethylene Glycol 3350 17 Gm Powd.Pack PO Not Given QAM [facility] Potassium Chloride 20 meq 09/26/24 09:00 09/30/24 08:33 Potassium Chloride 20 Meq Er Tablet PO 20 meq DAILY ILAN Administration Rosuvastatin Calcium 5 mg 09/25/24 21:00 09/28/24 20:40 Rosuvastatin 5 Mg Tablet PO Not Given [email or web address] [facility] Senna 8.6 mg 09/26/24 21:00 09/29/24 21:18 Sennosides 8.6 Mg Tablet PO 8.6 mg HS ILAN Administration Vitamin D 1,500 units 10/02/24 09:00 Cholecalciferol 1,000 Units Tablet PO WEEKLY [facility] Radiology Results: ITS Impressions Chest X-Ray 09/25/24 10:59 Impression: Hazy right midlung airspace opacity, nonspecific. Correlate for focal pneumonia or atelectasis. Probable mild central pulmonary venous congestive change. Pelvis CT 09/25/24 11:00 IMPRESSION: 1. Minimally displaced fractures of the bilateral sacral ala and extending across the S2 vertebral body. 2. Minimally displaced fracture at the junction of the right pubic body and the superior and inferior pubic rami. Abdomen X-Ray 09/29/24 14:36 IMPRESSION: Nonspecific, nonobstructive bowel gas pattern. Labs Labs: Laboratory Results - last 24 hr 09/29/24 09/30/24 21:13 12:03 POC Capillary Glucose 131 H SARS-CoV-2 RNA (RT-PCR) Negative Quality VTE Prophylaxis VTE prophylaxis: mechanical ordered Hospitalist [facility] Advance Care Plan I have confirmed that the patient's Advanced Care Plan is present, code status is documented, or surrogate decision maker is listed in patient medical record.: Yes Medication Reconciliation I have utilized all available resources to obtain, update and review the patients current medications (includes all prescriptions, OTC, herbals, cannabis, and nutritional supplements).: Yes
[2024-09-30 15:12] LABS: IFOB Positive Control Positive; Immunochemical Fecal Occult Bl Positive (N)
[2024-09-30 15:18] LABS: Hematocrit 38.4 % (37.0-47.0); Hemoglobin 12.6 g/dL (12.0-15.0); Mean Corpuscular HGB Conc 32.8 g/dl (32-36); Mean Corpuscular Hemoglobin 32.4 pg (26-34); Mean Corpuscular Volume 98.7 fl (80-100); Mean Platelet Volume 10.9 fl (7.4-10.4); Platelet Count Result 271 k/mm3 (150-375); Red Blood Count 3.89 M/mm3 (4.2-5.4); Red Cell Distribution Width 13.2 % (11.5-14.5); White Blood Count 12.1 K/mm3 (4.5-10.0)
--- NOTE | 2024-09-30 15:33 | PCPTNOTE ---
On 09/30/24, the student, CEE Ballesteros, provided care and completed [facility] documentation on this patient. I have reviewed the student's documentation and agree with the findings.
[2024-09-30 15:43] LABS: Alanine Aminotransferase 81 U/L (6-35); Albumin Level 3.4 g/dL (3.5-5.1); Alkaline Phosphatase 122 U/L (38-126); Anion Gap 8 mmol/L (4-12); Aspartate Amino Transferase 61 U/L (14-36); Bilirubin,Total 0.9 mg/dL (0.2-1.3); Blood Urea Nitrogen 32 mg/dL (7-17); Calcium 8.9 mg/dL (8.4-10.2); Carbon Dioxide 32 mmol/L (22-30); Chloride 94 mmol/L (98-107); Estimated CRCL calculation 37 ml/min; Estimated Glomerular Filt Rate 52; Glucose 114 mg/dL (65-110); Potassium 3.9 mmol/L (3.4-5.0); Sodium 134 mmol/L (137-145)
[2024-09-30] MEDS: ASPIRIN 81 MG ENTERIC TABLET PO (21:04)
[2024-09-30] MEDS: FAMOTIDINE 20 MG TABLET PO (21:04)
[2024-09-30] MEDS: SENNOSIDES 8.6 MG TABLET PO (21:04)
[2024-09-30] MEDS: MELATONIN 3 MG TABLET PO (21:04)
[2024-09-30] MEDS: ROSUVASTATIN 5 MG TABLET PO (21:07)
[2024-10-01] VITALS (10 sets, daily range): BP systolic 106–123; BP diastolic 44–77; PULSE 63–81; RESP 12–20; TEMP 36.4–37.3; O2SAT 94–96
[2024-10-01 06:39] LABS: Hematocrit 36.4 % (37.0-47.0); Hemoglobin 11.7 g/dL (12.0-15.0); Mean Corpuscular HGB Conc 32.1 g/dl (32-36); Mean Corpuscular Hemoglobin 31.9 pg (26-34); Mean Corpuscular Volume 99.2 fl (80-100); Mean Platelet Volume 11.5 fl (7.4-10.4); Platelet Count Result 263 k/mm3 (150-375); Red Blood Count 3.67 M/mm3 (4.2-5.4); White Blood Count 15.1 K/mm3 (4.5-10.0)
[2024-10-01 06:51] LABS: Alanine Aminotransferase 72 U/L (6-35); Alkaline Phosphatase 118 U/L (38-126); Anion Gap 5 mmol/L (4-12); Aspartate Amino Transferase 51 U/L (14-36); Bilirubin,Total 0.8 mg/dL (0.2-1.3); Blood Urea Nitrogen 36 mg/dL (7-17); Calcium 8.8 mg/dL (8.4-10.2); Carbon Dioxide 33 mmol/L (22-30); Chloride 96 mmol/L (98-107); Estimated CRCL calculation 36 ml/min; Estimated Glomerular Filt Rate 51; Glucose 107 mg/dL (65-110); Potassium 4.2 mmol/L (3.4-5.0); Sodium 134 mmol/L (137-145)
[2024-10-01] MEDS: AMIODARONE HCL 200 MG TABLET PO (07:25)
[2024-10-01] MEDS: FUROSEMIDE 40 MG TABLET PO (07:25)
[2024-10-01] MEDS: METOPROLOL TARTRATE 50 MG TAB PO ×2 (07:25→20:59)
[2024-10-01] MEDS: oxyCODONE HCL (*CRX) 5 MG TAB IR PO ×4 (07:25→20:59)
[2024-10-01] MEDS: DOCUSATE SODIUM 100 MG CAPSULE PO ×2 (07:26→16:37)
[2024-10-01] MEDS: POTASSIUM CHLORIDE 20 MEQ ER TABLET PO (07:26)
--- NOTE | 2024-10-01 08:33 | P.CONGI_ITS ---
<Statement entered by Jonh Lopez MD - 10/01/24 15:26> I, Jonh Lopez MD, have provided a substantive portion of the care of this patient and discussed the patient with my Nurse Practitioner. I have reviewed any new relevant radiographic and laboratory results including medications. I agree with her documentation as noted below.?I personally performed the medical decision making and much of the history and exam for this encounter. briefly, she was admitted here with sacral fracture treated conservatively and noted some blood in stool but otherwise she is comfortable, she is on chronic anticogulation. h/h stable, no overt gib and no need of urgent colonoscopy (also relatively contraindicated with the fracture), recommend conservative treatment. Will follow as needed. Assessment and Plan Assessment and plan (1) GI bleed: Qualifiers: GI bleed type/associated pathology: anorectal hemorrhage Q ualified Code(s): K62.5 - Hemorrhage of anus and rectum <Raquel Tierney APRN - Last Filed: 10/01/24 09:32> Code(s): K92.2 - Gastrointestinal hemorrhage, unspecified <Raqueldominik Tierney APRN - Last Filed: 10/01/24 09:32> Status: Acute <Raquel Tierney APRN - Last Filed: 10/01/24 09:32> (2) Chronic anticoagulation: Code(s): Z79.01 - prison (current) use of anticoagulants <Raquel Tierney APRN - Last Filed: 10/01/24 09:32> Status: Acute <Raquel DLizzie Tierney APRN - Last Filed: 10/01/24 09:32> (3) Heme positive stool: Code(s): R19.5 - Other fecal abnormalities <Raquel Tierney APRN - Last Filed: 10/01/24 09:32> Status: Acute <Raqueldominik Tierney APRN - Last Filed: 10/01/24 09:32> (4) Elevated liver transaminase level: Code(s): R74.01 - Elevation of levels of liver transaminase levels <Raqueldominik Tierney APRN - Last Filed: 10/01/24 09:32> Status: Acute <Raquel D. Eslinger, ONION TOPPER - Last Filed: 10/01/24 09:32> Assessment and Plan: 1. GL bleed/Heme positive stool: Per patient's last colonoscopy was performed > 10 years ago. Family history negative for CRC or IBD. History of AFib on Eliquis and aspirin 81 mg daily. Denies any known history of hemorrhoids. The patient states that prior to admission she was having regular daily bowel movements without difficulty. Since her admission for a closed sacral fracture she has been less active been on pain medication which has caused constipation. Patient states that this admission she went approximately 7 days without a bowel movement and then yesterday after being given MiraLax she had a bowel movement and was noted to have heme-positive stools. Patient denies seeing any bright red blood or black stools. Mild decrease in H&H since yesterday showing HGB 13-->12 and Hct 38-->36, MCV 99, platelets 263, INR 1.5. No signs of active GI bleeding at this time. * Monitor for bleeding or drop in H/H today but otherwise no plans for emergent colonoscopy. * Will plan for follow-up as outpatient and if H&H has not stabilized or if patient notices active bleeding will consider outpatient colonoscopy once she is able to hold anticoagulants safely. patient agrees with plan for more conservative management * Continue Miralax and adjust dosing to avoid constipation 2. Elevated liver transaminase: No history of liver disease or previously elevated LFTs. Patient has had mild transaminase elevation since admission. Most recent labs show normal bilirubin and alkaline phosphatase and AST at 51 and ALT 72. * Likely acute elevation, no need liver workup this time * Will repeat labs when patient is seen outpatient Thank you very much for allowing me to share in the care of this very nice patient. This report may have been done utilizing a voice recognition system. Attempts have been made to correct errors. However, there may be uncorrected grammatical, spelling, and recognition errors present. <Raquel Tierney APRN - Last Filed: 10/01/24 09:32> GI Consult Note Consult date/time: 10/01/24 08:33 <Raquel Tierney APRN - Last Filed: 10/01/24 09:32> Reason for consult: GI bleed <Raquel Tierney APRN - Last Filed: 10/01/24 09:32> HPI: This is an 89-year-old female with history of AFib on Eliquis, HTN, HLD, GERD, chronic kidney disease stage 3 and osteoarthritis. Patient initially presented to the emergency room September 25 with complaints of bilateral hip pain and was admitted for closed sacral fracture, pulmonary edema and hypoxia. GI has been consulted for GI bleed. Patient states that since her admission she has been experiencing constipation and she states she went approximately 7 days without a bowel movement. After she was given MiraLax she states that she had a bowel movement yesterday with fecal incontinence as she states she is unable to get up quick enough to get to the commode. Stools were positive for blood yesterday. She denies any known history of hemorrhoids. She denies any other GI complaints. She denies abdominal pain, nausea, vomiting, bloating, odynophagia, dysphagia, reflux, regurgitation, appetite loss, or weight loss. Prior to admission she was having regular daily bowel movements without difficulty. Denies diarrhea, constipation, hematochezia, melena, fecal incontinence, or rectal pain. patient is on aspirin 81 mg and Eliquis daily. She is a nondrinker, nonsmoker and denies marijuana use. Family history negative for CRC or IBD. ENDOSCOPY HISTORY: Per patient last EGD and colonoscopy were > 10 years ago and per patient was normal. LABS AND STOOL STUDIES: LABS 10/01/2024: Sodium 134, potassium 36, BUN 36, creatinine 1.03, GFR 51 WBC 15, Hgb 12, Hct 36, MCV 99, platelets 263, INR 1.5 Total bilirubin 0.8, AST 51, ALT 72, Alkaline Phos 118, albumin 3.0 Fecal occult blood positive IMAGING: Abdominal Xray 09/29/2024: FINDINGS: Bowel gas pattern is nonspecific and non-obstructive. There is no free air or deep sulci. No pathologic calcifications are seen. Visualized lung bases are unremarkable. Bones and soft tissues are age-appropriate. IMPRESSION: Nonspecific, nonobstructive bowel gas pattern. CT pelvis 09/25/2024: IMPRESSION: 1. Minimally displaced fractures of the bilateral sacral ala and extending across the S2 vertebral body. 2. Minimally displaced fracture at the junction of the right pubic body and the superior and inferior pubic rami. <Raquel Tierney APRN - Last Filed: 10/01/24 09:32> Review of Systems 2 Constitutional: Constitutional: Reports as per HPI <Raquel Tierney APRN - Last Filed: 10/01/24 09:32> ENT: Reports as per HPI <Raquel Tierney APRN - Last Filed: 10/01/24 09:32> Cardiovascular: Cardiovascular: Reports as per HPI, Denies chest pain, Denies leg edema, Denies lightheadedness and Denies dyspnea <Raquel Tierney APRN - Last Filed: 10/01/24 09:32> Respiratory: Respiratory: Denies cough and Denies dyspnea <Raquel Tierney APRN - Last Filed: 10/01/24 09:32> Gastrointestinal: Gastrointestinal: Reports as per HPI <Raquel Tierney APRN - Last Filed: 10/01/24 09:32> Musculoskeletal: Musculoskeletal: Reports as per HPI <Raquel Tierney APRN - Last Filed: 10/01/24 09:32> Integumentary/Breasts: Skin/Breast: Reports as per HPI <Raquel Tierney APRN - Last Filed: 10/01/24 09:32> Psychiatric: Psychiatric: Reports as per HPI <Raquel Tierney APRN - Last Filed: 10/01/24 09:32> Endocrine: Endocrine: Reports no additional endocrine complaints <Raquel Tierney APRN - Last Filed: 10/01/24 09:32> Hematologic/Lymphatic: Hematologic/Lymphatic: Reports no additional hematologic/lymphatic complaints <Raquel Tierney APRN - Last Filed: 10/01/24 09:32> PMFSH Past Medical History Medical History: Medical History Chronic kidney disease, stage 3 Chronic anticoagulation Paroxysmal atrial fibrillation Dyslipidemia Osteoarthritis Skin cancer Shingles Kidney stones Hypertension <Raquel Tierney, ONION TOPPER - Last Filed: 10/01/24 09:32> Surgical History Surgical History: Surgical History History of cataract extraction History of cholecystectomy History of hysterectomy <Raquel YepezLizzie Tierney APRN - Last Filed: 10/01/24 09:32> Social History Social History: Social History Social History: Surrogate medical decision maker: Jose Atkins, spouse. Code status: Full code. Years smoked: 25 Smoking status: Former smoker Second hand tobacco smoke exposure: No Alcohol intake: never Substance use: never Substance use type: does not use Do You Feel Safe in your Home?: Yes Lack of Transportation: No Lack of Food: Never True Current Housing: I Have Housing Concerned About Future Housing: No Difficulty Paying Gas/Electric Bills: No Difficulty Paying for Meds: No Currently Unemployed: No Education: High School Diploma/GED Difficulty w/ Childcare or Family Care: No Living arrangements: with family Spiritual care concerns: No <Raquel YepezLizzie Tierney [employer] TOPPER - Last Filed: 10/01/24 09:32> Meds Home Medications and Allergies Home medications: Home Medications ?Medication ?Instructions ?Recorded ?Confirmed ?Type aspirin 81 mg tablet 81 mg PO HS 12/11/23 09/25/24 History cholecalciferol (vitamin D3) 25 1,500 unit PO WEEKLY 12/11/23 09/25/24 History mcg (1,000 unit) tablet (Vitamin D3) cranberry 400 mg capsule 400 mg PO DAILY 12/11/23 09/25/24 History famotidine 20 mg tablet 20 mg PO HS 12/11/23 09/25/24 History rosuvastatin 5 mg tablet 5 mg PO HS 12/11/23 09/25/24 History apixaban 5 mg tablet (Eliquis) 5 mg PO Q12HR #120 tabs 12/12/23 09/25/24 Rx cyanocobalamin (vitamin B-12) 100 100 mcg PO DAILY 01/23/24 09/25/24 History mcg tablet furosemide 20 mg tablet 40 mg PO DAILY 01/23/24 09/25/24 History metoprolol tartrate 100 mg tablet 50 mg PO Q12H 01/23/24 09/25/24 History potassium chloride 20 mEq 20 meq PO DAILY 01/23/24 09/25/24 History tablet,extended release amiodarone 200 mg tablet 200 mg PO DAILY 09/25/24 09/25/24 History oxycodone 5 mg tablet 5 mg PO Q4H PRN Pain Rated 4-6 #15 09/30/24 Rx tabs <Raquel Tierney APRN - Last Filed: 10/01/24 09:32> Allergies/Adverse reactions: Allergies Allergy/AdvReac Type Severity Reaction Status Date / Time cephalexin Allergy Rash Verified 09/25/24 10:27 clindamycin Allergy Rash Verified 09/25/24 10:27 alendronate sodium (From AdvReac Unknown Verified 09/25/24 10:27 Fosamax) atorvastatin AdvReac Muscle Pain Verified 09/25/24 10:27 losartan AdvReac Unknown Verified 09/25/24 10:27 pravastatin AdvReac Muscle Pain Verified 09/25/24 10:27 <Raquel Tierney APRN - Last Filed: 10/01/24 09:32> Vital Signs Vital Signs - 24 hr 09/30/24 12:00 09/30/24 12:33 09/30/24 14:00 Temperature 96.1 F L Pulse Rate 71 69 Respiratory Rate 16 Blood Pressure 116/54 L Pulse Oximetry 95 93 Oxygen Delivery Room Air 09/30/24 16:00 09/30/24 20:00 09/30/24 20:00 Temperature 99.4 F Pulse Rate 65 78 85 Respiratory Rate 16 Blood Pressure 123/57 L Pulse Oximetry 94 Oxygen Delivery 09/30/24 21:05 10/01/24 00:00 10/01/24 04:00 Temperature Pulse Rate 81 68 68 Respiratory Rate Blood Pressure Pulse Oximetry Oxygen Delivery 10/01/24 06:00 10/01/24 07:25 10/01/24 07:25 Temperature 99.1 F Pulse Rate 80 68 68 Respiratory Rate 14 Blood Pressure 109/46 L Pulse Oximetry 94 Oxygen Delivery <Raquel Tierney APRN - Last Filed: 10/01/24 09:32> Exam 2 Const: General: cooperative, healthy appearing, comfortable, no acute distress and well developed <Raquel Tierney APRN Isidro Last Filed: 10/01/24 09:32> Orientation/consciousness: oriented to person, oriented to place, oriented to time and patient oriented x3 <Raquel Tierney APRN Isidro Last Filed: 10/01/24 09:32> HENMT: Head: normal to inspection, normocephalic and atraumatic <Raquel Tierney APRN - Last Filed: 10/01/24 09:32> Mouth: Yes Normal oral and palatal mucosa present and Yes moist mucous membranes <Raqueldominik Tierney APRN Last Filed: 10/01/24 09:32> Eyes: General: appearance normal, both eyes and all related structures < Raquel Tierney APRN - Last Filed: 10/01/24 09:32> Conjunctivae: conjunctivae normal <Raquel Tierney APRN Last Filed: 10/01/24 09:32> Sclera: sclerae normal <Raqueldominik Tierney APRN Last Filed: 10/01/24 09:32> Pupils: Equal, round and reactive pupils present <Raqueldominik Tierney APRN Last Filed: 10/01/24 09:32> Neck: Neck: normal visual inspection <Raquel Tierney APRN Isidro Last Filed: 10/01/24 09:32> Chest: Chest palpation & inspection: normal inspection of the chest < Raquel Tierney APRN Last Filed: 10/01/24 09:32> Resp: Effort & Inspection: normal respiratory effort and able to speak in complete sentences <Raquel Tierney APRN Isidro Last Filed: 10/01/24 09:32> Auscultation: clear to auscultation bilaterally <Raquel Tierney APRN - Last Filed: 10/01/24 09:32> Cardio: Jugular venous distension: no JVD <Raquel Tierney APRN Isidro Last Filed: 10/01/24 09:32> Rate: regular rate <Raquel Tierney APRN - Last Filed: 10/01/24 09:32> Rhythm: regular rhythm <Raquel Myastephen ONION TOPPER Isidro Last Filed: 10/01/24 09:32> Heart sounds: S1 normal heart sound present and S2 normal heart sound present <Raquel Maystephen ONION TOPPER - Last Filed: 10/01/24 09:32> GI: Inspection: normal to inspection <Raquel MaystephenARIELN Isidro Last Filed: 10/01/24 09:32> GI Palp: Yes Soft to palpation and Yes No hepatosplenomegaly present <Raquel Maystephen ONION TOPPER - Last Filed: 10/01/24 09:32> Auscultation: normal bowel sounds <Raquel Maystephen ONION TOPPER - Last Filed: 10/01/24 09:32> Rectal Exam: deferred <Raquel MaygiovannyARIEL hortaN Isidro Last Filed: 10/01/24 09:32> Skin: General skin exam: normal color and no rashes or lesions noted < Raquel Maystephen ONION TOPPER - Last Filed: 10/01/24 09:32> Neuro: General: oriented to person, oriented to place, oriented to time and patient oriented x3 <Raquel MaygiovannyNONI horta Last Filed: 10/01/24 09:32> Cranial nerves: Yes Equal, round and reactive pupils present <Raquel Maystephen [employer]ION TOPPER Isidro Last Filed: 10/01/24 09:32> Speech: normal speech <Raquel Maystephen ONION TOPPER Last Filed: 10/01/24 09:32> Extrem: General: normal to inspection and no clubbing, cyanosis or edema < Raquel Maystephen ONION TOPPER - Last Filed: 10/01/24 09:32> Psych: Appearance: grossly normal and well kempt <Raquel Das NONI Tierney - Last Filed: 10/01/24 09:32> Affect: normal affect <Raquel Maystephen ONION TOPPER - Last Filed: 10/01/24 09:32> Results Labs CBC & Chem 7: 10/01/24 05:58 10/01/24 05:58 <Raquel Das ARIEL TierneyN - Last Filed: 10/01/24 09:32> Labs: Short CBC 09/30/24 10/01/24 Range/Units 15:13 05:58 WBC 12.1 H 15.1 H (4.5-10.0) K/mm3 Hgb 12.6 11.7 L (12.0-15.0) g/dL Hct 38.4 36.4 L (37.0-47.0) % Plt Count 271 263 (150-375) k/mm3 BMP 09/30/24 10/01/24 15:13 05:58 Sodium 134 L 134 L Potassium 3.9 4.2 Chloride 94 L 96 L Carbon Dioxide 32 H 33 H BUN 32 H 36 H Creatinine 1.00 1.03 H Glucose 114 H 107 Calcium 8.9 8.8 Liver Function 09/30/24 10/01/24 Range/Units 15:13 05:58 Total Bilirubin 0.9 0.8 (0.2-1.3) mg/dL AST 61 H 51 H (14-36) U/L ALT 81 H 72 H (6-35) U/L Alkaline Phosphatase 122 118 (38-126) U/L Albumin 3.4 L 3.0 L (3.5-5.1) g/dL <Raquel Tierney, ONION TOPPER - Last Filed: 10/01/24 09:32>
[2024-10-01] MEDS: APIXABAN 5 MG TABLET PO ×2 (11:31→20:59)
[2024-10-01 11:36] LABS: Add Urine Microscopic? YES; Appearance Urine Clear (Clear); Bacteria Urine None Seen /hpf; Bilirubin Urine Negative (Negative); Blood Urine 2+ (Negative); Color Urine Dark Yellow (Yellow); Glucose Urine UA Negative (Negative); Ketones Urine Negative (Negative); Leukocyte Esterase Ur 1+ LEU/UL (Negative); Nitrate Urine Negative (Negative); Protein Urine 1+ mg/dL (Negative); RBC Urine 0-2 /hpf (0-2); Specific Grav Ur 1.019 (1.001-1.035); Squamous Epithelial Cell Urine Occasional /hpf (Few); Urobilinogen Urine 0.2 mg/dL (<2.0); WBC Urine 21-50 /hpf (0-3); pH Urine 5.5 (5.0-9.0)
--- NOTE | 2024-10-01 11:57 | P.PNOP_ITS ---
Progress Note: A&P Assessment and Plan (1) Bilateral sacral insufficiency fracture: Qualifiers: Encounter type: subsequent encounter Code(s): M84.48XA - Pathological fracture, other site, initial encounter for fracture Status: Acute (2) Fracture of right inferior pubic ramus: Code(s): S32.591A - Other specified fracture of right pubis, initial encounter for closed fracture Status: Acute (3) Closed fracture of pubic ramus: Code(s): S32.599A - Other specified fracture of unspecified pubis, initial encounter for closed fracture Status: Acute (4) Closed sacral fracture: Code(s): S32.10XA - Unspecified fracture of sacrum, initial encounter for closed fracture Status: Acute Plan No changes in care plan from orthopedic standpoint. Patient states she has had some medical issues arise since being in the hospital. Wearing O2 nasal canula at the time of my visit. She is having trouble mobilizing due to the pain. This is expected. She is working with therapy and attempting to get up. Several nondisplaced pelvic fractures including bilateral sacral ala and right pubic rami. Fractures are stable and she can mobilize as able. I reassured patient again that pain and mobility should increase weekly over the next 4-6 weeks. She will need penitentiary for most of this time. Okay for discharge from ortho standpoint once cleared medically. Patient will need to follow up in office in 4-6 weeks with xrays. Ortho instructions: * D/C to SNF/rehab * Follow up in office if able in 4-6 weeks with xrays. * PT: Weight bearing as tolerated. * DVT prophylaxis: continue aspirin. * Pain medication: Oxycodone and Tylenol. Subjective Subjective Date/Time Seen: 10/01/24 11:57 Interval history: Resting comfortably. Pain with any motion. She has not gotten up yet due to the pain. She has tried. She notes overall the pain does seem to have improved slightly since the injury. Review of Systems Review of Systems: All systems reviewed & are unremarkable except as noted in HPI and below Exam Narrative: Patient is alert and oriented. Resting comfortably in bed. wearing O2 nasal canula. Pain with any motion of the right leg. No acute distress. No erythema or ecchymosis. No rashes or lesions noted. Warm, normal appearing skin. Tenderness at the right pelvic area. Calf nontender. Distal pulses palpable. Normal capillary refill. Patient able to move and wiggle toes. Light touch sensation intact. Objective Data Vital Signs Vital Signs: Vital Signs - 24 hr 09/30/24 12:00 09/30/24 12:33 09/30/24 14:00 Temperature 96.1 F L Pulse Rate 71 69 Respiratory Rate 16 Blood Pressure 116/54 L Pulse Oximetry 95 93 Oxygen Delivery Room Air Oxygen Flow Rate 09/30/24 16:00 09/30/24 20:00 09/30/24 20:00 Temperature 99.4 F Pulse Rate 65 78 85 Respiratory Rate 16 Blood Pressure 123/57 L Pulse Oximetry 94 Oxygen Delivery Oxygen Flow Rate 09/30/24 21:05 10/01/24 00:00 10/01/24 04:00 Temperature Pulse Rate 81 68 68 Respiratory Rate Blood Pressure Pulse Oximetry Oxygen Delivery Oxygen Flow Rate 10/01/24 06:00 10/01/24 07:25 10/01/24 07:25 Temperature 99.1 F Pulse Rate 80 68 68 Respiratory Rate 14 Blood Pressure 109/46 L Pulse Oximetry 94 Oxygen Delivery Oxygen Flow Rate 10/01/24 08:00 10/01/24 08:00 Temperature Pulse Rate 81 Respiratory Rate Blood Pressure Pulse Oximetry 95 Oxygen Delivery Nasal Cannula Oxygen Flow Rate 2 Intake/Output Intake/Output: Intake & Output 09/28/24 09/29/24 09/30/24 10/01/24 23:59 23:59 23:59 23:59 Intake Total 1250 600 480 240 Output Total 700 1000 600 301 Balance 550 -400 -120 -61 Meds/Results Medications: Active Medications Generic Name Dose Route Start Last Admin Trade Name Freq PRN Reason Stop Dose Admin Acetaminophen 650 mg 09/25/24 12:31 Acetaminophen 325 Mg Tablet PO Q4H PRN Mild Pain (1-3) or Fever Amiodarone HCl 200 mg 09/26/24 09:00 10/01/24 07:25 Amiodarone Hcl 200 Mg Tablet PO 200 mg DAILY ILAN Administration Apixaban 5 mg 09/25/24 21:00 10/01/24 11:31 Apixaban 5 Mg Tablet PO 5 mg Q12HR ILAN Administration Aspirin 81 mg 09/26/24 21:00 09/30/24 21:04 Aspirin 81 Mg Enteric Tablet PO 81 mg HS ILAN Administration Docusate Sodium 100 mg 09/27/24 17:00 10/01/24 07:26 Docusate Sodium 100 Mg Capsule PO 100 mg BID [facility] Administration Famotidine 20 mg 09/25/24 21:00 09/30/24 21:04 Famotidine 20 Mg Tablet PO 20 mg HS [facility] Administration Furosemide 40 mg 09/26/24 09:00 10/01/24 07:25 Furosemide 40 Mg Tablet PO 40 mg DAILY [facility] Administration Melatonin 3 mg 09/26/24 22:25 09/30/24 21:04 Melatonin 3 Mg Tablet PO 3 mg HS [facility] Administration Metoprolol Tartrate 50 mg 09/25/24 21:00 10/01/24 07:25 Metoprolol Tartrate 50 Mg Tab PO 50 mg Q12H [facility] Administration Morphine Sulfate 4 mg 09/26/24 12:25 09/28/24 18:50 Morphine Sulfate (*Crx) 4 Mg/Ml Inj IV PUSH 4 mg Q4H PRN Administration Pain Rated 7-10 Ondansetron HCl 4 mg 09/25/24 12:31 09/30/24 11:45 Ondansetron Inj 4 Mg/2 Ml Vial IV PUSH 4 mg Q4H PRN Administration Nausea Oxycodone HCl 5 mg 09/27/24 11:03 10/01/24 11:31 Oxycodone Hcl (*Crx) 5 Mg Tab Ir PO 5 mg Q4H PRN Administration Pain Rated 4-6 Polyethylene Glycol 17 gm 09/28/24 09:00 10/01/24 07:26 Polyethylene Glycol 3350 17 Gm Powd.Pack PO Not Given QAM [facility] Potassium Chloride 20 meq 09/26/24 09:00 10/01/24 07:26 Potassium Chloride 20 Meq Er Tablet PO 20 meq DAILY [facility] Administration Rosuvastatin Calcium 5 mg 09/25/24 21:00 09/30/24 21:07 Rosuvastatin 5 Mg Tablet PO 5 mg [email or web address] [facility] Administration Senna 8.6 mg 09/26/24 21:00 09/30/24 21:04 Sennosides 8.6 Mg Tablet PO 8.6 mg HS [facility] Administration Vitamin D 1,500 units 10/02/24 09:00 Cholecalciferol 1,000 Units Tablet PO WEEKLY [facility] Radiology Results: ITS Impressions Pelvis CT 09/25/24 11:00 IMPRESSION: 1. Minimally displaced fractures of the bilateral sacral ala and extending across the S2 vertebral body. 2. Minimally displaced fracture at the junction of the right pubic body and the superior and inferior pubic rami. Abdomen X-Ray 09/29/24 14:36 IMPRESSION: Nonspecific, nonobstructive bowel gas pattern. Chest X-Ray 10/01/24 11:06 IMPRESSION: 1. Chronic elevation of right hemidiaphragm with mild atelectasis at right lung base. Labs Labs: Laboratory Results - last 24 hr 09/30/24 09/30/24 09/30/24 12:03 14:56 15:13 WBC 12.1 H RBC 3.89 L Hgb 12.6 Hct 38.4 MCV 98.7 MCH 32.4 MCHC 32.8 RDW 13.2 Plt Count 271 MPV 10.9 H Sodium 134 L Potassium 3.9 Chloride 94 L Carbon Dioxide 32 H Anion Gap 8 BUN 32 H Creatinine 1.00 Estim Creat Clear Calc 37 Estimated GFR 52 L Glucose 114 H Calcium 8.9 Total Bilirubin 0.9 AST 61 H ALT 81 H Alkaline Phosphatase 122 Total Protein 7.0 Albumin 3.4 L Urine Color Urine Appearance Urine pH Ur Specific [place] Urine Protein Urine Glucose (UA) Urine Ketones Ur Blood (Man) Urine Nitrate Urine Bilirubin Urine Urobilinogen Ur Leukocyte Esterase Urine RBC Urine WBC Ur Squamous Epith Cells Urine Bacteria Urine Casts Stl Occult Blood (IFOB) Positive H SARS-CoV-2 RNA (RT-PCR) Negative 10/01/24 10/01/24 05:58 11:24 WBC 15.1 H RBC 3.67 L Hgb 11.7 L Hct 36.4 L MCV 99.2 MCH 31.9 MCHC 32.1 RDW 13.0 Plt Count 263 MPV 11.5 H Sodium 134 L Potassium 4.2 Chloride 96 L Carbon Dioxide 33 H Anion Gap 5 BUN 36 H Creatinine 1.03 H Estim Creat Clear Calc 36 Estimated GFR 51 L Glucose 107 Calcium 8.8 Total Bilirubin 0.8 AST 51 H ALT 72 H Alkaline Phosphatase 118 Total Protein 6.0 L Albumin 3.0 L Urine Color Dark yellow Urine Appearance Clear Urine pH 5.5 Ur Specific [place] 1.019 Urine Protein 1+ H Urine Glucose (UA) Negative Urine Ketones Negative Ur Blood (Man) 2+ H Urine Nitrate Negative Urine Bilirubin Negative Urine Urobilinogen 0.2 Ur Leukocyte Esterase 1+ H Urine RBC 0-2 Urine WBC 21-50 H Ur Squamous Epith Cells Occasional Urine Bacteria None seen Urine Casts 3-5 Stl Occult Blood (IFOB) SARS-CoV-2 RNA (RT-PCR)
[2024-10-01 12:10] LABS: Influenza A QL RT-PCR Negative (Negative); Influenza B QL RT-PCR Negative (Negative); RSV RNA, RT-PCR Negative (Negative); SARS-CoV-2 RNA PCR Negative (Negative)
--- NOTE | 2024-10-01 14:00 | PCPTNOTE ---
On 10/01/24, the student, CEE Ballesteros, provided care and completed [facility] documentation on this patient. I have reviewed the student's documentation and agree with the findings.
--- NOTE | 2024-10-01 15:59 | P.PNIM_ITS ---
Progress Note: A&P Assessment and Plan (1) Bilateral sacral insufficiency fracture: Qualifiers: Encounter type: subsequent encounter Code(s): M84.48XA - Pathological fracture, other site, initial encounter for fracture Status: Acute Assessment and Plan: - Significant pain noted, pt/ot evaluation pending. - Ortho evaluated. Conservatively managed (2) Fracture of right inferior pubic ramus: Code(s): S32.591A - Other specified fracture of right pubis, initial encounter for closed fracture Status: Acute Assessment and Plan: . (3) Hypoxia: Code(s): R09.02 - Hypoxemia Status: Acute Assessment and Plan: -Acute hypoxic resp. failure - No hx of similar, currently on 2L. On chronic anticoagulation - PE unlikely. Infiltrate on CXR, likely infectious. -Continue doxycycline and Cefdinir. Monitor oxygen saturation since the patient is on pain medication. (4) Pneumonia: Code(s): J18.9 - Pneumonia, unspecified organism Status: Acute Assessment and Plan: - Abx with doxycycline initiated, will add cefdinir for additional oral agent to better cover cap pathogens and d/t severity of hypoxia on presentation. Plan at least 5 day course. - Continue doxycycline and cefdinir (5) Paroxysmal atrial fibrillation: Code(s): I48.0 - Paroxysmal atrial fibrillation Status: Acute Assessment and Plan: - Stable rate. Cont. current medications and anticoagulation. 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 (7) Hypertension: Code(s): I10 - Essential (primary) hypertension Status: Acute Assessment and Plan: - Stable bp, cont. current. (8) Chronic kidney disease, stage 3: Code(s): N18.30 - Chronic kidney disease, stage 3 unspecified Status: Acute Assessment and Plan: - Stable renal function. Trend. Plan Kelly Bar is an 89 year old female with pmh atrial fibrillation presenting one week s/p fall with pubic rami fractures and new onset hypoxia with infiltrate on cxr and leukocytosis. Improving lab markers, remains on 2L. Subjective Date/time seen: 10/01/24 15:59 Interval history: Patient had episode of low saturation yesterday night. Patient was restarted on 2 L nasal cannula. Ordered a CTA to rule out PE. Patient WBC has been increased. Ordered a chest x-ray which shows chronic elevation of right hemidiaphragm with mild atelectasis at the right lung base. UA shows no evidence of any UTI . Will monitor WBC trend and possible discharge tomorrow Review of Systems Review of Systems: 12 systems were reviewed and are negativ e except for as per HPI. All systems reviewed & are unremarkable except as noted in HPI and below Exam Narrative: GENERAL APPEARANCE: Appears to be in no acute distress. HEAD: normocephalic atraumatic EYES: PERRL, EOMI. Vision grossly intact. ENT: Hearing grossly intact, no nasal discharge NECK: Neck supple, trachea midline. CARDIAC: Normal S1/S2. Rhythm is regular. No murmurs, rubs, or gallops. No cyanosis or pallor. Extremities are warm and well perfused. LUNGS: Slightly coarse bilateral midlung hardin. Respirations even and unlabored. 93% 2L during my exam. ABDOMEN: BS positive x 4 quadrants. Soft, nondistended, nontender. No guarding or rebound. MSK: No joint tenderness/swelling, fair strength in all extremities. PERIPHERAL VASCULAR: Peripheral pulses palpable. Normal perfusion, cap refill <2 seconds. NEURO: Follows commands. No focal deficits. SKIN: [place] without lesions or eruptions. PSYCH: Stable, no paranoia or delusional thinking. Objective Data Vital Signs Vital Signs: Vital Signs - 24 hr 09/30/24 16:00 09/30/24 20:00 09/30/24 20:00 Temperature 99.4 F Pulse Rate 65 78 85 Respiratory Rate 16 Blood Pressure 123/57 L Pulse Oximetry 94 Oxygen Delivery Oxygen Flow Rate 09/30/24 21:05 10/01/24 00:00 10/01/24 04:00 Temperature Pulse Rate 81 68 68 Respiratory Rate Blood Pressure Pulse Oximetry Oxygen Delivery Oxygen Flow Rate 10/01/24 06:00 10/01/24 07:25 10/01/24 07:25 Temperature 99.1 F Pulse Rate 80 68 68 Respiratory Rate 14 Blood Pressure 109/46 L Pulse Oximetry 94 Oxygen Delivery Oxygen Flow Rate 10/01/24 08:00 10/01/24 08:00 10/01/24 13:59 Temperature 97.5 F L Pulse Rate 81 77 Respiratory Rate 20 Blood Pressure 123/77 Pulse Oximetry 95 96 Oxygen Delivery Nasal Cannula Oxygen Flow Rate 2 Intake/Output Intake/Output: Intake & Output 09/28/24 09/29/24 09/30/24 10/01/24 23:59 23:59 23:59 23:59 Intake Total 1250 600 480 480 Output Total 700 1000 600 401 Balance 550 -400 -120 79 Meds/Results Medications: Active Medications Generic Name Dose Route Start Last Admin Trade Name Freq PRN Reason Stop Dose Admin Acetaminophen 650 mg 09/25/24 12:31 Acetaminophen 325 Mg Tablet PO Q4H PRN Mild Pain (1-3) or Fever Amiodarone HCl 200 mg 09/26/24 09:00 10/01/24 07:25 Amiodarone Hcl 200 Mg Tablet PO 200 mg DAILY ILAN Administration Apixaban 5 mg 09/25/24 21:00 10/01/24 11:31 Apixaban 5 Mg Tablet PO 5 mg Q12HR ILAN Administration Aspirin 81 mg 09/26/24 21:00 09/30/24 21:04 Aspirin 81 Mg Enteric Tablet PO 81 mg HS ILAN Administration Docusate Sodium 100 mg 09/27/24 17:00 10/01/24 07:26 Docusate Sodium 100 Mg Capsule PO 100 mg BID ILAN Administration Famotidine 20 mg 09/25/24 21:00 09/30/24 21:04 Famotidine 20 Mg Tablet PO 20 mg HS ILAN Administration Furosemide 40 mg 09/26/24 09:00 10/01/24 07:25 Furosemide 40 Mg Tablet PO 40 mg DAILY ILAN Administration Melatonin 3 mg 09/26/24 22:25 09/30/24 21:04 Melatonin 3 Mg Tablet PO 3 mg HS ILAN Administration Metoprolol Tartrate 50 mg 09/25/24 21:00 10/01/24 07:25 Metoprolol Tartrate 50 Mg Tab PO 50 mg Q12H ILAN Administration Morphine Sulfate 4 mg 09/26/24 12:25 09/28/24 18:50 Morphine Sulfate (*Crx) 4 Mg/Ml Inj IV PUSH 4 mg Q4H PRN Administration Pain Rated 7-10 Ondansetron HCl 4 mg 09/25/24 12:31 09/30/24 11:45 Ondansetron Inj 4 Mg/2 Ml Vial IV PUSH 4 mg Q4H PRN Administration Nausea Oxycodone HCl 5 mg 09/27/24 11:03 10/01/24 11:31 Oxycodone Hcl (*Crx) 5 Mg Tab Ir PO 5 mg Q4H PRN Administration Pain Rated 4-6 Polyethylene Glycol 17 gm 09/28/24 09:00 10/01/24 07:26 Polyethylene Glycol 3350 17 Gm Powd.Pack PO Not Given QAM [facility] Potassium Chloride 20 meq 09/26/24 09:00 10/01/24 07:26 Potassium Chloride 20 Meq Er Tablet PO 20 meq DAILY ILAN Administration Rosuvastatin Calcium 5 mg 09/25/24 21:00 09/30/24 21:07 Rosuvastatin 5 Mg Tablet PO 5 mg [email or web address] [facility] Administration Senna 8.6 mg 09/26/24 21:00 09/30/24 21:04 Sennosides 8.6 Mg Tablet PO 8.6 mg HS [facility] Administration Vitamin D 1,500 units 10/02/24 09:00 Cholecalciferol 1,000 Units Tablet PO WEEKLY [facility] Radiology Results: ITS Impressions Pelvis CT 09/25/24 11:00 IMPRESSION: 1. Minimally displaced fractures of the bilateral sacral ala and extending across the S2 vertebral body. 2. Minimally displaced fracture at the junction of the right pubic body and the superior and inferior pubic rami. Abdomen X-Ray 09/29/24 14:36 IMPRESSION: Nonspecific, nonobstructive bowel gas pattern. Chest X-Ray 10/01/24 11:06 IMPRESSION: 1. Chronic elevation of right hemidiaphragm with mild atelectasis at right lung base. Labs Labs: Laboratory Results - last 24 hr 10/01/24 10/01/24 05:58 11:24 WBC 15.1 H RBC 3.67 L Hgb 11.7 L Hct 36.4 L MCV 99.2 MCH 31.9 MCHC 32.1 RDW 13.0 Plt Count 263 MPV 11.5 H Sodium 134 L Potassium 4.2 Chloride 96 L Carbon Dioxide 33 H Anion Gap 5 BUN 36 H Creatinine 1.03 H Estim Creat Clear Calc 36 Estimated GFR 51 L Glucose 107 Calcium 8.8 Total Bilirubin 0.8 AST 51 H ALT 72 H Alkaline Phosphatase 118 Total Protein 6.0 L Albumin 3.0 L Urine Color Dark yellow Urine Appearance Clear Urine pH 5.5 Ur Specific [place] 1.019 Urine Protein 1+ H Urine Glucose (UA) Negative Urine Ketones Negative Ur Blood (Man) 2+ H Urine Nitrate Negative Urine Bilirubin Negative Urine Urobilinogen 0.2 Ur Leukocyte Esterase 1+ H Urine RBC 0-2 Urine WBC 21-50 H Ur Squamous Epith Cells Occasional Urine Bacteria None seen Urine Casts 3-5 Influenza A (RT-PCR) Negative Influenza B (RT-PCR) Negative RSV (RT-PCR) Negative SARS-CoV-2 RNA (RT-PCR) Negative Quality VTE Prophylaxis VTE prophylaxis: mechanical ordered Hospitalist MIPS Advance Care Plan I have confirmed that the patient's Advanced Care Plan is present, code status is documented, or surrogate decision maker is listed in patient medical record.: Yes Medication Reconciliation I have utilized all available resources to obtain, update and review the patients current medications (includes all prescriptions, OTC, herbals, cannabis, and nutritional supplements).: Yes
[2024-10-01] MEDS: SODIUM CHLORIDE 0.9% IV 1,000 ML 75 ML IV CONT (16:37)
[2024-10-01] MEDS: MELATONIN 3 MG TABLET PO (20:59)
[2024-10-01] MEDS: SENNOSIDES 8.6 MG TABLET PO (20:59)
[2024-10-01] MEDS: ASPIRIN 81 MG ENTERIC TABLET PO (20:59)
[2024-10-01] MEDS: FAMOTIDINE 20 MG TABLET PO (20:59)
[2024-10-02] VITALS (10 sets, daily range): BP systolic 94–120; BP diastolic 53–59; PULSE 54–70; RESP 13–18; TEMP 36.2–36.5; O2SAT 95–99
[2024-10-02 06:41] LABS: Hematocrit 35.4 % (37.0-47.0); Hemoglobin 11.4 g/dL (12.0-15.0); Mean Corpuscular HGB Conc 32.2 g/dl (32-36); Mean Corpuscular Volume 99.4 fl (80-100); Mean Platelet Volume 11.3 fl (7.4-10.4); Platelet Count Result 285 k/mm3 (150-375); Red Blood Count 3.56 M/mm3 (4.2-5.4); Red Cell Distribution Width 13.2 % (11.5-14.5); White Blood Count 15.2 K/mm3 (4.5-10.0)
[2024-10-02] MEDS: oxyCODONE HCL (*CRX) 5 MG TAB IR PO ×3 (06:45→21:38)
[2024-10-02 06:58] LABS: Alanine Aminotransferase 74 U/L (6-35); Alkaline Phosphatase 117 U/L (38-126); Anion Gap 7 mmol/L (4-12); Aspartate Amino Transferase 55 U/L (14-36); Bilirubin,Total 0.9 mg/dL (0.2-1.3); Blood Urea Nitrogen 43 mg/dL (7-17); Calcium 8.8 mg/dL (8.4-10.2); Carbon Dioxide 31 mmol/L (22-30); Chloride 95 mmol/L (98-107); Estimated CRCL calculation 32 ml/min; Estimated Glomerular Filt Rate 43; Glucose 102 mg/dL (65-110); Potassium 4.4 mmol/L (3.4-5.0); Sodium 133 mmol/L (137-145)
[2024-10-02] MEDS: polyethylene glycoL 3350 17 GM POWD.PACK PO (08:09)
[2024-10-02] MEDS: ACETAMINOPHEN 325 MG TABLET 650 MG PO (08:09)
[2024-10-02] MEDS: DOCUSATE SODIUM 100 MG CAPSULE PO (08:09)
[2024-10-02] MEDS: APIXABAN 5 MG TABLET PO ×2 (08:10→21:38)
[2024-10-02] MEDS: POTASSIUM CHLORIDE 20 MEQ ER TABLET PO (08:10)
[2024-10-02] MEDS: FUROSEMIDE 40 MG TABLET PO (08:10)
[2024-10-02] MEDS: METOPROLOL TARTRATE 50 MG TAB PO ×2 (08:11→21:38)
[2024-10-02] MEDS: AMIODARONE HCL 200 MG TABLET PO (08:11)
[2024-10-02 11:32] LABS: Lactic Acid Reflex 0.9 mmol/L (0.7-2.0)
[2024-10-02 11:36] LABS: CRP 6.3 mg/dL (<1.0)
[2024-10-02 11:42] LABS: Erythrocyte Sedimentation Rate 52 mm/hr (0-20)
[2024-10-02] MEDS: levoFLOXacin 750 MG TABLET PO (12:10)
[2024-10-02] MEDS: SODIUM CHLORIDE 0.9% IV 1,000 ML 75 ML IV CONT (12:10)
[2024-10-02] MEDS: SIMETHICONE 125 MG CHEW TAB PO (12:10)
[2024-10-02 12:22] LABS: Procalcitonin 0.2 ng/mL
[2024-10-02] MEDS: ASPIRIN 81 MG ENTERIC TABLET PO (21:37)
[2024-10-02] MEDS: FAMOTIDINE 20 MG TABLET PO (21:38)
[2024-10-02] MEDS: MELATONIN 3 MG TABLET PO (21:38)
[2024-10-02] MEDS: SENNOSIDES 8.6 MG TABLET PO (21:38)
[2024-10-03] VITALS (11 sets, daily range): BP systolic 105–124; BP diastolic 55–62; PULSE 56–80; RESP 12–18; TEMP 36.6–36.9; O2SAT 97; BMI 29.3
[2024-10-03] MEDS: ROSUVASTATIN 5 MG TABLET PO (01:03)
[2024-10-03] MEDS: ACETAMINOPHEN 325 MG TABLET 650 MG PO (01:04)
[2024-10-03] MEDS: oxyCODONE HCL (*CRX) 5 MG TAB IR PO ×3 (03:00→21:01)
[2024-10-03] MEDS: SODIUM CHLORIDE 0.9% IV 1,000 ML 75 ML IV CONT (03:00)
[2024-10-03 08:24] LABS: Hematocrit 31.9 % (37.0-47.0); Hemoglobin 10.3 g/dL (12.0-15.0); Mean Corpuscular HGB Conc 32.3 g/dl (32-36); Mean Corpuscular Hemoglobin 31.6 pg (26-34); Mean Corpuscular Volume 97.9 fl (80-100); Mean Platelet Volume 11.3 fl (7.4-10.4); Platelet Count Result 278 k/mm3 (150-375); Red Blood Count 3.26 M/mm3 (4.2-5.4); White Blood Count 11.8 K/mm3 (4.5-10.0)
[2024-10-03 08:49] LABS: Alanine Aminotransferase 79 U/L (6-35); Albumin Level 2.6 g/dL (3.5-5.1); Alkaline Phosphatase 120 U/L (38-126); Anion Gap 6 mmol/L (4-12); Aspartate Amino Transferase 61 U/L (14-36); Bilirubin,Total 0.7 mg/dL (0.2-1.3); Blood Urea Nitrogen 33 mg/dL (7-17); Calcium 8.6 mg/dL (8.4-10.2); Carbon Dioxide 28 mmol/L (22-30); Chloride 99 mmol/L (98-107); Estimated CRCL calculation 37 ml/min; Estimated Glomerular Filt Rate 50; Glucose 101 mg/dL (65-110); Potassium 3.9 mmol/L (3.4-5.0); Sodium 133 mmol/L (137-145)
[2024-10-03] MEDS: DOCUSATE SODIUM 100 MG CAPSULE PO ×2 (09:11→16:15)
[2024-10-03] MEDS: METOPROLOL TARTRATE 50 MG TAB PO ×2 (09:11→21:02)
[2024-10-03] MEDS: APIXABAN 5 MG TABLET PO ×2 (09:12→21:02)
[2024-10-03] MEDS: AMIODARONE HCL 200 MG TABLET PO (09:12)
[2024-10-03] MEDS: POTASSIUM CHLORIDE 20 MEQ ER TABLET PO (09:12)
[2024-10-03] MEDS: FUROSEMIDE 40 MG TABLET PO (09:12)
--- NOTE | 2024-10-03 14:11 | PM.IMPN ---
Progress Note: A&P Assessment and Plan (1) Bilateral sacral insufficiency fracture: Qualifiers: Encounter type: subsequent encounter Code(s): M84.48XA - Pathological fracture, other site, initial encounter for fracture Status: Acute Assessment and Plan: - Significant pain noted, pt/ot evaluation pending. - Ortho evaluated. Conservatively managed (2) Fracture of right inferior pubic ramus: Code(s): S32.591A - Other specified fracture of right pubis, initial encounter for closed fracture Status: Acute Assessment and Plan: . (3) Hypoxia: Code(s): R09.02 - Hypoxemia Status: Acute Assessment and Plan: -Acute hypoxic resp. failure - No hx of similar, currently on 2L. On chronic anticoagulation - PE unlikely. Infiltrate on CXR, likely infectious. -Continue doxycycline and Cefdinir. Monitor oxygen saturation since the patient is on pain medication. (4) Pneumonia: Code(s): J18.9 - Pneumonia, unspecified organism Status: Acute Assessment and Plan: - Abx with doxycycline initiated, will add cefdinir for additional oral agent to better cover cap pathogens and d/t severity of hypoxia on presentation. Plan at least 5 day course. - Continue doxycycline and cefdinir (5) Paroxysmal atrial fibrillation: Code(s): I48.0 - Paroxysmal atrial fibrillation Status: Acute Assessment and Plan: - Stable rate. Cont. current medications and anticoagulation. 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 (7) Hypertension: Code(s): I10 - Essential (primary) hypertension Status: Acute Assessment and Plan: - Stable bp, cont. current. (8) Chronic kidney disease, stage 3: Code(s): N18.30 - Chronic kidney disease, stage 3 unspecified Status: Acute Assessment and Plan: - Stable renal function. Trend. Plan Kelly Bar is an 89 year old female with pmh atrial fibrillation presenting one week s/p fall with pubic rami fractures and new onset hypoxia with infiltrate on cxr and leukocytosis. Improving lab markers, remains on 2L. Subjective Date/time seen: 10/02/24 14:11 Interval history: Patient started on levofloxacin and ordered a blood culture. Leukocytosis possibly due to reactive. As per my T patient sometimes has incidence of hypoxemia. Performed CT which shows pulmonary embolism but mass possibly venous malformation versus malignancy. Patient needs to follow up with oncologist as an outpatient for PET scan. Discussed with Dr. Weiner who agrees to see the patient as outpatient Review of Systems Review of Systems: 12 systems were reviewed and are negative except for as per HPI. All systems reviewed & are unremarkable except as noted in HPI and below Exam Narrative: GENERAL APPEARANCE: Appears to be in no acute distress. HEAD: normocephalic atraumatic EYES: PERRL, EOMI. Vision grossly intact. ENT: Hearing grossly intact, no nasal discharge NECK: Neck supple, trachea midline. CARDIAC: Normal S1/S2. Rhythm is regular. No murmurs, rubs, or gallops. No cyanosis or pallor. Extremities are warm and well perfused. LUNGS: Slightly coarse bilateral midlung hardin. Respirations even and unlabored. 93% 2L during my exam. ABDOMEN: BS positive x 4 quadrants. Soft, nondistended, nontender. No guarding or rebound. MSK: No joint tenderness/swelling, fair strength in all extremities. PERIPHERAL VASCULAR: Peripheral pulses palpable. Normal perfusion, cap refill <2 seconds. NEURO: Follows commands. No focal deficits. SKIN: [place] without lesions or eruptions. PSYCH: Stable, no paranoia or delusional thinking. Objective Data Vital Signs Vital Signs: Vital Signs - 24 hr 10/02/24 16:00 10/02/24 20:00 10/02/24 20:00 Temperature Pulse Rate 61 64 Respiratory Rate Blood Pressure Pulse Oximetry 99 Oxygen Delivery Nasal Cannula Oxygen Flow Rate 2 10/02/24 21:58 10/03/24 00:00 10/03/24 04:00 Temperature 97.2 F L Pulse Rate 67 59 L 56 L Respiratory Rate 14 Blood Pressure 120/57 L Pulse Oximetry 99 Oxygen Delivery Oxygen Flow Rate 10/03/24 05:42 10/03/24 08:00 10/03/24 08:00 Temperature 97.9 F Pulse Rate 63 63 Respiratory Rate 12 Blood Pressure 124/55 L Pulse Oximetry 97 97 Oxygen Delivery Nasal Cannula Oxygen Flow Rate 2 10/03/24 09:11 10/03/24 09:12 10/03/24 12:03 Temperature Pulse Rate 62 62 70 Respiratory Rate Blood Pressure Pulse Oximetry Oxygen Delivery Oxygen Flow Rate Intake/Output Intake/Output: Intake & Output 09/30/24 10/01/24 10/02/24 10/03/24 23:59 23:59 23:59 23:59 Intake Total 480 247 654 6039 Output Total 721 746 3203 350 Balance -120 319 -270 1520 Meds/Results Medications: Active Medications Generic Name Dose Route Start Last Admin Trade Name Freq PRN Reason Stop Dose Admin Acetaminophen 650 mg 09/25/24 12:31 10/03/24 01:04 Acetaminophen 325 Mg Tablet PO 650 mg Q4H PRN Administration Mild Pain (1-3) or Fever Amiodarone HCl 200 mg 09/26/24 09:00 10/03/24 09:12 Amiodarone Hcl 200 Mg Tablet PO 200 mg DAILY ILAN Administration Apixaban 5 mg 09/25/24 21:00 10/03/24 09:12 Apixaban 5 Mg Tablet PO 5 mg Q12HR ILAN Administration Aspirin 81 mg 09/26/24 21:00 10/02/24 21:37 Aspirin 81 Mg Enteric Tablet PO 81 mg HS ILAN Administration Docusate Sodium 100 mg 09/27/24 17:00 10/03/24 09:11 Docusate Sodium 100 Mg Capsule PO 100 mg BID ILAN Administration Famotidine 20 mg 09/25/24 21:00 10/02/24 21:38 Famotidine 20 Mg Tablet PO 20 mg HS ILAN Administration Furosemide 40 mg 09/26/24 09:00 10/03/24 09:12 Furosemide 40 Mg Tablet PO 40 mg DAILY ILAN Administration Sodium Chloride 1,000 mls @ 75 mls/hr 10/02/24 11:15 10/03/24 03:00 Normal Saline Iv IV CONT 75 mls/hr .[id number] ILAN Administration Levofloxacin 750 mg 10/02/24 11:00 10/02/24 12:10 Levofloxacin 750 Mg Tablet PO 750 mg Q48H ILAN Administration Melatonin 3 mg 09/26/24 22:25 10/02/24 21:38 Melatonin 3 Mg Tablet PO 3 mg HS ILAN Administration Metoprolol Tartrate 50 mg 09/25/24 21:00 10/03/24 09:11 Metoprolol Tartrate 50 Mg Tab PO 50 mg Q12H ILAN Administration Morphine Sulfate 4 mg 09/26/24 12:25 09/28/24 18:50 Morphine Sulfate (*Crx) 4 Mg/Ml Inj IV PUSH 4 mg Q4H PRN Administration Pain Rated 7-10 Ondansetron HCl 4 mg 09/25/24 12:31 09/30/24 11:45 Ondansetron Inj 4 Mg/2 Ml Vial IV PUSH 4 mg Q4H PRN Administration Nausea Oxycodone HCl 5 mg 09/27/24 11:03 10/03/24 11:44 Oxycodone Hcl (*Crx) 5 Mg Tab Ir PO 5 mg Q4H PRN Administration Pain Rated 4-6 Polyethylene Glycol 17 gm 09/28/24 09:00 10/03/24 13:01 Polyethylene Glycol 3350 17 Gm Powd.Pack PO Not Given QAM [facility] Potassium Chloride 20 meq 09/26/24 09:00 10/03/24 09:12 Potassium Chloride 20 Meq Er Tablet PO 20 meq DAILY [facility] Administration Rosuvastatin Calcium 5 mg 09/25/24 21:00 10/03/24 01:03 Rosuvastatin 5 Mg Tablet PO 5 mg [email or web address] [email or web address] Administration Senna 8.6 mg 09/26/24 21:00 10/02/24 21:38 Sennosides 8.6 Mg Tablet PO 8.6 mg HS [facility] Administration Simethicone 125 mg 10/02/24 11:54 10/02/24 12:10 Simethicone 125 Mg Chew Tab PO 125 mg QID PRN Administration gas pain Vitamin D 1,500 units 10/02/24 09:00 Cholecalciferol 1,000 Units Tablet PO WEEKLY [facility] Radiology Results: ITS Impressions Pelvis CT 09/25/24 11:00 IMPRESSION: 1. Minimally displaced fractures of the bilateral sacral ala and extending across the S2 vertebral body. 2. Minimally displaced fracture at the junction of the right pubic body and the superior and inferior pubic rami. Abdomen X-Ray 09/29/24 14:36 IMPRESSION: Nonspecific, nonobstructive bowel gas pattern. Chest X-Ray 10/01/24 11:06 IMPRESSION: 1. Chronic elevation of right hemidiaphragm with mild atelectasis at right lung base. Chest CTA 10/01/24 15:59 IMPRESSION: 1. No pulmonary embolus. 2. Atelectasis in the lungs, worse at right lung base. 3. 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 Malignancy is not excluded. Comparison with any old outside imaging or a PET/CT is recommended. Labs Labs: Laboratory Results - last 24 hr 10/03/24 08:10 WBC 11.8 H RBC 3.26 L Hgb 10.3 L Hct 31.9 L MCV 97.9 MCH 31.6 MCHC 32.3 RDW 13.0 Plt Count 278 MPV 11.3 H Sodium 133 L Potassium 3.9 Chloride 99 Carbon Dioxide 28 Anion Gap 6 BUN 33 H D Creatinine 1.04 H Estim Creat Clear Calc 37 Estimated GFR 50 L Glucose 101 Calcium 8.6 Total Bilirubin 0.7 AST 61 H ALT 79 H Alkaline Phosphatase 120 Total Protein 6.0 L Albumin 2.6 L Quality VTE Prophylaxis VTE prophylaxis: mechanical ordered Hospitalist MIPS Advance Care Plan I have confirmed that the patient's Advanced Care Plan is present, code status is documented, or surrogate decision maker is listed in patient medical record.: Yes Medication Reconciliation I have utilized all available resources to obtain, update and review the patients current medications (includes all prescriptions, OTC, herbals, cannabis, and nutritional supplements).: Yes
--- NOTE | 2024-10-03 14:13 | PM.IMPN ---
Progress Note: A&P Assessment and Plan (1) Bilateral sacral insufficiency fracture: Qualifiers: Encounter type: subsequent encounter Code(s): M84.48XA - Pathological fracture, other site, initial encounter for fracture Status: Acute Assessment and Plan: - Significant pain noted, pt/ot evaluation pending. - Ortho evaluated. Conservatively managed (2) Fracture of right inferior pubic ramus: Code(s): S32.591A - Other specified fracture of right pubis, initial encounter for closed fracture Status: Acute Assessment and Plan: . (3) Hypoxia: Code(s): R09.02 - Hypoxemia Status: Acute Assessment and Plan: -Acute hypoxic resp. failure - No hx of similar, currently on 2L. On chronic anticoagulation - PE unlikely. Infiltrate on CXR, likely infectious. -Continue doxycycline and Cefdinir. Monitor oxygen saturation since the patient is on pain medication. (4) Pneumonia: Code(s): J18.9 - Pneumonia, unspecified organism Status: Acute Assessment and Plan: - Abx with doxycycline initiated, will add cefdinir for additional oral agent to better cover cap pathogens and d/t severity of hypoxia on presentation. Plan at least 5 day course. - Continue doxycycline and cefdinir (5) Paroxysmal atrial fibrillation: Code(s): I48.0 - Paroxysmal atrial fibrillation Status: Acute Assessment and Plan: - Stable rate. Cont. current medications and anticoagulation. 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 (7) Hypertension: Code(s): I10 - Essential (primary) hypertension Status: Acute Assessment and Plan: - Stable bp, cont. current. (8) Chronic kidney disease, stage 3: Code(s): N18.30 - Chronic kidney disease, stage 3 unspecified Status: Acute Assessment and Plan: - Stable renal function. Trend. Plan Kelly Bar is an 89 year old female with pmh atrial fibrillation presenting one week s/p fall with pubic rami fractures and new onset hypoxia with infiltrate on cxr and leukocytosis. Improving lab markers, remains on 2L. Subjective Date/time seen: 10/03/24 14:13 Interval history: Patient WBCs trending down after starting levofloxacin. Even though her increased WBC possibly due to reactive we ordered blood culture which is negative. No evidence of any UTI. As mentioned yearly patient needs to follow up with oncologist for possible mass likely venous small bone formation versus malignancy. Dr. Weiner agrees to see her and will order PET scan. Review of Systems Review of Systems: 12 systems were reviewed and are negative except for as per HPI. All systems reviewed & are unremarkable except as noted in HPI and below Exam Narrative: GENERAL APPEARANCE: Appears to be in no acute distress. HEAD: normocephalic atraumatic EYES: PERRL, EOMI. Vision grossly intact. ENT: Hearing grossly intact, no nasal discharge NECK: Neck supple, trachea midline. CARDIAC: Normal S1/S2. Rhythm is regular. No murmurs, rubs, or gallops. No cyanosis or pallor. Extremities are warm and well perfused. LUNGS: Slightly coarse bilateral midlung hardin. Respirations even and unlabored. 93% 2L during my exam. ABDOMEN: BS positive x 4 quadrants. Soft, nondistended, nontender. No guarding or rebound. MSK: No joint tenderness/swelling, fair strength in all extremities. PERIPHERAL VASCULAR: Peripheral pulses palpable. Normal perfusion, cap refill <2 seconds. NEURO: Follows commands. No focal deficits. SKIN: [place] without lesions or eruptions. PSYCH: Stable, no paranoia or delusional thinking. Objective Data Vital Signs Vital Signs: Vital Signs - 24 hr 10/02/24 16:00 10/02/24 20:00 10/02/24 20:00 Temperature Pulse Rate 61 64 Respiratory Rate Blood Pressure Pulse Oximetry 99 Oxygen Delivery Nasal Cannula Oxygen Flow Rate 2 10/02/24 21:58 10/03/24 00:00 10/03/24 04:00 Temperature 97.2 F L Pulse Rate 67 59 L 56 L Respiratory Rate 14 Blood Pressure 120/57 L Pulse Oximetry 99 Oxygen Delivery Oxygen Flow Rate 10/03/24 05:42 10/03/24 08:00 10/03/24 08:00 Temperature 97.9 F Pulse Rate 63 63 Respiratory Rate 12 Blood Pressure 124/55 L Pulse Oximetry 97 97 Oxygen Delivery Nasal Cannula Oxygen Flow Rate 2 10/03/24 09:11 10/03/24 09:12 10/03/24 12:03 Temperature Pulse Rate 62 62 70 Respiratory Rate Blood Pressure Pulse Oximetry Oxygen Delivery Oxygen Flow Rate Intake/Output Intake/Output: Intake & Output 0210/01/24 10/02/24 10/03/24 23:59 23:59 23:59 23:59 Intake Total 480 928 746 7972 Output Total 674 720 3951 350 Balance -120 319 -270 1520 Meds/Results Medications: Active Medications Generic Name Dose Route Start Last Admin Trade Name Freq PRN Reason Stop Dose Admin Acetaminophen 650 mg 09/25/24 12:31 10/03/24 01:04 Acetaminophen 325 Mg Tablet PO 650 mg Q4H PRN Administration Mild Pain (1-3) or Fever Amiodarone HCl 200 mg 09/26/24 09:00 10/03/24 09:12 Amiodarone Hcl 200 Mg Tablet PO 200 mg DAILY ILAN Administration Apixaban 5 mg 09/25/24 21:00 10/03/24 09:12 Apixaban 5 Mg Tablet PO 5 mg Q12HR ILAN Administration Aspirin 81 mg 09/26/24 21:00 10/02/24 21:37 Aspirin 81 Mg Enteric Tablet PO 81 mg HS ILAN Administration Docusate Sodium 100 mg 09/27/24 17:00 10/03/24 09:11 Docusate Sodium 100 Mg Capsule PO 100 mg BID ILAN Administration Famotidine 20 mg 09/25/24 21:00 10/02/24 21:38 Famotidine 20 Mg Tablet PO 20 mg HS ILAN Administration Furosemide 40 mg 09/26/24 09:00 10/03/24 09:12 Furosemide 40 Mg Tablet PO 40 mg DAILY ILAN Administration Sodium Chloride 1,000 mls @ 75 mls/hr 10/02/24 11:15 10/03/24 03:00 Normal Saline Iv IV CONT 75 mls/hr .[id number] ILAN Administration Levofloxacin 750 mg 10/02/24 11:00 10/02/24 12:10 Levofloxacin 750 Mg Tablet PO 750 mg Q48H ILAN Administration Melatonin 3 mg 09/26/24 22:25 10/02/24 21:38 Melatonin 3 Mg Tablet PO 3 mg HS ILAN Administration Metoprolol Tartrate 50 mg 09/25/24 21:00 10/03/24 09:11 Metoprolol Tartrate 50 Mg Tab PO 50 mg Q12H ILAN Administration Morphine Sulfate 4 mg 09/26/24 12:25 09/28/24 18:50 Morphine Sulfate (*Crx) 4 Mg/Ml Inj IV PUSH 4 mg Q4H PRN Administration Pain Rated 7-10 Ondansetron HCl 4 mg 09/25/24 12:31 09/30/24 11:45 Ondansetron Inj 4 Mg/2 Ml Vial IV PUSH 4 mg Q4H PRN Administration Nausea Oxycodone HCl 5 mg 09/27/24 11:03 10/03/24 11:44 Oxycodone Hcl (*Crx) 5 Mg Tab Ir PO 5 mg Q4H PRN Administration Pain Rated 4-6 Polyethylene Glycol 17 gm 09/28/24 09:00 10/03/24 13:01 Polyethylene Glycol 3350 17 Gm Powd.Pack PO Not Given QAM [facility] Potassium Chloride 20 meq 09/26/24 09:00 10/03/24 09:12 Potassium Chloride 20 Meq Er Tablet PO 20 meq DAILY [facility] Administration Rosuvastatin Calcium 5 mg 09/25/24 21:00 10/03/24 01:03 Rosuvastatin 5 Mg Tablet PO 5 mg [email or web address] [facility] Administration Senna 8.6 mg 09/26/24 21:00 10/02/24 21:38 Sennosides 8.6 Mg Tablet PO 8.6 mg HS [facility] Administration Simethicone 125 mg 10/02/24 11:54 10/02/24 12:10 Simethicone 125 Mg Chew Tab PO 125 mg QID PRN Administration gas pain Vitamin D 1,500 units 10/02/24 09:00 Cholecalciferol 1,000 Units Tablet PO WEEKLY [facility] Radiology Results: ITS Impressions Pelvis CT 09/25/24 11:00 IMPRESSION: 1. Minimally displaced fractures of the bilateral sacral ala and extending across the S2 vertebral body. 2. Minimally displaced fracture at the junction of the right pubic body and the superior and inferior pubic rami. Abdomen X-Ray 09/29/24 14:36 IMPRESSION: Nonspecific, nonobstructive bowel gas pattern. Chest X-Ray 10/01/24 11:06 IMPRESSION: 1. Chronic elevation of right hemidiaphragm with mild atelectasis at right lung base. Chest CTA 10/01/24 15:59 IMPRESSION: 1. No pulmonary embolus. 2. Atelectasis in the lungs, worse at right lung base. 3. 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 Malignancy is not excluded. Comparison with any old outside imaging or a PET/CT is recommended. Labs Labs: Laboratory Results - last 24 hr 10/03/24 08:10 WBC 11.8 H RBC 3.26 L Hgb 10.3 L Hct 31.9 L MCV 97.9 MCH 31.6 MCHC 32.3 RDW 13.0 Plt Count 278 MPV 11.3 H Sodium 133 L Potassium 3.9 Chloride 99 Carbon Dioxide 28 Anion Gap 6 BUN 33 H D Creatinine 1.04 H Estim Creat Clear Calc 37 Estimated GFR 50 L Glucose 101 Calcium 8.6 Total Bilirubin 0.7 AST 61 H ALT 79 H Alkaline Phosphatase 120 Total Protein 6.0 L Albumin 2.6 L Quality VTE Prophylaxis VTE prophylaxis: mechanical ordered Hospitalist MIPS Advance Care Plan I have confirmed that the patient's Advanced Care Plan is present, code status is documented, or surrogate decision maker is listed in patient medical record.: Yes Medication Reconciliation I have utilized all available resources to obtain, update and review the patients current medications (includes all prescriptions, OTC, herbals, cannabis, and nutritional supplements).: Yes
[2024-10-03] MEDS: SIMETHICONE 125 MG CHEW TAB PO (16:15)
[2024-10-03] MEDS: MELATONIN 3 MG TABLET PO (21:02)
[2024-10-03] MEDS: ASPIRIN 81 MG ENTERIC TABLET PO (21:02)
[2024-10-03] MEDS: SENNOSIDES 8.6 MG TABLET PO (21:02)
[2024-10-03] MEDS: FAMOTIDINE 20 MG TABLET PO (21:02)
[2024-10-04] VITALS (9 sets, daily range): BP systolic 102–110; BP diastolic 55–64; PULSE 57–75; RESP 16–20; TEMP 36–37.2; O2SAT 93–97
[2024-10-04] MEDS: oxyCODONE HCL (*CRX) 5 MG TAB IR PO ×2 (05:09→15:53)
[2024-10-04 07:29] LABS: Hematocrit 30.4 % (37.0-47.0); Hemoglobin 9.7 g/dL (12.0-15.0); Mean Corpuscular HGB Conc 31.9 g/dl (32-36); Mean Corpuscular Hemoglobin 31.6 pg (26-34); Mean Platelet Volume 11.5 fl (7.4-10.4); Platelet Count Result 262 k/mm3 (150-375); Red Blood Count 3.07 M/mm3 (4.2-5.4); White Blood Count 11.1 K/mm3 (4.5-10.0)
[2024-10-04 07:49] LABS: Alanine Aminotransferase 79 U/L (6-35); Albumin Level 2.5 g/dL (3.5-5.1); Alkaline Phosphatase 119 U/L (38-126); Anion Gap 4 mmol/L (4-12); Aspartate Amino Transferase 59 U/L (14-36); Bilirubin,Total 0.6 mg/dL (0.2-1.3); Blood Urea Nitrogen 29 mg/dL (7-17); Calcium 8.4 mg/dL (8.4-10.2); Carbon Dioxide 30 mmol/L (22-30); Chloride 100 mmol/L (98-107); Estimated CRCL calculation 34 ml/min; Estimated Glomerular Filt Rate 46; Glucose 95 mg/dL (65-110); Potassium 3.7 mmol/L (3.4-5.0); Sodium 134 mmol/L (137-145)
[2024-10-04] MEDS: METOPROLOL TARTRATE 50 MG TAB PO (08:26)
[2024-10-04] MEDS: AMIODARONE HCL 200 MG TABLET PO (08:26)
[2024-10-04] MEDS: FUROSEMIDE 40 MG TABLET PO (08:26)
[2024-10-04] MEDS: POTASSIUM CHLORIDE 20 MEQ ER TABLET PO (08:27)
[2024-10-04] MEDS: APIXABAN 5 MG TABLET PO (08:29)
[2024-10-04 10:23] LABS: Reticulocyte Percent 2.59 % (0.7-4.3); Reticulocytes Absolute 0.08 10^6/uL (0.02-0.10)
[2024-10-04 10:26] LABS: Bilirubin,Total 0.6 mg/dL (0.2-1.3); Lactate Dehydrogenase 242 U/L (120-246)
[2024-10-04 10:35] LABS: Transferrin 138 mg/dL (206-381)
[2024-10-04 10:43] LABS: Iron 27 ug/dL (37-170)
[2024-10-04 10:53] LABS: Percent Iron Saturation 14 % (20-50)
[2024-10-04] MEDS: levoFLOXacin 750 MG TABLET PO (11:10)
[2024-10-04 11:39] LABS: Folic Acid 8.1 ng/mL (2.76->20); Vitamin B12 > 1000.0 pg/mL (239-931)
--- NOTE | 2024-10-04 12:08 | PCPTNOTE ---
On 10/04/24, the student, CEE Ballesteros, provided care and completed [facility] documentation on this patient. I have reviewed the student's documentation and agree with the findings.
[2024-10-04 13:23] LABS: SARS-CoV-2 RNA PCR Negative (Negative)
[2024-10-06 04:04] LABS: Haptoglobin 326 mg/dL (43-212)
== END 2024-10-04 16:00 | DRG 551 ==
LOC: ANHED 11:04 → ANH2MED 13:05 → ANH3MEDSUR 15:24
PROVIDERS: Nurse Practitioner Family; Physician Assistant; Admitting Provider Hospitalist; Emergency Provider Emergency Medicine; PCP Nurse Practitioner Family; Visit Provider General Practice
DX: S32.10XA Unspecified fracture of sacrum, initial encounter for closed fracture (principal); J18.9 Pneumonia, unspecified organism; J96.01 Acute respiratory failure with hypoxia; S32.591A Other specified fracture of right pubis, initial encounter for closed fracture; K92.2 Gastrointestinal hemorrhage, unspecified; R74.01 Elevation of levels of liver transaminase levels; I12.9 Hypertensive chronic kidney disease with stage 1 through stage 4 chronic kidney disease, or unspecified chronic kidney disease; N18.30 Chronic kidney disease, stage 3 unspecified; R93.89 Abnormal findings on diagnostic imaging of other specified body structures; I48.0 Paroxysmal atrial fibrillation; E78.5 Hyperlipidemia, unspecified; M19.90 Unspecified osteoarthritis, unspecified site; K21.9 Gastro-esophageal reflux disease without esophagitis; W00.0XXA Fall on same level due to ice and snow, initial encounter; Z87.442 Personal history of urinary calculi; Z79.01 Long term (current) use of anticoagulants; Z85.828 Personal history of other malignant neoplasm of skin; Z87.891 Personal history of nicotine dependence; Z90.49 Acquired absence of other specified parts of digestive tract; Z90.710 Acquired absence of both cervix and uterus; Z98.49 Cataract extraction status, unspecified eye; Z20.822 Contact with and (suspected) exposure to COVID-19
CPT/HCPCS: 36415; 71045; 71275; 72192; 74018; 80048; 80053; 81001; 82247; 82248; 82274; 82607; 82728; 82746; 82948; 83010; 83540; 83550; 83605; 83615; 83735; 83880; 84145; 84466; 85025; 85027; 85046; 85610; 85652; 85730; 86140; 86880; 87040; 87634; 87635; 87636; 87637; 93005; 94640; 96374; 96375; 97110; 97162; 97165; 97530; 97535; 99285; A9270; G0378; J1940; J2270; J2405; J7030; Q9967

== ENCOUNTER 2024-12-02 13:42 | Emergency (ER) | payer MEDICARE, SELFPAY ==
--- NOTE | ~2024-12-02 | CT_ITS ---
EXAMINATION: CT brain wo con DATE: 12/02/2024 14:37 INDICATION: Anticoagulated patient post fall TECHNIQUE: Computed tomography (CT) of the head was performed without intravenous contrast. Sagittal and coronal reconstructions were performed. The mA was adjusted according to patient size. Iterative reconstruction technique was employed. The dose-length product was 605.33 mGy-cm. COMPARISON: head CT dated 09/22/2024 FINDINGS: No fracture. No acute intracranial hemorrhage, acute infarction or abnormal extra axial fluid collect ion. There is mild scattered white matter hypoattenuation consistent with chronic small vessel ischem ic disease. Symmetric prominence of the sulci consistent with mild age-appropriate diffuse cerebral v olume loss. Ventricles are normal and symmetric. No mass/mass effect. Changes of bilateral intraocula r lens replacement. The orbits, paranasal sinuses and mastoid air cells are normal. Intracranial calc ified cerebral atherosclerosis is noted. IMPRESSION: 1. No fracture or acute intracranial process. 2. Age-related changes including mild diffuse volume loss and mild scattered white matter hypoattenua tion consistent with chronic small vessel ischemic disease. Reviewed, dictated and finalized at location B. IMPRESSION: 1. No fracture or acute intracranial process. 2. Age-related changes including mild diffuse volume loss and mild scattered wh ite matter hypoattenuation consistent with chronic small vessel ischemic diseas e.
--- NOTE | ~2024-12-02 | CT_ITS ---
History: Ground-level fall PROCEDURE: CT cervical spine without intravenous contrast. COMPARISON: None TECHNIQUE: Multiple contiguous axial images of the cervical spine were performed without the administration of i ntravenous contrast. DLP: 222 mGy-cm FINDINGS: Straightening of the normal curvature of the cervical spine is identified, likely muscular in origin. Significant degenerative disease is identified with osteophyte formation, disc space narrowing, endpl ate changes and facet arthropathy. No acute fractures are present. The bilateral lung apices are unremarkable. No soft tissue abnormality is present. The airway is patent Impression: Significant degenerative disease, without acute fracture. Reviewed, dictated and finalized at location A. Impression: Significant degenerative disease, without acute fracture.
[2024-12-02 14:14] VITALS: BP 119/69; PULSE 71; RESP 15; TEMP 36.9; O2SAT 96
--- NOTE | 2024-12-02 15:32 | ED_ITS ---
HPI - Fall General Chief Complaint: Fall Stated Complaint: fall - right eye injury Time Seen by Provider: 12/02/24 15:32 Focused HPI: This is a 89 year old female that presents to the ER for a fall yesterday. Reports she tripped and hit her head on the door frame. She did not lose consciousness. Denies prodromal symptoms. Denies vision changes, vomiting, numbness, weakness. GENERAL: Elderly, well-nourished, and in no acute distress. HEAD: Normocephalic, atraumatic. CHEST: Clear to auscultation. ?No respiratory distress. HEART: Regular rate and rhythm.? NEURO: ?Alert and oriented x3. Patient screened in triage and initial orders placed.? ?Additional care and disposition to be based upon?diagnostic testing and treatment. Related Data Home Medications ?Medication ?Instructions ?Recorded ?Confirmed ?Last Taken ?Type aspirin 81 mg tablet 81 mg PO HS 12/11/23 11/14/24 09/24/24 History cholecalciferol (vitamin D3) 25 1,500 unit PO WEEKLY 12/11/23 11/14/24 09/24/24 History mcg (1,000 unit) tablet (Vitamin D3) cranberry fruit 400 mg capsule 400 mg PO DAILY 12/11/23 11/14/24 09/25/24 History famotidine 20 mg tablet 20 mg PO HS 12/11/23 11/14/24 09/24/24 History rosuvastatin 5 mg tablet 5 mg PO HS 12/11/23 11/14/24 09/23/24 History cyanocobalamin (vitamin B-12) 100 100 mcg PO DAILY 01/23/24 11/14/24 09/25/24 History mcg tablet metoprolol tartrate 100 mg tablet 50 mg PO Q12H 01/23/24 11/14/24 09/25/24 History potassium chloride 20 mEq 20 meq PO DAILY 01/23/24 11/14/24 09/25/24 History tablet,extended release amiodarone 200 mg tablet 200 mg PO DAILY 09/25/24 11/14/24 09/25/24 History amoxicillin 875 mg-potassium 1 tablet PO BID 11/13/24 11/14/24 Unknown History clavulanate 125 mg tablet azelastine 137 mcg (0.1 %) nasal 137 mcg intranasal Q12H 11/13/24 11/14/24 Unknown History spray azithromycin 250 mg tablet See Rx Instructions PO .COMPLEX 11/13/24 11/14/24 Unknown History benzonatate 200 mg capsule 200 mg PO TID 11/13/24 11/14/24 Unknown History fluticasone propionate 50 1 inh inhalation Q12H 11/13/24 11/14/24 Unknown History mcg/actuation blister powder for inhalation furosemide 20 mg tablet 20 mg PO DAILY 11/13/24 11/14/24 Unknown History hydrocodone 5 mg-acetaminophen 325 1 tablet PO QHS PRN 11/13/24 11/14/24 Unknown History mg tablet loratadine 10 mg tablet (Claritin) 10 mg PO DAILY 11/13/24 11/14/24 Unknown History nystatin 100,000 unit/mL oral 5 ml PO Q6-8H 11/13/24 11/14/24 Unknown History suspension Allergies Allergy/AdvReac Type Severity Reaction Status Date / Time cephalexin Allergy Rash Verified 12/02/24 14:18 clindamycin Allergy Rash Verified 12/02/24 14:18 alendronate sodium (From AdvReac Unknown Verified 12/02/24 14:18 Fosamax) atorvastatin AdvReac Muscle Pain Verified 12/02/24 14:18 losartan AdvReac Unknown Verified 12/02/24 14:18 pravastatin AdvReac Muscle Pain Verified 12/02/24 14:18 Review of Systems Review of Systems: All systems reviewed & are unremarkable except as noted in HPI and below Constitutional: Constitutional: Denies fever(s) and Denies weakness Eyes: Eyes: Denies change in vision and Denies photophobia Cardiovascular: Cardiovascular: Denies chest pain Respiratory: Respiratory: Denies dyspnea Gastrointestinal: Gastrointestinal: Denies vomiting Neurologic: Denies focal weakness, Denies numbness and Denies weakness [facility] Past Medical History Medical History Chronic kidney disease, stage 3 Chronic anticoagulation Paroxysmal atrial fibrillation Dyslipidemia Osteoarthritis Skin cancer Shingles Kidney stones Hypertension Surgical History Surgical History History of cataract extraction History of cholecystectomy History of hysterectomy Social History Social History Social History: Surrogate medical decision maker: Jose Atkins, spouse. Code status: Full code. Years smoked: 25 Smoking status: Former smoker Second hand tobacco smoke exposure: No Alcohol intake: never Substance use: never Substance use type: does not use Do You Feel Safe in your Home?: Yes Lack of Transportation: No Lack of Food: Never True Current Housing: I Have Housing Concerned About Future Housing: No Difficulty Paying Gas/Electric Bills: No Difficulty Paying for Meds: No Currently Unemployed: No Education: High School Diploma/GED Difficulty w/ Childcare or Family Care: No Living arrangements: with family Spiritual care concerns: No Exam Const: General: healthy appearing, no acute distress and alert Nutritional Appearance: well nourished Orientation/consciousness: patient oriented x3 HENMT: Head: contusion (around right orbit) Ears: external ears normal, TM's normal bilaterally and EAC's normal Face/Nose/Sinus: Normal external nose present Mouth: Yes Normal oral and palatal mucosa present and Yes moist mucous membranes Throat: posterior oropharynx normal Eyes: Conjunctivae: conjunctivae normal Pupils: Equal, round and reactive pupils present EOM: EOMs intact bilaterally Resp: Effort & Inspection: normal respiratory effort Auscultation: clear to auscultation bilaterally Cardio: Rate: regular rate Rhythm: regular rhythm Skin: General skin exam: normal color Rashes: no rashes Neuro: General: patient oriented x3, moves all extremities, no focal motor deficits and CN's II-XI intact bilaterally Speech: normal speech Extrem: General: normal to inspection Psych: Affect: normal affect Attitude: cooperative Course Course Emergency Course: patient and family updated on workup and agree with plan of care Vital Signs Vital signs: Vital Signs Temperature 98.4 F 12/02/24 14:14 Pulse Rate 71 12/02/24 14:14 Respiratory Rate 15 12/02/24 14:14 Blood Pressure 119/69 12/02/24 14:14 Pulse Oximetry 96 12/02/24 14:14 Oxygen Delivery Room Air 12/02/24 14:14 Temperature 98.4 F 12/02/24 14:14 Pulse Rate 71 12/02/24 14:14 Respiratory Rate 15 12/02/24 14:14 Blood Pressure 119/69 12/02/24 14:14 Pulse Oximetry 96 12/02/24 14:14 Oxygen Delivery Room Air 12/02/24 14:14 MDM - Fall MDM Narrative Medical decision making narrative: Patient presents to the ER after a fall yesterday with head injury. She is neurologically intact. Her vitals are normal. She does have bruising around the right eye. Denies any vision changes, her EOMs are intact, no pain with EOM. Reports the impact was actually on her forehead, suspect bruising has fallen into the eye. She is on a blood thinner. CT brain and cervical spine are without acute findings. Patient and her family member were updated on her workup and agree with plan of care. She is to follow up primary provider. She was given warnings to return to the ER Differential Diagnosis Differential diagnosis: Likely concussion without loss of consciousness and other (facial fracture, subdural hematoma, cervical spine fracture) Imaging Data Radiologist's impression: ITS Impressions Cervical Spine CT 12/02/24 14:50 Impression: Significant degenerative disease, without acute fracture. Head CT 12/02/24 14:50 IMPRESSION: 1. No fracture or acute intracranial process. 2. Age-related changes including mild diffuse volume loss and mild scattered white matter hypoattenuation consistent with chronic small vessel ischemic disease. Critical Care Time Critical Care Time Critical Care Time: No Discharge Plan Discharge Clinical Impression: Head injury, Black eye of right side Patient Disposition: Home Condition: Stable Instructions: Black Eye (ED), Head Injury (ED) Additional Instructions: Return to the ER if you experience fever, vision changes, vomiting, weakness, numbness, or any other symptoms that are concerning to you Rest. Ice to the area. Tylenol as needed for pain Follow up with your primary doctor and eye doctor Patient Language: Iranian Prescriptions: No Action hydrocodone-acetaminophen 5-325 mg tablet 1 tablet PO QHS PRN amoxicillin-pot clavulanate 875-125 mg tablet 1 tablet PO BID azelastine 137 mcg (0.1 %) spray,non-aerosol 137 mcg intranasal Q12H Rx Instructions: administer into each nostril azithromycin 250 mg tablet See Rx Instructions PO .COMPLEX Rx Instructions: For 250 mg dose pack: take 500 mg today (day 1), then 250 mg for 4 days (days 2-5) PO benzonatate 200 mg capsule 200 mg PO TID loratadine [Claritin] 10 mg tablet 10 mg PO DAILY fluticasone propionate 50 mcg/actuation blister with device 1 inh inhalation Q12H nystatin 100,000 unit/mL suspension 5 ml PO Q6-8H Rx Instructions: swish and swallow famotidine 20 mg tablet 20 mg PO HS rosuvastatin 5 mg tablet 5 mg PO HS Patient Comments: takes monday cranberry fruit 400 mg Capsule 400 mg PO DAILY aspirin 81 mg Tablet 81 mg PO HS cholecalciferol (vitamin D3) [Vitamin D3] 25 mcg (1,000 unit) Tablet 1,500 unit PO WEEKLY Patient Comments: tuesdays and saturdays Rx Instructions: pt takes twice weekly Eliquis 5 mg Tablet 5 mg PO Q12HR Qty: 120 0RF cyanocobalamin (vitamin B-12) 100 mcg Tablet 100 mcg PO DAILY potassium chloride 20 mEq Tablet Extended Release 20 meq PO DAILY metoprolol tartrate 100 mg tablet 50 mg PO Q12H furosemide 20 mg tablet 20 mg PO DAILY amiodarone 200 mg tablet 200 mg PO DAILY Follow-up/Referrals: Selina,Gaby Garcia, [employer] [Primary Care Provider] -
--- OUTSIDE RECORDS SUMMARY | 2024-12-02 15:33 | XMS_ITS | Referral Summary ---
Author Organization [facility] Address [address] [place] [address] Care Team Providers Care Clinical Transformation Specialist Name Role Phone BrooklynJesi herreraLizzie DO Unavailable [phone] Ru Stanford MD Unavailable [phone] Librado Zabala DPM Unavailable [phone] Jesus Daly MD Unavailable [phone] Eugenia Ornelas NP Primary Care Provider [phone] Encounters Date Type Department Care Team Description 12/02/2024 Nurse Triage [facility] Primary Care at [address] [phone] Eugenia Ornelas NP 11/14/2024 Telephone [facility] Primary Care at [address] [phone] Eugenia Ornelas NP Medical Question/Miscellaneou s 11/11/2024 11:30 AM CDT Office Visit [facility] Primary Care at [address] [phone] Eugenia Ornelas NP BMI 26.0-26.9,adult (Primary Dx); 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; Opacity of lung on imaging study; Hyperlipidemia, unspecified hyperlipidemia type; Decreased GFR; Chronic heart failure with preserved ejection fraction (HCC); Gastroesophageal reflux disease without esophagitis; Paroxysmal atrial fibrillation (HCC); Seasonal allergic rhinitis due to pollen; Oral thrush; SNHL (sensory-neural hearing loss), asymmetrical 11/07/2024 Results Follow-Up [facility] Convenient Care at [address] [phone] Charmaine Costello, CIARA 11/07/2024 11:20 AM CDT Ancillary Procedure [facility] Imaging at [address] [phone] Acute cough 11/07/2024 10:45 AM CDT Office Visit [facility] Care at [address] [phone] Charmaine Costello NP Thrush (Primary Dx); Acute cough; Pneumonia of left lower lobe due to infectious organism 10/17/2024 Documentation [facility] Primary Care at [address] [phone] Eugenia Ornelas NP 10/02/2024 Orders Only [facility] Primary Care at [address] [phone] Chloe Kumar MD 09/30/2024 Orders Only [facility] Primary Care at [address] [phone] Chloe Kumar MD 09/25/2024 Orders Only [facility] Primary Care at [address] [phone] Chloe Kumar MD 09/24/2024 Nurse Triage [facility] Primary Care at [address] [phone] Shraddha Rader MD 09/23/2024 Orders Only [facility] Primary Care at [address] [phone] Chloe Kumar MD from Last 3 Months Allergies Active Allergy Reactions Criticality Noted Date Comments Atorvastatin Cough Low Cephalexin Rash Medium Reaction: Rash, Clindamycin Rash Medium 05/15/2023 Alendronate Joint pain,Fatigue Low 09/28/2023 Losartan Other (See comments) Low Reaction: ?angioedema, Pravastatin Muscle pain Medium 05/28/2018 Medications loratadine (CLARITIN) 10 mg tablet take 1 tablet (10MG) by ORAL route every day 10 0 010 Active B-complex with vitamin C capsule Ac tive cholecalciferol (VITAMIN D-3) 2000 unit tablet Act kasia cranberry extract 200 mg capsule Activ e cyanocobalamin (Vitamin B-12) 100 mcg tablet Activ e axwanlp-trvc-iflu o-xspy-brxrct 100 mg-150 mg- 50 mg-150 mg capsule Take by mouth Active fluticasone propionate (FLONASE) 50 mcg/actuation nasal spray Administer 2 sprays into each nostril daily 15.8 mL 3 021 Active aspirin 81 mg enteric coated tablet Take 1 tablet by mouth once daily 90 tablet 022 Active azelastine (ASTELIN) 137 mcg (0.1 %) nasal sprayIndications: Sinus congestion Administer 1 spray into each nostril 2 (two) times a day Use in each nostril as directed 30 mL 3 023 Active triamcinolone (KENALOG) 0.1 % cream APPLY CREAM EXTERNALLY TWICE DAILY NEEDED TO RASH ON LEG 024 Active potassium chloride ER 10 mEq CR tabletIndications :JVD (jugular venous distension),Other ascites,Acute heart failure with preserved ejection fraction (HCC) Take 2 tablets by mouth once daily 180 tablet 024 Active amiodarone (PACERONE) 200 mg tablet Take 1 tablet (200 mg total) by mouth daily Take 400mg twice a day for 2 days, then 200mg twice a day for 4 days, then 200mg daily there after. 40 tablet 11 024 Active Additional Information Patient taking differently:200 mg oral Daily,(No instructions reported), Reported on 11/11/2024 metoprolol (LOPRESSOR) 50 mg immediate release tabletIndications :Permanent atrial fibrillation (HCC) Take 1 tablet (50 mg total) by mouth 2 (two) times a day 60 tablet 11 024 Active benzonatate (TESSALON) 200 mg capsuleIndication s:Acute cough Take 1 capsule (200 mg total) by mouth 3 (three) times a day as needed for cough 30 capsule 025 Active HYDROcodone-aceta minophen (NORCO) 5-325 mg per tabletIndications :Pain Take 1 tablet by mouth every 8 (eight) hours as needed for pain 60 tablet 025 Active furosemide (LASIX) 20 mg tabletIndications :Chronic heart failure with preserved ejection fraction (HCC) Take 1 tablet (20 mg total) by mouth daily 60 tablet 1 025 2025 Active apixaban (Eliquis) 5 mg tablet Take 1 tablet by mouth twice daily 200 tablet 1 025 Active famotidine (PEPCID) 20 mg tabletIndications :Laryngeal spasm Take 1 tablet by mouth nightly 90 tablet 025 Active rosuvastatin (CRESTOR) 5 mg tabletIndications :Hyperlipidemia, unspecified hyperlipidemia type TAKE 1 TABLET BY MOUTH EVERY OTHER DAY 45 tablet 1 Active furosemide (LASIX) 40 mg tablet Take 1 tablet (40 mg total) by mouth daily 2024 Discontinued(A lternate therapy) Eliquis 5 mg tablet Take 1 tablet by mouth twice daily 200 tablet 025 2024 Discontinued famotidine (PEPCID) 20 mg tabletIndications :Laryngeal spasm Take 1 tablet by mouth nightly 90 tablet 025 2024 Discontinued rosuvastatin (CRESTOR) 5 mg tabletIndications :Hyperlipidemia, unspecified hyperlipidemia type TAKE 1 TABLET BY MOUTH EVERY OTHER DAY 45 tablet 025 2024 Discontinued oxyCODONE (ROXICODONE) 5 mg immediate release tablet Take 1 tablet (5 mg total) by mouth daily as needed 0 025 2024 Discontinued(T herapy completed) azithromycin (ZITHROMAX) 250 mg tabletIndications :Acute cough Take 2 tabs (500 mg) by mouth today, than 1 tab (250 mg) daily for 4 days. 6 tablet 025 2024 nystatin 100,000 unit/mL suspensionIndicat ions:Thrush Take 5 mL (500,000 Units total) by mouth 4 (four) times a day for 7 days Swish in mouth and swallow. 140 mL 025 2024 amoxicillin-clavu lanate (AUGMENTIN) 875-125 mg per tablet Take 1 tablet by mouth 2 (two) times a day for 10 days 20 tablet 025 2024 Active Problems Problem Noted Date Diagnosed Date Oral thrush 11/11/2024 Assessment & Plan (11/11/2024 11:58 AM CDT): Paroxysmal atrial fibrillation 04/18/2024 Assessment & Plan (11/11/2024 11:58 AM CDT): Chronic heart failure with preserved ejection fr action 12/22/2023 Assessment & Plan (11/11/2024 11:58 AM CDT): Chronic and compensated heart failure. Patient appears to be over diuresed. We will decrease Lasix to 20 mg daily. We will consider stopping Lasix at follow up appointment. Patient has no shortness a breath or lower extremity swelling. She is maintained on metoprolol 50 mg b.i.d.. Orders: furosemide (LASIX) 20 mg tablet; Take 1 tablet (20 mg total) by mouth daily Assessment & Plan (04/05/2024 2:51 PM CDT): [...] 09/28/2023 Assessment & Plan (09/28/2023 6:44 PM EDGE STAINER MACHINE): Patient with somewhat elevated fall risk score in office today. Recommended referral for physical therapy for gait imbalance training as well as fall prevent. Patient declined physical therapy referral. She does have access to a nearby fitness facility. She is encouraged to start a gradual fitness program to improve her strength and function. We will need to monitor her fall risk SNHL (sensory-neural hearing loss), asymmetrical 10/03/2022 Assessment & Plan (11/11/2024 11:58 AM CDT): Chronic condition. Bilateral hearing aids. No concerns today. Assessment & Plan (09/28/2023 6:43 PM EDGE STAINER MACHINE): Chronic. Has hearing aids. No signs of cerumen on exam in office today Assessment & Plan (10/03/2022 2:56 PM EDGE STAINER MACHINE): Obtain previous hearing test from [facility] Continue Hearing loss Seasonal allergic rhinitis due to pollen 022 Assessment & Plan (11/11/2024 11:58 AM CDT): Continue use of Claritin and Flonase. Assessment & Plan (05/16/2023 3:49 PM CDT): [...] daily, Astelin 1 spray each nostril b.i.d. Gastroesophageal reflux disease without esophagi tis 06/16/2021 Assessment & Plan (11/11/2024 11:58 AM CDT): Continue Pepcid 20 mg daily. Assessment & Plan (04/05/2024 2:51 PM CDT): Chronic. Symptoms controlled. Continue famotidine Assessment & Plan (09/28/2023 6:43 PM EDGE STAINER MACHINE): Chronic. Symptoms mostly controlled with famotidine. Continue. [...] nightly Assessment & Plan (07/12/2021 1:17 PM EDGE STAINER MACHINE): Stable, improving Patient reports she continues to have hoarseness of voice, decreased amount of throat clearing Continue famotidine 20 mg nightly, continue with behavioral changes; eating at least 4 hours before bedtime, reduce time high complexity meals; if no relief will evaluate need to increase dose of H2 sunny Assessment & Plan (06/16/2021 9:22 AM EDGE STAINER MACHINE): Pepcid 20 mg at bedtime LPR discussed [...] fractures Assessment & Plan (09/28/2023 6:41 PM EDGE STAINER MACHINE): Chronic. Due for updated bone density. Will [...] calcium daily through diet and supplements, vitamin-D 5760-7322 units daily Assessment & Plan (07/12/2021 1:18 PM EDGE STAINER MACHINE): Stable, continue with calcium and vitamin-D supplements Continue to monitor risk of fall or fracture Assessment & Plan (05/25/2021 4:28 PM CDT): Has worsening, with -5% bone density since last DEXA scan Continue calcium supplements, vitamin-D supplements At this time defers bisphosphonate therapy Primary osteoarthritis involving multiple joints 05/25/2021 Assessment & Plan (09/28/2023 6:43 PM EDGE STAINER MACHINE): Chronic. Recommended use of [id number] acetaminophen. Caution with NSAIDs given history of [...] exam Assessment & Plan (09/28/2023 6:42 PM EDGE STAINER MACHINE): Patient reports she follows with dermatology and gets yearly skin exam. They are monitor some lesions but has not needed to cut anything off in a while. She does get periodic liquid nitrogen treatment for probable pre cancerous lesions. She is scheduled to follow up with the cast shell grinder for spot on her leg in the near future Assessment & Plan (05/16/2023 3:48 PM CDT): Well controlled; excision multiple lesions; annual visits with Dermatology; denies any new lesions of concerns Assessment & Plan (04/25/2022 12:09 PM CDT): Stable, continues to follow with dermatology; recent excision of skin lesion on left upper chest Will continue to monitor Essential hypertension 12/21/2013 Assessment & Plan (04/05/2024 2:49 PM CDT): Chronic. Controlled. Continue metoprolol. Encouraged healthy diet, exercise and lifestyle Assessment & Plan (12/27/2023 5:30 PM CDT): Chronic. Compensated. Continue metoprolol. Remain off of amlodipine. Assessment & Plan (09/28/2023 6:42 PM EDGE STAINER MACHINE): Chronic. Mildly uncontrolled in office but patient [...] daily Assessment & Plan (07/12/2021 1:17 PM EDGE STAINER MACHINE): Stable, well controlled; blood pressure at target today Continue amlodipine 5 mg daily, hydrochlorothiazide 25 mg daily Assessment & Plan (05/25/2021 4:26 PM CDT): Stable well controlled, blood pressure at target today; with no evidence of orthostatics, no headaches or chest pain Continue amlodipine 5 mg daily, hydrochlorothiazide 25 mg daily, Hyperlipidemia 12/21/2013 Overview (11/12/2016): HYPERLIPIDEMIA NEC/NOS Assessment & Plan (11/11/2024 11:58 AM CDT): Continue Crestor 5 mg daily. Orders: Lipid panel; Future Assessment & Plan (04/05/2024 2:49 PM CDT): Chronic. Tolerates low-dose rosuvastatin every 48 hours. Has a history intolerance at higher dose. Continue. Encouraged healthy diet and lifestyle Assessment & Plan (09/28/2023 6:40 PM EDGE STAINER MACHINE): Chronic. Tolerates rosuvastatin. 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 This is likely due to no longer being fluid overload. Monitor daily weights. Okay to try gentle intentional weight loss due to adipose but avoid over diuresis Permanent atrial fibrillation 12/22/2023 04/18/2024 Assessment & Plan (04/05/2024 2:50 [...] upcoming appointment with Cardiology for further evaluation. Dysfunction of both eustachian tubes 10/03/2022 11/11/2024 Assessment & Plan (10/03/2022 2:56 PM EDGE STAINER MACHINE): Restart Pepcid 20 mg at bedtime Continue Flonase 2 sprays into each nostril while looking down over the sink, do not sniff in or blow nose after use for at least 30 minutes 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 09/28/2023 Overview (09/28/2023): Hx of BCC on chest Assessment & Plan (07/12/2021 1:19 PM EDGE STAINER MACHINE): Stable, patient continues to follow with dermatology [...] more points, staff should administer the PHQ-9) 2 11/11/2024 Comments No Sex and Gender Information Value Date Recorded Sex Assigned at Not on file Legal Sex Female 11:48 PM EDGE STAINER MACHINE Gender Identity Not on file Sexual Orientation Not on file Last Filed Vital Signs Vital Sign Reading Time Taken Comments Blood Pressure 114/80 11/11/2024 11:03 AM CDT Pulse 77 11/11/2024 11:03 AM CDT Temperature 37.2 C (98.9 F) 11/11/2024 11:03 AM CDT Respiratory Rate 16 11/11/2024 11:03 AM CDT Oxygen Saturation 98% 11/11/2024 11:03 AM CDT Inhaled Oxygen Concentration - - Weight 74.8 kg (165 lb) 11/11/2024 11:03 AM CDT Height 167.6 cm (5' 6 ) 11/11/2024 11:03 AM CDT Body Mass Index 26.63 11/11/2024 11:03 AM CDT Plan of Treatment Not on file Procedures Procedure Name Priority Date/Time Associated Diagnosis Comments XR CHEST PA LATERAL 2 VIEWS Schedule BORIS, Read BORIS (Appt Today, Awaiting Results) 11/07/2024 11:26 AM CDT Acute cough XR CHEST 1 VIEW Schedule Routine, Read Routine (OP Routine) 10/01/2024 7:50 AM EDGE STAINER MACHINE XR ABDOMEN AP 1 VIEW Schedule Routine, Read Routine (OP Routine) 09/29/2024 9:27 AM EDGE STAINER MACHINE XR CHEST 1 VIEW Schedule Routine, Read Routine (OP Routine) 09/25/2024 2:07 PM EDGE STAINER MACHINE XR HIP LEFT 2 OR 3 VIEWS Schedule Routine, Read Routine (OP Routine) 09/22/2024 9:59 AM EDGE STAINER MACHINE BRAIN COMPUTED TOMOGRAPHY (CT) Schedule Routine, Read Routine (OP Routine) 09/22/2024 9:57 AM EDGE STAINER MACHINE HM DEXA SCAN Routine 03/22/2024 2:36 PM CDT from Last 3 Months or Most Recently Relevant to Health Maintenance Results * XR Chest Pa Lateral 2 Views (11/07/2024 11:26 AM CDT) Anatomical Region Laterality Modality Body, Chest N/A Digital Radiogra phy 11/07/2024 5:12 PM CDT Narrative 11/07/2024 5:14 PM CDT EXAM DESCRIPTION: XR CHEST PA LATERAL 2 VIEWS REASON FOR STUDY: cough Pt complains of cough x 1 week. No chest surgery. No asthma,copd,cancer. Hx afib. No hx smoking TECHNIQUE: Frontal and lateral radiographic view(s) of the chest. COMPARISON: 06/12/2017 FINDINGS: LUNGS: There is elevation of the right hemidiaphragm. There is a new 1.5 cm focal nodular opacity in the left lung base. There are trace pleural effusions bilaterally. No pneumothorax. HEART/MEDIASTINUM: Cardiac silhouette normal in size. Mediastinal and hilar contours appear normal. LINES/TUBES: None. BONES: No acute osseous abnormality. IMPRESSION: 1. New 1.5 cm focal nodular opacity in the left lung base. Recommend further evaluation with CT chest. 2. Trace bilateral pleural effusions. 3. New elevation of the right hemidiaphragm THIS IS AN ELECTRONICALLY VERIFIED FINAL REPORT 11/07/2024 5:14 PM - Electronically signed by Barak Zarco M.D. AM T: Report ID: [id number] Reading Location: [id number] Procedure Note Barak Zarco MD - 11/07/2024 EXAM DESCRIPTION: XR CHEST PA LATERAL 2 VIEWS REASON FOR STUDY: cough Pt complains of cough x 1 week. No chest surgery. No asthma,copd,cancer.Hx afib. No hx smoking TECHNIQUE: Frontal and lateral radiographic view(s) of the chest. COMPARISON: 06/12/2017 FINDINGS: LUNGS: There is elevation of the right hemidiaphragm. There dav new 1.5 cm focal nodular opacity in the left lung base. There are trace pleural effusions bilaterally. No pneumothorax. HEART/MEDIASTINUM: Cardiac silhouette normal in size. Mediastinal andhilar contours appear normal. LINES/TUBES: None. BONES: No acute osseous abnormality. IMPRESSION: 1. New 1.5 cm focal nodular opacity in the left lung base. Recommend further evaluation with CT chest. 2. Trace bilateral pleural effusions. 3. New elevation of the right hemidiaphragm THIS IS AN ELECTRONICALLY VERIFIED FINAL REPORT 11/07/2024 5:14 PM - Electronically signed by Barak Zarco M.D. AM T: Report ID: [id number] Reading Location: [id number] Charmaine Costello NP IMG XR PROCEDURES Final Re sult * XR Chest 1 View (10/01/2024 7:50 AM EDGE STAINER MACHINE) Anatomical Region Laterality Modality Body, Chest N/A Radiographic Fay ging Historical Provider IMMary XR PROCEDURES Final R esult * XR Abdomen 1 View AP (09/29/2024 9:27 AM EDGE STAINER MACHINE) Anatomical Region Laterality Modality Body, Abdomen N/A Radiographic Fay ging Historical Provider IMG XR PROCEDURES Final R esult * XR Chest 1 View (09/25/2024 2:07 PM EDGE STAINER MACHINE) Anatomical Region Laterality Modality Body, Chest N/A Radiographic Fay ging Historical Provider IMG XR PROCEDURES Final R esult * XR Hip Left 2 or 3 Views (09/22/2024 9:59 AM EDGE STAINER MACHINE) Anatomical Region Laterality Modality Lower Extremities, Hip, Pelvis Left R adiographic Imaging Historical Provider IMG XR PROCEDURES Final R esult * BRAIN COMPUTED TOMOGRAPHY (CT) (09/22/2024 9:57 AM EDGE STAINER MACHINE) Anatomical Region Laterality Modality N/A Computed Tomogra phy Result [facility] Historical Provider IMG CT PROCEDURES Final R esult * HM DEXA SCAN (03/22/2024 2:36 PM CDT) Scribed HM Deca Scan Abnormal Result [facility] Provider HEALTH MAINTENANCE Final Result from Last 3 Months or Most Recently Relevant to [place] [address] [facility] MDCR HMO REF [facility] MEDICARE ADVANTAGE Care Teams Clinical Transformation Specialist Relationship Specialty Start Date End Date Eugenia Ornelas NP [address] [facility] [address] [place] [address] PCP - General Internal Medicine 11/11/24 Jesi Taylor DO [address] [facility] [address] [place] [address] Consulting Physician Otolaryngology 09/28/23 Ru Stanford MD [address] [place] [address] Referring Physician Dermatology 09/28/23 Librado Zabala DPM [address] [place] [id number] Podiatry 09/28/23 Jesus Daly MD [address] [place] [id number] Referring Physician Ophthalmology 09/28/23
--- OUTSIDE RECORDS SUMMARY | 2024-12-02 15:33 | XMS_ITS | Encounter Summary ---
Author Organization [facility] Address [address] [place] [address] Care Team Providers Care Helmet Binder Name Role Phone Radha Hu MD Primary Care Provider [phone] Encounter Details Date Type Department Care Team (Late st Contact Info) Description 08/14/2020 Lab Requisition [facility] Care DermPath Lab [address] [facility] [place] [id number] Blas Stanford MD [address] [facility] [place] [id number] Social History Tobacco Use Types Packs/Day Years Used Date Smoking Tobacco: Never Assessed Comments Unknown Sex and Gender Information Value Date Recorded Sex Assigned at Not on file Legal Sex Female 6:09 AM SENIOR MANUFACTURING SUPERVISOR Gender Identity Not on file Sexual Orientation Not on file documented as of this encounter Plan of Treatment Not on file documented as of this encounter Procedures Procedure Name Priority Date/Time Associated Diagnosis Comments DERMATOPATHOLOGY Routine 08/12/2020 3:33 AM SENIOR MANUFACTURING SUPERVISOR documented in this encounter Results * DERMATOPATHOLOGY (08/12/2020 3:33 AM SENIOR MANUFACTURING SUPERVISOR) Case Report Dermatopathology Report Case: [id number] Authorizing Provider: Blas Stanford MD Collected: 08/12/2020 03:33 AM Ordering Location: [facility] Care DermPath Lab Received: 08/14/2020 06:15 AM Pathologist: Tere Vaughn MD Specimen: Skin, left upper cutaneous lip 1:49 PM [facility] DERMATOP[facility]Y [facility] Final Diagnosis Specimen A. SKIN, left upper cutaneous lip: BASAL CELL CARCINOMA, INFILTRATIVE PATTERN (C44.319) 1:49 PM [facility]ERMATOP[facility] Clinical History SK vs BCC vs SCC. Path#[id number] 1:49 PM [facility] DERMATOP[facility] Gross Description Specimen A: Received is one formalin filled container labeled with the patient's name and designated left upper cutaneous lip. The specimen consists of a shave biopsy measuring 6x4x1 mm. Jar 0. 1:49 PM [facility] DERMATOPATHOLOGY [facility] Microscopic Description Specimen A. SKIN, left upper cutaneous lip: Within the dermis there are nodular aggregates of basaloid cells associated with fibromyxoid stroma and epithelial-stromal clefts. At the advancing margin of the neoplasm, there are smaller angulated nests that infiltrate the dermis. 1:49 PM [facility] DERMATOP[facility] Disclaimer An external and internal [...] purposes. Billing Codes Specimen Charges Stain Charges 11417 1 1 1:49 PM [facility] DERMATOPATHOLOGY [facility] Embedded Images 1:49 PM [facility] DERMATOPATHOLOGY LABORAT[facility] Pathology/Cytolo gy TISSUE SPECIMEN FROM SKIN / Unknown 08/12/2020 3:33 AM SENIOR MANUFACTURING SUPERVISOR 08/14/2020 6:15 AM SENIOR MANUFACTURING SUPERVISOR us Blas Stanford MD LAB - PATHOLOGY/CYTOLOGY ORDER BLOSSOM Final Result DERMATOPATHOLOGY LABORATORY [facility] - Department of Dermatology [address] [place] [id number] [place] [address] documented in this encounter Visit Diagnoses Not on filedocumented in this encounter Care Teams Helmet Binder Relationship Specialty Start Date End Date Radha Hu MD [address] [facility] [address], [place] [address] PCP - General 04/24/20 documented as of this encounter
--- OUTSIDE RECORDS SUMMARY | 2024-12-02 15:33 | XMS_ITS | Encounter Summary ---
Author Organization [facility] Healthcare Address [address] [place] [address] Care Team Providers Care Hand Roller Engraver Name Role Phone Brooklynjavier Jesi PratimaLizzie DO Unavailable [phone] Ru Stanford MD Unavailable [phone] Librado ZabalaM Unavailable [phone] Jesus Daly MD Unavailable [phone] Unknown, Notinfile Primary Care Provider Unavail able Eugenia Ornelas NP Primary Care Provider [phone] Encounter Details Date Type Department Care Team (Late st Contact Info) Description 11/07/2024 Results Follow-Up [facility] Medical Group Convenient Care at [address] [address] Charmaine Costello NP [address] [place] [address] [address] [place] [address] Social History Tobacco Use Types [...] on file Legal Sex Female 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 Gender Identity Not on file Sexual Orientation Not on file documented as of this encounter Ordered Prescriptions Prescription Sig Dispense Quantity Refills Last Filled Start Date End Date amoxicillin-clavul anate (AUGMENTIN) 875-125 mg per tablet Take 1 tablet by mouth 2 (two) times a day for 10 days 20 tablet 11/07/2024 11/17/2024 documented in this encounter Plan of Treatment Not on file documented as of this encounter Visit Diagnoses Not on filedocumented in this encounter Care Teams Hand Roller Engraver Relationship Specialty Start Date End Date Unknown, Notinfile PCP - General 11/07/24 11/10/24 Eugenia Ornelas NP [address] [facility] [address] [place] [address] PCP - General Internal Medicine 11/11/24 Jesi Taylor DO [address] [facility] [address] JON[address] [facility] [address] [place] [address] Consulting Physician Otolaryngology 09/28/23 Ru Stanford MD [address] [facility] [place] [address] Referring Physician Dermatology 09/28/23 Librado Zabala DPM [address] [facility] [place] [address] Podiatry 09/28/23 Jesus Daly MD [address] [facility] [address] [place] [address] Referring Physician Ophthalmology 09/28/23 documented as of this encounter
--- OUTSIDE RECORDS SUMMARY | 2024-12-02 15:33 | XMS_ITS | Clinical Summary ---
Author Organization [facility] Address [address] [place] [address] Care Team Providers Care Educational Director Name Role Phone Jesi Taylor DO Unavailable [phone] Ru Stanford MD Unavailable [phone] Librado ZabalaM Unavailable [phone] Jesus Daly MD Unavailable [phone] Eugenia Ornelas NP Primary Care Provider [phone] Allergies Active Allergy Reactions Criticality Noted Date [...] (Vitamin B-12) 100 mcg tablet Activ e ndgrbis-btqn-btyg a-gfij-cwbfpf 100 mg-150 mg- 50 mg-150 mg capsule [...] tablets by mouth once daily 180 tablet Active amiodarone (PACERONE) 200 mg tablet Take 1 tablet (200 mg total) by mouth daily Take 400mg twice a day for 2 days, then 200mg twice a day for 4 days, then 200mg daily there after. 40 tablet 11 Active Additional Information Patient taking differently:200 mg [...] 1 tablet by mouth nightly 90 tablet 04/23/2 025 Active rosuvastatin (CRESTOR) 5 mg tabletIndications [...] total) by mouth daily as needed 0 2024 Discontinued(T herapy completed) azithromycin (ZITHROMAX) 250 [...] a day for 10 days 20 tablet 2024 Active Problems Problem Noted Date Diagnosed [...] 09/28/2023 Assessment & Plan (09/28/2023 6:44 PM TOWEL SEWER): Patient with somewhat elevated fall risk score [...] today. Assessment & Plan (09/28/2023 6:43 PM TOWEL SEWER): Chronic. Has hearing aids. No signs of cerumen on exam in office today Assessment & Plan (10/03/2022 2:56 PM TOWEL SEWER): Obtain previous hearing test from [facility] Continue Hearing loss Seasonal allergic rhinitis [...] famotidine Assessment & Plan (09/28/2023 6:43 PM TOWEL SEWER): Chronic. Symptoms mostly controlled with famotidine. Continue. [...] nightly Assessment & Plan (07/12/2021 1:17 PM TOWEL SEWER): Stable, improving Patient reports she continues to have hoarseness of voice, decreased amount of throat clearing Continue famotidine 20 mg nightly, continue with behavioral changes; eating at least 4 hours before bedtime, reduce time high complexity meals; if no relief will evaluate need to increase dose of H2 sunny Assessment & Plan (06/16/2021 9:22 AM TOWEL SEWER): Pepcid 20 mg at bedtime LPR discussed [...] fractures Assessment & Plan (09/28/2023 6:41 PM TOWEL SEWER): Chronic. Due for updated bone density. Will [...] calcium daily through diet and supplements, vitamin-D 7308-7191 units daily Assessment & Plan (07/12/2021 1:18 PM TOWEL SEWER): Stable, continue with calcium and vitamin-D supplements Continue to monitor risk of fall or fracture Assessment & Plan (05/25/2021 4:28 PM CDT): Has worsening, with -5% bone density since last DEXA scan Continue calcium supplements, vitamin-D supplements At this time defers bisphosphonate therapy Primary osteoarthritis involving multiple joints 05/25/2021 Assessment & Plan (09/28/2023 6:43 PM TOWEL SEWER): Chronic. Recommended use of yimk-cmc-gpdzrrr acetaminophen. Caution with NSAIDs given history of [...] exam Assessment & Plan (09/28/2023 6:42 PM TOWEL SEWER): Patient reports she follows with dermatology and gets yearly skin exam. They are monitor some lesions but has not needed to cut anything off in a while. She does get periodic liquid nitrogen treatment for probable pre cancerous lesions. She is scheduled to follow up with the edi consultant for spot on her leg in the [...] amlodipine. Assessment & Plan (09/28/2023 6:42 PM TOWEL SEWER): Chronic. Mildly uncontrolled in office but patient [...] daily Assessment & Plan (07/12/2021 1:17 PM TOWEL SEWER): Stable, well controlled; blood pressure at target [...] lifestyle Assessment & Plan (09/28/2023 6:40 PM TOWEL SEWER): Chronic. Tolerates rosuvastatin. 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 Encounters Date Type Department Care Team Description 12/02/2024 Nurse Triage [facility] Primary Care at [address] [address] Eugenia Ornelas NP 11/14/2024 Telephone [facility] Primary Care at [address] [address] Eugenia Ornelas NP Medical Question/Miscellaneou s 11/11/2024 11:30 AM CDT Office Visit [facility] Primary Care at [address] [address] Eugenia Ornelas NP BMI 26.0-26.9,adult (Primary Dx); 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; Opacity of lung on imaging study; Hyperlipidemia, unspecified hyperlipidemia type; Decreased GFR; Chronic heart failure with preserved ejection fraction (HCC); Gastroesophageal reflux disease without esophagitis; Paroxysmal atrial fibrillation (HCC); Seasonal allergic rhinitis due to pollen; Oral thrush; SNHL (sensory-neural hearing loss), asymmetrical 11/07/2024 11:20 AM CDT Ancillary Procedure [facility] Imaging at [address] [phone] Acute cough 11/07/2024 10:45 AM CDT Office Visit [facility] Care at [address] [phone] Charmaine Costello, CIARA Thrush (Primary Dx); Acute cough; Pneumonia of left lower lobe due to infectious organism 11/07/2024 Results Follow-Up [facility] Care at [address] [phone] Charmaine Costello, CIARA 10/17/2024 Documentation [facility] Primary Care at [address] [phone] Eugenia Ornelas NP 10/02/2024 Orders Only [facility] Primary Care at [address] [phone] Chloe Kumar MD 09/30/2024 Orders Only [facility] Primary Care at [address] [phone] Chloe Kumar MD 09/25/2024 Orders Only [facility] Primary Care at [address] [phone] Chloe Kumar MD 09/24/2024 Nurse Triage [facility] Primary Care at [address] [phone] Shraddha Rader MD 09/23/2024 Orders Only [facility] Primary Care at [address] [phone] Chloe Kumar MD from Last 3 Months Immunizations Immunization Administration [...] 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 Varicella Overweight with body mass in dex (BMI) of 27 to 27.9 in adult 04/05/2024 Dysfunction of both eustachian tubes 10/03/2022 Family History Medical History Relation Name Comments [...] Never Tobacco Cessation:Counseling Given: Not Answered Comments:quit 1973 Alcohol Use Standard Drinks/Week Comments Yes 0 [...] on file Legal Sex Female 11:48 PM TOWEL SEWER Gender Identity Not on file Sexual Orientation Not on file Obstetrics History Para Term AB IAB SAB Ectopic Multiple Livin g Live Births 3 3 3 Date Outcome GA Total Labor Labor//3rd Weight Sex Type Anes PTL Kady A1 [...] 11/11/2024 11:03 AM CDT Plan of Treatment Health Maintenance Due Date Last Done Comments Zoster Vaccine (2 of 3) 11/02/2011 09/07/2011 DTaP/Tdap/Td Vaccine (1 - Tdap) 03/05/2015 5, 03/04/2015 Covid-19 Vaccine (4 - 2023-2 5 season) 2024 07/15/2021, 10/30/2020, 10/02/2020 Well Visit 65+ 05/15/2024 05/15/2023, 04/07, 03/10/2020, Additional history exists Depression Screening 11/11/2025 11/11/2024, 04/05/2024, 09/28/2023, Additional history exists Fall Risk Assessment 11/11/2025 11/11/2024, 04/05/2024, 09/28/2023, Additional history exists Osteoporosis Screening-Bone Density Scan [...] Read Routine (OP Routine) 10/01/2024 7:50 AM TOWEL SEWER XR ABDOMEN AP 1 VIEW Schedule Routine, Read Routine (OP Routine) 09/29/2024 9:27 AM TOWEL SEWER XR CHEST 1 VIEW Schedule Routine, Read Routine (OP Routine) 09/25/2024 2:07 PM TOWEL SEWER XR HIP LEFT 2 OR 3 VIEWS Schedule Routine, Read Routine (OP Routine) 09/22/2024 9:59 AM TOWEL SEWER BRAIN COMPUTED TOMOGRAPHY (CT) Schedule Routine, Read Routine (OP Routine) 09/22/2024 9:57 AM TOWEL SEWER HM DEXA SCAN Routine 03/22/2024 2:36 PM [...] PM - Electronically signed by Barak Zarco M.D., AM T: Report ID: [id number] Reading Location: [id number] Procedure Note Barak Zarco MD - 11/07/2024 [...] 5:14 PM - Electronically signed by Barak Yepez: 11/07/2024 5:14 PM T: Report ID: [id number] Reading Location: [id number] Result [facility] Charmaine Costello NP IMG XR PROCEDURES Final Re sult * XR Chest 1 View (10/01/2024 7:50 AM TOWEL SEWER) Anatomical Region Laterality Modality Body, Chest N/A Radiographic Fay ging Result [facility] Historical Provider IMG XR PROCEDURES Final R esult * XR Abdomen 1 View AP (09/29/2024 9:27 AM TOWEL SEWER) Anatomical Region Laterality Modality Body, Abdomen N/A Radiographic Fay ging Result [facility] Provider IMG XR PROCEDURES Final R esult * XR Chest 1 View (09/25/2024 2:07 PM TOWEL SEWER) Anatomical Region Laterality Modality Body, Chest N/A Radiographic Fay ging Result [facility] Historical Provider IMG XR PROCEDURES Final R esult * XR Hip Left 2 or 3 Views (09/22/2024 9:59 AM TOWEL SEWER) Anatomical Region Laterality Modality Lower Extremities, Hip, Pelvis Left R adiographic Imaging Result [facility] Provider IMG XR PROCEDURES Final R esult * BRAIN COMPUTED TOMOGRAPHY (CT) (09/22/2024 9:57 AM TOWEL SEWER) Anatomical Region Laterality Modality N/A Computed Tomogra phy Result [facility] Provider IMG CT PROCEDURES Final R esult * HM DEXA SCAN (03/22/2024 2:36 PM CDT) Scribed HM Deca Scan Abnormal Result [facility] Historical Provider HEALTH MAINTENANCE Final Result from Last 3 Months or Most Recently Relevant to Health Maintenance Insurance [facility] MDCR HMO REF [facility] MEDICARE ADVANTAGE Care Teams Educational Director Relationship Specialty Start Date End Date Eugenia Ornelas NP [address] [facility] [address] [place] [address] PCP - General Internal Medicine 11/11/24 Jesi Taylor DO [address] [place] [address] [address] [facility] [address] [place] [address] Consulting Physician Otolaryngology 09/28/23 Ru Stanford MD [address] [facility] [place] [address] Referring Physician Dermatology 09/28/23 Librado Zabala DPM [address] [facility] [place] [address] Podiatry 09/28/23 Jesus Daly MD [address] [address] Referring Physician Ophthalmology 09/28/23
--- OUTSIDE RECORDS SUMMARY | 2024-12-02 15:33 | XMS_ITS | Encounter Summary ---
Author Organization [facility] Address [address] [facility] [place] [address] Care Team Providers Care Art Consultant Name Role Phone Radha Hu MD Primary Care Provider [phone] Encounter Details Date Type Department Care Team (Late st Contact Info) Description 04/27/2020 Lab Requisition [facility] DermPath Lab [address] [facility] [place] [address] Blas Stanford MD [address] [facility] [place] [address] Social History Tobacco Use Types Packs/Day Years Used Date Smoking Tobacco: Never Assessed Comments Unknown Sex and Gender Information Value Date Recorded Sex Assigned at Not on file Legal Sex Female 6:09 AM HUC OB Gender Identity Not on file Sexual Orientation Not on file documented as of this encounter Plan of Treatment Not on file documented as of this encounter Procedures Procedure Name Priority Date/Time Associated Diagnosis Comments DERMATOPATHOLOGY Routine 04/24/2020 12:0 0 AM CDT documented in this encounter Results * DERMATOPATHOLOGY (04/24/2020 12:00 AM CDT) Case Report Dermatopathology Report Case: [id number] Authorizing Provider: Blas Stanford MD Collected: 04/24/2020 12:00 AM Ordering Location: [facility] DermPath Lab Received: 04/27/2020 06:16 AM Pathologist: Allyn Cheung MD Specimen: Skin, left ala 0 11:46 AM CDT DERMATOPATHOLOGY LABORATORY Final Diagnosis Specimen A. SKIN, left ala: BASAL CELL CARCINOMA, NODULAR TYPE (C44.311) 0 11:46 AM CDT DERMATOPATHOLOGY LABORATORY Clinical History BCCA. Path # [id number]. 0 11:46 AM CDT DERMATOPATHOLOGY LABORATORY Gross Description Specimen A: Received is one formalin filled container labeled with the patient's name and designated left ala. The specimen consists of a shave biopsy measuring [id number]. Jar 0. 0 11:46 AM CDT DERMATOPATHOLOGY [...] purposes. Billing Codes Specimen Charges Stain Charges [id number] 1 0 11:46 AM CDT DERMATOPATHOLOGY LABORATORY Embedded Images 0 11:46 AM CDT DERMATOPATHOLOGY LABORATORY Pathology/Cytolog y TISSUE SPECIMEN FROM SKIN / Unknown 04/24/2020 04/27/2020 6:16 AM CDT us Blas Stanford MD LAB - PATHOLOGY/CYTOLOGY ORDER BLOSSOM Final Result DERMATOPATHOLOGY LABORATORY [facility] - Department of Dermatology [address] [phone] documented in this encounter Visit Diagnoses Not on filedocumented in this encounter Care Teams Art Consultant Relationship Specialty Start Date End Date Radha Hu MD [address] [facility] [address], [place] [address] PCP - General 04/24/20 documented as of this encounter
--- OUTSIDE RECORDS SUMMARY | 2024-12-02 15:33 | XMS_ITS | Encounter Summary ---
Author Organization [facility] Healthcare Address [address] [place] [address] Care Team Providers Care Advertising Agency Manager Name Role Phone Shraddha Rader MD Primary Care Provider Jesi Taylor DO Unavailable [phone] Ru Stanford MD Unavailable [phone] Librado Zabala DPM Unavailable [phone] Jesus Daly MD Unavailable [phone] Unknown, Notinfile Primary Care Provider Unavail able Eugenia Ornelas NP Primary Care Provider [phone] Reason for Visit * Reason Onset Date Comments Leg Pain 09/24/2024 Groin Pain 09/24/2024 Encounter Details Date Type Department Care Team (Late st Contact Info) Description 09/24/2024 Nurse Triage [facility] Medical Group Primary Care at [address] [phone] Shraddha Rader MD [address] [place] [address] [address] [place] [address] Social History Tobacco Use Types [...] on file Legal Sex Female 11:48 PM COMPTROLLER Gender Identity Not on file Sexual Orientation Not on file documented as of this encounter Miscellaneous Notes * Telephone Encounter - Edna Vivas MA - 09/25/2024 2:10 PM COMPTROLLER Spoke with patient and she stated that she is currently in the hospital being evaluated for this issue. TROLLER * Telephone Encounter - Gaby Marks NP - 09/24/2024 2:52 PM CST I have not met patient, I cannot send in pain medication without evaluation. If she is in severe pain then she needs to be seen in ER again or get patient set up with Ortho for further eval. TROLLER * Telephone Encounter - Helen Morataya MA - 09/24/2024 2:42 PM COMPTROLLER Pt has an appointment with Gaby Marks NP on 10/11/24 to establish care. TROLLER * Telephone Encounter - Nichole Jaimes RN - 09/24/2024 12:46 PM COMPTROLLER Reason for Disposition Patient wants to be seen Protocols used: Leg [id number]-RP Pt repots she slipped and fell on 09/22. She was evaluated at [place] ED. She had a negative head ct [...] is requesting pain medication be sent to [facility] on file. Please advise pt Call back #[phone] Encounter routed to PCP TROLLER * Telephone Encounter - Nichole Jaimes RN - 09/24/2024 12:34 PM COMPTROLLER Regarding: slip & fell, pain in groin area and hamstring, getting her to stand is very difficult and painful fo ----- Message from Mouna Louis sent at 09/24/2024 12:32 PM COMPTROLLER ----- Symptom Based Call Chief Complaint(s): slip [...] Caller stated the patient was seen at [place] ED on Monday for fall, caller stated patient experiencing pain in groin area and hamstring, please advise. Does message need to be routed? Yes-Action Needed TROLLER documented in this encounter Plan of Treatment Not on file documented as of this encounter Visit Diagnoses Not on filedocumented in this encounter Care Teams Advertising Agency Manager Relationship Specialty Start Date End Date Shraddha Rader MD PCP - General Family Medicine 09/28/23 11/06/24 Unknown, Notinfile PCP - General 11/07/24 11/10/24 Eugenia Ornelas NP [address] [facility] [address] [place] [address] PCP - General Internal Medicine 11/11/24 Jesi Taylor DO [address] [facility] [address] [facility] [address] [place] [address] Consulting Physician Otolaryngology 09/28/23 Ru Stanford MD [address] [facility] [place] [address] Referring Physician Dermatology 09/28/23 Librado Zabala DPM [address] [facility] [place] [address] Podiatry 09/28/23 Jesus Daly MD [address] [facility] [address] [place] [address] Referring Physician Ophthalmology 09/28/23 documented as of this encounter
--- OUTSIDE RECORDS SUMMARY | 2024-12-02 15:33 | XMS_ITS | Clinical Summary ---
Author Organization [facility] Address [address] [facility] [place] [address] Care Team Providers Care Plate Preparer Name Role Phone Radha Hu MD Primary Care Provider [phone] Source Comments [facility],non-owned Affiliates and Associated Physician Practices is amultiple site organization consisting of ambulatory clinics and hospital sitesin [place], [place], [place] and [place]. This disclosure is being madepursuant to the Care Everywhere program and may not contain all information available regarding this patient. Last updated 18.[facility] Creditable Social History Tobacco Use Types Packs/Day Years Used Date Smoking Tobacco: Never Assessed Comments Unknown Sex and Gender Information Value Date Recorded Sex Assigned at Not on file Legal Sex Female 6:09 AM RN CCU Gender Identity Not on file Sexual Orientation [...] VACCINE ( - 2023-2 5 season) 2024 DEPRESSION SCREENING 08/07/2024 MEDICARE AWV CALENDAR YEAR 2024 INFLUENZA VACCINE (Season Ended) 2025 HEPATITIS B VACCINE Aged Out No longe r eligible based on patient's age to complete this topic HIB VACCINE Aged Out No longer eligi ble based on patient's age to complete this topic HPV VACCINE Aged Out No longer eligi ble based on patient's age to complete this topic MENINGOCOCCAL (Group B) VACC INE SHARED DECISION-MAKING Aged Out No longer eligibl e based on patient's age to complete this topic MENINGOCOCCAL GROUPS A/C/Y/W VACCINE Aged Out No longer eligible b ased on patient's age to complete this topic Insurance Care Teams Plate Preparer Relationship Specialty Start Date End Date Radha Hu MD [address] [facility] [address] [place] [address] PCP - General 04/24/20
--- OUTSIDE RECORDS SUMMARY | 2024-12-02 15:33 | XMS_ITS | Encounter Summary ---
Author Organization [facility] Address [address] [facility] [place] [address] Care Team Providers Care Manager Hris Name Role Phone Radha Hu MD Primary Care Provider [phone] Encounter Details Date Type Department Care Team (Late st Contact Info) Description 02/11/2022 Lab Requisition [facility] Care DermPath Lab [address] [facility] [place] [phone] Blas Stanford MD [address] [facility] [place] [id number] Social History Tobacco Use Types Packs/Day Years Used Date Smoking Tobacco: Never Assessed Comments Unknown Sex and Gender Information Value Date Recorded Sex Assigned at Not on file Legal Sex Female 6:09 AM FOREST ECOLOGY PROFESSOR Gender Identity Not on file Sexual Orientation Not on file documented as of this encounter Plan of Treatment Not on file documented as of this encounter Procedures Procedure Name Priority Date/Time Associated Diagnosis Comments DERMATOPATHOLOGY Routine 02/09/2022 12:0 0 AM CDT documented in this encounter Results * DERMATOPATHOLOGY (02/09/2022 12:00 AM CDT) Case Report Dermatopathology Report Case: [id number] Authorizing Provider: Blas Stanford MD Collected: 02/09/2022 12:00 AM Ordering Location: [facility] Care DermPath Lab Received: 02/11/2022 08:54 AM Pathologist: Tere Vaughn MD Specimen: Skin, left med. clavicular neck 2 1:14 PM CDT DERMATOPATHOLOGY LABORATORY Final Diagnosis Specimen A. SKIN, left med. clavicular neck: BASAL CELL CARCINOMA, NODULAR TYPE (C44.41) 2 1:14 PM CDT DERMATOPATHOLOGY LABORATORY Clinical History BCCA. Path#[id number] 2 1:14 PM CDT DERMATOPATHOLOGY LABORATORY Gross [...] characteristic determined by the Dermatopathology Laboratory at [facility], directed by Dr. Radha Cheung. These tests need not be, and therefore are not, approved by the [place] Food and Drug Administration. The tests are used for clinical purposes. Billing Codes Specimen Charges Stain Charges [id number] 1 2 1:14 PM CDT DERMATOPATHOLOGY LABORATORY Embedded Images 2 1:14 PM CDT DERMATOPATHOLOGY LABORATORY Pathology/Cytolog y TISSUE SPECIMEN FROM SKIN / Unknown 02/09/2022 02/11/2022 8:54 AM CDT us Blas Stanford MD LAB - PATHOLOGY/CYTOLOGY ORDER BLOSSOM Final Result DERMATOPATHOLOGY LABORATORY [facility] - Department of Dermatology [address] [phone] documented in this encounter Visit Diagnoses Not on filedocumented in this encounter Care Teams Manager Hris Relationship Specialty Start Date End Date Radha Hu MD [address] [facility] [address], [place] [address] PCP - General 04/24/20 documented as of this encounter
--- OUTSIDE RECORDS SUMMARY | 2024-12-02 15:33 | XMS_ITS | Encounter Summary ---
Author Organization [facility] Healthcare Address [address] [place] [address] Care Team Providers Care Life Sciences Teacher Name Role Phone Claudia Jesi Stokes DO Unavailable [phone] Ru Stanford MD Unavailable [phone] Librado Zabala DPM Unavailable [phone] Jesus Daly MD Unavailable [phone] Eugenia Ornelas NP Primary Care Provider [phone] Reason for Visit * Reason Onset Date Comments Medical Question/Miscellaneous 11/14/2024 Encounter Details Date Type Department Care Team (Late st Contact Info) Description 11/14/2024 Telephone [facility] Medical Group Primary Care at [address] [address] Eugenia Ornelas NP [address] [place] [address] [address] [place] [address] Medical Question/Miscellaneous Social History Tobacco Use Types Packs/Day Years [...] on file Legal Sex Female 11:48 PM LEGAL SUPPORT SPECIALIST Gender Identity Not on file Sexual Orientation Not on file documented as of this encounter Miscellaneous Notes * Telephone Encounter - Suzette Deshpande MA - 11/14/2024 2:47 PM CDT FYI * Telephone Encounter - Abbie Nicole - 11/14/2024 1:43 PM CDT Medical Question/Miscellaneous Caller???s Concern: Patient's daughter Birgit (On HIPAA) called back to le CIARA Ornelas know that Dr Shraddha Rader Started Patient on Lasix 12/22/2023 Does message need to be routed? Yes-FYI Only documented in this encounter Plan of Treatment Not on file documented as of this encounter Visit Diagnoses Not on filedocumented in this encounter Care Teams Life Sciences Teacher Relationship Specialty Start Date End Date Eugenia Ornelas NP [address] [facility] [address] [place] [address] PCP - General Internal Medicine 11/11/24 Jesi Taylor DO [address] [place] [address] DR ROBERT [facility]ell [facility] [address] [place] [address] Consulting Physician Otolaryngology 09/28/23 Ru Stanford MD [address] [facility] [place] [address] Referring Physician Dermatology 09/28/23 Librado Zabala DPM [address] [facility] [place] [address] Podiatry 09/28/23 Jesus Daly MD [address] [address] Referring Physician Ophthalmology 09/28/23 documented as of this encounter
--- OUTSIDE RECORDS SUMMARY | 2024-12-02 15:33 | XMS_ITS | Encounter Summary ---
Author Organization [facility] Healthcare Address [address] [place] [address] Care Team Providers Care Wood Window And Door Craftsman Name Role Phone Shraddha Rader MD Primary Care Provider Jesi Taylor DO Unavailable [phone] Ru Stanford MD Unavailable [phone] Librado ZabalaM Unavailable [phone] Jesus Daly MD Unavailable [phone] Unknown, Notinfile Primary Care Provider Unavail able Eugenia Ornelas NP Primary Care Provider [phone] Encounter Details Date Type Department Care Team (Late st Contact Info) Description 12/11/2023 Orders Only [facility] Health Information Management [address] [place] [address] Scanning, Provider Social History Tobacco Use [...] on file Legal Sex Female 11:48 PM HAND PACKER/PACKAGER Gender Identity Not on file Sexual Orientation [...] on filedocumented in this encounter Care Teams Wood Window And Door Craftsman Relationship Specialty Start Date End Date Shraddha Rader MD PCP - General Family Medicine 09/28/23 11/06/24 Unknown, Notinfile PCP - General 11/07/24 11/10/24 Eugenia Ornelas NP [address] [facility] [address] [place], [place] [id number] PCP - General Internal Medicine 11/11/24 Jesi Taylor DO [address] [facility] [address] [facility] [address] [place] [address] Consulting Physician Otolaryngology 09/28/23 Ru Stanford MD [address] [facility] [place] [address] Referring Physician Dermatology 09/28/23 Librado Zabala DPM [address] [facility] [place] [address] Podiatry 09/28/23 Jesus Daly MD [address] [facility] [facility] [address] [place] [address] Referring Physician Ophthalmology 09/28/23 documented as of this encounter
--- OUTSIDE RECORDS SUMMARY | 2024-12-02 15:33 | XMS_ITS | CONTINUITY OF CARE DOCUMENT ---
Author Name pedro luis cloud Address Unknown Organization [facility] Address [address] [place] [address] [address] [place] [address] Phone [phone] Care Team Providers Care Manager Of Information Name Role Phone pedro luis cloud Unavailable Unavailable INSURANCE PROVIDERS Payer name Policy type / Coverage type Perkins red democrat ID [facility] MEDICARE COMPLETE POS HMO Other [id number]
--- OUTSIDE RECORDS SUMMARY | 2024-12-02 15:33 | XMS_ITS | Encounter Summary ---
Author Organization [facility] Address [address] [place] [address] Care Team Providers Care Sizer Machine Name Role Phone Radha Hu MD Primary Care Provider [phone] Encounter Details Date Type Department Care Team (Late st Contact Info) Description 04/22/2022 Lab Requisition [facility] DermPath Lab [address] [facility], [place] [address] Blas Stanford MD [address] [facility] [place], [place] [id number] Social History Tobacco Use Types Packs/Day Years Used Date Smoking Tobacco: Never Assessed Comments Unknown Sex and Gender Information Value Date Recorded Sex Assigned at Not on file Legal 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 Gender Identity Not on file Sexual Orientation Not on file documented as of this encounter Plan of Treatment Not on file documented as of this encounter Procedures Procedure Name Priority Date/Time Associated Diagnosis Comments DERMATOPATHOLOGY Routine 04/20/2022 12:0 0 AM CDT documented in this encounter Results * DERMATOPATHOLOGY (04/20/2022 12:00 AM CDT) Case Report Dermatopathology Report Case: [id number] Authorizing Provider: Blas Stanford MD Collected: 04/20/2022 12:00 AM Ordering Location: [facility] DermPath Lab Received: 04/22/2022 09:37 AM Pathologist: Allyn Cheung MD Specimen: Skin, left mid clavicular neck 2 5:38 PM CDT DERMATOPATHOLOGY LABORATORY Final Diagnosis Specimen A. 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 Check margins.Path#[id number] 2 5:38 PM CDT DERMATOPATHOLOGY LABORATORY Gross Description Specimen A: Received is one formalin filled container labeled with the patient's name and designated left mid clavicular neck. The specimen consists of a non-oriented ellipse of skin measuring 79p94l2 mm. The epidermal surface is unremarkable. The [...] purposes. Billing Codes Specimen Charges Stain Charges 79343 1 2 5:38 PM CDT DERMATOPATHOLOGY LABORATORY Embedded Images 2 5:38 PM CDT DERMATOPATHOLOGY LABORATORY Pathology/Cytolog y TISSUE SPECIMEN FROM SKIN / Unknown 04/20/2022 04/22/2022 9:37 AM CDT us Blas Stanford MD LAB - PATHOLOGY/CYTOLOGY ORDER BLOSSOM Final Result DERMATOPATHOLOGY LABORATORY [facility] - Department of Dermatology [facility] Medicine [address] [place] [address], [address] [phone] documented in this encounter Visit Diagnoses Not on filedocumented in this encounter Care Teams Sizer Machine Relationship Specialty [place] [address] [place] [address] PCP - General 04/24/20 documented as of this encounter
--- OUTSIDE RECORDS SUMMARY | 2024-12-02 15:33 | XMS_ITS | Continuity of Care Document ---
Author Organization [facility] Address [address] [facility] [address] [place] [address] Phone Care Team Providers Care Cloth Shrinker Name Role Phone Ansari OD, Damon Unavailable Unavailable Procedures Procedure Date Eye Exam & Treatment Refraction Eye Exam & Treatment Refraction Eye Exam & Treatment CL Replacement - [employer] Other 007 Tax - Medical Advance Directives Directive Yes / No Effective Date File Name No Information Encounters Encounter Description Practice Location Reason(s) For Visit Diagnoses Date Provider Providers Copied on Encounter [facility], [address] [place] [address] [address], [place], [place], [id number], [place] tel:[phone] [facility] [place] No Information 2-201 0 Ansari OD Damon. [address] [facility] [place] , [address], [place], [place], [facility], [place]. tel:[phone] [facility], [address] [place] [address] [address], [place], [place], [address], [place] tel:[phone] [facility] [place] No Information 0-200 9 Ansari OD Damon. [address] [facility] [address], [address], [place], [address], [place]. tel:[phone] [facility], [address] [place] [address] [address], [place], [place], [address], [place] tel:[phone] SEC [facility] No Information Nov-0 2-200 8 Ansari OD Damon. [address] [facility] , [address], [place], [address], [place]. tel:[phone] [facility], [address] [facility] [address], [place], [place], [address], [place] tel:[phone] SEC [facility] No Information 4-200 7 Ansari OD Damon. [address] [facility] , [address], [place], [address], [place]. tel:[phone] Family History Family Member Type Diagnosis Age At Onset No Information Payers Payer name Insurance type Covered alliance party ID Authorsamira kristy(s) [employer] Plan [id number] Social History Type Description Quantity Date Captured [...]
--- OUTSIDE RECORDS SUMMARY | 2024-12-02 15:33 | XMS_ITS | Encounter Summary ---
Author Organization [facility] Healthcare Address [address] [place] [address] Care Team Providers Care Burner Technician Name Role Phone Brooklynjavier Jesi PratimaLizzie DO Unavailable [phone] Ru Stanford MD Unavailable [phone] Librado Zabala DPM Unavailable [phone] Jesus Daly MD Unavailable [phone] Eugenia Ornelas NP Primary Care Provider Reason for Visit * Reason Onset Date Comments eye 12/02/2024 Encounter Details Date Type Department Care Team (Late st Contact Info) Description 12/02/2024 Nurse Triage [facility] Medical Group Primary Care at [address] [address] Eugenia Ornelas NP [address] [place] [address] [address] [place] [address] Social History Tobacco Use Types [...] on file 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 Eye is swollen shut. Has been using ice. No headache, neck pain, blurred vision,or dizziness. Only painful to touch. Did reach out to her retail performance specialist but was told she would need to be seen by pcp first. Appt scheduled today in the office for evaluation. Home care reviewed. Advised pt to call back if symptoms worsen or with any other concerns/questions. Pt verbalized understanding. Reason for Disposition Eyelids swollen shut Protocols used: Eye Urirxh-Cvnsf-QM * Telephone Encounter - Giana Sosa RN - 12/02/2024 8:58 AM CDT Regarding: Fell in the afternoon, lost balance in bathroom and hit top right of eye (completely close) ----- Message from Rosmery Andujar sent at 12/02/2024 8:45 AM CDT ----- Symptom Based Call Chief Complaint(s): Fell in the afternoon, lost balance in bathroom and hit top right of eye (completely close) Duration: Yesterday around 2 pm What type of symptom(s) is the patient experiencing? Red Flag. Is the patient concerned they are experiencing a medical emergency requiring an ambulance? No Additional Comments: The eye is completely closed, its tgi-[id number]-npls in color; she has been icing it. Contacted specialist about her eye and they informed her that she need to be seen by Primary Care first. Does message need to be routed? Yes-Action Needed documented in this encounter Plan of Treatment Not on file documented as of this encounter Visit Diagnoses Not on filedocumented in this encounter Care Teams Burner Technician Relationship Specialty Start Date End Date Eugenia Ornelas NP [address] [place] [address] [place] [address] PCP - General Internal Medicine 11/11/24 Jesi Taylor DO [address] [facility] [address] [place] [address] [place] [address] Consulting Physician Otolaryngology 09/28/23 Ru Stanford MD [address] [facility] [place] [address] Referring Physician Dermatology 09/28/23 Librado Zabala DPM [address] [facility] [place] [address] Podiatry 09/28/23 Jesus Daly MD [address] [facility] [facility] [place] [address] [place] [address] Referring Physician Ophthalmology 09/28/23 documented as of this encounter
--- OUTSIDE RECORDS SUMMARY | 2024-12-02 17:51 | XMS_ITS | Encounter Summary ---
Author Organization [facility] Address [address] [place] [address] Care Team Providers Care Churn Tender Name Role Phone Radha Hu MD Primary Care Provider [phone] Encounter Details Date Type Department Care Team (Late st Contact Info) Description 08/14/2020 Lab Requisition [facility] DermPath Lab [address] [facility], [place] [address] Blas Stanford MD [address] [facility] [place], [place] [id number] Social History Tobacco Use Types Packs/Day Years Used Date Smoking Tobacco: Never Assessed Comments Unknown Sex and Gender Information Value Date Recorded Sex Assigned at Not on file Legal Sex Female 6:09 AM 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 Gender Identity Not on file Sexual Orientation Not on file documented as of this encounter Plan of Treatment Not on file documented as of this encounter Procedures Procedure Name Priority Date/Time Associated Diagnosis Comments DERMATOPATHOLOGY Routine 08/12/2020 3:33 AM 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 documented in this encounter Results * DERMATOPATHOLOGY (08/12/2020 3:33 AM 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) Case Report Dermatopathology Report Case: [id number] Authorizing Provider: Blas Stanford MD Collected: 08/12/2020 03:33 AM [facility] D[facility] Lab Received: 08/14/2020 06:15 AM Pathologist: Tere Vaughn MD Specimen: Skin, left upper cutaneous lip 1:49 PM [facility] DERMATOPATHOLOGY LABORATORY Final Diagnosis Specimen A. SKIN, left upper cutaneous lip: BASAL CELL CARCINOMA, INFILTRATIVE PATTERN (C44.319) 1:49 PM [facility] DERMATOPATHOLOGY LABORATORY Clinical History SK vs BCC vs SCC. Path#[id number] 1:49 PM [facility] DERMATOPATHOLOGY LABORATORY Gross Description Specimen A: Received is one formalin filled container labeled with the patient's name and designated left upper cutaneous lip. The specimen consists of a shave biopsy measuring 6x4x1 mm. Jar 0. 1:49 PM [facility] DERMATOPATHOLOGY LABORATORY Microscopic Description Specimen A. SKIN, left upper cutaneous lip: Within the dermis there are nodular aggregates of basaloid cells associated with fibromyxoid stroma and epithelial-stromal clefts. At the advancing margin of the neoplasm, there are smaller angulated nests that infiltrate the dermis. 1:49 PM [facility] DERMATOPATHOLOGY LABORATORY Disclaimer An external and internal positive and negative controls are appropriate for the histochemical, immunohistochemical and immunofluorescence stain(s) in this case (if any), except where stated explicitly. The performance characteristics of the stain(s) cited in this report were developed and its performance characteristic determined by the Dermatopathology Laboratory at [facility], directed by Dr. Radha Cheung. These tests need not be, and therefore are not, approved by the [place] Food and Drug Administration. The tests are used for clinical purposes. Billing Codes Specimen Charges Stain Charges 51965 1 1 1:49 PM [facility] DERMATOPATHOLOGY LABORATORY Embedded Images 1:49 PM [facility] DERMATOPATHOLOGY LABORATORY Pathology/Cytolo gy TISSUE SPECIMEN FROM SKIN / Unknown 08/12/2020 3:33 AM 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 08/14/2020 6:15 AM 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 us Blas Stanford MD LAB - PATHOLOGY/CYTOLOGY ORDER BLOSSOM Final Result DERMATOPATHOLOGY LABORATORY [facility] - Department of Dermatology [address], [address] Floor [place] [id number] [place] [address] documented in this encounter Visit Diagnoses Not on filedocumented in this encounter Care Teams Churn Tender Relationship Specialty Start Date End Date Radha Hu MD [address] [facility] [address], [place] [address] PCP - General 04/24/20 documented as of this encounter
--- OUTSIDE RECORDS SUMMARY | 2024-12-02 17:51 | XMS_ITS | Clinical Summary ---
Author Organization [facility] Address [address] [place] [address] Care Team Providers Care Cardiovascular Tech Name Role Phone Jesi Taylor DO Unavailable [phone] Ru Stanford MD Unavailable [phone] Lirbado ZabalaM Unavailable [phone] Jesus Daly MD Unavailable [phone] Eugenia Ornelas NP Primary Care Provider [phone] Allergies Active Allergy Reactions Criticality Noted Date [...] (Vitamin B-12) 100 mcg tablet Activ e ikppour-uede-dxgn s-qfur-zdzeow 100 mg-150 mg- 50 mg-150 mg capsule [...] 09/28/2023 Assessment & Plan (09/28/2023 6:44 PM PROFESSOR OF CHEMICAL ENGINEERING): Patient with somewhat elevated fall risk score [...] today. Assessment & Plan (09/28/2023 6:43 PM PROFESSOR OF CHEMICAL ENGINEERING): Chronic. Has hearing aids. No signs of cerumen on exam in office today Assessment & Plan (10/03/2022 2:56 PM PROFESSOR OF CHEMICAL ENGINEERING): Obtain previous hearing test from [facility] Continue Hearing loss Seasonal allergic rhinitis [...] famotidine Assessment & Plan (09/28/2023 6:43 PM PROFESSOR OF CHEMICAL ENGINEERING): Chronic. Symptoms mostly controlled with famotidine. Continue. [...] nightly Assessment & Plan (07/12/2021 1:17 PM PROFESSOR OF CHEMICAL ENGINEERING): Stable, improving Patient reports she continues to have hoarseness of voice, decreased amount of throat clearing Continue famotidine 20 mg nightly, continue with behavioral changes; eating at least 4 hours before bedtime, reduce time high complexity meals; if no relief will evaluate need to increase dose of H2 sunny Assessment & Plan (06/16/2021 9:22 AM PROFESSOR OF CHEMICAL ENGINEERING): Pepcid 20 mg at bedtime LPR discussed [...] fractures Assessment & Plan (09/28/2023 6:41 PM PROFESSOR OF CHEMICAL ENGINEERING): Chronic. Due for updated bone density. Will [...] calcium daily through diet and supplements, vitamin-D 1968-0310 units daily Assessment & Plan (07/12/2021 1:18 PM PROFESSOR OF CHEMICAL ENGINEERING): Stable, continue with calcium and vitamin-D supplements Continue to monitor risk of fall or fracture Assessment & Plan (05/25/2021 4:28 PM CDT): Has worsening, with -5% bone density since last DEXA scan Continue calcium supplements, vitamin-D supplements At this time defers bisphosphonate therapy Primary osteoarthritis involving multiple joints 05/25/2021 Assessment & Plan (09/28/2023 6:43 PM PROFESSOR OF CHEMICAL ENGINEERING): Chronic. Recommended use of mgfg-cxg-ysuumjk acetaminophen. Caution with NSAIDs given history of [...] exam Assessment & Plan (09/28/2023 6:42 PM PROFESSOR OF CHEMICAL ENGINEERING): Patient reports she follows with dermatology and gets yearly skin exam. They are monitor some lesions but has not needed to cut anything off in a while. She does get periodic liquid nitrogen treatment for probable pre cancerous lesions. She is scheduled to follow up with the lecturer of portuguese for spot on her leg in the [...] amlodipine. Assessment & Plan (09/28/2023 6:42 PM PROFESSOR OF CHEMICAL ENGINEERING): Chronic. Mildly uncontrolled in office but patient [...] daily Assessment & Plan (07/12/2021 1:17 PM PROFESSOR OF CHEMICAL ENGINEERING): Stable, well controlled; blood pressure at target [...] lifestyle Assessment & Plan (09/28/2023 6:40 PM PROFESSOR OF CHEMICAL ENGINEERING): Chronic. Tolerates rosuvastatin. 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 Encounters Date Type Department Care Team Description 12/02/2024 Nurse Triage [facility] Primary Care at [address] [address] Eugenia Ornelas NP 11/14/2024 Telephone [facility] Primary Care at [address] [address] Eugenia Ornelas NP Medical Question/Miscellaneou s 11/11/2024 11:30 AM CDT Office Visit [facility] Primary Care at [address] [address] Eugenia Ornelas NP BMI 26.0-26.9,adult [...] asymmetrical 11/07/2024 11:20 AM CDT Ancillary Procedure [facility] Imaging at [address] [phone] Acute cough 11/07/2024 10:45 AM CDT Office Visit [facility] Care at [address] [phone] Charmaine Costello, CIARA Thrush (Primary Dx); Acute cough; Pneumonia of left lower lobe due to infectious organism 11/07/2024 Results Follow-Up [facility] Care at [address] [phone] Charmaine Costello, CIARA 10/17/2024 Documentation [facility] Primary Care at [address] [phone] Eugenia Ornelas NP 10/02/2024 Orders Only [facility] Primary Care at [address] [phone] Chloe Kumar MD 09/30/2024 Orders Only [facility] Primary Care at [address] [phone] Chloe Kumar MD 09/25/2024 Orders Only [facility] Primary Care at [address] [phone] Chloe Kumar MD 09/24/2024 Nurse Triage [facility] Primary Care at [address] [phone] Shraddha Rader MD 09/23/2024 Orders Only [facility] Primary Care at [address] [phone] Chloe Kumar MD from Last 3 Months [...] on file Legal Sex Female 11:48 PM PROFESSOR OF CHEMICAL ENGINEERING Gender Identity Not on file Sexual Orientation [...] Read Routine (OP Routine) 10/01/2024 7:50 AM PROFESSOR OF CHEMICAL ENGINEERING XR ABDOMEN AP 1 VIEW Schedule Routine, Read Routine (OP Routine) 09/29/2024 9:27 AM PROFESSOR OF CHEMICAL ENGINEERING XR CHEST 1 VIEW Schedule Routine, Read Routine (OP Routine) 09/25/2024 2:07 PM PROFESSOR OF CHEMICAL ENGINEERING XR HIP LEFT 2 OR 3 VIEWS Schedule Routine, Read Routine (OP Routine) 09/22/2024 9:59 AM PROFESSOR OF CHEMICAL ENGINEERING BRAIN COMPUTED TOMOGRAPHY (CT) Schedule Routine, Read Routine (OP Routine) 09/22/2024 9:57 AM PROFESSOR OF CHEMICAL ENGINEERING HM DEXA SCAN Routine 03/22/2024 2:36 PM [...] Barak Zarco M.D., AM T: Report ID: [id number] [place] Location: [id number] Procedure Note Barak Zarco MD - 11/07/2024 [...] Yepez: 11/07/2024 5:14 PM T: Report ID: [id number] [place] Location: [id number] Result [facility] Charmaine Costello NP IMG XR PROCEDURES Final Re sult * XR Chest 1 View (10/01/2024 7:50 AM PROFESSOR OF CHEMICAL ENGINEERING) Anatomical Region Laterality Modality Body, Chest N/A Radiographic Fay ging Result [facility] Historical Provider IMG XR PROCEDURES Final R esult * XR Abdomen 1 View AP (09/29/2024 9:27 AM PROFESSOR OF CHEMICAL ENGINEERING) Anatomical Region Laterality Modality Body, Abdomen N/A Radiographic Fay ging Result [facility] Provider IMG XR PROCEDURES Final R esult * XR Chest 1 View (09/25/2024 2:07 PM PROFESSOR OF CHEMICAL ENGINEERING) Anatomical Region Laterality Modality Body, Chest N/A Radiographic Fay ging Result [facility] Historical Provider IMG XR PROCEDURES Final R esult * XR Hip Left 2 or 3 Views (09/22/2024 9:59 AM PROFESSOR OF CHEMICAL ENGINEERING) Anatomical Region Laterality Modality Lower Extremities, Hip, Pelvis Left R adiographic Imaging Result [facility] Provider IMG XR PROCEDURES Final R esult * BRAIN COMPUTED TOMOGRAPHY (CT) (09/22/2024 9:57 AM PROFESSOR OF CHEMICAL ENGINEERING) Anatomical Region Laterality Modality N/A Computed Tomogra phy Result [facility] Provider IMG CT PROCEDURES Final R esult * HM DEXA SCAN (03/22/2024 2:36 PM CDT) Scribed HM Deca Scan Abnormal Result [facility] Historical Provider HEALTH MAINTENANCE Final Result from Last 3 Months or Most Recently Relevant to Health Maintenance Insurance [facility] MDCR HMO REF [facility] MEDICARE ADVANTAGE Care Teams Cardiovascular Tech Relationship Specialty Start Date End Date Eugenia Ornelas NP [address] [facility] [address] [place] [address] PCP - General Internal Medicine 11/11/24 Jesi Taylor DO [address] [place] [address] DR ROBERT Chappell [facility] [address] [place] [address] Consulting Physician Otolaryngology 09/28/23 Ru Stanford MD [address] [facility] [place] [address] Referring Physician Dermatology 09/28/23 Librado Zabala DPM [address] [place] [address] Podiatry 09/28/23 Jesus Daly MD [address] [address] Referring Physician Ophthalmology 09/28/23
--- OUTSIDE RECORDS SUMMARY | 2024-12-02 17:51 | XMS_ITS | Encounter Summary ---
Author Organization [facility] Address [address] [place] [address] Care Team Providers Care Dogger Name Role Phone Radha Hu MD Primary Care Provider [phone] Encounter Details Date Type Department Care Team (Late st Contact Info) Description 02/11/2022 Lab Requisition [facility] Care DermPath Lab [address] 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 Gender Identity Not on file Sexual Orientation Not on file documented as of this encounter Plan of Treatment Not on file documented as of this encounter Procedures Procedure Name Priority Date/Time Associated Diagnosis Comments DERMATOPATHOLOGY Routine 02/09/2022 12:0 0 AM CDT documented in this encounter Results * DERMATOPATHOLOGY (02/09/2022 12:00 AM CDT) Case Report Dermatopathology Report Case: [id number] Authorizing Provider: Bals Stanford MD Collected: 02/09/2022 12:00 AM Ordering Location: [facility] Care DermPath Lab Received: 02/11/2022 08:54 AM Pathologist: Tere Vaughn MD Specimen: Skin, left med. clavicular neck 2 1:14 PM CDT DERMATOPATHOLOGY LABORATORY Final Diagnosis Specimen A. SKIN, left med. clavicular neck: BASAL CELL CARCINOMA, NODULAR TYPE (C44.41) 2 1:14 PM CDT DERMATOPATHOLOGY LABORATORY Clinical History [facility]. Path#[id number] 2 1:14 PM CDT DERMATOPATHOLOGY LABORATORY Gross [...] characteristic determined by the Dermatopathology Laboratory at [facility], directed by Dr. Radha Cheung. These tests need not be, and therefore are not, approved by the [place] Food and Drug Administration. The tests are used for clinical purposes. Billing Codes Specimen Charges Stain Charges 40525 1 2 1:14 PM CDT DERMATOPATHOLOGY LABORATORY Embedded Images 2 1:14 PM CDT DERMATOPATHOLOGY LABORATORY Pathology/Cytolog y TISSUE SPECIMEN FROM SKIN / Unknown 02/09/2022 02/11/2022 8:54 AM CDT us Blas Stanford MD LAB - PATHOLOGY/CYTOLOGY ORDER BLOSSOM Final Result DERMATOPATHOLOGY LABORATORY [facility] - Department of Dermatology [address], [address] [phone] documented in this encounter Visit Diagnoses Not on filedocumented in this encounter Care Teams Dogger Relationship Specialty Start Date End Date Radha Hu MD [address] [facility] [address], [place] [address] PCP - General 04/24/20 documented as of this encounter
--- OUTSIDE RECORDS SUMMARY | 2024-12-02 17:51 | XMS_ITS | Encounter Summary ---
Author Organization [facility] Healthcare Address [address] [place] [address] Care Team Providers Care Unit Control Worker Name Role Phone Shraddha Rader MD Primary Care Provider Jesi Taylor DO Unavailable [phone] Ru Stanford MD Unavailable [phone] Librado Zabala DPM Unavailable [phone] Jesus Daly MD Unavailable [phone] Unknown, Notinfile Primary Care Provider Unavail able Eugenia Ornelas NP Primary Care Provider [phone] Reason for Visit * Reason Onset Date Comments Leg Pain 09/24/2024 Groin Pain 09/24/2024 Encounter Details Date Type Department Care Team (Late st Contact Info) Description 09/24/2024 Nurse Triage [facility] Medical Group Primary Care at [address] [phone] Shraddha Rader MD [address] [place] [address] [address] [place] [address] Social History Tobacco Use Types [...] on file Legal Sex Female 11:48 PM YIELD ENGINEER Gender Identity Not on file Sexual Orientation Not on file documented as of this encounter Miscellaneous Notes * Telephone Encounter - Edna Vivas MA - 09/25/2024 2:10 PM YIELD ENGINEER Spoke with patient and she stated that she is currently in the hospital being evaluated for this issue. D ENGINEER * Telephone Encounter - Gaby Marks NP - 09/24/2024 2:52 PM CST I have not met patient, I cannot send in pain medication without evaluation. If she is in severe pain then she needs to be seen in ER again or get patient set up with Ortho for further eval. D ENGINEER * Telephone Encounter - Helen Morataya MA - 09/24/2024 2:42 PM YIELD ENGINEER Pt has an appointment with Gaby Marks NP on 10/11/24 to establish care. D ENGINEER * Telephone Encounter - Nichole Jaimes RN - 09/24/2024 12:46 PM YIELD ENGINEER Reason for Disposition Patient wants to be seen Protocols used: Leg Rako-Ptdcg-RN Pt repots she slipped and fell on 09/22. She was evaluated at [facility]. She had a negative head ct [...] is requesting pain medication be sent to [facility] on file. Please advise pt Call back #[phone] Encounter routed to PCP D ENGINEER * Telephone Encounter - Nichole Jaimes RN - 09/24/2024 12:34 PM YIELD ENGINEER Regarding: slip & fell, pain in groin area and hamstring, getting her to stand is very difficult and painful fo ----- Message from Mouna Louis sent at 09/24/2024 12:32 PM YIELD ENGINEER ----- Symptom Based Call Chief Complaint(s): slip [...] Caller stated the patient was seen at [facility] on Monday for fall, caller stated patient experiencing pain in groin area and hamstring, please advise. Does message need to be routed? Yes-Action Needed D ENGINEER documented in this encounter Plan of Treatment Not on file documented as of this encounter Visit Diagnoses Not on filedocumented in this encounter Care Teams Unit Control Worker Relationship Specialty Start Date End Date Shraddha Rader MD PCP - General Family Medicine 09/28/23 11/06/24 Unknown, Notinfile PCP - General 11/07/24 11/10/24 Eugenia Ornelas NP [address] [facility] [address] [place] [address] PCP - General Internal Medicine 11/11/24 Jesi Taylor DO [address] [facility] [address] [facility] [address] [place] [address] Consulting Physician Otolaryngology 09/28/23 Ru Stanford MD [address] [place] [address] Referring Physician Dermatology 09/28/23 Librado Zabala DPM [address] [place] [address] Podiatry 09/28/23 Jesus Daly MD [address] [facility] [address] [place] [address] Referring Physician Ophthalmology 09/28/23 documented as of this encounter
--- OUTSIDE RECORDS SUMMARY | 2024-12-02 17:51 | XMS_ITS | Encounter Summary ---
Author Organization [facility] Healthcare Address [address] [place] [address] Care Team Providers Care Swing Ride Operator Name Role Phone Claudia Jesi Stokes DO Unavailable [phone] Ru Stanford MD Unavailable [phone] Librado Zabala DPM Unavailable [phone] Jesus Daly MD Unavailable [phone] Eugenia Ornelas NP Primary Care Provider Reason for Visit * Reason Onset Date Comments Medical Question/Miscellaneous 11/14/2024 Encounter Details Date Type Department Care Team (Late st Contact Info) Description 11/14/2024 Telephone [facility] Medical Group Primary Care at [address] [phone] Eugenia Ornelas NP [address] [place] [address] [address] [place] [address] Medical Question/Miscellaneous Social History Tobacco [...] on file 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 Gender Identity Not on file Sexual Orientation [...] on filedocumented in this encounter Care Teams Swing Ride Operator Relationship Specialty Start Date End Date Eugenia Ornelas NP [address] [facility] [address] [place] [address] PCP - General Internal Medicine 11/11/24 Jesi Taylor DO [address] [place] [address] DR ROBERT Chappell [facility] [address] [place] [address] Consulting Physician Otolaryngology 09/28/23 Ru Stanford MD [address] [facility] [place] [address] Referring Physician Dermatology 09/28/23 Librdao Zabala DPM [address] [place] [phone] Podiatry 09/28/23 Jesus Daly MD [address] [address] Referring Physician Ophthalmology 09/28/23 documented as of this encounter
--- OUTSIDE RECORDS SUMMARY | 2024-12-02 17:51 | XMS_ITS | Encounter Summary ---
Author Organization [facility] Healthcare Address [address] [place] [address] Care Team Providers Care Sink Maker Name Role Phone Brooklynjavier Jesi PratimaLizzie DO Unavailable [phone] Ru Stanford MD Unavailable [phone] Librado ZabalaM Unavailable [phone] Jesus Daly MD Unavailable [phone] Unknown, Notinfile Primary Care Provider Unavail able Eugenia Ornelas NP Primary Care Provider [phone] Encounter Details Date Type Department Care Team (Late st Contact Info) Description 11/07/2024 Results Follow-Up [facility] Medical Group Convenient Care at [address] [address] Charmaine Costello NP [address] [place] [address] [address] [place] [address] Social History Tobacco Use Types [...] on file 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 Gender Identity Not on file Sexual Orientation [...] on filedocumented in this encounter Care Teams Sink Maker Relationship Specialty Start Date End Date Unknown, Notinfile PCP - General 11/07/24 11/10/24 Eugenia Ornelas NP [address] [facility] [address] [place] [address] PCP - General Internal Medicine 11/11/24 Jesi Taylor DO [address] [facility] [address] [facility] [address] [place] [address] Consulting Physician Otolaryngology 09/28/23 Ru Stanford MD [address] [facility] [place] [address] Referring Physician Dermatology 09/28/23 Librado Zabala DPM [address] [facility] [place] [address] Podiatry 09/28/23 Jesus Daly MD [address] [facility] [address] [place] [address] Referring Physician Ophthalmology 09/28/23 documented as of this encounter
--- OUTSIDE RECORDS SUMMARY | 2024-12-02 17:51 | XMS_ITS | Continuity of Care Document ---
Author Organization [facility] Address [address] [facility] [address] [place] [address] Phone Care Team Providers Care Cinder Man Name Role Phone Ansari OD, Damon Unavailable Unavailable Procedures Procedure Date Eye Exam & Treatment Refraction Eye Exam & Treatment Refraction Eye Exam & Treatment CL Replacement - [employer] Other 007 Tax - Medical Advance Directives Directive Yes / No Effective Date File Name No Information Encounters Encounter Description Practice Location Reason(s) For Visit Diagnoses Date Provider Providers Copied on Encounter [facility], [address] [place] [address] [address], [place], [place], [id number], [place] tel:[phone] [facility] [place] No Information 2-201 0 Ansari OD Damon. [address] [facility] [place] , [address], [place], [place], [facility], [place]. tel:[phone] [facility], [address] [place] [address] [address], [place], [place], [id number], [place] tel:[phone] [facility] [place] No Information 0-200 9 Ansari OD Damon. [address] [facility] [address], [address], [place], [address], [place]. tel:[phone] [facility], [address] [place] [address] [address], [place], [place], [id number], [place] tel:[phone] [facility] No Information Nov-0 2-200 8 Ansari OD Damon. [address] [facility] , [address], [place], [address], [place]. tel:[phone] [facility], [address] [facility] [address], [place], [place], [id number], [place] tel:[phone] [facility] No Information 4-200 7 Ansari OD Damon. [address] [facility] , [address], [place], [address], [place]. tel:[phone] Family History Family Member Type Diagnosis Age At Onset No Information Payers Payer name Insurance type Covered democrat ID Authorsamira kristy(s) [employer] Plan [id number] Social History Type Description Quantity Date Captured [...]
--- OUTSIDE RECORDS SUMMARY | 2024-12-02 17:51 | XMS_ITS | Encounter Summary ---
Author Organization [facility] Healthcare Address [address] [place] [address] Care Team Providers Care Application Chemist Name Role Phone Shraddha Rader MD Primary Care Provider Jesi Taylor DO Unavailable [phone] Ru Stanford MD Unavailable [phone] Librado ZabalaM Unavailable [phone] Jesus Daly MD Unavailable [phone] Unknown, Notinfile Primary Care Provider Unavail able Eugenia Ornelas NP Primary Care Provider [phone] Encounter Details Date Type Department Care Team (Late st Contact Info) Description 12/11/2023 Orders Only [facility] Health Information Management [address] [place] [address] Scanning, Provider Social History Tobacco Use [...] on file 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 Gender Identity Not on file Sexual [...] on filedocumented in this encounter Care Teams Application Chemist Relationship Specialty Start Date End Date Shraddha Rader MD PCP - General Family Medicine 09/28/23 11/06/24 Unknown, Notinfile PCP - General 11/07/24 11/10/24 Eugenia Ornelas NP [address] [facility] [address] [place], [place] [id number] PCP - General Internal Medicine 11/11/24 Jesi Taylor DO [address] [facility] [address] [facility] 230 [place] [address] Consulting Physician Otolaryngology 09/28/23 Ru Stanford MD [address] [facility] [place] [address] Referring Physician Dermatology 09/28/23 Librado Zabala DPM [address] [place] [address] Podiatry 09/28/23 Jesus Daly MD [address] [facility] [facility] [address] [place] [address] Referring Physician Ophthalmology 09/28/23 documented as of this encounter
--- OUTSIDE RECORDS SUMMARY | 2024-12-02 17:51 | XMS_ITS | Encounter Summary ---
Author Organization [facility] Address [address] [place] [address] Care Team Providers Care Bankruptcy Assistant Name Role Phone Radha Hu MD Primary Care Provider [phone] Encounter Details Date Type Department Care Team (Late st Contact Info) Description 04/22/2022 Lab Requisition [facility] DermPath Lab [address] [place] [id number] Blas Stanford MD [address] [facility] [place], [place] [id number] Social History Tobacco Use Types Packs/Day Years Used Date Smoking Tobacco: Never Assessed Comments Unknown Sex and Gender Information Value Date Recorded Sex Assigned at Not on file Legal Sex Female 6:09 AM 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 Gender Identity Not on file Sexual Orientation Not on file documented as of this encounter Plan of Treatment Not on file documented as of this encounter Procedures Procedure Name Priority Date/Time Associated Diagnosis Comments DERMATOPATHOLOGY Routine 04/20/2022 12:0 0 AM CDT documented in this encounter Results * DERMATOPATHOLOGY (04/20/2022 12:00 AM CDT) Case Report Dermatopathology Report Case: [id number] Authorizing Provider: Blas Stanford MD Collected: 04/20/2022 12:00 AM Ordering Location: [facility] DermPath Lab Received: 04/22/2022 09:37 AM Pathologist: Allyn Cheung MD Specimen: Skin, left mid clavicular neck 2 5:38 PM CDT DERMATOPATHOLOGY LABORATORY Final Diagnosis Specimen A. 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 Check margins.Path#[id number] 2 5:38 PM CDT DERMATOPATHOLOGY LABORATORY Gross Description Specimen A: Received is one formalin filled container labeled with the patient's name and designated left mid clavicular neck. The specimen consists of a non-oriented ellipse of skin measuring [id number] mm. The epidermal surface is unremarkable. The [...] determined by the Dermatopathology Laboratory at [facility], directed by Dr. Radha Cheung. These tests need not be, and therefore are not, approved by the [place] Food and Drug Administration. The tests are used for clinical purposes. Billing Codes Specimen Charges Stain Charges 51534 1 2 5:38 PM CDT DERMATOPATHOLOGY LABORATORY Embedded Images 2 5:38 PM CDT DERMATOPATHOLOGY LABORATORY Pathology/Cytolog y TISSUE SPECIMEN FROM SKIN / Unknown 04/20/2022 04/22/2022 9:37 AM CDT us Blas Stanford MD LAB - PATHOLOGY/CYTOLOGY ORDER BLOSSOM Final Result DERMATOPATHOLOGY LABORATORY [facility] - Department of Dermatology [facility] Medicine [address] [place] [address], [address] [phone] documented in this encounter Visit Diagnoses Not on filedocumented in this encounter Care Teams Bankruptcy Assistant Relationship Specialty [place] [address] [place] [id number] PCP - General 04/24/20 documented as of this encounter
--- OUTSIDE RECORDS SUMMARY | 2024-12-02 17:51 | XMS_ITS | Encounter Summary ---
Author Organization [facility] Address [address] [place] [address] Care Team Providers Care Sludge Filtration Attendant Name Role Phone Radha Hu MD Primary Care Provider [phone] Encounter Details Date Type Department Care Team (Late st Contact Info) Description 04/27/2020 Lab Requisition [facility] DermPath Lab [address] [place] [address] Blas Stanford MD [address] [facility] [place] [address] Social History Tobacco Use Types Packs/Day Years Used Date Smoking Tobacco: Never Assessed Comments Unknown Sex and Gender Information Value Date Recorded Sex Assigned at Not on file 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 Gender Identity Not on file Sexual Orientation Not on file documented as of this encounter Plan of Treatment Not on file documented as of this encounter Procedures Procedure Name Priority Date/Time Associated Diagnosis Comments DERMATOPATHOLOGY Routine 04/24/2020 12:0 0 AM CDT documented in this encounter Results * DERMATOPATHOLOGY (04/24/2020 12:00 AM CDT) Case Report Dermatopathology Report Case: [id number] Authorizing Provider: Blas Stanford MD Collected: 04/24/2020 12:00 AM Ordering Location: [facility] DermPath Lab Received: 04/27/2020 06:16 AM Pathologist: Allyn Cheung MD Specimen: Skin, left ala 0 11:46 AM CDT DERMATOPATHOLOGY LABORATORY Final Diagnosis Specimen A. SKIN, left ala: BASAL CELL CARCINOMA, NODULAR TYPE (C44.311) 0 11:46 AM CDT DERMATOPATHOLOGY LABORATORY Clinical History BCCA. Path # [id number]. 0 11:46 AM CDT DERMATOPATHOLOGY LABORATORY Gross Description Specimen A: Received is one formalin filled container labeled with the patient's name and designated left ala. The specimen consists of a shave biopsy measuring 6s4i2vl. Jar 0. 0 11:46 AM CDT DERMATOPATHOLOGY [...] characteristic determined by the Dermatopathology Laboratory at [facility], directed by Dr. Radha Cheung. These tests need not be, and therefore are not, approved by the [place] Food and Drug Administration. The tests are used for clinical purposes. Billing Codes Specimen Charges Stain Charges 12462 1 0 11:46 AM CDT DERMATOPATHOLOGY LABORATORY Embedded Images 0 11:46 AM CDT DERMATOPATHOLOGY LABORATORY Pathology/Cytolog y TISSUE SPECIMEN FROM SKIN / Unknown 04/24/2020 04/27/2020 6:16 AM CDT us Blas Stanford MD LAB - PATHOLOGY/CYTOLOGY ORDER BLOSSOM Final Result DERMATOPATHOLOGY LABORATORY [facility] - Department of Dermatology [address], [address] [phone] documented in this encounter Visit Diagnoses Not on filedocumented in this encounter Care Teams Sludge Filtration Attendant Relationship Specialty Start Date End Date Radha Hu MD [address] [facility] [address], [place] [address] PCP - General 04/24/20 documented as of this encounter
--- OUTSIDE RECORDS SUMMARY | 2024-12-02 17:51 | XMS_ITS | Clinical Summary ---
Author Organization [facility] Address [address] [facility] [place] [address] Care Team Providers Care Food Selector Name Role Phone Radha Hu MD Primary Care Provider [phone] Source Comments [facility],non-owned Affiliates and Associated Physician Practices is amultiple site organization consisting of ambulatory clinics and hospital sitesin [place], [place], [place] and [place]. This disclosure is being madepursuant to the Care Everywhere program and may not contain all information available regarding this patient. 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
--- OUTSIDE RECORDS SUMMARY | 2024-12-02 17:51 | XMS_ITS | CONTINUITY OF CARE DOCUMENT ---
Author Name pedro luis cloud Address Unknown Organization [facility] Address [address] [place] [address] [address] [place] [address] Phone [phone] Care Team Providers Care Senior Ux Developer Name Role Phone pedro luis cloud Unavailable Unavailable INSURANCE PROVIDERS Payer name Policy type / Coverage type Fannin red green party ID [facility] MEDICARE COMPLETE POS HMO Other [id number]
--- OUTSIDE RECORDS SUMMARY | 2024-12-02 17:51 | XMS_ITS | Referral Summary ---
Author Organization [facility] Address [address] [place] [address] Care Team Providers Care Receiving Team Member Name Role Phone BrooklynJesi herreraLizzie DO Unavailable [phone] Ru Stanford MD Unavailable [phone] Librado Zabala DPM Unavailable [phone] Jesus Daly MD Unavailable [phone] Eugenia Ornelas NP Primary Care Provider Encounters Date Type Department Care Team Description 12/02/2024 Nurse Triage [facility] Medical [facility] Primary Care at [address] [address] Eugenia Ornelas NP 11/14/2024 Telephone [facility] Primary Care at [address] [address] Eugenia Ornelas NP Medical Question/Miscellaneou s 11/11/2024 11:30 AM CDT Office Visit [facility] Medical [facility] Primary Care at [address] [address] Eugenia Ornelas NP BMI 26.0-26.9,adult [...] (sensory-neural hearing loss), asymmetrical 11/07/2024 Results Follow-Up [facility] Convenient Care at [address] [phone] Charmaine Costello, CIARA 11/07/2024 11:20 AM CDT Ancillary Procedure [facility] Imaging at [address] [address] Acute cough 11/07/2024 10:45 AM CDT Office Visit [facility] Care at [address] [phone] Charmaine Costello NP Thrush (Primary Dx); Acute cough; Pneumonia of left lower lobe due to infectious organism 10/17/2024 Documentation [facility] Primary Care at [address] [phone] Eugenia Ornelas NP 10/02/2024 Orders Only [facility] Primary Care at [address] [phone] Chloe Kumar MD 09/30/2024 Orders Only [facility] Primary Care at [address] [phone] Chloe Kumar MD 09/25/2024 Orders Only [facility] Primary Care at [address] [phone] Chloe Kumar MD 09/24/2024 Nurse Triage [facility] Primary Care at [address] [phone] Shraddha Rader MD 09/23/2024 Orders Only [facility] Primary Care at [address] [phone] Chloe Kumar MD from Last 3 Months [...] (Vitamin B-12) 100 mcg tablet Activ e wjhcbir-emxv-kggf j-kswg-mvvnrf 100 mg-150 mg- 50 mg-150 mg capsule [...] 09/28/2023 Assessment & Plan (09/28/2023 6:44 PM INDIGO MIXER): Patient with somewhat elevated fall risk score [...] today. Assessment & Plan (09/28/2023 6:43 PM INDIGO MIXER): Chronic. Has hearing aids. No signs of cerumen on exam in office today Assessment & Plan (10/03/2022 2:56 PM INDIGO MIXER): Obtain previous hearing test from [facility] Continue Hearing loss Seasonal allergic rhinitis [...] famotidine Assessment & Plan (09/28/2023 6:43 PM INDIGO MIXER): Chronic. Symptoms mostly controlled with famotidine. Continue. [...] nightly Assessment & Plan (07/12/2021 1:17 PM INDIGO MIXER): Stable, improving Patient reports she continues to have hoarseness of voice, decreased amount of throat clearing Continue famotidine 20 mg nightly, continue with behavioral changes; eating at least 4 hours before bedtime, reduce time high complexity meals; if no relief will evaluate need to increase dose of H2 sunny Assessment & Plan (06/16/2021 9:22 AM INDIGO MIXER): Pepcid 20 mg at bedtime LPR discussed [...] fractures Assessment & Plan (09/28/2023 6:41 PM INDIGO MIXER): Chronic. Due for updated bone density. Will [...] calcium daily through diet and supplements, vitamin-D 7017-8377 units daily Assessment & Plan (07/12/2021 1:18 PM INDIGO MIXER): Stable, continue with calcium and vitamin-D supplements Continue to monitor risk of fall or fracture Assessment & Plan (05/25/2021 4:28 PM CDT): Has worsening, with -5% bone density since last DEXA scan Continue calcium supplements, vitamin-D supplements At this time defers bisphosphonate therapy Primary osteoarthritis involving multiple joints 05/25/2021 Assessment & Plan (09/28/2023 6:43 PM INDIGO MIXER): Chronic. Recommended use of mkdl-itg-qcwgmzy acetaminophen. Caution with NSAIDs given history of [...] exam Assessment & Plan (09/28/2023 6:42 PM INDIGO MIXER): Patient reports she follows with dermatology and gets yearly skin exam. They are monitor some lesions but has not needed to cut anything off in a while. She does get periodic liquid nitrogen treatment for probable pre cancerous lesions. She is scheduled to follow up with the ethylene compressor operator for spot on her leg in the [...] amlodipine. Assessment & Plan (09/28/2023 6:42 PM INDIGO MIXER): Chronic. Mildly uncontrolled in office but patient [...] daily Assessment & Plan (07/12/2021 1:17 PM INDIGO MIXER): Stable, well controlled; blood pressure at target [...] lifestyle Assessment & Plan (09/28/2023 6:40 PM INDIGO MIXER): Chronic. Tolerates rosuvastatin. Denies history of clinically [...] daily Assessment & Plan (07/12/2021 1:16 PM INDIGO MIXER): Stable, well controlled; total cholesterol 198; LDL [...] 11/11/2024 Assessment & Plan (10/03/2022 2:56 PM INDIGO MIXER): Restart Pepcid 20 mg at bedtime Continue [...] chest Assessment & Plan (07/12/2021 1:19 PM INDIGO MIXER): Stable, patient continues to follow with dermatology [...] on file Legal Sex Female 11:48 PM INDIGO MIXER Gender Identity Not on file Sexual Orientation [...] Read Routine (OP Routine) 10/01/2024 7:50 AM INDIGO MIXER XR ABDOMEN AP 1 VIEW Schedule Routine, Read Routine (OP Routine) 09/29/2024 9:27 AM INDIGO MIXER XR CHEST 1 VIEW Schedule Routine, Read Routine (OP Routine) 09/25/2024 2:07 PM INDIGO MIXER XR HIP LEFT 2 OR 3 VIEWS Schedule Routine, Read Routine (OP Routine) 09/22/2024 9:59 AM INDIGO MIXER BRAIN COMPUTED TOMOGRAPHY (CT) Schedule Routine, Read Routine (OP Routine) 09/22/2024 9:57 AM INDIGO MIXER HM DEXA SCAN Routine 03/22/2024 2:36 PM [...] Barak Zarco M.D. AM T: Report ID: [id number] Reading Location: [id number] Procedure Note Barak Zarco MD - 11/07/2024 [...] Barak Zarco M.D. AM T: Report ID: [id number] Reading Location: [id number] Charmaine Costello NP IMG XR PROCEDURES Final Re sult * XR Chest 1 View (10/01/2024 7:50 AM INDIGO MIXER) Anatomical Region Laterality Modality Body, Chest N/A Radiographic Fay ging Historical Provider IMMary XR PROCEDURES Final R esult * XR Abdomen 1 View AP (09/29/2024 9:27 AM INDIGO MIXER) Anatomical Region Laterality Modality Body, Abdomen N/A Radiographic Fay ging Historical Provider IMG XR PROCEDURES Final R esult * XR Chest 1 View (09/25/2024 2:07 PM INDIGO MIXER) Anatomical Region Laterality Modality Body, Chest N/A Radiographic Fay ging Historical Provider IMG XR PROCEDURES Final R esult * XR Hip Left 2 or 3 Views (09/22/2024 9:59 AM INDIGO MIXER) Anatomical Region Laterality Modality Lower Extremities, Hip, Pelvis Left R adiographic Imaging Historical Provider IMG XR PROCEDURES Final R esult * BRAIN COMPUTED TOMOGRAPHY (CT) (09/22/2024 9:57 AM INDIGO MIXER) Anatomical Region Laterality Modality N/A Computed Tomogra phy Result [facility] Historical Provider IMG CT PROCEDURES Final R esult * HM DEXA SCAN (03/22/2024 2:36 PM CDT) Scribed HM Deca Scan Abnormal Result [facility] Provider HEALTH MAINTENANCE Final Result from Last 3 Months or Most Recently Relevant to [place] [address] [facility] [place] [address] [facility] [place] [address] Care Teams Receiving Team Member Relationship Specialty Start Date End Date Eugenia Ornelas NP [address] [facility] [address] [place] [address] PCP - General Internal Medicine 11/11/24 Jesi Taylor DO [address] [facility] [facility] [address] [facility] [address] [place] [address] Consulting Physician Otolaryngology 09/28/23 Ru Stanford MD [address] [place] [address] Referring Physician Dermatology 09/28/23 Librado Zabala DPM [address] [place] [id number] Podiatry 09/28/23 Jesus Daly MD [address] [place] [id number] Referring Physician Ophthalmology 09/28/23
--- OUTSIDE RECORDS SUMMARY | 2024-12-02 17:51 | XMS_ITS | Encounter Summary ---
Author Organization [facility] Address [address] [place] [address] Care Team Providers Care Shipping Clerk Name Role Phone Brooklynjavier Jesi PratimaLizzie DO Unavailable [phone] Ru Stanford MD Unavailable [phone] Librado Zabala DPM Unavailable [phone] Jesus Daly MD Unavailable [phone] Eugenia Ornelas NP Primary Care Provider Reason for Visit * Reason Onset Date Comments eye 12/02/2024 Encounter Details Date Type Department Care Team (Late st Contact Info) Description 12/02/[address] 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 Did reach out to her info specialist but was told she would need to be seen by pcp first. Appt scheduled today in the office for evaluation. Home care reviewed. Advised pt to call back if symptoms worsen or with any other concerns/questions. Pt verbalized understanding. Reason for Disposition Eyelids swollen shut Protocols used: Eye Mnfkrp-Wjdwu-EZ * Telephone Encounter - Giana Sosa RN [...] Comments: The eye is completely closed, its oml-hwidb-cvkq in color; she has been icing it. Contacted specialist about her eye and they informed her that she need to be seen by Primary Care first. Does message need to be routed? Yes-Action Needed documented in this encounter Plan of Treatment Not on file documented as of this encounter Visit Diagnoses Not on filedocumented in this encounter Care Teams Shipping Clerk Relationship Specialty Start Date End Date Eugenia Ornelas NP [address] [place] [address] [place] [address] PCP - General Internal Medicine 11/11/24 Jesi Taylor DO [address] [facility] [address] [place] [address] [place] [address] Consulting Physician Otolaryngology 09/28/23 Ru Stanford MD [address] [facility] [place] [address] Referring Physician Dermatology 09/28/23 Librado Zabala DPM [address] [facility] [address] Podiatry 09/28/23 Jesus Daly MD [address] [facility] [facility] [place] [address] [place] [address] Referring Physician Ophthalmology 09/28/23 documented as of this encounter
== END 2024-12-02 16:32 | disposition home or self-care (01) ==
LOC: ANHED 15:52
PROVIDERS: Emergency Provider Physician Assistant; PCP Nurse Practitioner Family
DX: S00.11XA Contusion of right eyelid and periocular area, initial encounter (principal); R90.82 White matter disease, unspecified; I12.9 Hypertensive chronic kidney disease with stage 1 through stage 4 chronic kidney disease, or unspecified chronic kidney disease; N18.30 Chronic kidney disease, stage 3 unspecified; I48.91 Unspecified atrial fibrillation; E78.5 Hyperlipidemia, unspecified; M19.90 Unspecified osteoarthritis, unspecified site; Z85.828 Personal history of other malignant neoplasm of skin; Z87.442 Personal history of urinary calculi; W18.40XA Slipping, tripping and stumbling without falling, unspecified, initial encounter
CPT/HCPCS: 70450; 72125; 99284

== ENCOUNTER 2025-01-27 10:30 | Outpatient (CLI) | payer MEDICARE, SELFPAY ==
--- NOTE | ~2025-01-27 | MR_ITS ---
EXAMINATION: MR lumbar spine wo con DATE: 01/27/2025 11:16 INDICATION: Lumbar back pain TECHNIQUE: Magnetic resonance imaging (MRI) of the lumbar spine was performed without intravenous con trast. Sequences included sagittal T2-weighted FSE, sagittal T2-weighted FS FSE, sagittal T1-weighted FSE, and axial T2-weighted FSE. COMPARISON: None FINDINGS: 10 degrees lumbar dextroscoliosis. 1-2 mm retrolisthesis T12 on L1, 4 mm anterolisthesis L4 on L5 and 2-3 mm anterolisthesis L5 on S1. Vertebral body heights are normal. There is a transverse fracture e xtending across the cephalad aspect of the S2 segment with mild posterior displacement and 45 degree anterior angulation of the caudal portion of the sacrum. There are also minimally displaced bilateral sagittal oriented fractures across the sacral ala. There appears to be some associated callus format ion and minimal increased fluid signal consistent with early chronic fracture which appears relativel y acute on CT dated 09/25/2024 subacute to chronic. Severe disc height loss diffusely at L3-L4, at the left side of L2-L3, right-sided of L4-L5 and right side of L5-S1, each with associated fibrofatty de generative endplate changes. Mild left-sided predominant disc height loss at L1-L2 and right-sided di sc height loss at T12-L1. Moderate disc height loss at T9-T10 and severe right-sided disc height loss with fibrofatty degenerative endplate changes at T10-T11. The conus terminates at T12-L1. There is n ormal signal in the caudal spinal cord. Multilobulated retroperitoneal cystic structure without evide nt solid soft tissue component posterior to the right laquita of the diaphragm which measures 5.0 x 3.7 cm in maximal dimensions on the sagittal imaging also likely representing a lymphangioma. Couple T2 h yperintense left renal cysts the largest incompletely visualized but measuring at least 4.6 cm. The f ollowing disc levels are specifically discussed: T12-L1: Disc is bulging with annular fissure and superimposed central disc extrusion with disc materi al extending up to 5 mm caudal to the level of the superior endplate of L1. There is moderate bilater al facet joint osteoarthritis. There is mild to moderate bilateral neural foraminal stenosis. There i s mild central canal stenosis. L1-L2: Disc is bulging. There is mild bilateral facet joint osteoarthritis. There is mild right and m ild to moderate left neural foraminal stenosis. There is mild central canal stenosis. L2-L3: Disc is bulging. There is mild to moderate right and moderate left facet joint osteoarthritis. There is mild right and moderate left neural foraminal stenosis. There is mild central canal stenosi s. L3-L4: Disc is bulging. Superimposed annular fissure and left posterolateral extraforaminal central d isc extrusion which extends 10 mm craniocaudally from the level of the inferior endplate of L3 and me asures 8 x 7 mm in maximal transaxial dimensions. There is moderate to severe bilateral facet joint o steoarthritis. There is mild to moderate bilateral neural foraminal stenosis. There is mild central c anal stenosis. L4-L5: Disc is bulging. There is severe bilateral facet joint osteoarthritis. There is moderate left and moderate to severe right neural foraminal stenosis. There is mild central canal stenosis. L5-S1: Disc is mildly bulging. There is severe bilateral facet joint osteoarthritis. There is mild bi lateral neural foraminal stenosis. There is no central canal stenosis. IMPRESSION: 1. 10 degrees lumbar dextroscoliosis with severe spondylosis. 2. Healing, early chronic sacral fractures, sagittal oriented at the bilateral sacroiliac joints and transverse oriented across the cephalad aspect of S2. Reviewed, dictated and finalized at location A.
== END 2025-01-27 10:31 | disposition home or self-care (01) ==
LOC: GOSHIMG 10:31
PROVIDERS: PCP Nurse Practitioner; Visit Provider Nurse Practitioner
DX: M41.86 Other forms of scoliosis, lumbar region (principal); M43.06 Spondylolysis, lumbar region; S32.10XD Unspecified fracture of sacrum, subsequent encounter for fracture with routine healing; X58.XXXD Exposure to other specified factors, subsequent encounter
CPT/HCPCS: 72148